=== PATIENT | female | born 1955 | race African-American/Black ===

== ENCOUNTER 2016-12-28 02:42 | Inpatient (IN) | payer OTHER ==
[2016-12-28] MEDS ORDERED: Fentanyl 20 MCG/ML 250 ML ONE (03:33)
[2016-12-28] MEDS ORDERED: Propofol 1,000 MG/100 ML VIAL IV ONE (03:44)
[2016-12-28 04:37] LABS: Oxyhemoglobin 93.9 % (94.0-97.0); Sodium 149 mmol/L (135-148)
[2016-12-28 04:39] LABS: Modified Allen's Test POSITIVE; Vent YES
[2016-12-28 04:41] LABS: Mechanical Tidal Volume 500 ml; Mode SIMV; Pressure Support 10 cmH2O
[2016-12-28 05:04] LABS: Bilirubin Negative (Negative); Blood, Urine Moderate (Negative); Glucose, Urine (Dipstick) Negative (Negative); Ketone, Urine Negative (Negative); Nitrite Negative (Negative); Protein, Urine (Dipstick) 100 mg/dL (Neg-Trace); Urobilinogen 0.2 mg/dL (0.2-1.0)
[2016-12-28 05:10] LABS: Bacteria/HPF 1+ HPF (None Seen); Hyaline Casts/LPF 4-6 HYALINE CAST LPF (0-3 Hyaline); RBC/HPF 0-3 HPF (0-3); Squamous Epithelial None Seen HPF (0-3); WBC/HPF 21-50 HPF (0-3)
[2016-12-28] MEDS ORDERED: Sodium Bicarb 50 MEQ/50 ML Abboject 8.4% SYRINGE ONE ×3 (05:13→08:45)
--- NOTE | 2016-12-28 05:17 | ER ---
DATE OF SERVICE: 12/28/2016 Please refer to the patient's electronic medical record for further details of her visit. In summary, the patient presents in transfer from an outlying facility with reported urosepsis. She was diagnosed with urinary tract infection approximately 3 days ago and started on oral antibiotics . By report, her family brought her to the emergency room tonight with altered mentation and some c ombativeness. She was agitated at the outlying facility and received Ativan, which reportedly calme d her significantly. She had a normal brain CT without acute findings, and a chest x-ray which show ed no acute abnormalities. On arrival, the patient was obtunded, but could answer occasional questi ons. I was concerned for airway protection given her sonorous respirations and difficulty staying a wake. However, given her comorbid conditions of morbid obesity and previous tracheostomy, I consult ed with Anesthesia as well as an ENT and Trauma Surgery for possible tracheostomy placement. Ultima tely, the patient was intubated in the emergency department by Anesthesia without complication or hy poxia. The patient's initially borderline blood pressure improved with IV fluids, and she is actual ly hypertensive at this point. She was hydrated with further IV fluids and covered with antibiotics . Her source is likely urinary, given the findings on urinalysis. She was also noted to have acute renal insufficiency along with metabolic acidosis. Her potassium does not require intervention at this point. She was sedated following intubation, and remained stable during the remainder of her E R course to this point. I discussed her case with Dr. Velazquez and Dr. La, who were agreeable to ICU admission. The patient's family was not present during her ER course this morning, and I was un able to communicate findings or plan with them. She is in guarded condition at the time of admissio n.
--- NOTE | 2016-12-28 06:30 | PDOC.EVN ---
Event Note - Event Note Event Note: H&P Dictated [id number] 1. Sepsis 2. Metabolic acidosis 3. Acute respiratory failure 4. UTI 5, CKD Stage 4 plan: see orders
[2016-12-28] MEDS ORDERED: DISCONTINUE PREVIOUS NARCOTIC PAIN MEDICATIONS AND BENZODIAZEPINES FS SCH (07:19)
[2016-12-28] MEDS ORDERED: Lorazepam 2 MG/ML VIAL SLOW IVP PRN (07:19)
[2016-12-28] MEDS ORDERED: Morphine 4 MG/ML Carpuject SLOW IVP PRN (07:19)
[2016-12-28] MEDS: FOSPHENYTOIN SODIUM IVPB SCH ×3 (07:25→21:44)
[2016-12-28] MEDS: ADMIXTURE FEE IVPB SCH ×3 (07:25→21:44)
[2016-12-28] MEDS: Levothyroxine 100 MCG SDV IVP SCH (07:25)
[2016-12-28] MEDS: Sodium Bicarbonate 150 MEQ in Dextrose 5% in Water 1,000 ML IV SCH ×4 (07:25→20:12)
[2016-12-28] MEDS: SODIUM CHLORIDE IVPB SCH ×3 (07:25→21:44)
--- NOTE | 2016-12-28 07:37 | HP ---
DATE OF ADMISSION: 12/28/2016 CHIEF COMPLAINT: Altered mental status. HISTORY OF PRESENT ILLNESS: Patient is 61 years old female with past medical history of hypertensio n; CKD, stage 4; anemia; seizure disorder; diabetes; cervical cancer; status post diversional colost tracy; morbid obesity; now came to the ER, because of altered mental status. The patient was diagnose d as having UTI and was getting antibiotic as an outpatient. The patient was confused for the last couple of days, so patient was taken to outside ER. In the outside ER, patient was suspected of hav ing a sepsis, so patient was transferred here. Upon ER arrival, the patient was severely acidotic a nd patient was lethargic and not able to protect airway, so the patient was intubated by the Anesthe servando in the ER. By the time I saw the patient, the patient was intubated, so I am not able to get an y history from the patient. PAST MEDICAL HISTORY: As per HPI. PAST SURGICAL HISTORY: Per chart, positive for colostomy, history of ileal conduit placement, nephr ostomy tube placement, and bilateral tubal ligation. SOCIAL HISTORY: No smoking, no alcohol, no drugs. FAMILY HISTORY: Positive for diabetes. MEDICATIONS: Reviewed. ALLERGIES: Reviewed. REVIEW OF SYSTEMS: None available from the patient, as the patient is currently intubated. PHYSICAL EXAMINATION: CONSTITUTIONAL/VITAL SIGNS: At the time of H and P performed, blood pressure is 130/70, heart rate 88, pulse ox 100% on ventilator. GENERAL: The patient is lethargic. HEENT: Anterior nares patent. Oral cavity, positive for ET tube. NECK: Supple. No JVD. CARDIOVASCULAR SYSTEM: S1 and S2 present. Regular rate and rhythm, no murmurs, no rubs, no gallops . RESPIRATORY SYSTEM: Positive for rhonchi, diminished breath sounds, no wheezing, on ventilator supp ort. GASTROINTESTINAL: Abdomen positive for colostomy bag, positive for ileostomy. MUSCULOSKELETAL: No edema. CRANIAL NERVE SYSTEM: Sedated and intubated, not following any commands. PSYCHIATRIC: Not able to assess at this time. INTEGUMENTARY: Dry skin. LABORATORY DATA: At the time of H and P performed, pH 7.10, pCO2 of 36, pO2 of 86, bicarbonate is 2 11. Troponin 0.030. UA: Moderate blood, moderate leukocyte esterase, 21-50 WBCs, 1+ bacteria in u rine. White count, in the outside hospital, 11.9, hemoglobin 11.1, platelets count is 259, bands 13 %. ASSESSMENT AND PLAN: The patient is 61 years old female. 1. Acute respiratory failure, probably secondary to severe metabolic acidosis. Plan to monitor pat ient closely. Continue BiPAP. Plan to consult Pulmonary to evaluate the patient. 2. Severe metabolic acidosis. We will go ahead and give 1 ampule of bicarbonate push now. We will go ahead and start patient on bicarbonate drip and we will consult Nephrology to evaluate the patie nt also. Does not need dialysis at this time. We will monitor serial lactate levels. 3. Sepsis secondary to urinary tract infection. Plan to start patient on broad-spectrum antibiotic s. Plan to monitor the patient closely. Plan to do blood cultures also. 4. Urinary tract infection. Continue IV antibiotics. 5. History of seizures. Plan is to start the patient on IV Dilaudid 10 mg q.8 hours. 6. History of hypothyroidism. Continue Synthroid 50 mcg IV daily. The case was discussed in detail with the patient and ED physician and ED nurse also.
[2016-12-28 07:48] LABS: Oxyhemoglobin 97.4 % (94.0-97.0); Sodium 150 mmol/L (135-148)
[2016-12-28 07:53] LABS: Mechanical Tidal Volume 500 ml; Mode SIMV; Pressure Support 10 cmH2O; Vent YES
[2016-12-28] MEDS: Propofol 1,000 MG/100 ML VIAL IV PRN ×3 (07:56→20:12)
[2016-12-28] MEDS ORDERED: Cefepime 1 GM, Admixture Fee 1 EACH in Sodium Chloride 0.9% 100 ML IVPB SCH (08:00)
[2016-12-28] MEDS ORDERED: Sodium Bicarb 50 MEQ/50 ML Abboject 8.4% SYRINGE IVP SCH ×2 (08:15→09:45)
[2016-12-28 08:20] LABS: Troponin I 0.033 ng/mL (< 0.028)
--- NOTE | 2016-12-28 09:16 | RAD ---
PORTABLE AP CHEST XRAY: DATE: 12/28/16. HISTORY: Altered mental status. COMPARISON: 12/28/16 at 0102 hours. FINDINGS: There has been interval placement of an endotracheal tube with the tip overlying the T3 vertebral edie dy above the level of the kellie. Nasogastric tube has also been placed in the interim which course s into the left upper quadrant, but the tip is not visualized. Again noted is enlargement of the ca rdiac silhouette with a suggestion of tiny bilateral pleural effusions. Pulmonary vasculature is wi thin normal limits. No other interval change. IMPRESSION: 1. Interval placement of an endotracheal tube and nasogastric tube. 2. Tiny bilateral pleural effusions. 3. Cardiomegaly. POS: MED
--- NOTE | 2016-12-28 09:20 | CT ---
PRELIMINARY REPORT/[facility]/EMERGENCY AFTER HOURS PROCEDURE: EXAM: CT Abdomen and Pelvis Without Intravenous Contrast CLINICAL HISTORY: 61 years old, female; Pain; Abdominal pain; Generalized; Patient HX: Pain, evaluate TECHNIQUE: Axial computed tomography images of the abdomen and pelvis without intravenous contrast. Coronal reformatted images were created and reviewed. COMPARISON: No relevant prior studies available. FINDINGS: Lower thorax: Cardiomegaly with a small moderate pericardial effusion There is minimal bibasilar ate lectasis. ABDOMEN: Liver: Unremarkable. No ductal dilation. Pancreas: Unremarkable. No ductal dilation. Spleen: Unremarkable. No splenomegaly. Adrenals: Unremarkable. No mass. Kidneys and ureters and bladder: Patient status post cystectomy with urinary diversion. Mild bilater al hydroureteronephrosis. Stomach and bowel: Colectomy changes. Bilateral lower abdominal ostomies. Small parastomal hernia is seen bilaterally containing small bowel. No evidence of inflammatory changes. No obstruction. Appendix: See above. PELVIS: Reproductive: Hysterectomy. Pelvic postsurgical changes. ABDOMEN and PELVIS: Intraperitoneal space: No free air. No significant fluid collection. Bones/joints: Soft tissue irregularity/laceration overlying the inferior sacrum/coccyx. Osteomyeliti s not excluded. Metallic fragment seen adjacent to the left posterior aspect of the sacrum. Marked degenerative changes of the pubic symphysis. No acute fracture. No dislocation. Vasculature: Unremarkable. No abdominal aortic aneurysm. Lymph nodes: Unremarkable. No enlarged lymph nodes. Tubes, lines and devices: Enteric tube noted with tip terminating within the stomach. IMPRESSION: 1. Patient status post cystectomy with urinary diversion. Mild bilateral hydroureteronephrosis. Add itional postsurgical changes as described. 2. Soft tissue irregularity/laceration overlying the inferior sacrum/coccyx. Osteomyelitis not exclu ded. 3. Bilateral lower abdominal ostomies. Small parastomal hernias seen bilaterally containing small edie wel. No evidence of inflammatory changes. No obstruction. 4 . Cardiomegaly with a small moderate pericardial effusion Thank you for allowing us to participate in the care of your patient. Dictated and Authenticated by: Daniel Sutton MD 12/28/2016 6:46 AM Central Time ([place] \T\ [place]) FINAL REPORT ABDOMEN AND PELVIC CT NONCONTRAST: COMPARISON: 08/23/16. FINDINGS/IMPRESSION: I agree with the above-provided preliminary interpretation. Marked soft tissue abnormality with air and fluid density overlying the cortically disrupted sacrum and coccyx compatible with large decubitus ulceration and underlying bone destruction. Correlate cl inically to exclude evidence of active osteomyelitis. Limited evaluation without IV or enteric contrast with additional details described above. POS: REGINE
[2016-12-28] MEDS: Famotidine/PF 20 mg/2ml Vial SLOW IVP SCH (09:38)
[2016-12-28] MEDS: Heparin 5,000 UNITS/ML VIAL SC SCH ×3 (09:38→20:12)
--- NOTE | 2016-12-28 10:36 | PRG ---
DATE OF SERVICE: 12/28/2016 SERVICE: Renal Medicine. SUBJECTIVE: Ms. Lorenzana is a 61-year-old old black female with known multiple medical problems includi ng her chronic kidney problem and admitted for mental status change. She was also noted to be sever georgiana acidotic. We are now being consulted for her acute kidney injury on top of her chronic renal fa ilure. Please note that the patient, a few days ago, fell down. She was seen at the ER and was giv en some muscle relaxant. Since that time, she became more confused. At the ER, was noted to have s everely confused. We are now being consulted for her worsening renal function. REVIEW OF SYSTEMS: Not obtainable since the patient is intubated and on ventilator support. MEDICATIONS: Currently on cefepime 1.5 grams daily, Pepcid 20 mg IV daily, fosphenytoin 100 mg IV e very 8 hours, heparin 5000 units subcutaneous t.i.d., Synthroid 100 mcg IV, Ativan 2 mg IV p.r.n., Z ofran 4 mg IV q.6 hours, sodium bicarbonate drip, vancomycin 1.5 grams q.4-8 hours. PAST MEDICAL HISTORY: 1. Chronic renal failure -- my last creatinine with her was about 3.75. 2. Seizure disorder. 3. Cervical carcinoma, in remission. 4. Depression. 5. Status post right hydronephrosis. 6. Chronic low back pain. 7. Uterine cancer, status post radiation. 8. History of bilateral hydronephrosis. 9. Chronic interstitial nephritis. 10. Hyperlipidemia. PAST SURGICAL HISTORY: 1. Status post nephrostomy tube placement. 2. Status post colostomy. 3. Status post bilateral tubal ligation. 4. Status post ureterostomy with ileostomy placement/ileal conduit. 5. Status post upper and lower GI endoscopy. 6. Recently status post intubation. 7. Status post ablation therapy of vaginal dysplasia. 8. Status post ureteral stent placement. 9. Status post hysterectomy. 10. Status post cholecystectomy. SOCIAL HISTORY: The patient lives in [place] with her sister. She has 3 children. Sedentary life style. No drug abuse. Status post blood transfusion. Medically disabled. No history of smoking. No IV drug abuse. FAMILY HISTORY: Positive family history of ESRD. ALLERGIES: IODINE, DIPHENHYDRAMINE, TOLTERODINE. IMMUNIZATIONS: Up-to-date. HOSPITALIZATIONS: Please see past medical history. PHYSICAL EXAMINATION: VITAL SIGNS: Blood pressure is noted at 117/79, heart rate 49, respiratory rate 17, pulse ox 100%. GENERAL: The patient is sedated and intubated on ventilator support. SKIN: Adequate turgor. HEENT: She has pinkish conjunctivae and anicteric sclerae. NECK: No neck mass, no carotid bruits, no JVD. CHEST: No deformities. LUNGS: Decreased breath sounds. HEART: Bradycardic. No murmur, no gallops, and no rubs. ABDOMEN: Globular, soft. Positive for ileostomy. EXTREMITIES: No edema. NEUROLOGICAL EXAM: Sedated. LABORATORY DATA: Laboratories of 12/27/2016: Sodium 143, potassium 4.5, chloride 124, carbon dioxi de is 9, BUN 60, creatinine 5.79, glucose 105, AST 20, ALT 18, albumin 3.8, troponin I 0.033. White count 11.9, hemoglobin 11.1, hematocrit 38.5. ASSESSMENT AND PLAN: 1. Acute kidney injury on top of her chronic renal failure. Consider superimposed prerenal azotemi a with most recent evidence of decreased p.o. intake and mental status change. Currently on isotoni c bicarbonate. At the present time, we will hold off any dialytic intervention. Please note, her p otassium is 4.5. She is currently on isotonic bicarbonate. If no significant improvement, we may n eed to consider dialytic intervention. I did discuss this at length with the patient's sister. 2. Metabolic acidosis. Continue isotonic bicarbonate. If no improvement, consider dialytic interv ention. 3. Mental status change, having this could be secondary to a drug ingesting. However, the patient is being empirically treated with IV antibiotics for possible sepsis. Overall, prognosis remains guarded.
--- NOTE | 2016-12-28 10:47 | CON ---
DATE OF SERVICE: 12/28/2016 SERVICE: Pulmonary Medicine. REASON FOR CONSULTATION: Respiratory failure. HISTORY OF PRESENT ILLNESS: The patient is a 61-year-old -[place] female with past medical history significant for chronic kidney disease. She also had multiple procedures. One of which is an ileal conduit. She had increasing altered mentation and was brought to the emergency department. Broad spectrum antibiotics were initiated. She had horrendous acidosis which was primarily non-gap with a negative lactate. She ended up getting a little bit of bicarbonate. She is currently on bicarbonate drip. Otherwise, there has been no interval change to her condition. PAST MEDICAL HISTORY: 1. Type 2 diabetes mellitus. 2. Hypertension. 3. Dyslipidemia. 4. Chronic kidney disease, stage 4. 5. Anemia of chronic kidney disease. 6. Seizure disorder. 7. History of cervical cancer, status post diversion colostomy. 8. Morbid obesity. PAST SURGICAL HISTORY: 1. Nephrostomy tube placement. 2. Colostomy placement. 3. Bilateral tubal ligation. 4. Cholecystectomy. 5. Hysterectomy. 6. Ileal conduit procedure. ALLERGIES: IV DYE, BETADINE, and DETROL. MEDICATIONS: List of inpatient medications was reviewed. Multiple updates were made at this time. FAMILY HISTORY: Noncontributory. SOCIAL HISTORY: Negative for alcohol, tobacco or illicit drug use. REVIEW OF SYSTEMS: This could not be obtained as the patient is currently intubated and sedated. PHYSICAL EXAMINATION: VITAL SIGNS: Afebrile. Pulse 49, blood pressure 117/79, respirations 17, saturation 100% on 28% FiO2. HEENT: Normocephalic, atraumatic. Sclerae are white, conjunctivae pink. Oral and nasal mucosa is moist without lesions. LUNGS: Excellent air entry. Some rhonchi are present. There is no prolonged expiratory phase, wheezing, rhonchi or crackles. HEART: Bradycardic. Regular. ABDOMEN: Soft, nontender, nondistended, bowel sounds positive. She has a colostomy and ileostomy with cloudy fluid coming out of it. She is also dripping apparent urine from possible previous suprapubic catheter. MUSCULOSKELETAL: No cyanosis or clubbing. No pitting in the bilateral lower extremities. NEUROLOGIC: Grossly nonfocal. LABORATORY DATA: A pH 7.19, pCO2 31, pO2 204 on 40% FiO2. Troponin 0.03 and gently up trending, lactate is unremarkable. Urinalysis is positive for 21-50 white blood cells. Bicarbonate 9 and creatinine 5.79. Basic metabolic profile and liver function studies are otherwise unremarkable. Urine drug screen is unremarkable. CBC is also essentially unremarkable with a normal differential, though there are 13% bands. IMAGIN. CT of the abdomen and pelvis demonstrates status post colostomy with urinary diversion. Mild bilateral hydronephrosis. Post-surgical changes are otherwise identified. Soft tissue irregularity/laceration over the inferior sacrum/coccyx. Osteomyelitis is not excluded. Bilateral lower abdominal ostomies are present. Cardiomegaly with a small pericardial effusion is present. 2. Chest x-ray demonstrates cephalization of the bilateral lung franco with increased interstitial markings, bilateral pleural effusions, enlarged cardiac silhouette, all consistent with volume overload. 3. CT of the brain demonstrates no acute intracranial abnormality. ASSESSMENT: 1. Metabolic encephalopathy. 2. Non-anion gap metabolic acidosis secondary to ileal conduit. 3. Chronic kidney disease, stage 4. 4. Severe sepsis secondary to possible genitourinary infection versus sacral wound infection. 5. Decubitus ulcer of the sacrum, present on admission. PLAN: The patient has been started on bicarbonate drip. We will give her 3 additional amps of bicarbonate. After these are in, we will back off of the respiratory rate and see if we can come off of the propofol. If she wakes up smoothly, spontaneous breathing trial will be considered prior to possible extubation at some point today. My suspicion is that the patient ended up getting significantly acidotic creating altered mentation. I am not absolutely convinced that we are dealing with an infectious process, so I think it is prudent to continue these empiric antibiotics at this time. Dr. Gallegos and Dr. Mitchell will both be consulted. Pulmonary or Critical Care will continue to follow while she remains in the ICU. CRITICAL CARE TIME: 45 minutes. IVONE
--- NOTE | 2016-12-28 12:32 | PDOC.PN ---
- Subjective Encounter Start Date: 12/28/16 Encounter Start Time: 12:32 pt intubated no f/c - Objective MAR Reviewed: Yes Vital Signs & Weight: Vital Signs (12 hours) Temp Pulse Resp BP Pulse Ox 12/28/16 12:00 98.7 F 12/28/16 10:20 58 L 144/71 H 12/28/16 10:00 16 12/28/16 08:00 97.9 F 65 13 100 12/28/16 07:34 97.9 F 12/28/16 06:35 85 Weight Weight 227 lb 1.218 oz Most Recent Monitor Data Heart Rate from ECG 69 NIBP 128/62 NIBP BP-Mean 111 Respiration from ECG 13 SpO2 100 I&O: 12/27/16 12/28/16 12/29/16 06:59 06:59 06:59 Intake Total 200 Balance 200 Phys Exam - Physical Examination intubated HEENT: PERRLA Neck: no JVD Respiratory: no wheezing some rhonchi Cardiovascular: no significant murmur ileostomy and colostomy in place Musculoskeletal: pulses present intubated, sedated Dx/Plan (1) Altered mental state Code(s): R41.82 - ALTERED MENTAL STATUS, UNSPECIFIED Status: Acute (2) Acute respiratory failure Code(s): J96.00 - ACUTE RESPIRATORY FAILURE, UNSP W HYPOXIA OR HYPERCAPNIA Status: Acute (3) Metabolic acidosis Code(s): E87.2 - ACIDOSIS Status: Acute Comment: (4) Sepsis Code(s): A41.9 - SEPSIS, UNSPECIFIED ORGANISM Status: Acute (5) UTI (urinary tract infection) Status: Acute (6) Bilateral hydronephrosis Code(s): N13.30 - UNSPECIFIED HYDRONEPHROSIS Status: Chronic (7) HTN (hypertension) Code(s): I10 - ESSENTIAL (PRIMARY) HYPERTENSION Status: Chronic Qualifiers: (8) Sacral decubitus ulcer, stage IV Code(s): L89.154 - PRESSURE ULCER OF SACRAL REGION, STAGE 4 Status: Chronic Comment: POA (9) Seizure disorder Code(s): G40.909 - EPILEPSY, UNSP, NOT INTRACTABLE, WITHOUT STATUS EPILEPTICUS Status: Chronic - Plan * cont abx * sepsis due to uti * pulm and renal input appreciated * cont bicarb drip
[2016-12-28] MEDS ORDERED: Meropenem 500 MG in Sodium Chloride 0.9% 100 ML IVPB SCH (14:00)
[2016-12-28] MEDS ORDERED: Heparin 5,000 UNITS/ML VIAL ONE (15:24)
[2016-12-28] MEDS ORDERED: FLU VACC QS2017-18 36 mo. & older 0.5 ML SYRINGE IM ONE (21:00)
[2016-12-29] MEDS: Propofol 1,000 MG/100 ML VIAL IV PRN ×5 (01:40→22:16)
[2016-12-29 04:30] LABS: #Eosinphils 0.2 thou/uL (0.0-0.7); #Lymphocytes 1.4 thou/uL (1.20-3.40); #Monocytes 0.7 thou/uL (0.11-0.59); #Neutrophils 8.4 thou/uL (1.40-6.50); %Basophils 0.3 % (0.0-1.0); %Eosinophils 1.7 % (0.0-10.0); %Monocytes 6.1 % (0.0-10.0); Hematocrit 29.3 % (36.0-47.0); Mean Platelet Volume 8.8 fL (7.4-10.4); Red Blood Cell (RBC) Count 3.26 mill/uL (4.20-5.40); White Blood Cell (WBC) Count 10.7 thou/uL (4.8-10.8)
[2016-12-29 04:35] LABS: Anion Gap 19 mmol/L (10-20); BUN (Urea Nitrogen) 56 mg/dL (9.8-20.1); Calc. Creatinine Clearance 20 mL/min (70-130); Calcium 8.3 mg/dL (7.8-10.44); Carbon Dioxide 14 mmol/L (23-31); Chloride 122 mmol/L (98-107); Estimated GFR-MDRD 11
[2016-12-29] MEDS: SODIUM CHLORIDE IVPB SCH ×3 (05:45→21:14)
[2016-12-29] MEDS: ADMIXTURE FEE IVPB SCH ×3 (05:45→21:14)
[2016-12-29] MEDS: FOSPHENYTOIN SODIUM IVPB SCH ×3 (05:45→21:14)
[2016-12-29] MEDS: Levothyroxine 100 MCG SDV IVP SCH (05:48)
--- NOTE | 2016-12-29 06:06 | CON ---
DATE OF CONSULTATION: 12/28/2016 HISTORY OF PRESENT ILLNESS: This is a 61-year-old female I have seen for a number of years. She initially had what was probably cervical cancer that was treated with radiation and s he had an awful result from that in terms of a bladder injury from the radiation, although it appear s that it did cure her cancer. 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 It was after this, which was about 8 years ago that she underwent a urinary and colon diversion. Dr. Gonzales did a right-sided c olostomy and I did not an ileal conduit, but a colonic conduit to her left lower quadrant. She has maintained bilateral hydro since the days of her neurogenic bladder, but this is not worse and she h as also had renal insufficiency that has been fairly severe and she sees Dr. Mitchell for that, but she i s not on dialysis. She was in couple of months ago and had prerenal azotemia that responded to flui ds. It was thought that perhaps her conduit was stenotic and a catheter had been placed through it although and this was removed. She continued to have improvement in her renal function. She has be en making urine. Her appliance was not attached well and she was leaking urine all over the bed tod ay according to the nurse, but they have had an ostomy nurse see her and she has got a nice applianc e on it now that is not leaking and she is making urine through that. I am not able to access any l ab records on her apart from her blood gases, but I was told by Dr. Richard that her creatinine was a lready improving on hydration. She came in with altered mental status and it is possibly related to her azotemia and acidemia. In any event, she has been extubated and she is on bicarbonate drip and thoughts are to hopefully extubate her in the next day or so. According to Dr. Mitchell, we talked with her family. She had fallen recently and was in the ER and given muscle relaxants and her mentation has not been right since either the fall or perhaps related to some sedation effects from the muscle relaxants. She is intubated now and sedated. Her CAT scan, I have reviewed, she has still some mi [id number] hydro bilaterally, this is unchanged. It does not appear that her colon conduit is d istended. PHYSICAL EXAMINATION: She has a site in her suprapubic region that is an old fistula site that she has had ever since at least 8 or 9 years and this drains cloudy sometimes yellow, sometimes slightly bloody fluid, which is not urine as her urinary tract has been diverted. Her colon stoma appears p ink and healthy and it easily accepts my index finger, so she does not have a stenotic conduit. At this point in time, I do not know if she has sepsis or not. It is possible that her mental status c hanges are more related to her acid base status than to a septic process, but she does have jose alfredoan ding problems with sacral decubiti and she is somebody that could have a urologic source for sepsis, although it is going to be difficult to document that as her urinalysis is going to be abnormal and very well may grow something based solely on colonization. Blood cultures were done and grew out a n organism and I would feel more confident in thinking that she was actually septic, but in any even t at this point in time, she has been covered with broad-spectrum antibiotics. So, there is nothing that needs to be done in terms of any drainage to her urinary tract system. Her acid-base status i s being corrected both through ventilation as well as through bicarbonate. The thoughts are she anderson l be extubated in the next day or so. She has got cultures at least of the urine that are growing a gain these may not be valuable unless they are negative in terms of the urinary tract source. I anderson moraes swing by and check on her tomorrow. I did talk with Dr. Richard about her.
[2016-12-29] MEDS: Sodium Bicarbonate 150 MEQ in Dextrose 5% in Water 1,000 ML IV SCH ×4 (06:26→17:55)
[2016-12-29] MEDS ORDERED: Sodium Bicarbonate 75 MEQ in Dextrose 5% in Water 1,000 ML IV SCH ×2 (08:24)
[2016-12-29 08:42] LABS: Sodium 142 mmol/L (135-148)
[2016-12-29 08:43] LABS: Mechanical Tidal Volume 430 ml; Mode SIMV/PSV; Modified Allen's Test NOT DONE; Pressure Support 10 cmH2O; Vent YES
[2016-12-29] MEDS: Famotidine/PF 20 mg/2ml Vial SLOW IVP SCH (09:13)
[2016-12-29] MEDS: Cefepime 0.5 GM, Admixture Fee 1 EACH in Sodium Chloride 0.9% 100 ML IVPB SCH (09:13)
[2016-12-29] MEDS: Heparin 5,000 UNITS/ML VIAL SC SCH ×3 (09:14→21:13)
[2016-12-29] MEDS: Vancomycin HCl 1.5 GM in Sodium Chloride 0.9% 250 ML 300 ML IVPB SCH (10:30)
[2016-12-29] MEDS: hydrALAZINE 20 MG/ML VIAL SLOW IVP PRN (10:54)
--- NOTE | 2016-12-29 11:09 | PRG ---
DATE OF SERVICE: 12/29/2016 SUBJECTIVE: Ms. Lorenzana is a 61-year-old black female who was seen for an acute kidney injury on top o f her chronic renal failure. She has also been seen by Urology due to this mild to moderate hydrone phrosis which is relatively chronic and unchanged in nature. This morning she had a mild hyperkalem ia. She was given Kayexalate. However, this patient has a colostomy and ileostomy. The Kayexalate may not be very effective. Since the potassium is borderline I would simply to observe this. I wi ll adjust some bicarbonate drip with this patient. I do not think there is any indication for dialy tic intervention since the patient's renal function has been improving. Please note the patient is still unresponsive to verbal stimuli. PHYSICAL EXAMINATION: VITAL SIGNS: Blood pressure 181/96, heart rate 92, respiratory rate 17, pulse ox 94%. GENERAL: Patient is unresponsive, intubated on ventilator support. SKIN: Adequate turgor. HEENT: Slightly pale conjunctivae, anicteric sclerae. NECK: No neck mass, no carotid bruits, no JVD. CHEST: No deformities. LUNGS: Decreased breath sounds. No wheezing, no crackles. HEART: Normal sinus rhythm. No murmur, no gallops, no rubs. ABDOMEN: Globular, soft, nontender, no masses. EXTREMITIES: No edema. Please note she has colostomy and ileostomy. MEDICATIONS: 12/29/2016 - Reviewed. LABORATORY DATA: 12/29/2016 - Sodium 140, potassium 6.0, chloride 122, carbon dioxide 14, BUN 56, c reatinine 5.0, calcium 8.3. ASSESSMENT AND PLAN: 1. Acute kidney injury on top of her chronic renal failure - slightly improved creatinine from 5.7 to a most recent value of 5.0. Continue IV hydration. Due to the persistent metabolic acidosis I h ave converted to isotonic bicarbonate. 2. Metabolic acidosis, slowly improving. Continue isotonic bicarbonate at 125 mL per hour. 3. Mild hyperkalemia. IV fluid changed to full isotonic bicarbonate. Hopefully, this will help wi th the hyperkalemia. Please note that I did review the patient's medications today. She is not on any nephrotoxic drugs. Again, no indication for any emergent dialytic intervention. Continue suppo rtive care. 4. Sepsis. Continue IV antibiotics.
--- NOTE | 2016-12-29 12:52 | PDOC.PN ---
- Subjective Encounter Start Date: 12/29/16 Encounter Start Time: 12:50 intubated minimal et tube secretions no f/c - Objective Vital Signs & Weight: Vital Signs (12 hours) Temp Pulse Resp BP Pulse Ox 12/29/16 12:00 99.1 F 19 94 L 12/29/16 10:54 51 L 12/29/16 10:00 17 12/29/16 08:00 99.2 F 19 12/29/16 07:30 99.2 F 51 L 13 98 12/29/16 06:17 74 136/59 L 12/29/16 05:52 0 L 12/29/16 04:00 99.5 F 12/29/16 03:55 0 L 12/29/16 02:00 0 L Weight Admit Weight 227 lb Weight 232 lb 5.875 oz Most Recent Monitor Data Heart Rate from ECG 119 NIBP 170/97 NIBP BP-Mean 111 Respiration from ECG 22 SpO2 92 I&O: 12/28/16 12/29/16 12/30/16 06:59 06:59 06:59 Intake Total 2904.1 724.2 Output Total 367 315 Balance 2537.1 409.2 Result Diagrams: 12/29/16 03:38 12/29/16 03:38 Phys Exam - Physical Examination intubated and sedated HEENT: moist MMs Neck: no JVD coarse bs Cardiovascular: RRR Gastrointestinal: non-tender colostomy present Musculoskeletal: pulses present Neurological: moves all 4 limbs Deviation from normal: decubitus ulcer Dx/Plan (1) Altered mental state Code(s): R41.82 - ALTERED MENTAL STATUS, UNSPECIFIED Status: Acute (2) Acute respiratory failure Code(s): J96.00 - ACUTE RESPIRATORY FAILURE, UNSP W HYPOXIA OR HYPERCAPNIA Status: Acute (3) Metabolic acidosis Code(s): E87.2 - ACIDOSIS Status: Acute Comment: (4) Sepsis Code(s): A41.9 - SEPSIS, UNSPECIFIED ORGANISM Status: Acute (5) UTI (urinary tract infection) Status: Acute (6) Bilateral hydronephrosis Code(s): N13.30 - UNSPECIFIED HYDRONEPHROSIS Status: Chronic (7) HTN (hypertension) Code(s): I10 - ESSENTIAL (PRIMARY) HYPERTENSION Status: Chronic Qualifiers: (8) Sacral decubitus ulcer, stage IV Code(s): L89.154 - PRESSURE ULCER OF SACRAL REGION, STAGE 4 Status: Chronic Comment: POA (9) Seizure disorder Code(s): G40.909 - EPILEPSY, UNSP, NOT INTRACTABLE, WITHOUT STATUS EPILEPTICUS Status: Chronic - Plan * cont vent support * cont abx * f/u shirt trimmer and renal plan * f/u labs * culture neg so far
--- NOTE | 2016-12-29 13:32 | PRG ---
DATE OF SERVICE: 12/29/2016 SERVICE: Pulmonary Medicine. INTERVAL HISTORY: The patient is doing poorly today. Her mentation has not improved very much. Yoselin bocanegra continues to have persistent encephalopathy. She also has severe metabolic derangements. She can not provide me additional elements of the history. Otherwise, there were no overnight events. PHYSICAL EXAMINATION: VITAL SIGNS: Afebrile with a T-max of 99.5, pulse 95, blood pressure 158/73, respirations 22, satur ation 92% on 21% FiO2 and a PEEP of 5. GENERAL: The patient is intubated and under the influence of some sedation. She also has a global encephalopathy present. LUNGS: Decent air entry with no prolonged expiratory phase, wheezing, rhonchi, or crackles. HEART: Normal rate, regular. ABDOMEN: Soft, nontender, nondistended. Bowel sounds positive. MUSCULOSKELETAL: No cyanosis or clubbing. No pitting in the bilateral lower extremities. NEUROLOGIC: Grossly nonfocal. LABORATORY DATA: WBC 10.7, hemoglobin 9.2, platelets 204,000. PH 7.40, pCO2 84, pO2 45. Creatinin e 5.0 and downtrending. BUN 56. Potassium 6.0 with an up-trending sodium of 149 as well as a chlor brianna of 122. Lactate remains unremarkable. TSH is normal at 0.6. Blood cultures x2 and urine cultu re negative to date. ASSESSMENT: 1. Metabolic encephalopathy. 2. Non-anion gap metabolic acidosis secondary to ileal conduit. 3. Chronic kidney disease, stage 4. 4. Severe sepsis, possible. 5. Decubitus ulcer of the sacrum, longstanding and present on admission. PLAN: We will continue on bicarbonate drip, but we need to add a little bit of free water. I will provide her with a dose of Kayexalate. Tomorrow morning, we will repeat an ABG. Pulmonary Critical Care will continue to follow while the patient remains in-house. Critical care time: 30 minutes.
[2016-12-30] MEDS: Fentanyl 20 MCG/ML 250 ML IVPB SCH (00:07)
[2016-12-30] MEDS: Sodium Bicarbonate 150 MEQ in Dextrose 5% in Water 1,000 ML IV SCH ×2 (02:21)
[2016-12-30] MEDS: Propofol 1,000 MG/100 ML VIAL IV PRN ×6 (02:21→23:55)
[2016-12-30] MEDS: ADMIXTURE FEE IVPB SCH ×3 (05:09→22:16)
[2016-12-30] MEDS: Levothyroxine 100 MCG SDV IVP SCH (05:09)
[2016-12-30] MEDS: FOSPHENYTOIN SODIUM IVPB SCH ×3 (05:09→22:16)
[2016-12-30] MEDS: SODIUM CHLORIDE IVPB SCH ×3 (05:09→22:16)
[2016-12-30 06:20] LABS: #Eosinphils 0.3 thou/uL (0.0-0.7); #Lymphocytes 2.2 thou/uL (1.20-3.40); #Monocytes 0.9 thou/uL (0.11-0.59); #Neutrophils 7.4 thou/uL (1.40-6.50); %Basophils 0.1 % (0.0-1.0); %Eosinophils 2.9 % (0.0-10.0); %Lymphocytes 20.2 % (21.0-51.0); Hematocrit 35.7 % (36.0-47.0); Mean Platelet Volume 7.9 fL (7.4-10.4); Red Blood Cell (RBC) Count 3.88 mill/uL (4.20-5.40); White Blood Cell (WBC) Count 10.8 thou/uL (4.8-10.8)
[2016-12-30 06:43] LABS: Anion Gap 14 mmol/L (10-20); BUN (Urea Nitrogen) 45 mg/dL (9.8-20.1); Calc. Creatinine Clearance 0 mL/min (70-130); Calcium 7.8 mg/dL (7.8-10.44); Carbon Dioxide 25 mmol/L (23-31); Chloride 111 mmol/L (98-107); Estimated GFR-MDRD 13; Magnesium 1.4 mg/dL (1.6-2.6); Phosphorus 3.5 mg/dL (2.3-4.7)
[2016-12-30 08:14] LABS: Modified Allen's Test NOT DONE; Sodium 150 mmol/L (135-148); Vent YES
[2016-12-30 08:15] LABS: Mechanical Tidal Volume 430 ml; Mode SIMV/PSV; Pressure Support 10 cmH2O
[2016-12-30] MEDS: Cefepime 0.5 GM, Admixture Fee 1 EACH in Sodium Chloride 0.9% 100 ML IVPB SCH (08:57)
[2016-12-30] MEDS: Heparin 5,000 UNITS/ML VIAL SC SCH ×3 (09:00→20:19)
[2016-12-30] MEDS: Famotidine/PF 20 mg/2ml Vial SLOW IVP SCH (09:00)
--- NOTE | 2016-12-30 09:20 | PDOC.PN ---
- Subjective Encounter Start Date: 12/30/16 Encounter Start Time: 08:30 -: non-verbal Subjective: INTUBATED - Objective MAR Reviewed: Yes Vital Signs & Weight: Vital Signs (12 hours) Temp Pulse Resp BP 12/30/16 06:35 64 156/77 H 12/30/16 06:00 13 12/30/16 04:00 99.7 F H 11 L 12/30/16 02:00 21 H 12/30/16 00:00 98.4 F 10 L 12/29/16 22:00 11 L Weight Admit Weight 227 lb Weight 3.697 oz Most Recent Monitor Data Heart Rate from ECG 63 NIBP 156/77 NIBP BP-Mean 111 Respiration from ECG 12 SpO2 93 I&O: 12/29/16 12/30/16 12/31/16 06:59 06:59 06:59 Intake Total 2904.1 5485.6 Output Total 367 1480 Balance 2537.1 4005.6 Result Diagrams: 12/30/16 06:12 12/30/16 06:12 Phys Exam - Physical Examination INTUBATED AND AGITATED ETT IN PLACE Neck: supple COARSE Cardiovascular: RRR COLOSTOMY Musculoskeletal: edema present Deviation from normal: SEDATED Dx/Plan (1) Acute respiratory failure Code(s): J96.00 - ACUTE RESPIRATORY FAILURE, UNSP W HYPOXIA OR HYPERCAPNIA Status: Acute (2) Altered mental state Code(s): R41.82 - ALTERED MENTAL STATUS, UNSPECIFIED Status: Acute (3) Acute hypernatremia Code(s): E87.0 - HYPEROSMOLALITY AND HYPERNATREMIA Status: Acute (4) Acute worsening of stage 4 chronic kidney disease Code(s): N28.9 - DISORDER OF KIDNEY AND URETER, UNSPECIFIED; N18.4 - CHRONIC KIDNEY DISEASE, STAGE 4 (SEVERE) Status: Acute (5) Metabolic acidosis Code(s): E87.2 - ACIDOSIS Status: Acute Comment: (6) SBO (small bowel obstruction) Code(s): K56.69 - OTHER INTESTINAL OBSTRUCTION * DO NOT USE * Status: Acute Comment: (7) Sepsis Code(s): A41.9 - SEPSIS, UNSPECIFIED ORGANISM Status: Acute (8) UTI (urinary tract infection) Status: Acute - Plan cont current plan of care, blank catheter, continue antibiotics, respiratory therapy CONDITION GUARDED, APPRECIATE RECCS PER PULMONARY AND RENAL. -: CRITICAL CARE TIME SPENT 36MINS * . - Discharge Day Encounter end time: 09:10
[2016-12-30] MEDS: NS 0.9% w/ 20 MEQ KCL 1,000 ML IV SCH ×2 (10:00→17:09)
--- NOTE | 2016-12-30 10:43 | PRG ---
DATE OF SERVICE: 12/30/2016 SUBJECTIVE: Ms. Lorenzana is a 61-year-old white female who was initially admitted for presumed sepsis, mental status change and we were consulted for her acute kidney injury. At that time, we empiricall y volume repleted her. She was severely at that time and she was given isotonic bicarbonate. She was also mildly hyperkalemic. Her bicarbonate is much improved as well as the renal function w ith gentle volume hydration. The plan is to change her IV fluid from isotonic bicarbonate to normal saline at 125 mL per hour. OBJECTIVE: VITAL SIGNS: Blood pressure is 156/77, heart rate 63, respiratory rate 12, pulse ox 93%. HEENT: The patient still has decreased mentation and intubated on ventilator support. SKIN: Adequate turgor. HEENT: She has pinkish conjunctivae, anicteric sclerae. NECK: No neck mass, no carotid bruits, no JVD. CHEST: No deformities. LUNGS: Decreased breath sounds. HEART: Normal sinus rhythm. No murmur, no gallops or rubs. ABDOMEN: Globular, soft, nontender, no masses. Positive for ileostomy, positive for colostomy. MEDICATIONS: Medications of 12/30/2016 was reviewed. LABORATORY DATA: Laboratories of 12/30/2016; white count 10.8, hemoglobin 11, sodium 147, potassium 3.1, chloride 111, carbon dioxide 25, BUN 45, creatinine 4.34, glucose 95, calcium is 7.8, and phos phorus 3.5. ASSESSMENT AND PLAN: 1. Acute kidney injury superimposed, hemodynamically mediated renal dysfunction, improving renal fu nction with IV hydration. No indication for any dialytic intervention. 2. Metabolic acidosis, much improved. My plan is to change her from isotonic bicarbonate to normal saline with 20 mEq of potassium. 3. Hypokalemia, supportive, p.r.n. replacement. 4. Sepsis - on empiric IV antibiotics. There is no indication for any dialytic intervention.
--- NOTE | 2016-12-30 16:35 | PRG ---
DATE OF SERVICE: 12/30/2016 SUBJECTIVE: This morning, she is intubated on the vent on fentanyl and Diprivan. Apparently, she i s biting the tube. OBJECTIVE: VITAL SIGNS: Blood pressure 156/77, pulse is 83, respirations 18. I's and O's are 5485 in and 1480 out. CHEST: Reveals decreased breath sounds, no wheezing. CARDIAC: Normal S1, S2. No gallops. ABDOMEN: Soft, no masses. NEUROLOGIC: Neurologically . LABORATORY DATA: White count 10,000, hemoglobin and hematocrit 11 and 35, platelet count 240, pO2 i s 56, pCO2 49, pH 7.38, on 21% FiO2, rate of 9, 430 tidal volume, PEEP of 5. BUN and creatinine are 45 and 4.3. Urine is growing Morganella, which is resistant to the present antibiotic coverage. IMPRESSION: 1. Resistant urinary tract infection. 2. Respiratory failure. 3. Morbid obesity. 4. Metabolic acidosis, resolved. 5. Renal failure. 6. Sepsis syndrome. PLAN: She is clearly not weanable at this stage. We will try and decrease sedation. Continue nutr gemma, PT. Consult Infectious Disease to see if we can give her an antibiotic that is sensitive to Morganella. One-half hour of critical care time.
--- NOTE | 2016-12-30 19:33 | CON ---
DATE OF CONSULTATION: 12/30/2016 REASON FOR CONSULTATION: Change in mental status, possible sepsis. HISTORY OF PRESENT ILLNESS: A 61-year-old known to us from previous visits, who has complications following treatment for cervical cancer, which ended up requiring ileostomy and ileal conduit placement. She also had a chronic osteomyelitis of the sacral area, chronic open wound in the presacral region and has been managed with protracted antimicrobial therapy with improvement in clinical symptoms, now she presents with altered mental status and tachypnea and was felt to have urinary infection and was given oral antimicrobials and then eventually was admitted because of concern of sepsis syndrome, particularly in view of the marked acidosis and tachypnea. The acidosis is mostly hyperchloremic non-anion gap, most likely secondary to the superimposition of her chronic renal insufficiency plus the ileal conduit. 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 FAMILY HISTORY: Lung cancer, diabetes mellitus and hypertension. SOCIAL HISTORY: Never a smoker. Lives in [place] with family. ALLERGIES: DIPHENHYDRAMINE and IODINE. MEDICATIONS: Currently, she is receiving cefepime, fentanyl, fosphenytoin, levothyroxine, ondansetron, IV fluids, sodium bicarbonate, and vancomycin. PHYSICAL EXAMINATION: VITAL SIGNS: T-max 99.7, currently 98.9; blood pressure 150/74; pulse 61; respirations anywhere from 9 to 21; O2 sat 99%. SKIN: Shows the area of decubitus ulceration in the presacral region measuring about 3 x 2.5 cm. The wound was packed when I first saw it. I have not been able to evaluate the base of the wound and I am waiting for the natural resource technician to contact me to discuss the findings: She has a peripheral IV access, no central line, and the ileal conduit. She is sedated at this time and was very agitated earlier. HEENT: Pupils are 1 mm and reactive, symmetric. Ocular movements appear to be intact, but she does not follow commands. Orotracheal intubation. LUNGS: With symmetric air entry. HEART: S1, S2, regular rate. No S3 or S4. ABDOMEN: Flat, soft, not distended. Still the anterior area of serous drainage at the site of the possible fistula with a pubic area. LABORATORY DATA: White cell count 10.8, hemoglobin 9.2, MCV 89, platelets 204, ABG: pH 7.1 on arrival, pCO2 of 36, pO2 of 86 and the initial CO2 was 9 with normal anion gap. Potassium 6, sodium 149, creatinine 5. Urinalysis with 21 to 50 wbc's. Urine culture with Morganella morganii, which is resistant to all antimicrobials tested. Two sets of blood cultures, no growth at 48 hours. The patient had a CT of the abdomen and pelvis showed liver, spleen, pancreas not remarkable. There was mild bilateral hydroureteronephrosis, no stones noted, some areas of irregularity in the inferior sacrum and coccyx. ASSESSMENT: 1. Chronic ulcer sacral area following treatment of osteomyelitis at the pubic area as well with possible persistent fistulous tract. 2. Ileal conduit with chronic non-anion gap metabolic acidosis, probably secondary to the ileal conduit plus superimposed renal insufficiency. 3. Worsening of metabolic acidosis associated with the above. 4. Change in mental status. 5. Highly resistant pathogen in the ileal conduit. DISCUSSION: It is likely that the worsening metabolic acidosis is due to the ileal conduit and hemodynamic changes associated with volume depletion, worsening renal insufficiency. The patient has had correction of the acidosis by IV bicarbonate, but she is likely to have recrudescence with metabolic acidosis and probably in the future will need chronic replacement with oral bicarbonate. I am not sure if she has sepsis syndrome at this point. She did not have much of a leukocytosis on arrival. Blood cultures are still negative. She is on broad spectrum coverage, but once the blood cultures returned negative, I would probably discontinue antimicrobial coverage and manage metabolic abnormalities. Regarding the status of the pelvic area, it is looks like the pubic area osteomyelitis under control. The state of the sacral wounds still needs to be revised, but she has a lot of fibrosis in the area, which makes it hard for healing and coverage of the deep tissues to recur. IVONE
[2016-12-31] MEDS: NS 0.9% w/ 20 MEQ KCL 1,000 ML IV SCH ×2 (01:41→09:07)
[2016-12-31 03:38] LABS: #Eosinphils 0.4 thou/uL (0.0-0.7); #Lymphocytes 1.7 thou/uL (1.20-3.40); #Neutrophils 7.3 thou/uL (1.40-6.50); %Basophils 0.4 % (0.0-1.0); %Eosinophils 3.7 % (0.0-10.0); %Monocytes 9.2 % (0.0-10.0); Hematocrit 28.1 % (36.0-47.0); Mean Platelet Volume 7.4 fL (7.4-10.4); Red Blood Cell (RBC) Count 3.05 mill/uL (4.20-5.40); White Blood Cell (WBC) Count 10.3 thou/uL (4.8-10.8)
[2016-12-31 03:57] LABS: Anion Gap 13 mmol/L (10-20); BUN (Urea Nitrogen) 43 mg/dL (9.8-20.1); Calc. Creatinine Clearance 0 mL/min (70-130); Calcium 7.5 mg/dL (7.8-10.44); Carbon Dioxide 27 mmol/L (23-31); Chloride 113 mmol/L (98-107); Estimated GFR-MDRD 14; Magnesium 1.2 mg/dL (1.6-2.6); Phosphorus 3.7 mg/dL (2.3-4.7)
[2016-12-31] MEDS: FOSPHENYTOIN SODIUM IVPB SCH ×3 (05:20→23:27)
[2016-12-31] MEDS: SODIUM CHLORIDE IVPB SCH ×3 (05:20→23:27)
[2016-12-31] MEDS: Levothyroxine 100 MCG SDV IVP SCH (05:20)
[2016-12-31] MEDS: ADMIXTURE FEE IVPB SCH ×3 (05:20→23:27)
[2016-12-31] MEDS: Propofol 1,000 MG/100 ML VIAL IV PRN ×5 (05:28→23:27)
[2016-12-31] MEDS: Heparin 5,000 UNITS/ML VIAL SC SCH ×3 (08:20→20:49)
[2016-12-31] MEDS: Cefepime 0.5 GM, Admixture Fee 1 EACH in Sodium Chloride 0.9% 100 ML IVPB SCH (08:20)
[2016-12-31] MEDS: Famotidine/PF 20 mg/2ml Vial SLOW IVP SCH (08:20)
[2016-12-31] MEDS: Vancomycin HCl 1.5 GM in Sodium Chloride 0.9% 250 ML 300 ML IVPB SCH (08:21)
[2016-12-31] MEDS: 1/2 NS w/KCL 20 mEq 1,000 ML IV SCH ×3 (10:01→23:41)
--- NOTE | 2016-12-31 11:44 | PRG ---
DATE OF SERVICE: 12/31/2016 SUBJECTIVE: This morning, she is intubated on the vent, sedated. PHYSICAL EXAMINATION: VITAL SIGNS: Blood pressure is 189/96, sats are 97%, temperature 100, I's and O's 4845 in and 232 o ut. NEUROLOGICAL: She is sedated. CHEST: Decreased breath sounds, anterior rhonchi. CARDIAC: Sinus tachycardia. ABDOMEN: Massive. EXTREMITIES: Trace edema. LABORATORY DATA: Her white count is 10,000, H\T\H 9 and 28, platelet count 213. Blood gas was obta ined and BUN and creatinine are 43 and 3.8, bicarbonate is 27. IMPRESSION: 1. Metabolic acidosis, resolved. 2. Renal failure. 3. Resistant urinary tract infection. 4. Seizure disorder. 5. Renal failure. PLAN: Infectious Disease was consulted. She is on Maxipime and vancomycin. Presume osteomyelitis sacrum. She is clearly not weanable at this stage. Continue nutrition and supportive care. Bicarb lynn has been discontinued. One-half hour critical care time.
--- NOTE | 2016-12-31 14:22 | PDOC.PN ---
- Subjective Encounter Start Date: 12/31/16 Encounter Start Time: 14:21 Subjective: nonverbal -: restless despite sedation - Objective Vital Signs & Weight: Vital Signs (12 hours) Temp Pulse Resp BP Pulse Ox 12/31/16 12:00 99.6 F 9 L 12/31/16 11:15 87 177/70 H 12/31/16 10:00 15 12/31/16 08:00 17 12/31/16 07:47 97 189/83 H 12/31/16 07:39 100.5 F H 71 24 H 98 12/31/16 07:00 100.5 F H 12/31/16 06:00 13 12/31/16 04:00 98.9 F 12 Weight Admit Weight 227 lb Weight 222 lb 3.615 oz Most Recent Monitor Data Heart Rate from ECG 78 NIBP 195/96 NIBP BP-Mean 118 Respiration from ECG 17 SpO2 98 I&O: 12/30/16 12/31/16 01/01/17 06:59 06:59 06:59 Intake Total 5485.6 4845.6 825 Output Total 1480 2320 1480 Balance 4005.6 2525.6 -655 Result Diagrams: 12/31/16 03:30 12/31/16 03:30 Phys Exam - Physical Examination HEENT: sclera anicteric Neck: no JVD decrease breath sound, intubated, on fentanyl and propofol Cardiovascular: RRR Gastrointestinal: soft colostomy Musculoskeletal: edema present sedated Dx/Plan (1) Anemia Code(s): D64.9 - ANEMIA, UNSPECIFIED Status: Acute (2) Acute on chronic kidney failure Code(s): N17.9 - ACUTE KIDNEY FAILURE, UNSPECIFIED; N18.9 - CHRONIC KIDNEY DISEASE, UNSPECIFIED Status: Acute (3) Hypomagnesemia Code(s): E83.42 - HYPOMAGNESEMIA Status: Acute (4) Acute respiratory failure Code(s): J96.00 - ACUTE RESPIRATORY FAILURE, UNSP W HYPOXIA OR HYPERCAPNIA Status: Acute (5) Acute hypernatremia Code(s): E87.0 - HYPEROSMOLALITY AND HYPERNATREMIA Status: Acute (6) Metabolic acidosis Code(s): E87.2 - ACIDOSIS Status: Acute Comment: (7) Sepsis Code(s): A41.9 - SEPSIS, UNSPECIFIED ORGANISM Status: Acute (8) UTI (urinary tract infection) Status: Acute (9) Bilateral hydronephrosis Code(s): N13.30 - UNSPECIFIED HYDRONEPHROSIS Status: Chronic (10) DM type 2 (diabetes mellitus, type 2) Status: Chronic Qualifiers: (11) HTN (hypertension) Code(s): I10 - ESSENTIAL (PRIMARY) HYPERTENSION Status: Chronic Qualifiers: (12) Seizure disorder Code(s): G40.909 - EPILEPSY, UNSP, NOT INTRACTABLE, WITHOUT STATUS EPILEPTICUS Status: Chronic - Plan cont current plan of care electolytes repleted -: start [facility], -: discussed with RN * .
--- NOTE | 2016-12-31 17:56 | PRG ---
DATE OF SERVICE: 12/31/2016 SUBJECTIVE: Ms. Lorenzana is a 61-year-old black female who is being followed up for her acute kidney in [facility] on top of her chronic renal failure. Her renal function over time has been improving with cons ervative management of volume repletion. I feel that there is no indication for any dialytic interv ention with this patient. She was initially admitted for mental status change with unclear etiology . This could be drug induced. The possibility of sepsis is also being entertained with this patien t. She is more arousable to date. PHYSICAL EXAMINATION: VITAL SIGNS: Blood pressure is ranging from 182/75 to as high as 206/92, heart rate is 99, respirat ory rate 21, pulse ox 98%. GENERAL: The patient is arousable, intubated on ventilator support. SKIN: Adequate turgor. HEENT: She has slightly pale conjunctivae, anicteric sclerae. NECK: No neck mass, no carotid bruits, no JVD. CHEST: No deformities. LUNGS: Decreased breath sounds. HEART: Normal sinus rhythm. No murmur, no gallops, no rubs. ABDOMEN: Globular, soft, nontender, no masses. Positive for bowel sounds. Positive for an ileal c onduit. Positive for colostomy. EXTREMITIES: Trace edema. MEDICATIONS: 12/31/2016 was reviewed. LABORATORY DATA: On 12/31/2016, white count 10.3, hemoglobin 9, sodium 149, potassium 3.5, chloride 113, carbon dioxide 27, BUN 43, creatinine 3.87, calcium 7.5, phosphorus 3.7, magnesium is 1.2. Wh ite count is 10.3, hemoglobin 9. Blood C\T\S 12/28/2016, no growth to date. ASSESSMENT AND PLAN: 1. Urinary tract infection on IV cefepime. ID has been consulted. 2. Sepsis syndrome -- urosepsis? urology has been consulted. Currently being evaluated by nawaf ROPER on intravenous cefepime. 3. Acute kidney injury on top of her chronic renal failure, slowly improving creatinine. Most rece nt creatinine is now noted at 3.87 and please note that creatinine peaked at the value of more than 5 mg percent. She is receiving current IV hydration. 4. Hyperkalemia, resolved. 5. Hypernatremia -- change IV fluid to half normal saline with 20 mEq of KCl at 125 mL per hour. P mer note her potassium is much improved. She has been running on the low side with regards to pot assium. 6. Metabolic acidosis, resolved. 7. Hypomagnesemia. Magnesium sulfate 2 grams to run over 2 hours was given. No indication for any dialytic intervention.
[2017-01-01] MEDS: Propofol 1,000 MG/100 ML VIAL IV PRN ×2 (04:28→09:04)
[2017-01-01] MEDS: FOSPHENYTOIN SODIUM IVPB SCH ×3 (05:25→21:35)
[2017-01-01] MEDS: SODIUM CHLORIDE IVPB SCH ×3 (05:25→21:35)
[2017-01-01] MEDS: ADMIXTURE FEE IVPB SCH ×3 (05:25→21:35)
[2017-01-01] MEDS: Levothyroxine 100 MCG SDV IVP SCH (05:25)
[2017-01-01 05:28] LABS: #Eosinphils 0.2 thou/uL (0.0-0.7); #Lymphocytes 1.5 thou/uL (1.20-3.40); #Monocytes 0.9 thou/uL (0.11-0.59); #Neutrophils 8.8 thou/uL (1.40-6.50); %Basophils 0.3 % (0.0-1.0); %Eosinophils 2.1 % (0.0-10.0); %Lymphocytes 12.8 % (21.0-51.0); %Monocytes 7.6 % (0.0-10.0); Hematocrit 33.6 % (36.0-47.0); Mean Platelet Volume 8.3 fL (7.4-10.4); Red Blood Cell (RBC) Count 3.59 mill/uL (4.20-5.40); White Blood Cell (WBC) Count 11.3 thou/uL (4.8-10.8)
[2017-01-01 05:32] LABS: Anion Gap 12 mmol/L (10-20); BUN (Urea Nitrogen) 42 mg/dL (9.8-20.1); Calc. Creatinine Clearance 27 mL/min (70-130); Calcium 8.1 mg/dL (7.8-10.44); Carbon Dioxide 24 mmol/L (23-31); Chloride 114 mmol/L (98-107); Estimated GFR-MDRD 16; Magnesium 1.6 mg/dL (1.6-2.6); Phosphorus 4.1 mg/dL (2.3-4.7)
[2017-01-01] MEDS: Cefepime 0.5 GM, Admixture Fee 1 EACH in Sodium Chloride 0.9% 100 ML IVPB SCH (08:08)
[2017-01-01] MEDS: Amlodipine 5 MG TAB PER TUBE SCH (08:09)
[2017-01-01] MEDS: Famotidine/PF 20 mg/2ml Vial SLOW IVP SCH (08:09)
[2017-01-01] MEDS: Heparin 5,000 UNITS/ML VIAL SC SCH ×3 (08:09→21:34)
[2017-01-01] MEDS: 1/2 NS w/KCL 20 mEq 1,000 ML IV SCH (08:10)
[2017-01-01] MEDS: Fentanyl 20 MCG/ML 250 ML IVPB SCH (09:04)
--- NOTE | 2017-01-01 09:21 | PRG ---
DATE OF SERVICE: 01/01/2017 RENAL MEDICINE SUBJECTIVE: The patient has no new complaints. She is still intubated. She is arousable. She has been seen by the Renal Service for acute kidney injury on top of her chronic renal failure. Please note renal function has been improving over the last several days with conservative management. Yoselin bocanegra is on IV hydration. In addition, metabolic acidosis is also dramatically improved. She is being followed up by several doctors. There is a question that she may be septic. PHYSICAL EXAMINATION: VITAL SIGNS: Blood pressure 169/79, heart rate 87, respiratory rate 18, pulse ox 99%. GENERAL: The patient is arousable, intubated, on ventilator support. SKIN: Adequate turgor. HEENT: Pinkish conjunctivae. Anicteric sclerae. NECK: No neck mass, no carotid bruits, no JVD. CHEST: No deformities. LUNGS: Decreased breath sounds. HEART: Normal sinus rhythm. No murmur, no gallops, no rubs. ABDOMEN: Globular, soft, nontender. Positive for ileostomy and colostomy. EXTREMITIES: Trace edema. MEDICATIONS: Medications of 01/01/2017 was reviewed. LABORATORY DATA: Laboratories of 01/01/2017; white count 11.3, hemoglobin 10. Sodium 146, potassiu m 3.9, chloride 114, carbon dioxide 24, BUN 42, creatinine 3.44, magnesium is noted at 1.6. ASSESSMENT AND PLAN: 1. Acute kidney injury on top of her chronic renal failure, slowly improving renal function with IV hydration. Continue supportive care. No indication for any dialytic intervention. 2. Borderline hypomagnesemia. Serum magnesium yesterday was 1.2. My plan is to give her one more dose of magnesium sulfate 2 grams. 3. Hypernatremia, slowly improving. Continue hypotonic IV fluid. Please note there is no indicati on for any dialytic intervention with this patient. 4. Sepsis syndrome - on IV antibiotics. Infectious Disease following.
[2017-01-01] MEDS ORDERED: Sodium Bicarbonate 75 MEQ in Dextrose 5% in Water 1,000 ML IV SCH ×2 (09:47)
--- NOTE | 2017-01-01 12:40 | PRG ---
DATE OF SERVICE: 01/01/2017 SERVICE: Pulmonary Medicine. INTERVAL HISTORY: The patient is doing really well from a respiratory standpoint. She is breathing comfortably on a spontaneous breathing trial. She is just getting a sedation holiday at this time. We will see whether or not she wakes up appropriately. Her electrolyte derangements have improved over the weekend. She cannot provide any additional elements of the history, but there were no ove rnight events. PHYSICAL EXAMINATION: VITAL SIGNS: T-max 100.5, pulse 54, blood pressure 176/76, respirations 21, saturation 92% on 27% F iO2 and PEEP of 5. GENERAL: The patient is under the influence of sedation. She is intubated. HEENT: Normocephalic, atraumatic. Sclerae are white, conjunctivae pink. Oral and nasal mucosa is moist without lesions. LUNGS: Decent air entry. There are some dependent crackles, which are minimal. Rhonchi are presen t. HEART: Normal rate, regular. ABDOMEN: Soft, nontender, and nondistended. Bowel sounds positive. MUSCULOSKELETAL: No cyanosis or clubbing. There is no pitting in the bilateral lower extremities. NEUROLOGIC: Grossly nonfocal. LABORATORY DATA: WBC 11.3, hemoglobin 10.0, and platelet 216,000. Neutrophil count has increased t o 77.2. Creatinine 3.44, which continues to improve. Sodium 146. Chloride 114. Basic metabolic p rofile, magnesium and phosphorus are otherwise unremarkable. Urine culture is growing Morganella, w hich is polanco resistant except to meropenem and cefepime. Blood cultures x2 are unremarkable. ASSESSMENT: 1. Metabolic encephalopathy, improving. 2. Non-anion gap metabolic acidosis secondary to ileal conduit, resolved. 3. Acute kidney injury on chronic kidney disease, stage 4. 4. Severe sepsis. 5. Decubitus ulcer of the sacrum, longstanding. 6. Urinary tract infection. PLAN: We will continue to follow the patient. IV fluids will be discontinued altogether and we anderson l continue giving her free water through her tube feeds. A long sedation holiday will be done and i f she meets criteria, extubation will be considered. Pulmonary or Critical Care will continue to fo llow while the patient remains inhouse. CRITICAL CARE TIME: 30 minutes.
--- NOTE | 2017-01-01 13:49 | PDOC.PN ---
- Subjective Encounter Start Date: 01/01/17 Encounter Start Time: 11:15 -: non-verbal Pt seen and examined earlier on rounds, chart reviewed in its entirety. This is my first visit with this patient. PT is orally intubated and awake on the ventilator, unable to give a ROS Appreciate Renal and pulmonary assistance. Their notes have been reviewed. On sedation holiday in hopes of extubating this patient today. No F/C, no N/V/D /C, no CP. Coughing on Vent - Objective Resuscitation Status: Full MAR Reviewed: Yes Vital Signs & Weight: Vital Signs (12 hours) Temp Pulse Resp BP Pulse Ox 01/01/17 12:00 100.0 F H 22 H 01/01/17 11:37 19 91 L 01/01/17 10:00 14 01/01/17 08:09 54 L 173/82 H 01/01/17 08:00 14 01/01/17 07:10 98.6 F 54 L 15 99 01/01/17 07:00 98.6 F 01/01/17 06:16 63 145/68 H 01/01/17 05:57 12 01/01/17 04:00 98.6 F 12 01/01/17 02:00 11 L Weight Admit Weight 227 lb Weight 222 lb 14.197 oz Most Recent Monitor Data Heart Rate from ECG 105 NIBP 176/76 NIBP BP-Mean 108 Respiration from ECG 21 SpO2 92 I&O: 12/31/16 01/01/17 01/02/17 06:59 06:59 06:59 Intake Total 4845.6 3178 270 Output Total 2320 8595 950 Balance 6905.6 -298 -032 Result Diagrams: 01/01/17 03:59 01/01/17 03:59 Radiology Reviewed by me: Yes EKG Reviewed by me: Yes Phys Exam - Physical Examination Constitutional: NAD HEENT: PERRLA, moist MMs, sclera anicteric, oral pharynx no lesions conjunctival edema present Neck: no nodes, no JVD, supple, full ROM Respiratory: no wheezing, no rales, no rhonchi, clear to auscultation bilateral Cardiovascular: RRR, no significant murmur, no rub tachy while coughing, then returned to normal Gastrointestinal: soft, non-tender, no distention, positive bowel sounds Musculoskeletal: pulses present, edema present Neurological: non-focal, normal sensation, moves all 4 limbs Lymphatic: no nodes Skin: no rash, normal turgor, cap refill <2 seconds Dx/Plan (1) Acute respiratory failure Code(s): J96.00 - ACUTE RESPIRATORY FAILURE, UNSP W HYPOXIA OR HYPERCAPNIA Status: Acute Qualifiers: Respiratory failure complication: hypoxia Qualified Code(s): J96.01 - Acute respiratory failure with hypoxia Comment: weaning off of vent per pulm, hope to extubate later today (2) Altered mental state Code(s): R41.82 - ALTERED MENTAL STATUS, UNSPECIFIED Status: Acute Comment: metabolic encephalopathy due to severe sepsis (3) Anemia Code(s): D64.9 - ANEMIA, UNSPECIFIED Status: Acute Qualifiers: Anemia type: due to chronic kidney disease Chronic kidney disease stage: stage 4 (severe) Qualified Code(s): N18.4 - Chronic kidney disease, stage 4 ( severe); D63.1 - Anemia in chronic kidney disease; D63.1 - Anemia in chronic kidney disease (4) Hypomagnesemia Code(s): E83.42 - HYPOMAGNESEMIA Status: Resolved (5) Acute hypernatremia Code(s): E87.0 - HYPEROSMOLALITY AND HYPERNATREMIA Status: Acute (6) Sepsis Code(s): A41.9 - SEPSIS, UNSPECIFIED ORGANISM Status: Acute Qualifiers: Sepsis type: sepsis due to unspecified organism Qualified Code(s): A41.9 - Sepsis, unspecified organism (7) UTI (urinary tract infection) Status: Acute Qualifiers: Urinary tract infection type: acute cystitis Hematuria presence: with hematuria Qualified Code(s): N30.01 - Acute cystitis with hematuria (8) Bilateral hydronephrosis Code(s): N13.30 - UNSPECIFIED HYDRONEPHROSIS Status: Chronic (9) DM type 2 (diabetes mellitus, type 2) Status: Chronic Qualifiers: Diabetes mellitus complication status: with kidney complications Diabetes mellitus complication detail: with chronic kidney disease Diabetes mellitus petroleum terminal plant operator insulin use: with petroleum terminal plant operator use Chronic kidney disease stage: stage 5, not on chronic dialysis Qualified Code(s): E11.22 - Type 2 diabetes mellitus with diabetic chronic kidney disease; N18.5 - Chronic kidney disease, stage 5; N18.5 - Chronic kidney disease, stage 5; N18.5 - Chronic kidney disease , stage 5; N18.5 - Chronic kidney disease, stage 5; Z79.4 - MCC (current) use of insulin; Z79.4 - exterminator helper (current) use of insulin; Z79.4 - exterminator helper ( current) use of insulin; Z79.4 - MCC (current) use of insulin Comment: improving Cr now, (10) HTN (hypertension) Code(s): I10 - ESSENTIAL (PRIMARY) HYPERTENSION Status: Chronic Qualifiers: (11) Sacral decubitus ulcer, stage IV Code(s): L89.154 - PRESSURE ULCER OF SACRAL REGION, STAGE 4 Status: Chronic Comment: POA, doesnt look infected, fibrotic (12) Seizure disorder Code(s): G40.909 - EPILEPSY, UNSP, NOT INTRACTABLE, WITHOUT STATUS EPILEPTICUS Status: Chronic Comment: no eviddence of active seizure activity (13) Acute on chronic kidney failure Code(s): N17.9 - ACUTE KIDNEY FAILURE, UNSPECIFIED; N18.9 - CHRONIC KIDNEY DISEASE, UNSPECIFIED Status: Acute Qualifiers: Acute renal failure type: with acute tubular necrosis Chronic kidney disease stage: stage 5, not on chronic dialysis Qualified Code(s): N17.0 - Acute kidney failure with tubular necrosis; N18.5 - Chronic kidney disease, stage 5; N18.5 - Chronic kidney disease, stage 5; N18.5 - Chronic kidney disease , stage 5; N18.5 - Chronic kidney disease, stage 5 Comment: per Dr Mitchell. Improving Cr daily - Plan * .
[2017-01-01] MEDS ORDERED: Magnesium Sulfate 2 GM in Sodium Chloride 0.9% 250 ML 250 ML IVPB SCH (14:30)
[2017-01-02] MEDS: hydrALAZINE 20 MG/ML VIAL SLOW IVP PRN (03:19)
[2017-01-02 04:12] LABS: #Eosinphils 0.1 thou/uL (0.0-0.7); #Lymphocytes 1.3 thou/uL (1.20-3.40); #Monocytes 0.6 thou/uL (0.11-0.59); #Neutrophils 9.3 thou/uL (1.40-6.50); %Basophils 0.2 % (0.0-1.0); %Eosinophils 1.2 % (0.0-10.0); %Lymphocytes 11.1 % (21.0-51.0); %Monocytes 5.1 % (0.0-10.0); Mean Platelet Volume 7.9 fL (7.4-10.4); Red Blood Cell (RBC) Count 3.06 mill/uL (4.20-5.40); White Blood Cell (WBC) Count 11.3 thou/uL (4.8-10.8)
[2017-01-02 04:27] LABS: Anion Gap 16 mmol/L (10-20); BUN (Urea Nitrogen) 40 mg/dL (9.8-20.1); Calc. Creatinine Clearance 30 mL/min (70-130); Calcium 8.8 mg/dL (7.8-10.44); Carbon Dioxide 20 mmol/L (23-31); Chloride 116 mmol/L (98-107); Estimated GFR-MDRD 18
[2017-01-02] MEDS: ADMIXTURE FEE IVPB SCH (06:38)
[2017-01-02] MEDS: FOSPHENYTOIN SODIUM IVPB SCH (06:38)
[2017-01-02] MEDS: SODIUM CHLORIDE IVPB SCH (06:38)
[2017-01-02] MEDS: Levothyroxine Sodium 100 MCG TAB PER TUBE SCH (06:39)
--- NOTE | 2017-01-02 08:23 | PRG ---
DATE OF SERVICE: 01/02/2017 RENAL MEDICINE SUBJECTIVE: Ms. Lorenzana is a 61-year-old black female, seen by the Renal Medicine for acute kidney inj ury on top of her chronic renal failure. We felt that she had a simple hemodynamically mediated conor al dysfunction on top of her chronic renal failure. Empiric IV hydration was given. This improved her renal function over time. She is nearing baseline GFR. In addition, patient was also noted to be septic and went into acute respiratory failure. She is now extubated. She has been seen by the Infectious Disease physician practice consultant. This morning, feeling better. No new complaints. PHYSICAL EXAMINATION: VITAL SIGNS: Blood pressure 130/50, heart rate 64, respiratory rate 16, pulse ox 100%. HEENT: Noted to be awake, supine, obese, not in distress. SKIN: Adequate turgor. HEENT: Slightly pale conjunctivae, anicteric sclerae. NECK: No neck mass, no carotid bruits, no JVD. CHEST: No deformities. LUNGS: Decreased breath sounds. HEART: Normal sinus rhythm. No murmurs, no gallops, no rubs. ABDOMEN: Globular, soft, nontender. Positive for ileostomy and colostomy. EXTREMITIES: No edema, no deformities. MEDICATIONS: Medications of 01/02/2017 was reviewed. LABORATORY DATA: Laboratories of 01/02/2017; white count 11.2, hemoglobin 8.8, sodium 148, potassiu m 3.9, chloride 116, carbon dioxide 20, BUN 40, creatinine 3.15, glucose 73, and calcium 8.8. ASSESSMENT AND PLAN: 1. Mild hypernatremia - if the serum sodium further worsens, this patient may need some hypotonic I V fluid. Currently, IV fluids on hold. Awaiting speech therapy to evaluate if she can start taking p.o. If she can take p.o., I would suggest increased free water intake. 2. Acute kidney injury - hemodynamically mediated renal dysfunction on top of her chronic renal tony lure. Much improved her IV hydration. Creatinine is now noted at 3.15. Please note that creatinin e peaked at 5.0. There is no indication for any dialytic intervention. Overall, agree with current management.
[2017-01-02] MEDS: Heparin 5,000 UNITS/ML VIAL SC SCH ×3 (08:35→20:49)
[2017-01-02] MEDS: Cefepime 0.5 GM, Admixture Fee 1 EACH in Sodium Chloride 0.9% 100 ML IVPB SCH (08:35)
--- NOTE | 2017-01-02 09:31 | PRG ---
DATE OF SERVICE: 01/02/2017 SERVICE: Pulmonary Medicine. INTERVAL HISTORY: The patient is doing great from a respiratory standpoint. Her mentation is much improved. She is moving all 4 extremities, though she remains extraordinarily weak. She denies any current fevers, chills. Her cough is quite weak. Speech is going to evaluate her swallow and if s he can swallow, we will switch over many things to p.o. If not, a small bore feeding catheter will be placed though we can administer her medications. PHYSICAL EXAMINATION: VITAL SIGNS: Afebrile, pulse 65, blood pressure 120/62, respirations 18, saturation 99% on room air . GENERAL: The patient is awake, alert, in no apparent distress. LUNGS: Decent air entry. There is no prolonged expiratory phase, wheezing, rhonchi or crackles. HEART: Normal rate, regular. ABDOMEN: Soft, nontender, and nondistended. Bowel sounds positive. MUSCULOSKELETAL: No cyanosis or clubbing. There is no pitting in the bilateral lower extremities. NEUROLOGIC: Grossly nonfocal. LABORATORY DATA: WBC 11.3, hemoglobin 8.8, platelets 216,000. Bicarbonate is dropping back down to 20. Her sodium is up trending to 148. Basic metabolic profile is otherwise unremarkable with a do wnward trending creatinine of 3.15. ASSESSMENT: 1. Metabolic encephalopathy, improving. 2. Non-anion gap metabolic acidosis secondary to ileal conduit, returning. 3. Chronic kidney disease, stage 4 with resolution of the acute component. 4. Severe sepsis. 5. Decubitus ulcer of the sacrum, longstanding. 6. Urinary tract infection. PLAN: I will restart her bicarbonate drip. The patient will be evaluated by Speech Pathology. She if she can swallow, nutrition, and p.o. pills will be initiated. If not, small bore feeding tube w ill be placed. She is stable for transition out of the ICU to the IMCU. She remains extraordinaril y weak and has high nursing requirements. As such, I would like for her to remain in the IMCU for t he time being.
[2017-01-02] MEDS: Sodium Bicarbonate Tab 325 MG TAB PO SCH (10:22)
[2017-01-02] MEDS: Amlodipine 5 MG TAB PER TUBE SCH (10:22)
[2017-01-02] MEDS: Sodium Bicarbonate 75 MEQ in Dextrose 5% in Water 1,000 ML IV SCH ×2 (10:47)
--- NOTE | 2017-01-02 15:14 | PDOC.PN ---
- Subjective Encounter Start Date: 01/02/17 Encounter Start Time: 15:05 Subjective: f/u for sepsis, encephalopathy and UTI with Morganella spp. Receiving -: Cefepime. Local wound care to colostomy sites and decubitus. -: Transferred to [facility] after extubation. - Objective MAR Reviewed: Yes Vital Signs & Weight: Vital Signs (12 hours) Temp Pulse Resp BP Pulse Ox 01/02/17 10:22 65 159/72 H 01/02/17 08:00 97.7 F 65 17 100 01/02/17 07:00 97.7 F 01/02/17 04:00 98.2 F 01/02/17 03:19 78 202/80 H Weight Admit Weight 227 lb Weight 222 lb 3.615 oz Most Recent Monitor Data Heart Rate from ECG 63 NIBP 159/72 NIBP BP-Mean 84 Respiration from ECG 20 SpO2 96 I&O: 01/01/17 01/02/17 01/03/17 06:59 06:59 06:59 Intake Total 3178 620 300 Output Total 0383 2510 420 Balance -387 -3010 -120 Result Diagrams: 01/02/17 03:45 01/02/17 03:45 Additional Labs: Microbiology 12/28/16 05:39 Venous blood - Right Arm Blood Culture - Final NO GROWTH IN 5 DAYS 12/28/16 04:49 Urine Straight Catheter Urine Culture - Final Morganella morganii ssp siboni 12/28/16 04:37 Venous blood - Right Arm Blood Culture - Final NO GROWTH IN 5 DAYS Laboratory Tests 12/29/16 12/30/16 12/30/16 03:38 06:12 06:12 WBC 10.8 Hgb 11.0 L Sodium 149 H 147 H Potassium 6.0 H 3.1 L Creatinine 5.00 H 4.34 H 12/31/16 12/31/16 01/01/17 03:30 03:30 03:59 WBC 10.3 Hgb 9.0 L Sodium 149 H 146 H Potassium 3.5 3.9 Creatinine 3.87 H 3.44 H 01/01/17 03:59 WBC 11.3 H Hgb 10.0 L Sodium Potassium Creatinine EKG Reviewed by me: Yes (Tele - SR in 80's) Phys Exam - Physical Examination alert, nods head to questions, mild distress HEENT: PERRLA, oral pharynx no lesions Neck: no JVD, supple diminished in bases Respiratory: no wheezing Cardiovascular: RRR obese, two colostomy sites on bilateral lower abd, skin macerated around RLQ site Gastrointestinal: soft, no distention, positive bowel sounds Musculoskeletal: no edema, pulses present Neurological: moves all 4 limbs Skin: normal turgor, cap refill <2 seconds Dx/Plan (1) Acute metabolic encephalopathy Code(s): G93.41 - METABOLIC ENCEPHALOPATHY Status: Acute Comment: Resolved as metabolic derangement improving, supportive care (2) Acute on chronic kidney failure Code(s): N17.9 - ACUTE KIDNEY FAILURE, UNSPECIFIED; N18.9 - CHRONIC KIDNEY DISEASE, UNSPECIFIED Status: Acute Qualifiers: Acute renal failure type: with acute tubular necrosis Chronic kidney disease stage: stage 5, not on chronic dialysis Qualified Code(s): N17.0 - Acute kidney failure with tubular necrosis; N18.5 - Chronic kidney disease, stage 5; N18.5 - Chronic kidney disease, stage 5; N18.5 - Chronic kidney disease , stage 5; N18.5 - Chronic kidney disease, stage 5 Comment: per Dr Mitchell. Improving Cr daily, acute component resolving (3) Acute respiratory failure Code(s): J96.00 - ACUTE RESPIRATORY FAILURE, UNSP W HYPOXIA OR HYPERCAPNIA Status: Acute Qualifiers: Respiratory failure complication: hypoxia Qualified Code(s): J96.01 - Acute respiratory failure with hypoxia Comment: s/p extubation without complication, O2 prn (4) Sepsis Code(s): A41.9 - SEPSIS, UNSPECIFIED ORGANISM Status: Acute Qualifiers: Sepsis type: sepsis due to unspecified organism Qualified Code(s): A41.9 - Sepsis, unspecified organism Comment: Suspected due to Morganella spp, switch to Meropenem due to resistance with Cefepime (5) UTI (urinary tract infection) Status: Acute Qualifiers: Urinary tract infection type: acute cystitis Hematuria presence: with hematuria Qualified Code(s): N30.01 - Acute cystitis with hematuria Comment: See above (6) Acute hypernatremia Code(s): E87.0 - HYPEROSMOLALITY AND HYPERNATREMIA Status: Acute Comment: Persistent, continue D5W at 100ml/h, encourage free H2O intake, serial Na+ (7) Metabolic acidosis Code(s): E87.2 - ACIDOSIS Status: Chronic Comment: Acute and chronic due to CKD, Bicarbonate replacement (8) Sacral decubitus ulcer, stage IV Code(s): L89.154 - PRESSURE ULCER OF SACRAL REGION, STAGE 4 Status: Chronic Comment: POA, doesnt look infected, fibrotic, chronic and noted prior to admit (9) Seizure disorder Code(s): G40.909 - EPILEPSY, UNSP, NOT INTRACTABLE, WITHOUT STATUS EPILEPTICUS Status: Chronic Comment: no eviddence of active seizure activity, continue Phenytoin 100mg TID - Plan continue antibiotics, PT/OT, social services specialist, respiratory therapy, DVT proph w/ SCDs Stable currently -: Continue IV D5W at 100ml/h -: Bicarbonate replacement due to metabolic acidosis -: Change to Meropenem due to resistance of Morganella sp to Cefepime -: WCT for local decubitus care * PT for mobilization * AM lab: BMP, CBC
--- NOTE | 2017-01-02 18:02 | PRG ---
DATE OF SERVICE: 01/02/2017 SUBJECTIVE: Ms. Lorenzana is awake, but a little bit drowsy. She recognized me and follows commands wit h quite a bit of difficulty. No chest pain, no abdominal pain. She has weakness in upper and lower extremities. OBJECTIVE: VITAL SIGNS: T-max 100 yesterday at 12:00 noon and she has been afebrile since. GENERAL: Awake, alert and oriented. HEENT: Ocular movements are conjugate. LUNGS: With symmetric clear breath sounds. CARDIOVASCULAR: S1 and S2, regular rate. ABDOMEN: With ileostomy and ileal conduit and the sacral ulceration noted on admission, peripheral IV access. LABORATORY AND IMAGING DATA: White cell count was 10.3; it is up to 11.3, hemoglobin 8.8, platelets 216 with 82% neutrophils. Creatinine is down to 3.15 with a GFR of 18. Microbiology with Morganjocelyn uribe morganii in urine sample from 12/28, both from the ileal conduit as well as the Gilbert catheter. Urinalysis with 21-50 wbc's from 12/28. She also had the abdomen and pelvis CT with the chronic tye nges in the pelvic bones and decubitus ulcer. 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 Now, patient admitted with hyperventilation and severe metabol ic acidosis with hyperchloremic features and normal anion gap, suggestive of abnormalities associate d with ileal conduit rather than sepsis. She has been started on meropenem and cefepime for the fin dings in the urinary tract and we will discontinue the cefepime. Continue meropenem alone for the r emainder days prior to transfer back home. She will need to be on supplemental bicarbonate to preve nt recurrence of the metabolic acidosis and evidently she will continue to present with complication s related to the above chronic findings.
[2017-01-02] MEDS: Meropenem 1 GM, Admixture Fee 1 EACH in Sodium Chloride 0.9% 100 ML IVPB SCH (22:15)
[2017-01-03] MEDS: Sodium Bicarbonate 75 MEQ in Dextrose 5% in Water 1,000 ML IV SCH ×4 (01:05→07:00)
[2017-01-03 05:14] LABS: #Eosinphils 0.2 thou/uL (0.0-0.7); #Lymphocytes 1.9 thou/uL (1.20-3.40); #Monocytes 0.6 thou/uL (0.11-0.59); #Neutrophils 6.4 thou/uL (1.40-6.50); %Basophils 0.1 % (0.0-1.0); %Eosinophils 2.3 % (0.0-10.0); %Lymphocytes 20.4 % (21.0-51.0); %Monocytes 6.6 % (0.0-10.0); Hematocrit 31.4 % (36.0-47.0); Mean Platelet Volume 8.7 fL (7.4-10.4); Red Blood Cell (RBC) Count 3.37 mill/uL (4.20-5.40); White Blood Cell (WBC) Count 9.1 thou/uL (4.8-10.8)
[2017-01-03 05:25] LABS: Anion Gap 14 mmol/L (10-20); BUN (Urea Nitrogen) 39 mg/dL (9.8-20.1); Calc. Creatinine Clearance 30 mL/min (70-130); Calcium 9.1 mg/dL (7.8-10.44); Carbon Dioxide 23 mmol/L (23-31); Chloride 115 mmol/L (98-107); Estimated GFR-MDRD 18
[2017-01-03] MEDS: Levothyroxine Sodium 100 MCG TAB PER TUBE SCH (06:06)
[2017-01-03] MEDS: Meropenem 1 GM, Admixture Fee 1 EACH in Sodium Chloride 0.9% 100 ML IVPB SCH ×3 (06:06→21:55)
[2017-01-03] MEDS: Sodium Bicarbonate Tab 325 MG TAB PO SCH ×2 (08:16→21:54)
[2017-01-03] MEDS: Amlodipine 5 MG TAB PER TUBE SCH (08:16)
[2017-01-03] MEDS: Heparin 5,000 UNITS/ML VIAL SC SCH ×3 (08:17→21:54)
[2017-01-03] MEDS: Sodium Bicarbonate 50 MEQ, Admixture Fee 1 EACH in Dextrose 5% in Water 1,000 ML IV SCH ×6 (10:10→21:55)
--- NOTE | 2017-01-03 10:15 | PRG ---
DATE OF SERVICE: 01/03/2017 SUBJECTIVE: Ms. Lorenzana is a 61-year-old black female who was seen for acute kidney injury on top of c hronic renal failure. Renal function has been stabilizing. Her creatinine is now much improved and a value of 3.12 is near baseline. This is after volume repletion. Her metabolic acidosis has also improved with bicarbonate infusion. Her acute respiratory failure is also resolving, she is now ex tubated. The patient denies any chest pain, shortness of breath, nausea, vomiting. PHYSICAL EXAMINATION: VITAL SIGNS: Blood pressure is 175/81, heart rate 53, respiratory rate 20, temperature 98.4, pulse ox 98%. GENERAL: Awake, alert, comfortable, not in distress. SKIN: Adequate turgor. HEENT: Pinkish conjunctivae, anicteric sclerae. NECK: No neck mass, no carotid bruits, no JVD. CHEST: No deformities. LUNGS: Clear breath sounds. HEART: Normal sinus rhythm. No murmur, no gallops, no rubs. ABDOMEN: Globular, soft, nontender. Positive for colostomy, positive for ileostomy. EXTREMITIES: No edema. MEDICATIONS: 01/03/2017 - Reviewed. LABORATORY: 01/03/2017 - White count 9.1, hemoglobin 9.2, sodium 147, potassium 4.5, chloride 105, carbon dioxide 23, BUN 39, creatinine 3.12, GFR 18 mL per minute. Calcium 9.1. ASSESSMENT AND PLAN: 1. Acute kidney injury/chronic renal failure - superimposed prerenal azotemia, improving renal func tion. Continue supportive care. No indication for any dialysis intervention. 2. Metabolic acidosis, resolved. 3. Acute respiratory failure, resolved, off the ventilator. 4. Mild hypernatremia, encourage free water intake. I agree with current management.
--- NOTE | 2017-01-03 10:47 | PDOC.PN ---
- Subjective Encounter Start Date: 01/03/17 Encounter Start Time: 10:15 Subjective: awake, no sob -: is deconditioned with barely to move extremities -: has cleared speech eval - Objective Vital Signs & Weight: Vital Signs (12 hours) Temp Pulse Resp BP BP Pulse Ox 01/03/17 08:16 72 175/81 H 01/03/17 08:00 98.4 F 53 L 20 98 01/03/17 07:07 98.4 F 53 L 20 167/74 H 98 01/03/17 04:27 98.2 F 47 L 15 156/72 H 99 01/03/17 00:08 98.1 F 54 L 16 132/67 99 Weight Admit Weight 227 lb Weight 220 lb 1.6 oz Most Recent Monitor Data Heart Rate from ECG 63 NIBP 159/72 NIBP BP-Mean 84 Respiration from ECG 20 SpO2 96 I&O: 01/02/17 01/03/17 01/04/17 06:59 06:59 06:59 Intake Total 620 3400 Output Total 3630 1550 Balance -3010 1850 Result Diagrams: 01/03/17 04:25 01/03/17 04:25 Phys Exam - Physical Examination HEENT: PERRLA, sclera anicteric Neck: no JVD, supple Respiratory: no wheezing, no rales Cardiovascular: RRR, no significant murmur Gastrointestinal: soft, no distention, positive bowel sounds colostomy+, ileal conduit in LLQ+ Musculoskeletal: pulses present, edema present Neurological: non-focal, moves all 4 limbs Psychiatric: A&O x 3 Dx/Plan (1) Acute metabolic encephalopathy Code(s): G93.41 - METABOLIC ENCEPHALOPATHY Status: Resolved Comment: Resolved as metabolic derangement improving, supportive care (2) Acute on chronic kidney failure Code(s): N17.9 - ACUTE KIDNEY FAILURE, UNSPECIFIED; N18.9 - CHRONIC KIDNEY DISEASE, UNSPECIFIED Status: Acute Qualifiers: Acute renal failure type: with acute tubular necrosis Chronic kidney disease stage: stage 5, not on chronic dialysis Qualified Code(s): N17.0 - Acute kidney failure with tubular necrosis; N18.5 - Chronic kidney disease, stage 5; N18.5 - Chronic kidney disease, stage 5; N18.5 - Chronic kidney disease , stage 5; N18.5 - Chronic kidney disease, stage 5 Comment: per Dr Mitchell. Improving Cr daily, acute component resolving (3) Acute respiratory failure Code(s): J96.00 - ACUTE RESPIRATORY FAILURE, UNSP W HYPOXIA OR HYPERCAPNIA Status: Resolved Qualifiers: Respiratory failure complication: hypoxia Qualified Code(s): J96.01 - Acute respiratory failure with hypoxia Comment: s/p extubation without complication, O2 prn (4) Acute hypernatremia Code(s): E87.0 - HYPEROSMOLALITY AND HYPERNATREMIA Status: Acute Comment: Persistent, continue D5W at 100ml/h, encourage free H2O intake, serial Na+ (5) Sepsis Code(s): A41.9 - SEPSIS, UNSPECIFIED ORGANISM Status: Acute Qualifiers: Sepsis type: sepsis due to unspecified organism Qualified Code(s): A41.9 - Sepsis, unspecified organism Comment: Suspected due to Morganella spp, on Meropenem (6) UTI (urinary tract infection) Status: Acute Qualifiers: Urinary tract infection type: acute cystitis Comment: See above (7) DM type 2 (diabetes mellitus, type 2) Status: Chronic Qualifiers: Diabetes mellitus complication status: with kidney complications Diabetes mellitus complication detail: with chronic kidney disease Diabetes mellitus [facility] insulin use: with long term care pharmacist use Chronic kidney disease stage: stage 5, not on chronic dialysis Qualified Code(s): E11.22 - Type 2 diabetes mellitus with diabetic chronic kidney disease; N18.5 - Chronic kidney disease, stage 5; N18.5 - Chronic kidney disease, stage 5; N18.5 - Chronic kidney disease , stage 5; N18.5 - Chronic kidney disease, stage 5; Z79.4 - superintendent container terminal (current) use of insulin; Z79.4 - superintendent container terminal (current) use of insulin; Z79.4 - superintendent container terminal ( current) use of insulin; Z79.4 - correction (current) use of insulin Comment: improving Cr now, (8) HTN (hypertension) Code(s): I10 - ESSENTIAL (PRIMARY) HYPERTENSION Status: Chronic Qualifiers: Hypertension type: essential hypertension (9) Metabolic acidosis Code(s): E87.2 - ACIDOSIS Status: Chronic (10) Sacral decubitus ulcer, stage IV Code(s): L89.154 - PRESSURE ULCER OF SACRAL REGION, STAGE 4 Status: Chronic Comment: POA, doesnt look infected, fibrotic, chronic and noted prior to admit (11) Seizure disorder Code(s): G40.909 - EPILEPSY, UNSP, NOT INTRACTABLE, WITHOUT STATUS EPILEPTICUS Status: Chronic Comment: on Phenytoin (12) Obesity (BMI 30-39.9) Code(s): E66.9 - OBESITY, UNSPECIFIED Status: Chronic - Plan on meropenem for uti, sepsis -: on D5w with bicarb -: encourage po intake, glucerna 1 can tid -: PT to amb as tolerated, was amb prior to hosp per patient -: watch for electrolytes and renal function * . Review of Systems - Medications/Allergies Allergies/Adverse Reactions: Allergies Allergy/AdvReac Type Severity Reaction Status Date / Time banana Allergy Verified 05/10/16 08:43 chocolate flavor Allergy Verified 05/10/16 08:43 egg Allergy Verified 05/10/16 08:43 Iodinated Contrast- Oral and Allergy Verified 05/10/16 08:44 IV Dye [Iodinated Contrast Media - Oral and] iodine Allergy Verified 05/10/16 08:43 latex Allergy Verified 05/10/16 08:43 orange juice Allergy Verified 05/10/16 08:43 tolterodine tartrate Allergy Verified 05/10/16 08:43 [From [facility]r] tomato Allergy Verified 05/10/16 08:43 Medications: Current Medications Amlodipine Besylate (Norvasc) 5 mg PER TUBE DAILY [facility] Last Admin: 01/03/17 08:16 Dose: 5 mg Aspirin (Aspirin Chewable) 81 mg PO DAILY [facility] Last Admin: 01/03/17 08:16 Dose: 81 mg Heparin Sodium (Porcine) (Heparin) 5,000 units SC TID [facility] Last Admin: 01/03/17 08:17 Dose: 5,000 units Hydralazine HCl (Apresoline) 20 mg SLOW IVP Q15MIN PRN PRN Reason: SBP Greater Than 180 Last Admin: 01/02/17 03:19 Dose: 20 mg Meropenem 1 gm/ Miscellaneous Medication 1 each/ Sodium Chloride 100 mls @ 200 mls/hr IVPB Q8HR [facility] Last Admin: 01/03/17 06:06 Dose: 100 mls Sodium Bicarbonate 50 meq/Miscellaneous Medication 1 each/ Dextrose/Water 1, 050 mls @ 100 mls/hr IV .[id number] [facility] Levothyroxine Sodium (Synthroid) 200 mcg PER TUBE 0600 [facility] Last Admin: 01/03/17 06:06 Dose: 200 mcg Ondansetron HCl (Zofran) 4 mg IVP Q6H PRN PRN Reason: Nausea/Vomiting Phenytoin Sodium (Dilantin Er) 100 mg PO TID [facility] Last Admin: 01/03/17 08:16 Dose: 100 mg Sertraline HCl (Zoloft) 50 mg PO DAILY [facility] Last Admin: 01/03/17 08:17 Dose: 50 mg Sodium Bicarbonate (Bicarbonate, Sodium) 325 mg PO BID [facility] Last Admin: 01/03/17 08:16 Dose: 325 mg Sodium Chloride (Flush - Normal Saline) 10 ml IVF Q12HR [facility] Last Admin: 01/03/17 08:18 Dose: 10 ml Sodium Chloride (Flush - Normal Saline) 10 ml IVF PRN PRN PRN Reason: Saline Flush
[2017-01-03] MEDS ORDERED: Sodium Hypochlorite 0.25% Solution 480 ML BOT TOP PRN (11:12)
--- NOTE | 2017-01-03 11:48 | PRG ---
DATE OF SERVICE: 01/03/2017 SERVICE: Pulmonary Medicine. INTERVAL HISTORY: The patient is doing outstanding from a respiratory standpoint. She currently de nies any shortness of breath or chest discomfort. She is otherwise returning to her usual state of health and has no specific complaints otherwise. She remains extraordinarily weak, but is working w [facility] physical therapy in order to regain some strength. PHYSICAL EXAMINATION: VITAL SIGNS: Afebrile, pulse 53, blood pressure 167/74, respirations 20, saturation 98% on 2 liters nasal cannula. GENERAL: The patient is awake, alert, in no apparent distress. LUNGS: Decent air entry with no prolonged expiratory phase, wheezing, rhonchi or crackles. HEART: Normal rate and regular. ABDOMEN: Soft, nontender, nondistended, bowel sounds positive. MUSCULOSKELETAL: No cyanosis or clubbing. No pitting in the bilateral lower extremities. NEUROLOGIC: Grossly nonfocal. LABORATORY DATA: WBC 9.1, hemoglobin 9.2, platelets 207,000 down trending. Creatinine 3.12 and ret urning to baseline. Sodium 147, chloride 115, both of which are trending back into the normal range . Bicarbonate has improved to 23. ASSESSMENT: 1. Metabolic encephalopathy, improving. 2. Non-anion gap metabolic acidosis secondary to ileal conduit. 3. Chronic kidney disease, stage 4. 4. Severe sepsis. 5. Urinary tract infection. 6. Chronic decubitus ulcer of the sacrum, present on admission. PLAN: We will continue the bicarbonate drip, but dropped the concentration of it slightly. This wi ll be continued for the next 24 hours as she remains hypernatremic and she does require ongoing admi nistration of free water. She will continue working with physical therapy to regain her lost streng th. We will work on getting her into a chair a couple times on a daily basis. Pulmonary or Critica l Care will continue to follow while she remains in the [facility], but truth be told, she is stable for t ransition out of the hospital to a rehabilitation center if possible.
[2017-01-03] MEDS ORDERED: Heparin 1,000 UNITS/ML VIAL ONE (15:49)
--- NOTE | 2017-01-03 17:33 | SPC ---
LEFT UPPER EXTREMITY PICC LINE WITH ULTRASOUND GUIDANCE 01/03/17 HISTORY: Decubitus ulcer. Infection. IV access required. COMPARISON: 10/14/14. FINDINGS: Technically successful left upper extremity PICC line placement. Distal tip is in the right atrium. 52 cm single lumen catheter does flush and aspirate without difficulty. TECHNIQUE: Consent obtained for a left upper extremity PICC line placement with ultrasound guidance. Left arm w as prepped and draped in the sterile fashion. 1% lidocaine, buffered with sodium bicarbonate used fo r local anesthesia. Under ultrasound guidance, a micropuncture needle used to cannulate the basilic vein. A 0.018 guide wire was advanced through the needle to the level of the superior vena cava. Und er fluoroscopy, wire was advanced into the inferior vena cava/hepatic vein to document venous access . Wire was subsequently pulled back to the right atrium. Trace was dilated. A single lumen 5 [place] catheter was advanced over the wire. The wire was removed. A single lumen catheter does flush and as pirate without difficulty. IMPRESSION: Technically successful left upper extremity PICC line placement with ultrasound guidance. Trim lengt h is 52 cm. POS: [facility]
[2017-01-04] MEDS: Sodium Bicarbonate 50 MEQ, Admixture Fee 1 EACH in Dextrose 5% in Water 1,000 ML IV SCH ×3 (01:51)
[2017-01-04] MEDS: Meropenem 1 GM, Admixture Fee 1 EACH in Sodium Chloride 0.9% 100 ML IVPB SCH ×3 (06:29→21:32)
[2017-01-04] MEDS: Levothyroxine Sodium 100 MCG TAB PER TUBE SCH (06:29)
[2017-01-04 08:26] LABS: Anion Gap 14 mmol/L (10-20); BUN (Urea Nitrogen) 30 mg/dL (9.8-20.1); Calc. Creatinine Clearance 35 mL/min (70-130); Calcium 8.7 mg/dL (7.8-10.44); Carbon Dioxide 25 mmol/L (23-31); Chloride 110 mmol/L (98-107); Estimated GFR-MDRD 22
[2017-01-04] MEDS: Amlodipine 10 MG TAB PO SCH (08:44)
[2017-01-04] MEDS: Sodium Bicarbonate Tab 325 MG TAB PO SCH ×2 (08:46→21:32)
[2017-01-04] MEDS: Heparin 5,000 UNITS/ML VIAL SC SCH ×3 (08:47→21:34)
--- NOTE | 2017-01-04 09:39 | PRG ---
DATE OF SERVICE: 01/04/2017 SERVICE: Renal Medicine. SUBJECTIVE: Ms. Lorenzana is a 61-year-old black female with worsening for an acute kidney injury that w as hemodynamically mediated renal dysfunction on top of her chronic renal failure. This morning, vahe bocanegra voices no new complaints. She denies any chest pain or shortness of breath. Her acute renal fail ure from the prerenal azotemia is much improved and is now nearing almost baseline GFR. The patient has been encouraged to increase her free water intake. She voices no new complaints. She denies a ny chest pain or shortness of breath. PHYSICAL EXAMINATION: VITAL SIGNS: Blood pressure is 170/64, heart rate 50, respiratory rate 18, temperature 98.4, pulse ox 100%. GENERAL: Noted to be awake, alert, supine, comfortable. SKIN: Adequate turgor. HEENT: Slightly pale conjunctivae, anicteric sclerae. NECK: No neck mass, no carotid bruits, no JVD. CHEST: No deformities. LUNGS: Clear breath sounds. No wheezing, no crackles. HEART: Normal sinus rhythm. No murmur, no gallops or rubs. ABDOMEN: Globular, soft, nontender, no masses. Positive for colostomy. Positive for ileostomy. EXTREMITIES: Trace edema. MEDICATIONS: Of 01/04/2017 reviewed. LABORATORY DATA: Of 01/04/2017, sodium 144, potassium 4.6, chloride 110, carbon dioxide 25, BUN 30, creatinine 2.69, GFR 22 mL per minute, glucose 91, calcium 8.7. ASSESSMENT AND PLAN; 1. Acute kidney injury on top of her chronic renal failure, superimposed prerenal azotemia. Much i mproved. Renal function is now near baseline. Creatinine is noted at 2.69 with a GFR of 22 mL per minute. Continue current management. Hold off any diuretics for the moment. 2. Metabolic acidosis, resolved. 3. Hypernatremia, resolved. 4. Acute respiratory failure. Patient has been weaned off the ventilator. Pulmonary following. Due to the much improved renal function, we will be signing off.
--- NOTE | 2017-01-04 10:24 | PDOC.PN ---
- Subjective Encounter Start Date: 01/04/17 Encounter Start Time: 09:40 Subjective: awake, not in distress, no sob - Objective MAR Reviewed: Yes Vital Signs & Weight: Vital Signs (12 hours) Temp Pulse Resp BP BP Pulse Ox 01/04/17 08:44 50 L 170/64 H 01/04/17 07:11 98.4 F 50 L 18 170/64 H 100 01/04/17 04:33 97.8 F 56 L 18 159/74 H 99 01/04/17 00:00 97.8 F 56 L 18 179/76 H 100 Weight Admit Weight 232 lb 5.875 oz Weight 224 lb 3.362 oz Most Recent Monitor Data Heart Rate from ECG 63 NIBP 159/72 NIBP BP-Mean 84 Respiration from ECG 20 SpO2 96 I&O: 01/03/17 01/04/17 01/05/17 06:59 06:59 06:59 Intake Total 3400 2400 Output Total 1550 1525 Balance 1850 875 Result Diagrams: 01/03/17 04:25 01/04/17 07:47 Phys Exam - Physical Examination HEENT: PERRLA, moist MMs Neck: no JVD, supple Respiratory: no wheezing, no rales Cardiovascular: RRR, no significant murmur Gastrointestinal: soft, non-tender, positive bowel sounds colostomy+, ileal conduit+ Musculoskeletal: pulses present, edema present Neurological: non-focal is severely deconditioned Psychiatric: A&O x 3 Dx/Plan (1) Acute metabolic encephalopathy Code(s): G93.41 - METABOLIC ENCEPHALOPATHY Status: Resolved Comment: Resolved as metabolic derangement improving, supportive care (2) Acute on chronic kidney failure Code(s): N17.9 - ACUTE KIDNEY FAILURE, UNSPECIFIED; N18.9 - CHRONIC KIDNEY DISEASE, UNSPECIFIED Status: Acute Qualifiers: Acute renal failure type: with acute tubular necrosis Chronic kidney disease stage: stage 5, not on chronic dialysis Qualified Code(s): N17.0 - Acute kidney failure with tubular necrosis; N18.5 - Chronic kidney disease, stage 5; N18.5 - Chronic kidney disease, stage 5; N18.5 - Chronic kidney disease , stage 5; N18.5 - Chronic kidney disease, stage 5 Comment: per Dr Mitchell. Improving Cr daily, acute component resolving (3) Acute respiratory failure Code(s): J96.00 - ACUTE RESPIRATORY FAILURE, UNSP W HYPOXIA OR HYPERCAPNIA Status: Resolved Qualifiers: Respiratory failure complication: hypoxia Qualified Code(s): J96.01 - Acute respiratory failure with hypoxia Comment: s/p extubation without complication, O2 prn (4) Acute hypernatremia Code(s): E87.0 - HYPEROSMOLALITY AND HYPERNATREMIA Status: Resolved (5) Sepsis Code(s): A41.9 - SEPSIS, UNSPECIFIED ORGANISM Status: Acute Qualifiers: Sepsis type: sepsis due to unspecified organism Qualified Code(s): A41.9 - Sepsis, unspecified organism Comment: due to Morganella spp, on Meropenem (6) UTI (urinary tract infection) Status: Acute Qualifiers: Urinary tract infection type: acute cystitis (7) DM type 2 (diabetes mellitus, type 2) Status: Chronic Qualifiers: Diabetes mellitus complication status: with kidney complications Diabetes mellitus complication detail: with chronic kidney disease Diabetes mellitus rn long term care insulin use: with alf use Chronic kidney disease stage: stage 5, not on chronic dialysis Qualified Code(s): E11.22 - Type 2 diabetes mellitus with diabetic chronic kidney disease; N18.5 - Chronic kidney disease, stage 5; N18.5 - Chronic kidney disease, stage 5; N18.5 - Chronic kidney disease , stage 5; N18.5 - Chronic kidney disease, stage 5; Z79.4 - skilled nursing (current) use of insulin; Z79.4 - continuous churn buttermaker (current) use of insulin; Z79.4 - continuous churn buttermaker ( current) use of insulin; Z79.4 - continuous churn buttermaker (current) use of insulin Comment: improving Cr now, (8) HTN (hypertension) Code(s): I10 - ESSENTIAL (PRIMARY) HYPERTENSION Status: Chronic Qualifiers: Hypertension type: essential hypertension (9) Metabolic acidosis Code(s): E87.2 - ACIDOSIS Status: Chronic (10) Sacral decubitus ulcer, stage IV Code(s): L89.154 - PRESSURE ULCER OF SACRAL REGION, STAGE 4 Status: Chronic Comment: POA, doesnt look infected, fibrotic, chronic and noted prior to admit (11) Seizure disorder Code(s): G40.909 - EPILEPSY, UNSP, NOT INTRACTABLE, WITHOUT STATUS EPILEPTICUS Status: Chronic Comment: on Phenytoin (12) Obesity (BMI 30-39.9) Code(s): E66.9 - OBESITY, UNSPECIFIED Status: Chronic - Plan aggressive PT as tolerated, has severe deconditioning -: continue meropenem, D5W and oral dilantin tid -: may tx to medical floor -: will need ltac or snf for dc plan -: has picc line, d/w , will need close monitoring of electrolytes * . Review of Systems - Medications/Allergies Allergies/Adverse Reactions: Allergies Allergy/AdvReac Type Severity Reaction Status Date / Time banana Allergy Verified 05/10/16 08:43 chocolate flavor Allergy Verified 05/10/16 08:43 egg Allergy Verified 05/10/16 08:43 Iodinated Contrast- Oral and Allergy Verified 05/10/16 08:44 IV Dye [Iodinated Contrast Media - Oral and] iodine Allergy Verified 05/10/16 08:43 latex Allergy Verified 05/10/16 08:43 orange juice Allergy Verified 05/10/16 08:43 tolterodine tartrate Allergy Verified 05/10/16 08:43 [From [facility]] tomato Allergy Verified 05/10/16 08:43 Medications: Current Medications Amlodipine Besylate (Norvasc) 10 mg PO DAILY [facility] [place] Last Admin: 01/04/17 08:44 Dose: 10 mg Aspirin (Aspirin Chewable) 81 mg PO DAILY [facility] Last Admin: 01/04/17 08:46 Dose: 81 mg Heparin Sodium (Porcine) (Heparin) 5,000 units SC TID [facility] Last Admin: 01/04/17 08:47 Dose: 5,000 units Hydralazine HCl (Apresoline) 20 mg SLOW IVP Q15MIN PRN PRN Reason: SBP Greater Than 180 Last Admin: 01/02/17 03:19 Dose: 20 mg Meropenem 1 gm/ Miscellaneous Medication 1 each/ Sodium Chloride 100 mls @ 200 mls/hr IVPB Q8HR [facility] [place] Last Admin: 01/04/17 06:29 Dose: 100 mls Sodium Bicarbonate 50 meq/Miscellaneous Medication 1 each/ Dextrose/Water 1, 050 mls @ 100 mls/hr IV .[id number] [facility] Last Admin: 01/04/17 01:51 Dose: 1,050 mls Levothyroxine Sodium (Synthroid) 200 mcg PER TUBE 0600 [facility] Last Admin: 01/04/17 06:29 Dose: 200 mcg Ondansetron HCl (Zofran) 4 mg IVP Q6H PRN PRN Reason: Nausea/Vomiting Phenytoin Sodium (Dilantin Er) 100 mg PO TID [facility] [place] Last Admin: 01/04/17 08:46 Dose: 100 mg Sertraline HCl (Zoloft) 50 mg PO DAILY [facility] Last Admin: 01/04/17 08:46 Dose: 50 mg Sodium Bicarbonate (Bicarbonate, Sodium) 325 mg PO BID [facility] Last Admin: 01/04/17 08:46 Dose: 325 mg Sodium Chloride (Flush - Normal Saline) 10 ml IVF Q12HR [facility] Last Admin: 01/04/17 08:48 Dose: 10 ml Sodium Chloride (Flush - Normal Saline) 10 ml IVF PRN PRN PRN Reason: Saline Flush Sodium Hypochlorite (Dakin's Half Strength 0.25% Solution) 0 ml TOP PRN PRN PRN Reason: Wound Care
[2017-01-04] MEDS ORDERED: Sodium Bicarbonate 50 MEQ, Admixture Fee 1 EACH in Dextrose 5% in Water 1,000 ML IV SCH ×3 (12:17)
--- NOTE | 2017-01-04 12:34 | PRG ---
DATE OF SERVICE: 01/04/2017 SERVICE: Pulmonary Medicine. INTERVAL HISTORY: The patient is breathing just fine. She denies any current fevers, chills, nausea, vomiting, or chest discomfort. She is a little tearful this morning. She has been reminiscing about her sister, who was killed in July. Otherwise, there has been no interval change to her condition. PHYSICAL EXAMINATION: VITAL SIGNS: Afebrile, pulse 56, blood pressure 151/75, respirations 20, saturation 100% on 2 liters nasal cannula. GENERAL: Patient is awake, alert, in no apparent distress. LUNGS: Excellent air entry with no prolonged expiratory phase, wheezing, rhonchi, or crackles. HEART: Normal rate, regular. ABDOMEN: Soft, nontender, nondistended. Bowel sounds positive. MUSCULOSKELETAL: No cyanosis or clubbing. No pitting in the bilateral lower extremities. NEUROLOGIC: Grossly nonfocal. LABORATORY DATA: Sodium 144, chloride 110. Creatinine 2.69 and downtrending, BUN 30. Basic metabolic profile is, otherwise, unremarkable. ASSESSMENT: 1. Metabolic encephalopathy, improving. 2. Non-anion gap metabolic acidosis secondary to ileal conduit. 3. Chronic kidney disease, stage 4. 4. Severe sepsis. 5. Urinary tract infection. 6. Chronic decubitus ulcer of the sacrum, present on admission. PLAN: I will drop the rate of the bicarbonate drip to 50 mL an hour and continue it for the next 24 hours. Basic metabolic profile once again will be repeated in the morning to make certain her bicarbonate does not fall off again. I think her extracellular fluid is now euvolemic. I do want to continue some free water for a brief period of time to see about plumping up her intercellular space. From my perspective, she is stable for transition out of the hospital provided that we frequently watch her volume status, and her bicarbonate to see if we need to adjust bicarbonate supplementation. IVONE
[2017-01-04] MEDS: hydrALAZINE 25 MG TAB PO SCH ×2 (14:37→21:33)
[2017-01-05 04:29] LABS: Anion Gap 14 mmol/L (10-20); BUN (Urea Nitrogen) 33 mg/dL (9.8-20.1); Calc. Creatinine Clearance 36 mL/min (70-130); Calcium 8.8 mg/dL (7.8-10.44); Carbon Dioxide 24 mmol/L (23-31); Chloride 110 mmol/L (98-107); Estimated GFR-MDRD 23
[2017-01-05] MEDS: Meropenem 1 GM, Admixture Fee 1 EACH in Sodium Chloride 0.9% 100 ML IVPB SCH ×3 (05:36→21:08)
[2017-01-05] MEDS: Levothyroxine Sodium 100 MCG TAB PER TUBE SCH (05:37)
[2017-01-05] MEDS: Amlodipine 10 MG TAB PO SCH (08:32)
[2017-01-05] MEDS: hydrALAZINE 25 MG TAB PO SCH ×3 (08:32→21:07)
[2017-01-05] MEDS: Sodium Bicarbonate Tab 325 MG TAB PO SCH ×2 (08:34→21:07)
[2017-01-05] MEDS: Heparin 5,000 UNITS/ML VIAL SC SCH ×3 (08:35→21:07)
[2017-01-05] MEDS ORDERED: Dextrose 5% in Water 1,000 ML IV SCH (08:45)
[2017-01-05] MEDS ORDERED: Lidocaine 2% w/Epinephrine 1:200K 20 ML VIAL ONE (13:48)
[2017-01-05] MEDS ORDERED: Bupivacaine 0.25% HCL 30 ML VIAL ONE (13:48)
--- NOTE | 2017-01-05 14:35 | PDOC.PN ---
- Subjective Encounter Start Date: 01/05/17 Encounter Start Time: 09:00 Pt seen for followup re: acute on chronic renal failure. Says she feels better. Denies nausea, vomiting or diarrhea. - Objective MAR Reviewed: Yes Vital Signs & Weight: Vital Signs (12 hours) Temp Pulse Resp BP BP Pulse Ox 01/05/17 12:00 98.1 F 64 18 168/70 H 95 01/05/17 08:32 67 147/58 H 01/05/17 08:00 98.5 F 64 22 H 98 01/05/17 07:00 98.5 F 64 22 H 147/52 H 98 01/05/17 04:00 98.6 F 52 L 18 147/58 H 98 Weight Admit Weight 232 lb 5.875 oz Weight 225 lb 1.471 oz Most Recent Monitor Data Heart Rate from ECG 63 NIBP 159/72 NIBP BP-Mean 84 Respiration from ECG 20 SpO2 96 I&O: 01/04/17 01/05/17 01/06/17 06:59 06:59 06:59 Intake Total 2400 3495 120 Output Total 1525 2400 Balance 875 1095 120 Result Diagrams: 01/03/17 04:25 01/05/17 04:04 EKG Reviewed by me: Yes (Tele: juan miguel willingham) Phys Exam - Physical Examination Obesity HEENT: moist MMs Neck: supple Respiratory: clear to auscultation bilateral Cardiovascular: RRR Gastrointestinal: soft, positive bowel sounds colostomy, ileal conduit+ Musculoskeletal: pulses present Neurological: moves all 4 limbs Psychiatric: normal affect Deviation from normal: sacral wound Dx/Plan (1) Acute on chronic kidney failure Code(s): N17.9 - ACUTE KIDNEY FAILURE, UNSPECIFIED; N18.9 - CHRONIC KIDNEY DISEASE, UNSPECIFIED Status: Acute Qualifiers: Acute renal failure type: with acute tubular necrosis Chronic kidney disease stage: stage 5, not on chronic dialysis Qualified Code(s): N17.0 - Acute kidney failure with tubular necrosis; N18.5 - Chronic kidney disease, stage 5; N18.5 - Chronic kidney disease, stage 5; N18.5 - Chronic kidney disease , stage 5; N18.5 - Chronic kidney disease, stage 5 (2) UTI (urinary tract infection) Status: Acute Qualifiers: Urinary tract infection type: acute cystitis (3) Anemia Code(s): D64.9 - ANEMIA, UNSPECIFIED Status: Chronic Qualifiers: Anemia type: due to chronic kidney disease Chronic kidney disease stage: stage 4 (severe) Qualified Code(s): N18.4 - Chronic kidney disease, stage 4 ( severe); D63.1 - Anemia in chronic kidney disease; D63.1 - Anemia in chronic kidney disease (4) Obesity (BMI 30-39.9) Code(s): E66.9 - OBESITY, UNSPECIFIED Status: Chronic (5) DM type 2 (diabetes mellitus, type 2) Status: Chronic Qualifiers: Diabetes mellitus complication status: with kidney complications Diabetes mellitus complication detail: with chronic kidney disease Diabetes mellitus bed bug exterminator insulin use: with longterm use Chronic kidney disease stage: stage 5, not on chronic dialysis Qualified Code(s): E11.22 - Type 2 diabetes mellitus with diabetic chronic kidney disease; N18.5 - Chronic kidney disease, stage 5; N18.5 - Chronic kidney disease, stage 5; N18.5 - Chronic kidney disease , stage 5; N18.5 - Chronic kidney disease, stage 5; Z79.4 - extermination inspector (current) use of insulin; Z79.4 - halfway (current) use of insulin; Z79.4 - extermination inspector ( current) use of insulin; Z79.4 - halfway (current) use of insulin Comment: improving Cr now, (6) HTN (hypertension) Code(s): I10 - ESSENTIAL (PRIMARY) HYPERTENSION Status: Chronic Qualifiers: Hypertension type: essential hypertension (7) Sacral decubitus ulcer, stage IV Code(s): L89.154 - PRESSURE ULCER OF SACRAL REGION, STAGE 4 Status: Chronic Comment: POA, doesnt look infected, fibrotic, chronic and noted prior to admit - Plan continue antibiotics, PT/OT, out of bed/ambulate * .Creatinine improving. Morganella morganii UTI, continue IV antibiotics. Ambulatre pt. Review of Systems - Review of Systems Constitutional: Weakness. negative: Fever, Chills, Sweats, Malaise Respiratory: negative: Cough, Dry, Shortness of Breath, Hemoptysis, SOB with Excertion, Pleuritic Pain, Sputum, Wheezing Cardiovascular: negative: Chest Pain, Palpitations, Orthopnea, Paroxysmal Noc. Dyspnea, Edema, Light Headedness - Medications/Allergies Allergies/Adverse Reactions: Allergies Allergy/AdvReac Type Severity Reaction Status Date / Time banana Allergy Verified 05/10/16 08:43 chocolate flavor Allergy Verified 05/10/16 08:43 egg Allergy Verified 05/10/16 08:43 Iodinated Contrast- Oral and Allergy Verified 05/10/16 08:44 IV Dye [Iodinated Contrast Media - Oral and] iodine Allergy Verified 05/10/16 08:43 latex Allergy Verified 05/10/16 08:43 orange juice Allergy Verified 05/10/16 08:43 tolterodine tartrate Allergy Verified 05/10/16 08:43 [From [facility]] tomato Allergy Verified 05/10/16 08:43 Medications: Current Medications Amlodipine Besylate (Norvasc) 10 mg PO DAILY [facility] Last Admin: 01/05/17 08:32 Dose: 10 mg Aspirin (Aspirin Chewable) 81 mg PO DAILY [facility] Last Admin: 01/05/17 08:32 Dose: 81 mg Heparin Sodium (Porcine) (Heparin) 5,000 units SC TID [facility] Last Admin: 01/05/17 08:35 Dose: 5,000 units Hydralazine HCl (Apresoline) 20 mg SLOW IVP Q15MIN PRN PRN Reason: SBP Greater Than 180 Last Admin: 01/02/17 03:19 Dose: 20 mg Hydralazine HCl (Apresoline) 25 mg PO TID [facility] Last Admin: 01/05/17 08:32 Dose: 25 mg Meropenem 1 gm/ Miscellaneous Medication 1 each/ Sodium Chloride 100 mls @ 200 mls/hr IVPB Q8HR [facility] Last Admin: 01/05/17 05:36 Dose: 100 mls Dextrose/Water (D5w) 1,000 mls @ 75 mls/hr IV .[id number] [facility] Last Admin: 01/05/17 12:10 Dose: 1,000 mls Levothyroxine Sodium (Synthroid) 200 mcg PER TUBE 0600 [facility] Last Admin: 01/05/17 05:37 Dose: 200 mcg Ondansetron HCl (Zofran) 4 mg IVP Q6H PRN PRN Reason: Nausea/Vomiting Phenytoin Sodium (Dilantin Er) 100 mg PO TID [facility] Last Admin: 01/05/17 08:33 Dose: 100 mg Sertraline HCl (Zoloft) 50 mg PO DAILY [facility] Last Admin: 01/05/17 08:34 Dose: 50 mg Sodium Bicarbonate (Bicarbonate, Sodium) 325 mg PO BID [facility] Last Admin: 01/05/17 08:34 Dose: 325 mg Sodium Chloride (Flush - Normal Saline) 10 ml IVF Q12HR [facility] Last Admin: 01/05/17 10:09 Dose: Not Given Sodium Chloride (Flush - Normal Saline) 10 ml IVF PRN PRN PRN Reason: Saline Flush Sodium Hypochlorite (Dakin's Half Strength 0.25% Solution) 0 ml TOP PRN PRN PRN Reason: Wound Care
--- NOTE | 2017-01-05 16:29 | PRG ---
DATE OF SERVICE: 01/05/2017 SERVICE: Pulmonary Medicine. INTERVAL HISTORY: The patient is doing really well from a respiratory standpoint. She remains on r oom air. She has absolutely no complaints other than some soreness in her abdomen. That being said , she is tolerating p.o. She is also having normal output from both her ileostomy and her colostomy bag. Otherwise, there has been no interval change to her condition. She has had some emotional la bility over the past 2 days with episodes of crying and outbursts of laughing which are seemingly in appropriate. PHYSICAL EXAMINATION: VITAL SIGNS: Afebrile, pulse 64, blood pressure 168/70, respirations 18, saturation 95% on room air . GENERAL: Patient is awake, alert, in no apparent distress. LUNGS: Excellent air entry with no prolonged expiratory phase, wheezing, rhonchi or crackles. HEART: Normal rate, regular. ABDOMEN: Soft, nontender, and nondistended. Bowel sounds positive. MUSCULOSKELETAL: No cyanosis or clubbing. No pitting in the bilateral lower extremities. NEUROLOGIC: Grossly nonfocal. LABORATORY DATA: Potassium 5.3. Basic metabolic profile is otherwise unremarkable. Creatinine 2.6 1 and gently down trending. Sodium is stable at 143. ASSESSMENT: 1. Metabolic encephalopathy, resolving. 2. Nonanion gap metabolic acidosis secondary to ileal conduit, stable. 3. Chronic kidney disease, stage 4. 4. Severe sepsis. 5. Urinary tract infection. 6. Chronic decubitus ulcers of the sacrum, present on admission. PLAN: At this point, she does not have any focal neurologic deficits. The emotional lability could be a reflection of perhaps a frontal lesion. By each day, she continues to make improvements in st rength and mentation as well as her level of sleepiness. As such, we will give her more time for th e time being. If she continues to have these episodes, imaging of the brain can be considered. I w ill discontinue the bicarbonate drip. We will continue a little bit of free water moving forward, b ut once her p.o. improves dramatically, this can be interrupted. From a purely respiratory perspect landon, she is stable for transition out of the hospital, but will likely require placement in a skille d nursing facility or LTAC facility to pursue aggressive mobilization efforts.
[2017-01-05] MEDS: Dextrose 5% in Water 1,000 ML IV SCH (17:58)
[2017-01-06] MEDS: Meropenem 1 GM, Admixture Fee 1 EACH in Sodium Chloride 0.9% 100 ML IVPB SCH ×3 (05:47→21:18)
[2017-01-06] MEDS: Levothyroxine Sodium 100 MCG TAB PER TUBE SCH (05:47)
[2017-01-06 06:25] LABS: #Basophils 0.1 thou/uL (0.0-0.2); #Eosinphils 0.3 thou/uL (0.0-0.7); #Lymphocytes 1.3 thou/uL (1.20-3.40); #Monocytes 0.6 thou/uL (0.11-0.59); #Neutrophils 4.9 thou/uL (1.40-6.50); %Basophils 0.7 % (0.0-1.0); %Eosinophils 4.6 % (0.0-10.0); %Monocytes 8.5 % (0.0-10.0); Hematocrit 28.7 % (36.0-47.0); Mean Platelet Volume 7.5 fL (7.4-10.4); Red Blood Cell (RBC) Count 3.12 mill/uL (4.20-5.40); White Blood Cell (WBC) Count 7.1 thou/uL (4.8-10.8)
[2017-01-06 06:42] LABS: Anion Gap 10 mmol/L (10-20); BUN (Urea Nitrogen) 27 mg/dL (9.8-20.1); Calc. Creatinine Clearance 39 mL/min (70-130); Calcium 9.2 mg/dL (7.8-10.44); Carbon Dioxide 30 mmol/L (23-31); Chloride 106 mmol/L (98-107); Estimated GFR-MDRD 24
[2017-01-06] MEDS: hydrALAZINE 25 MG TAB PO SCH ×3 (08:34→21:18)
[2017-01-06] MEDS: Amlodipine 10 MG TAB PO SCH (08:35)
[2017-01-06] MEDS: Heparin 5,000 UNITS/ML VIAL SC SCH ×3 (08:35→21:18)
[2017-01-06] MEDS: Sodium Bicarbonate Tab 325 MG TAB PO SCH ×2 (08:35→21:18)
[2017-01-06] MEDS: Dextrose 5% in Water 1,000 ML IV SCH (08:38)
--- NOTE | 2017-01-06 11:15 | PDOC.PN ---
- Subjective Encounter Start Date: 01/06/17 Encounter Start Time: 09:40 Pt seen for followup re: acute on chronic renal failure. Says she slept well, feels better. No chest pain or shortness of breath. Had abdo pain earlier. - Objective Vital Signs & Weight: Vital Signs (12 hours) Temp Pulse Resp BP BP Pulse Ox 01/06/17 08:35 61 156/66 H 01/06/17 08:34 61 156/66 H 01/06/17 08:00 98.5 F 61 20 99 01/06/17 07:22 98.5 F 61 20 156/66 H 99 01/06/17 03:25 98.4 F 65 18 153/71 H 96 01/06/17 03:00 96 Weight Admit Weight 232 lb 5.875 oz Weight 224 lb 12.8 oz Most Recent Monitor Data Heart Rate from ECG 63 NIBP 159/72 NIBP BP-Mean 84 Respiration from ECG 20 SpO2 96 I&O: 01/05/17 01/06/17 01/07/17 06:59 06:59 06:59 Intake Total 3495 2653 120 Output Total 2400 3350 Balance 1095 -697 120 Result Diagrams: 01/06/17 06:05 01/06/17 06:05 Phys Exam - Physical Examination Obesity HEENT: moist MMs Neck: supple Respiratory: clear to auscultation bilateral Cardiovascular: RRR Gastrointestinal: soft ostomy+, ileal conduit+ Musculoskeletal: pulses present Neurological: moves all 4 limbs Psychiatric: normal affect Skin: no rash Dx/Plan (1) Acute on chronic kidney failure Code(s): N17.9 - ACUTE KIDNEY FAILURE, UNSPECIFIED; N18.9 - CHRONIC KIDNEY DISEASE, UNSPECIFIED Status: Acute Qualifiers: Acute renal failure type: with acute tubular necrosis Chronic kidney disease stage: stage 5, not on chronic dialysis Qualified Code(s): N17.0 - Acute kidney failure with tubular necrosis; N18.5 - Chronic kidney disease, stage 5; N18.5 - Chronic kidney disease, stage 5; N18.5 - Chronic kidney disease , stage 5; N18.5 - Chronic kidney disease, stage 5 (2) UTI (urinary tract infection) Status: Acute Qualifiers: Urinary tract infection type: acute cystitis (3) Anemia Code(s): D64.9 - ANEMIA, UNSPECIFIED Status: Chronic Qualifiers: Anemia type: due to chronic kidney disease Chronic kidney disease stage: stage 4 (severe) Qualified Code(s): N18.4 - Chronic kidney disease, stage 4 ( severe); D63.1 - Anemia in chronic kidney disease; D63.1 - Anemia in chronic kidney disease (4) Obesity (BMI 30-39.9) Code(s): E66.9 - OBESITY, UNSPECIFIED Status: Chronic (5) DM type 2 (diabetes mellitus, type 2) Status: Chronic Qualifiers: Diabetes mellitus complication status: with kidney complications Diabetes mellitus complication detail: with chronic kidney disease Diabetes mellitus shelter insulin use: with residential framing carpenter use Chronic kidney disease stage: stage 5, not on chronic dialysis Qualified Code(s): E11.22 - Type 2 diabetes mellitus with diabetic chronic kidney disease; N18.5 - Chronic kidney disease, stage 5; N18.5 - Chronic kidney disease, stage 5; N18.5 - Chronic kidney disease , stage 5; N18.5 - Chronic kidney disease, stage 5; Z79.4 - USP (current) use of insulin; Z79.4 - entry level web developer (current) use of insulin; Z79.4 - entry level web developer ( current) use of insulin; Z79.4 - USP (current) use of insulin (6) HTN (hypertension) Code(s): I10 - ESSENTIAL (PRIMARY) HYPERTENSION Status: Chronic Qualifiers: Hypertension type: essential hypertension (7) Sacral decubitus ulcer, stage IV Code(s): L89.154 - PRESSURE ULCER OF SACRAL REGION, STAGE 4 Status: Chronic - Plan continue antibiotics, PT/OT, out of bed/ambulate * . * .Creatinine improving. Continue antibiotics. Ambulate pt. Review of Systems - Review of Systems Constitutional: negative: Fever, Chills, Sweats, Weakness, Malaise Respiratory: negative: Cough, Dry, Shortness of Breath, Hemoptysis, SOB with Excertion, Pleuritic Pain, Sputum, Wheezing Cardiovascular: negative: Chest Pain, Palpitations, Orthopnea, Paroxysmal Noc. Dyspnea, Edema, Light Headedness - Medications/Allergies Allergies/Adverse Reactions: Allergies Allergy/AdvReac Type Severity Reaction Status Date / Time banana Allergy Verified 05/10/16 08:43 chocolate flavor Allergy Verified 05/10/16 08:43 egg Allergy Verified 05/10/16 08:43 Iodinated Contrast- Oral and Allergy Verified 05/10/16 08:44 IV Dye [Iodinated Contrast Media - Oral and] iodine Allergy Verified 05/10/16 08:43 latex Allergy Verified 05/10/16 08:43 orange juice Allergy Verified 05/10/16 08:43 tolterodine tartrate Allergy Verified 05/10/16 08:43 [From [facility]] tomato Allergy Verified 05/10/16 08:43 Medications: Current Medications Amlodipine Besylate (Norvasc) 10 mg PO DAILY [facility] Last Admin: 01/06/17 08:35 Dose: 10 mg Aspirin (Aspirin Chewable) 81 mg PO DAILY [facility] Last Admin: 01/06/17 08:34 Dose: 81 mg Heparin Sodium (Porcine) (Heparin) 5,000 units SC TID [facility] Last Admin: 01/06/17 08:35 Dose: 5,000 units Hydralazine HCl (Apresoline) 20 mg SLOW IVP Q15MIN PRN PRN Reason: SBP Greater Than 180 Last Admin: 01/02/17 03:19 Dose: 20 mg Hydralazine HCl (Apresoline) 25 mg PO TID [facility] Last Admin: 01/06/17 08:34 Dose: 25 mg Meropenem 1 gm/ Miscellaneous Medication 1 each/ Sodium Chloride 100 mls @ 200 mls/hr IVPB Q8HR [facility] Last Admin: 01/06/17 05:47 Dose: 100 mls Dextrose/Water (D5w) 1,000 mls @ 50 mls/hr IV .Q20H [facility] Last Admin: 01/06/17 08:38 Dose: 1,000 mls Levothyroxine Sodium (Synthroid) 200 mcg PER TUBE 0600 [facility] Last Admin: 01/06/17 05:47 Dose: 200 mcg Ondansetron HCl (Zofran) 4 mg IVP Q6H PRN PRN Reason: Nausea/Vomiting Phenytoin Sodium (Dilantin Er) 100 mg PO TID [facility] Last Admin: 01/06/17 08:34 Dose: 100 mg Sertraline HCl (Zoloft) 50 mg PO DAILY [facility] Last Admin: 01/06/17 08:34 Dose: 50 mg Sodium Bicarbonate (Bicarbonate, Sodium) 325 mg PO BID [facility] Last Admin: 01/06/17 08:35 Dose: 325 mg Sodium Chloride (Flush - Normal Saline) 10 ml IVF Q12HR [facility] Last Admin: 01/06/17 08:36 Dose: 10 ml Sodium Chloride (Flush - Normal Saline) 10 ml IVF PRN PRN PRN Reason: Saline Flush Sodium Hypochlorite (Dakin's Half Strength 0.25% Solution) 0 ml TOP PRN PRN PRN Reason: Wound Care
--- NOTE | 2017-01-06 15:16 | PRG ---
DATE OF SERVICE: 01/06/2017 SUBJECTIVE: Ms. Lorenzana is a 61-year-old female who has been encephalopathic for a few days, but has d ramatically improved. She quickly answered where was. She admits that she does not really remember everything for the last few days. PHYSICAL EXAMINATION: VITAL SIGNS: She is afebrile, heart rate 59, blood pressure 156/66, respiratory rate 19, and oximet ry is 98%. LUNGS: Clear. HEART: Regular rhythm. ABDOMEN: Soft. IMPRESSION: 1. Metabolic encephalopathy, improving. 2. Metabolic acidosis, presumably secondary to her ileal conduit. 3. Chronic kidney disease. 4. Urinary tract infection with positive urine culture with negative blood cultures. PLAN: Continue current supportive care measures.
[2017-01-07] MEDS: Levothyroxine Sodium 100 MCG TAB PER TUBE SCH (05:50)
[2017-01-07] MEDS: Meropenem 1 GM, Admixture Fee 1 EACH in Sodium Chloride 0.9% 100 ML IVPB SCH ×3 (05:51→21:11)
[2017-01-07 06:07] LABS: #Basophils 0.1 thou/uL (0.0-0.2); #Eosinphils 0.3 thou/uL (0.0-0.7); #Lymphocytes 1.6 thou/uL (1.20-3.40); #Monocytes 0.7 thou/uL (0.11-0.59); %Basophils 0.7 % (0.0-1.0); %Eosinophils 3.8 % (0.0-10.0); %Lymphocytes 20.6 % (21.0-51.0); %Monocytes 9.2 % (0.0-10.0); Hematocrit 28.2 % (36.0-47.0); Red Blood Cell (RBC) Count 3.07 mill/uL (4.20-5.40); White Blood Cell (WBC) Count 7.6 thou/uL (4.8-10.8)
[2017-01-07 06:14] LABS: Anion Gap 11 mmol/L (10-20); BUN (Urea Nitrogen) 26 mg/dL (9.8-20.1); Calc. Creatinine Clearance 34 mL/min (70-130); Carbon Dioxide 29 mmol/L (23-31); Chloride 106 mmol/L (98-107); Estimated GFR-MDRD 21
[2017-01-07] MEDS: Heparin 5,000 UNITS/ML VIAL SC SCH ×3 (08:22→20:30)
[2017-01-07] MEDS: Sodium Bicarbonate Tab 325 MG TAB PO SCH ×2 (08:23→20:30)
--- NOTE | 2017-01-07 08:23 | PDOC.PN ---
- Subjective Encounter Start Date: 01/07/17 Encounter Start Time: 08:00 Subjective: no new complaints - Objective MAR Reviewed: Yes Vital Signs & Weight: Vital Signs (12 hours) Temp Pulse Resp BP BP Pulse Ox 01/07/17 07:00 98.4 F 65 16 148/69 H 94 L 01/07/17 03:30 97.8 F 82 18 118/52 L 100 01/07/17 02:56 96 01/07/17 00:35 98.2 F 79 16 150/67 H 96 01/06/17 21:18 66 148/64 H Weight Admit Weight 232 lb 5.875 oz Weight 225 lb 1.6 oz Most Recent Monitor Data Heart Rate from ECG 63 NIBP 159/72 NIBP BP-Mean 84 Respiration from ECG 20 SpO2 96 I&O: 01/06/17 01/07/17 01/08/17 06:59 06:59 06:59 Intake Total 2653 2635 Output Total 3350 3750 Balance -824 -3159 Result Diagrams: 01/07/17 05:55 01/07/17 05:55 Phys Exam - Physical Examination Constitutional: NAD HEENT: PERRLA, moist MMs Neck: supple, full ROM Respiratory: clear to auscultation bilateral Cardiovascular: RRR Gastrointestinal: soft, positive bowel sounds ileostomy Musculoskeletal: no edema Neurological: non-focal, moves all 4 limbs Psychiatric: normal affect, A&O x 3 Skin: no rash Dx/Plan (1) Acute respiratory failure Code(s): J96.00 - ACUTE RESPIRATORY FAILURE, UNSP W HYPOXIA OR HYPERCAPNIA Status: Resolved Qualifiers: Respiratory failure complication: hypoxia Qualified Code(s): J96.01 - Acute respiratory failure with hypoxia Comment: s/p extubation without complication, O2 prn (2) Acute worsening of stage 4 chronic kidney disease Code(s): N28.9 - DISORDER OF KIDNEY AND URETER, UNSPECIFIED; N18.4 - CHRONIC KIDNEY DISEASE, STAGE 4 (SEVERE) Status: Acute (3) Metabolic acidosis Code(s): E87.2 - ACIDOSIS Status: Chronic (4) SBO (small bowel obstruction) Code(s): K56.69 - OTHER INTESTINAL OBSTRUCTION * DO NOT USE * Status: Acute Comment: (5) Sepsis Code(s): A41.9 - SEPSIS, UNSPECIFIED ORGANISM Status: Acute Qualifiers: Sepsis type: sepsis due to unspecified organism Qualified Code(s): A41.9 - Sepsis, unspecified organism Comment: due to Morganella spp, on Meropenem (6) UTI (urinary tract infection) Status: Acute Qualifiers: Urinary tract infection type: acute cystitis - Plan cont current plan of care, continue antibiotics, PT/OT, DVT proph w/SCDs condition improved d/c to floor once cleared by ccm * .
[2017-01-07] MEDS: hydrALAZINE 25 MG TAB PO SCH ×3 (08:24→20:30)
[2017-01-07] MEDS: Amlodipine 10 MG TAB PO SCH (08:25)
[2017-01-07] MEDS: Dextrose 5% in Water 1,000 ML IV SCH (08:26)
--- NOTE | 2017-01-07 16:36 | PRG ---
DATE OF SERVICE: 01/07/2017 SUBJECTIVE: Sakina Lorenzana has no complaints. OBJECTIVE: GENERAL: She is oriented x3. She is in no distress. VITAL SIGNS: Temperature max 100.3, heart rate 64, respiratory rate is 18, and blood pressure 148/6 9. LUNGS: Clear. HEART: Regular rhythm. ABDOMEN: Soft. She grew Morganella out of her urine sensitive to meropenem and cefepime. IMPRESSION: 1. Encephalopathy, improved. 2. History of an ileal conduit. 3. Chronic kidney disease. PLAN: Continue physical therapy, she takes 3 nurses to move her about in the bed. She is quite wea k and I think she will be able to go home until she is stronger, so consideration for skilled nursin g evaluation should began.
[2017-01-08] MEDS: Dextrose 5% in Water 1,000 ML IV SCH (04:12)
[2017-01-08 04:50] LABS: #Eosinphils 0.3 thou/uL (0.0-0.7); #Lymphocytes 1.9 thou/uL (1.20-3.40); #Monocytes 0.6 thou/uL (0.11-0.59); #Neutrophils 3.9 thou/uL (1.40-6.50); %Basophils 0.1 % (0.0-1.0); %Eosinophils 4.1 % (0.0-10.0); %Lymphocytes 28.6 % (21.0-51.0); %Monocytes 8.3 % (0.0-10.0); Hematocrit 28.1 % (36.0-47.0); Mean Platelet Volume 7.6 fL (7.4-10.4); Red Blood Cell (RBC) Count 3.05 mill/uL (4.20-5.40); White Blood Cell (WBC) Count 6.5 thou/uL (4.8-10.8)
[2017-01-08 05:07] LABS: Anion Gap 13 mmol/L (10-20); BUN (Urea Nitrogen) 26 mg/dL (9.8-20.1); Calc. Creatinine Clearance 32 mL/min (70-130); Carbon Dioxide 25 mmol/L (23-31); Chloride 106 mmol/L (98-107); Estimated GFR-MDRD 19
[2017-01-08] MEDS: Meropenem 1 GM, Admixture Fee 1 EACH in Sodium Chloride 0.9% 100 ML IVPB SCH (05:46)
[2017-01-08] MEDS: Levothyroxine Sodium 100 MCG TAB PER TUBE SCH (05:47)
[2017-01-08] MEDS: Ondansetron HCl/PF 4 MG/2 ML Vial IVP PRN (05:50)
[2017-01-08] MEDS: hydrALAZINE 25 MG TAB PO SCH ×3 (08:06→20:53)
[2017-01-08] MEDS: Amlodipine 10 MG TAB PO SCH (08:06)
[2017-01-08] MEDS: Sodium Bicarbonate Tab 325 MG TAB PO SCH ×2 (08:07→20:53)
[2017-01-08] MEDS: Heparin 5,000 UNITS/ML VIAL SC SCH ×3 (08:07→20:53)
[2017-01-08] MEDS: Ascorbic Acid 500 mg Chewable Tablet PO SCH ×2 (09:17→20:53)
[2017-01-08] MEDS: Dextrose 5 % And 0.9 % NaCl 1,000 ML IV SCH ×2 (09:47→16:10)
[2017-01-08] MEDS: Calcium Acetate 667 MG CAP PO SCH ×2 (12:23→16:10)
[2017-01-08 13:25] VITALS: BMI 39.9
[2017-01-08] MEDS: Meropenem 1 GM, Admixture Fee 1 EACH in Sterile Water 20 ML SLOW IVP SCH ×2 (14:31→22:23)
--- NOTE | 2017-01-08 14:33 | PDOC.PN ---
- Subjective Encounter Start Date: 01/08/17 Encounter Start Time: 08:45 -: old records requested/rev Patient seen and examined. No new complaints. No overnight events - Objective MAR Reviewed: Yes Vital Signs & Weight: Vital Signs (12 hours) Temp Pulse Resp BP Pulse Ox 01/08/17 11:57 98.9 F 59 L 18 138/72 95 01/08/17 08:31 97.7 F 59 L 16 134/68 96 01/08/17 08:06 66 01/08/17 08:00 97.7 F 59 L 16 01/08/17 03:09 95 Weight Admit Weight 232 lb 5.875 oz Weight 225 lb 5.845 oz Most Recent Monitor Data Heart Rate from ECG 63 NIBP 159/72 NIBP BP-Mean 84 Respiration from ECG 20 SpO2 96 I&O: 01/07/17 01/08/17 01/09/17 06:59 06:59 06:59 Intake Total 2635 900 Output Total 3750 1300 Balance -1115 -400 Result Diagrams: 01/08/17 04:01 01/08/17 04:01 Phys Exam - Physical Examination Constitutional: NAD HEENT: PERRLA, moist MMs, sclera anicteric Neck: no JVD, supple Respiratory: no wheezing, no rales, no rhonchi Cardiovascular: RRR, no significant murmur, no rub Gastrointestinal: soft, no distention, positive bowel sounds colostomy, ilieul conduit Musculoskeletal: no edema, pulses present Neurological: non-focal, normal sensation Lymphatic: no nodes Psychiatric: normal affect Skin: no rash, normal turgor Dx/Plan (1) Acute worsening of stage 4 chronic kidney disease Code(s): N28.9 - DISORDER OF KIDNEY AND URETER, UNSPECIFIED; N18.4 - CHRONIC KIDNEY DISEASE, STAGE 4 (SEVERE) Status: Acute (2) Physical deconditioning Code(s): R53.81 - OTHER MALAISE Status: Acute (3) UTI (urinary tract infection) Status: Acute Qualifiers: Urinary tract infection type: acute cystitis (4) Anemia of renal disease Code(s): D63.1 - ANEMIA IN CHRONIC KIDNEY DISEASE Status: Chronic (5) Anxiety and depression Code(s): F41.8 - OTHER SPECIFIED ANXIETY DISORDERS Status: Chronic (6) DM type 2 (diabetes mellitus, type 2) Status: Chronic Qualifiers: Diabetes mellitus complication status: with kidney complications Diabetes mellitus complication detail: with chronic kidney disease Diabetes mellitus terminal superintendent insulin use: with halfway use Chronic kidney disease stage: stage 5, not on chronic dialysis Qualified Code(s): E11.22 - Type 2 diabetes mellitus with diabetic chronic kidney disease; N18.5 - Chronic kidney disease, stage 5; N18.5 - Chronic kidney disease, stage 5; N18.5 - Chronic kidney disease , stage 5; N18.5 - Chronic kidney disease, stage 5; Z79.4 - [facility] (current) use of insulin; Z79.4 - [facility] (current) use of insulin; Z79.4 - terminal operations supervisor ( current) use of insulin; Z79.4 - [facility] (current) use of insulin (7) HTN (hypertension) Code(s): I10 - ESSENTIAL (PRIMARY) HYPERTENSION Status: Chronic Qualifiers: Hypertension type: essential hypertension (8) Hypothyroidism Code(s): E03.9 - HYPOTHYROIDISM, UNSPECIFIED Status: Chronic (9) Metabolic acidosis Code(s): E87.2 - ACIDOSIS Status: Chronic (10) Obesity (BMI 30-39.9) Code(s): E66.9 - OBESITY, UNSPECIFIED Status: Chronic (11) Seizure disorder Code(s): G40.909 - EPILEPSY, UNSP, NOT INTRACTABLE, WITHOUT STATUS EPILEPTICUS Status: Chronic Comment: on Phenytoin (12) Acute metabolic encephalopathy Code(s): G93.41 - METABOLIC ENCEPHALOPATHY Status: Resolved Comment: Resolved as metabolic derangement improving, supportive care (13) Acute respiratory failure Code(s): J96.00 - ACUTE RESPIRATORY FAILURE, UNSP W HYPOXIA OR HYPERCAPNIA Status: Resolved Qualifiers: Respiratory failure complication: hypoxia Qualified Code(s): J96.01 - Acute respiratory failure with hypoxia Comment: s/p extubation without complication, O2 prn (14) Bilateral hydronephrosis Code(s): N13.30 - UNSPECIFIED HYDRONEPHROSIS Status: Chronic (15) Sacral decubitus ulcer, stage IV Code(s): L89.154 - PRESSURE ULCER OF SACRAL REGION, STAGE 4 Status: Chronic - Plan cont current plan of care, continue antibiotics, PT/OT, social work associate, respiratory therapy * pt will need SNU placement, pt require lot of help for her care, not possible at home * medication reviewed as below * symptomatic treatment * continue meropenam while in hospital * she will not need Iv antibiotics on discharge. Review of Systems - Review of Systems Constitutional: Weakness, Malaise. negative: Fever, Chills, Sweats, Other ENT: negative: Ear Pain, Ear Discharge, Nose Pain, Nose Discharge, Nose Congestion, Mouth Pain, Mouth Swelling, Throat Pain, Throat Swelling, Other Respiratory: negative: Cough, Dry, Shortness of Breath, Hemoptysis, SOB with Excertion, Pleuritic Pain, Sputum, Wheezing Cardiovascular: negative: Chest Pain, Palpitations, Orthopnea, Paroxysmal Noc. Dyspnea, Edema, Light Headedness, Other Gastrointestinal: negative: Nausea, Vomiting, Abdominal Pain, Diarrhea, Constipation, Melena, Hematochezia, Other Genitourinary: negative: Dysuria, Frequency, Incontinence, Hematuria, Retention , Other Musculoskeletal: negative: Neck Pain, Shoulder Pain, Arm Pain, Back Pain, Hand Pain, Leg Pain, Foot Pain, Other Skin: negative: Rash, Lesions, Víctor, Bruising, Other - Medications/Allergies Allergies/Adverse Reactions: Allergies Allergy/AdvReac Type Severity Reaction Status Date / Time banana Allergy Verified 05/10/16 08:43 chocolate flavor Allergy Verified 05/10/16 08:43 egg Allergy Verified 05/10/16 08:43 Iodinated Contrast- Oral and Allergy Verified 05/10/16 08:44 IV Dye [Iodinated Contrast Media - Oral and] iodine Allergy Verified 05/10/16 08:43 latex Allergy Verified 05/10/16 08:43 orange juice Allergy Verified 05/10/16 08:43 tolterodine tartrate Allergy Verified 05/10/16 08:43 [From [facility]] tomato Allergy Verified 05/10/16 08:43 Medications: Current Medications Amlodipine Besylate (Norvasc) 10 mg PO DAILY [facility] Last Admin: 01/08/17 08:06 Dose: Not Given Ascorbic Acid (Vitamin C) 500 mg PO BID [facility] Last Admin: 01/08/17 09:17 Dose: Not Given Aspirin (Aspirin Chewable) 81 mg PO DAILY [facility] Last Admin: 01/08/17 08:06 Dose: 81 mg Calcium Acetate (Phoslo) 667 mg PO TID-WM [facility] Last Admin: 01/08/17 12:23 Dose: 667 mg Heparin Sodium (Porcine) (Heparin) 5,000 units SC TID [facility] Last Admin: 01/08/17 08:07 Dose: 5,000 units Hydralazine HCl (Apresoline) 20 mg SLOW IVP Q15MIN PRN PRN Reason: SBP Greater Than 180 Last Admin: 01/02/17 03:19 Dose: 20 mg Hydralazine HCl (Apresoline) 25 mg PO TID [facility] Last Admin: 01/08/17 08:06 Dose: Not Given Meropenem 1 gm/ Miscellaneous Medication 1 each/ Sterile Water 20 mls @ 240 mls /hr SLOW IVP 0600,1400,2200 [facility] Dextrose/Sodium Chloride (D5 0.9% Ns) 1,000 mls @ 125 mls/hr IV .Q8H [facility] Last Admin: 01/08/17 09:47 Dose: 1,000 mls Levothyroxine Sodium (Synthroid) 100 mcg PO 0600 [facility] Ondansetron HCl (Zofran) 4 mg IVP Q6H PRN PRN Reason: Nausea/Vomiting Last Admin: 01/08/17 05:50 Dose: 4 mg Phenytoin Sodium (Dilantin Er) 100 mg PO TID [facility] Last Admin: 01/08/17 08:06 Dose: 100 mg Polyethylene Glycol (Miralax) 17 gm PO DAILY-AC PRN PRN Reason: CONSTIPATION Sertraline HCl (Zoloft) 50 mg PO DAILY [facility] Last Admin: 01/08/17 08:06 Dose: 50 mg Sodium Bicarbonate (Bicarbonate, Sodium) 325 mg PO BID [facility] Last Admin: 01/08/17 08:07 Dose: 325 mg Sodium Chloride (Flush - Normal Saline) 10 ml IVF Q12HR [facility] Last Admin: 01/08/17 08:14 Dose: Not Given Sodium Chloride (Flush - Normal Saline) 10 ml IVF PRN PRN PRN Reason: Saline Flush Sodium Hypochlorite (Dakin's Half Strength 0.25% Solution) 0 ml TOP PRN PRN PRN Reason: Wound Care
[2017-01-09] MEDS: Ondansetron HCl/PF 4 MG/2 ML Vial IVP PRN (03:19)
[2017-01-09] MEDS: Dextrose 5 % And 0.9 % NaCl 1,000 ML IV SCH ×3 (03:19→17:38)
[2017-01-09 05:56] LABS: Anion Gap 14 mmol/L (10-20); BUN (Urea Nitrogen) 23 mg/dL (9.8-20.1); Calc. Creatinine Clearance 33 mL/min (70-130); Calcium 8.9 mg/dL (7.8-10.44); Carbon Dioxide 21 mmol/L (23-31); Chloride 109 mmol/L (98-107); Estimated GFR-MDRD 20
[2017-01-09] MEDS: Meropenem 1 GM, Admixture Fee 1 EACH in Sterile Water 20 ML SLOW IVP SCH ×3 (06:28→22:20)
[2017-01-09] MEDS: Levothyroxine Sodium 100 MCG TAB PO SCH (06:28)
[2017-01-09 06:31] LABS: #Eosinphils 0.3 thou/uL (0.0-0.7); #Monocytes 0.5 thou/uL (0.11-0.59); #Neutrophils 4.4 thou/uL (1.40-6.50); %Basophils 0.4 % (0.0-1.0); %Eosinophils 4.7 % (0.0-10.0); %Lymphocytes 27.8 % (21.0-51.0); %Monocytes 6.8 % (0.0-10.0); Hematocrit 29.8 % (36.0-47.0); Mean Platelet Volume 8.3 fL (7.4-10.4); Red Blood Cell (RBC) Count 3.18 mill/uL (4.20-5.40); White Blood Cell (WBC) Count 7.2 thou/uL (4.8-10.8)
[2017-01-09] MEDS ORDERED: Polyethylene Glycol 3350 17 GM Packet PO PRN (07:30)
[2017-01-09] MEDS: Calcium Acetate 667 MG CAP PO SCH ×3 (08:35→17:37)
[2017-01-09] MEDS: Amlodipine 10 MG TAB PO SCH (08:35)
[2017-01-09] MEDS: Sodium Bicarbonate Tab 325 MG TAB PO SCH ×2 (08:35→21:34)
[2017-01-09] MEDS: hydrALAZINE 25 MG TAB PO SCH ×3 (08:35→21:34)
[2017-01-09] MEDS: Ascorbic Acid 500 mg Chewable Tablet PO SCH ×2 (08:35→21:35)
[2017-01-09] MEDS: Heparin 5,000 UNITS/ML VIAL SC SCH ×3 (08:36→21:35)
[2017-01-09] MEDS ORDERED: Epoetin (ESRD) 20,000 UNITS/ML SC SCH (08:45)
--- NOTE | 2017-01-09 09:22 | PRG ---
DATE OF SERVICE: 01/09/2017 SUBJECTIVE: Ms. Lorenzana is a 61-year-old black female with known history of chronic renal failure. I did note that in the last few days her renal function has been worsening again. Her creatinine yes terday was noted at 8.0. I decided to resume back the IV fluids with this patient since her creatin ine back on 12/29/2016 was noted at its best value 2.45. I suspect that there was a prerenal compon ent. She does lose a significant amount of fluid from her colostomy and from her colostomy site as well from her ileal conduit site. No new complaints today. She denies any chest pain or shortness of breath. PHYSICAL EXAMINATION: VITAL SIGNS: Blood pressure is 124/81, heart rate 71, respiratory rate 20, temperature 98.3, pulse ox 96%. GENERAL: Noted to be awake, alert, supine, comfortable, not in distress. SKIN: Adequate turgor. HEENT: She has pinkish conjunctivae, anicteric sclerae. NECK: No neck mass, no carotid bruits, no JVD. CHEST: No deformities. LUNGS: Clear breath sounds. No wheezing, no crackles. HEART: Normal sinus rhythm. No murmur, no gallops, no rubs. ABDOMEN: Globular, soft, no masses. Positive for bowel sounds. Positive for colostomy and ileal c onduit site. EXTREMITIES: No edema, no deformities. MEDICATIONS: 01/09/2017 - Reviewed. LABORATORY: 01/09/2017 - White count 7.2, hemoglobin 8.8, sodium 139, potassium 4.5, chloride 109, carbon dioxide 21, BUN 23, creatinine 2.93, glucose is 78, calcium 8.9. PTH is 105.8. ASSESSMENT AND PLAN: 1. Chronic renal failure, fluctuating creatinine. I suspect there was a component of prerenal azot emia in the last few days. She currently has been resumed back on IV fluid - D5 normal saline at 12 5 mL per hour. I did encourage the patient to increase her p.o. intake. She will try to comply wit h this. There is no indication for any dialytic intervention. I will be rechecking another base me t and CBC in a.m. 2. Anemia. I would suggest we continue the weekly Epogen with this patient. 3. Metabolic acidosis. Continue sodium bicarbonate 325 mg b.i.d. If needed, we can increase this dosing.
--- NOTE | 2017-01-09 13:24 | PDOC.PN ---
- Subjective Encounter Start Date: 01/09/17 Encounter Start Time: 09:00 Patient seen and examined. No new complaints. No overnight events - Objective MAR Reviewed: Yes Vital Signs & Weight: Vital Signs (12 hours) Temp Pulse Resp BP Pulse Ox 01/09/17 11:47 98.5 F 55 L 22 H 158/75 H 98 01/09/17 08:00 98.3 F 71 20 124/81 96 Weight Admit Weight 232 lb 5.875 oz Weight 239 lb 14.4 oz Most Recent Monitor Data Heart Rate from ECG 63 NIBP 159/72 NIBP BP-Mean 84 Respiration from ECG 20 SpO2 96 I&O: 01/08/17 01/09/17 01/10/17 06:59 06:59 06:59 Intake Total 900 1375 Output Total 1300 1150 1325 Balance -400 -1150 50 Result Diagrams: 01/09/17 04:06 01/09/17 04:06 Phys Exam - Physical Examination Constitutional: NAD HEENT: moist MMs, sclera anicteric Neck: no JVD, supple Respiratory: no wheezing, no rales, no rhonchi Cardiovascular: RRR, no significant murmur, no rub Gastrointestinal: soft, non-tender, no distention, positive bowel sounds ilieostomy Musculoskeletal: no edema, pulses present Neurological: non-focal, normal sensation Lymphatic: no nodes Psychiatric: normal affect Skin: no rash, normal turgor Dx/Plan (1) Acute worsening of stage 4 chronic kidney disease Code(s): N28.9 - DISORDER OF KIDNEY AND URETER, UNSPECIFIED; N18.4 - CHRONIC KIDNEY DISEASE, STAGE 4 (SEVERE) Status: Acute (2) Physical deconditioning Code(s): R53.81 - OTHER MALAISE Status: Acute (3) UTI (urinary tract infection) Status: Acute Qualifiers: Urinary tract infection type: acute cystitis (4) Anemia of renal disease Code(s): D63.1 - ANEMIA IN CHRONIC KIDNEY DISEASE Status: Chronic (5) Anxiety and depression Code(s): F41.8 - OTHER SPECIFIED ANXIETY DISORDERS Status: Chronic (6) DM type 2 (diabetes mellitus, type 2) Status: Chronic Qualifiers: Diabetes mellitus complication status: with kidney complications Diabetes mellitus complication detail: with chronic kidney disease Diabetes mellitus group home insulin use: with group home use Chronic kidney disease stage: stage 5, not on chronic dialysis Qualified Code(s): E11.22 - Type 2 diabetes mellitus with diabetic chronic kidney disease; N18.5 - Chronic kidney disease, stage 5; N18.5 - Chronic kidney disease, stage 5; N18.5 - Chronic kidney disease , stage 5; N18.5 - Chronic kidney disease, stage 5; Z79.4 - terminal worker (current) use of insulin; Z79.4 - terminal worker (current) use of insulin; Z79.4 - alf ( current) use of insulin; Z79.4 - terminal worker (current) use of insulin (7) HTN (hypertension) Code(s): I10 - ESSENTIAL (PRIMARY) HYPERTENSION Status: Chronic Qualifiers: Hypertension type: essential hypertension (8) Hypothyroidism Code(s): E03.9 - HYPOTHYROIDISM, UNSPECIFIED Status: Chronic (9) Metabolic acidosis Code(s): E87.2 - ACIDOSIS Status: Chronic (10) Obesity (BMI 30-39.9) Code(s): E66.9 - OBESITY, UNSPECIFIED Status: Chronic (11) Seizure disorder Code(s): G40.909 - EPILEPSY, UNSP, NOT INTRACTABLE, WITHOUT STATUS EPILEPTICUS Status: Chronic Comment: on Phenytoin (12) Acute metabolic encephalopathy Code(s): G93.41 - METABOLIC ENCEPHALOPATHY Status: Resolved Comment: Resolved as metabolic derangement improving, supportive care (13) Acute respiratory failure Code(s): J96.00 - ACUTE RESPIRATORY FAILURE, UNSP W HYPOXIA OR HYPERCAPNIA Status: Resolved Qualifiers: Respiratory failure complication: hypoxia Qualified Code(s): J96.01 - Acute respiratory failure with hypoxia Comment: s/p extubation without complication, O2 prn (14) Bilateral hydronephrosis Code(s): N13.30 - UNSPECIFIED HYDRONEPHROSIS Status: Chronic (15) Sacral decubitus ulcer, stage IV Code(s): L89.154 - PRESSURE ULCER OF SACRAL REGION, STAGE 4 Status: Chronic - Plan cont current plan of care, PT/OT, manager social responsibility * renal function still not stable yet, * Dr Mitchell wants to continue IVF * will monitor labs again tomorrow * pt needs to go to SNU but she is refusing * medication reviewed as below * symptomatic treatment. Review of Systems - Review of Systems Constitutional: Weakness. negative: Fever, Chills, Sweats, Malaise, Other ENT: negative: Ear Pain, Ear Discharge, Nose Pain, Nose Discharge, Nose Congestion, Mouth Pain, Mouth Swelling, Throat Pain, Throat Swelling, Other Respiratory: negative: Cough, Dry, Shortness of Breath, Hemoptysis, SOB with Excertion, Pleuritic Pain, Sputum, Wheezing Cardiovascular: negative: Chest Pain, Palpitations, Orthopnea, Paroxysmal Noc. Dyspnea, Edema, Light Headedness, Other Gastrointestinal: negative: Nausea, Vomiting, Abdominal Pain, Diarrhea, Constipation, Melena, Hematochezia, Other Genitourinary: negative: Dysuria, Frequency, Incontinence, Hematuria, Retention , Other Musculoskeletal: negative: Neck Pain, Shoulder Pain, Arm Pain, Back Pain, Hand Pain, Leg Pain, Foot Pain, Other - Medications/Allergies Allergies/Adverse Reactions: Allergies Allergy/AdvReac Type Severity Reaction Status Date / Time banana Allergy Verified 05/10/16 08:43 chocolate flavor Allergy Verified 05/10/16 08:43 egg Allergy Verified 05/10/16 08:43 Iodinated Contrast- Oral and Allergy Verified 05/10/16 08:44 IV Dye [Iodinated Contrast Media - Oral and] iodine Allergy Verified 05/10/16 08:43 latex Allergy Verified 05/10/16 08:43 orange juice Allergy Verified 05/10/16 08:43 tolterodine tartrate Allergy Verified 05/10/16 08:43 [From [facility]] tomato Allergy Verified 05/10/16 08:43 Medications: Current Medications Amlodipine Besylate (Norvasc) 10 mg PO DAILY [facility] Last Admin: 01/09/17 08:35 Dose: 10 mg Ascorbic Acid (Vitamin C) 500 mg PO BID [facility] Last Admin: 01/09/17 08:35 Dose: 500 mg Aspirin (Aspirin Chewable) 81 mg PO DAILY [facility] Last Admin: 01/09/17 08:35 Dose: 81 mg Calcium Acetate (Phoslo) 667 mg PO TID-[facility] Last Admin: 01/09/17 12:04 Dose: 667 mg Epoetin Javier (Procrit) 7,500 units SC Q7D [facility] Last Admin: 01/09/17 11:45 Dose: 7,500 units Heparin Sodium (Porcine) (Heparin) 5,000 units SC TID [facility] Last Admin: 01/09/17 08:36 Dose: 5,000 units Hydralazine HCl (Apresoline) 20 mg SLOW IVP Q15MIN PRN PRN Reason: SBP Greater Than 180 Last Admin: 01/02/17 03:19 Dose: 20 mg Hydralazine HCl (Apresoline) 25 mg PO TID [facility] Last Admin: 01/09/17 08:35 Dose: 25 mg Meropenem 1 gm/ Miscellaneous Medication 1 each/ Sterile Water 20 mls @ 240 mls /hr SLOW IVP 0600,1400,2200 [facility] Last Admin: 01/09/17 06:28 Dose: 20 mls Dextrose/Sodium Chloride (D5 0.9% Ns) 1,000 mls @ 125 mls/hr IV .Q8H [facility] Last Admin: 01/09/17 09:38 Dose: 1,000 mls Levothyroxine Sodium (Synthroid) 100 mcg PO 0600 [facility] Last Admin: 01/09/17 06:28 Dose: 100 mcg Ondansetron HCl (Zofran) 4 mg IVP Q6H PRN PRN Reason: Nausea/Vomiting Last Admin: 01/09/17 03:19 Dose: 4 mg Phenytoin Sodium (Dilantin Er) 100 mg PO TID [facility] Last Admin: 01/09/17 08:35 Dose: 100 mg Polyethylene Glycol (Miralax) 17 gm PO DAILY-AC PRN PRN Reason: CONSTIPATION Sertraline HCl (Zoloft) 50 mg PO DAILY [facility] Last Admin: 01/09/17 08:35 Dose: 50 mg Sodium Bicarbonate (Bicarbonate, Sodium) 325 mg PO BID [facility] Last Admin: 01/09/17 08:35 Dose: 325 mg Sodium Chloride (Flush - Normal Saline) 10 ml IVF Q12HR [facility] Last Admin: 01/09/17 08:36 Dose: Not Given Sodium Chloride (Flush - Normal Saline) 10 ml IVF PRN PRN PRN Reason: Saline Flush Sodium Hypochlorite (Dakin's Half Strength 0.25% Solution) 0 ml TOP PRN PRN PRN Reason: Wound Care
[2017-01-10] MEDS: Dextrose 5 % And 0.9 % NaCl 1,000 ML IV SCH ×2 (04:10→11:09)
[2017-01-10] MEDS: Levothyroxine Sodium 100 MCG TAB PO SCH (06:14)
[2017-01-10] MEDS: Meropenem 1 GM, Admixture Fee 1 EACH in Sterile Water 20 ML SLOW IVP SCH (06:18)
[2017-01-10 06:34] LABS: #Eosinphils 0.4 thou/uL (0.0-0.7); #Lymphocytes 1.9 thou/uL (1.20-3.40); #Monocytes 0.6 thou/uL (0.11-0.59); #Neutrophils 3.7 thou/uL (1.40-6.50); %Basophils 0.7 % (0.0-1.0); %Eosinophils 5.6 % (0.0-10.0); %Lymphocytes 28.4 % (21.0-51.0); %Monocytes 8.8 % (0.0-10.0); Hematocrit 27.9 % (36.0-47.0); Red Blood Cell (RBC) Count 2.99 mill/uL (4.20-5.40); White Blood Cell (WBC) Count 6.5 thou/uL (4.8-10.8)
[2017-01-10 06:55] LABS: Anion Gap 11 mmol/L (10-20); BUN (Urea Nitrogen) 19 mg/dL (9.8-20.1); Calc. Creatinine Clearance 34 mL/min (70-130); Calcium 9.3 mg/dL (7.8-10.44); Carbon Dioxide 25 mmol/L (23-31); Chloride 112 mmol/L (98-107); Estimated GFR-MDRD 20
[2017-01-10] MEDS: hydrALAZINE 25 MG TAB PO SCH (09:27)
[2017-01-10] MEDS: Calcium Acetate 667 MG CAP PO SCH (09:27)
[2017-01-10] MEDS: Sodium Bicarbonate Tab 325 MG TAB PO SCH (09:27)
[2017-01-10] MEDS: Amlodipine 10 MG TAB PO SCH (09:28)
[2017-01-10] MEDS: Ascorbic Acid 500 mg Chewable Tablet PO SCH (09:29)
[2017-01-10] MEDS: Heparin 5,000 UNITS/ML VIAL SC SCH (09:29)
--- NOTE | 2017-01-10 09:30 | PRG ---
DATE OF SERVICE: 01/10/2017 RENAL MEDICINE SUBJECTIVE: Ms. Lorenzana is a 61-year-old black female being followed up for chronic renal failure/acut e kidney injury. Renal function has been stopped lysing. She was recently restarted back on IV flu id. Creatinine has stabilized to a value of 2.9 mg percent. Please note this was at 3.0 two days a go. The plan is to continue 1 more day of IV hydration with this patient. She tells me she is plan clary to go home. She denies any new complaints. No chest pain or shortness of breath. Appetite an d energy level is much improved. PHYSICAL EXAMINATION: VITAL SIGNS: Blood pressure 123/69, heart rate 61, respiratory rate 20, temperature 98.5, pulse ox 96%. GENERAL: Awake, alert, comfortable, not in distress, obese. SKIN: Adequate turgor. HEENT: Patient has slightly pale conjunctivae, anicteric sclerae. NECK: No neck mass, no carotid bruits, no JVD. CHEST: No deformities. LUNGS: Clear breath sounds. No wheezing, no crackles. HEART: Normal sinus rhythm. No murmur, no gallops or rubs. ABDOMEN: Globular, soft, nontender. No masses. Positive for ostomy and ileal conduit. EXTREMITIES: Trace edema. MEDICATIONS: Medications of 01/10/2017 was reviewed. LABORATORY DATA: Laboratories of 01/10/2017; white count 6.5, hemoglobin 8.4, sodium 143, potassium 4.5, chloride 112, carbon dioxide 25, BUN 19, creatinine 2.91, GFR 20 mL per minute, glucose 86, an d calcium 9.3. ASSESSMENT AND PLAN: 1. Acute kidney injury/chronic renal failure, stabilizing renal function. Creatinine is noted at 2 .9. I will continue 1 more day of IV hydration with this patient. She seems to be tolerating this. In addition, p.o. intake has picked up. 2. Anemia, stable. Continue weekly Epogen with this patient. P.r.n. blood transfusion if hemoglob in is less than 7. Overall, agree with current management. Recheck basic metabolic panel and CBC a gain in a.m.
[2017-01-10 09:34] VITALS: BP 148/77
[2017-01-10 09:36] VITALS: TEMP 98.6
--- NOTE | 2017-01-10 12:02 | DIS ---
DATE OF ADMISSION: 12/28/2016 DATE OF DISCHARGE: 01/10/2017 DISCHARGE DISPOSITION: Home. PRIMARY DISCHARGE DIAGNOSES: 1. Acute respiratory failure. 2. Metabolic acidosis. 3. Sepsis due to urinary tract infection. 4. Acute on chronic kidney failure, baseline chronic kidney disease stage 4. 5. Physical deconditioning. 6. Acute metabolic encephalopathy. SECONDARY DISCHARGE DIAGNOSES: 1. Chronic kidney disease stage 4. 2. Chronic physical deconditioning. 3. Anemia of renal disease. 4. Anxiety and depression. 5. Diabetes type 2. 6. Hypertension. 7. Hypothyroidism. 8. Obesity with BMI of 41. 9. Stage IV decubitus ulcer. 10. Bilateral hydronephrosis. PRIMARY PROCEDURE/OPERATION: PICC line was placed on 01/03/2017. RADIOLOGICAL INVESTIGATION: Abdomen and pelvis CT scan, chest x-ray. SIGNIFICANT LABORATORY DATA: Hemoglobin 8.4, creatinine 2.91. Urine culture grew Morganella nate ii. Blood culture negative. DISCHARGE MEDICATIONS: Amlodipine 10 mg p.o. daily, vitamin C 500 mg p.o. b.i.d., aspirin 81 mg p.o . daily, PhosLo 667 mg t.i.d., vitamin D2 400 units p.o. daily, iron 65 mg b.i.d., multivitamin 1 ta blet daily, Synthroid 100 mcg daily, Zofran 4 mg q.6 hours p.r.n., Dilantin 100 mg t.i.d., MiraLax 1 7 grams p.o. daily, Zoloft 100 mg daily, sodium bicarbonate 325 mg p.o. b.i.d., zinc 50 mg p.o. baljit y. CONTRAINDICATIONS: None. CODE STATUS: FULL CODE. INPATIENT CONSULTANTS: Patient was in ICU and that is why pulmonary group was following while in [facility]. Dr. Mitchell was consulted while in hospital for renal failure. Dr. Melvin Gallegos was consulte d for hydronephrosis. Dr. Abebe was consulted for UTI. TEST RESULTS PENDING ON DISCHARGE: None. ALLERGIES: No known drug allergy. DISCHARGE PLAN: Post hospital, the patient will follow up with Dr. Isabella Draper in 1 week [facility] Mitchell as instructed. HOSPITAL COURSE: The patient is a 61-year-old -[place]izen [place] female who has ileostomy as well as urostomy. She was admitted by Dr. Velazquez. On admission, she had acute respiratory failure, requi red BiPAP and that is why she was admitted to [facility] and pulmonary group was following while in hospit al. This patient also had acute on chronic kidney failure with severe metabolic acidosis. The patient's severe metabolic acidosis was treated with bicarbonate drip. Patient also had acute on chronic kid nathan failure that was slowly improving with hydration. Patient had sepsis, which was related with UTI. This patient has urostomy tube. Dr. Abebe was thin mami that this is not real organism, but we continued meropenem based on culture and sensitivity res ult while in hospital. At this point, the patient's renal function is up to her baseline. Her hydronephrosis which is refractory technician henna and Dr. Gallegos evaluated this patient and he does not have any new recommendation. He required intubation and subsequently patient was extubated as well. This patient's renal function is now sta bilized. Dr. Mitchell is okay with discharging her home. This patient has significant physical deconditioning and we tried to send her to a intermediate h ome, but the patient refused to go to intermediate home and she wanted to go home today. Patient's long-term prognosis is poor, high risk for readmission. PHYSICAL EXAMINAITON: The patient is seen and examined at bedside today. VITAL SIGNS: Currently temperature 98.6, pulse 75, respiratory rate 18, blood pressure 148/77, weig ht 234 pounds. GENERAL: The patient is alert, awake, no acute distress. HEAD: Normocephalic, atraumatic. LUNGS: Clear. CARDIAC: S1, S2 regular. ABDOMEN: Ileal conduit in place and ostomy in place. NEUROLOGIC: Nonfocal examination. The patient is medically stable for discharge today.
--- NOTE | 2017-01-12 17:14 | PQF ---
LIZZETH DIAZ Salim Noorjibhai MD [id number] CLINICAL DOCUMENTATION CLARIFICATION FORM: POST DISCHARGE Please clarify if documented "UTI" can be further specified. UROL CONSLT;..."about 8 years ago she underwent a Urinary and colon diversion "..."a colonic conduit to her left lower quadrant." DC SUMMARY; ....."Pt had sepsis, which was related with UTI. This patient has urostomy tube. Dr. Abebe was thinking that this is not a real organism, but we continued meropenem based on culture and sensitivity result while in hospital". Please exercise your independent, professional judgment in responding to the clarification form. Clinical indicators are provided on the bottom of this form for your review. Thank you. Please check appropriate box(s): [ ] UTI please specify if due to or related to (as applicable): [ ] Indwelling catheter [ ] Urinary diversion conduit [ ] Suprapubic catheter [ ] Other Urostomy catheter [ ] Neurogenic bladder [ ] Does not apply to this patient [x ] Unable to determine [ ] Other diagnosis: [ ] Unable to determine etiology UTI Site: [ ] Kidney [ ] Ureter [ ] Bladder [ ] Urethra [ x ] Unable to determine Specify Organism (if known): [ ] Unknown organism [ ] Contaminated urine specimen without UTI [ ] Other diagnosis [x ] Unable to determine In addition, please specify: Present on Admission (POA): [ ] Yes [ ] No [ x ] Unable to determine CLINICAL INDICATORS - SIGNS / SYMPTOMS / LABS Positive urinalysis Hematuria Fever Documentation: UTI RISK FACTORS History of neurogenic bladder History self-cath/indwelling catheter Immunocompromised Debility / [facility] resident TREATMENT: Antibiotics IVF Gilbret cath removed / changed Ostomy care (This form is maintained as a part of the permanent medical record) 2014 [employer]. All Rights Reserved [email or web address] [phone] IVONE
--- NOTE | 2017-01-20 15:52 | EKG ---
Test Reason : SEPSIS Blood Pressure : / mmHG Vent. Rate : 101 BPM Atrial Rate : 101 BPM P-R Int : 142 ms QRS Dur : 096 ms QT Int : 382 ms P-R-T Axes : 068 075 031 degrees QTc Int : 495 ms Sinus tachycardia with Incomplete right bundle branch block Rightward axis Abnormal ECG Confirmed by AMARI WANG DO ([id number]), brands editor ANIBAL MOULTON ([id number]) on 01/20/2017 3:52:24 PM Referred By: Confirmed By:AMARI WANG DO
== END 2017-01-10 12:20 | disposition home health service (06) | DRG 871 ==
LOC: ERS 02:42 → CCU 04:18 → IMCU/EMU 01-02 12:21 → T4-A 01-07 13:03
PROVIDERS: ADMIT Internal Medicine; ATTEND Internal Medicine
PROC: 5A1945Z Respiratory Ventilation, 24-96 Consecutive Hours (ICD-10-PCS; principal; 2016-12-28)
PROC: 0BH17EZ Insertion of Endotracheal Airway into Trachea, Via Natural or Artificial Opening (ICD-10-PCS; 2016-12-28)
PROC: 02HV33Z Insertion of Infusion Device into Superior Vena Cava, Percutaneous Approach (ICD-10-PCS; 2017-01-03)
PROC: B548ZZA Ultrasonography of Superior Vena Cava, Guidance (ICD-10-PCS; 2017-01-03)
DX: A41.59 Other Gram-negative sepsis (principal); G93.41 Metabolic encephalopathy; J96.01 Acute respiratory failure with hypoxia; N17.0 Acute kidney failure with tubular necrosis; L89.154 Pressure ulcer of sacral region, stage 4; E87.2 Acidosis; E87.0 Hyperosmolality and hypernatremia; N39.0 Urinary tract infection, site not specified; N18.4 Chronic kidney disease, stage 4 (severe); T83.89XA Other specified complication of genitourinary prosthetic devices, implants and grafts, initial encounter; N13.30 Unspecified hydronephrosis; Z68.41 Body mass index [BMI] 40.0-44.9, adult; N11.9 Chronic tubulo-interstitial nephritis, unspecified; M46.28 Osteomyelitis of vertebra, sacral and sacrococcygeal region; E11.22 Type 2 diabetes mellitus with diabetic chronic kidney disease; Y84.2 Radiological procedure and radiotherapy as the cause of abnormal reaction of the patient, or of later complication, without mention of misadventure at the time of the procedure; D63.1 Anemia in chronic kidney disease; I12.9 Hypertensive chronic kidney disease with stage 1 through stage 4 chronic kidney disease, or unspecified chronic kidney disease; R65.20 Severe sepsis without septic shock; F41.9 Anxiety disorder, unspecified; F32.9 Major depressive disorder, single episode, unspecified; E03.9 Hypothyroidism, unspecified; E66.01 Morbid (severe) obesity due to excess calories; Z43.6 Encounter for attention to other artificial openings of urinary tract; Z91.81 History of falling; G40.909 Epilepsy, unspecified, not intractable, without status epilepticus; Z85.41 Personal history of malignant neoplasm of cervix uteri; Z85.42 Personal history of malignant neoplasm of other parts of uterus; Z92.3 Personal history of irradiation; E78.5 Hyperlipidemia, unspecified; Z93.3 Colostomy status; E87.5 Hyperkalemia; E83.42 Hypomagnesemia; E87.8 Other disorders of electrolyte and fluid balance, not elsewhere classified; E86.9 Volume depletion, unspecified; N31.9 Neuromuscular dysfunction of bladder, unspecified
CPT/HCPCS: 31500; 36415; 36416; 36569; 51701; 71010; 74176; 80048; 80202; 82805; 83605; 83735; 83970; 84100; 84443; 84484; 85025; 87040; 87077; 87086; 87186; 90471; 90682; 90732; 93005; 94002; 94003; 96365; 96366; 96368; 96375; 99292; A4216; A4353; C1751; G0008; G0009; G8978-GP-CM; G8979-GP-CK; G8996-GN-CJ; G8996-GN-CK; G8997-GN-CI; J0360; J0692; J1642; J1644; J1956; J2185; J2405; J2704; J3010; J3370; J3475; J7050; J7070; Q2009; Q2036; Q4081; S0020; S0028

== ENCOUNTER 2017-03-19 09:41 | Outpatient (CLI) | payer OTHER ==
[2017-03-19] MEDS ORDERED: Lidocaine 2% Jelly 5 ML TUBE ONE (10:00)
[2017-03-19] MEDS ORDERED: Sodium Chloride 0.9% 15 ML NEB ONE (10:00)
--- NOTE | 2017-03-19 10:51 | PRG ---
DATE OF SERVICE: 03/19/2017 HISTORY: Ms. Sakina Lorenzana is a very pleasant 61-year-old accompanied by her sister who presents to the [facility] for evaluation of 2 small suprapubic wounds in addition to a sacral wound. Since the patient's last visit to the Wound Center, Ms. Lorenzana was admitted to [facility] for acute respiratory failure. The patient has been receiving dressing changes of Aquacel AG for her sacral wound on a daily basis after cleansing and irrigation with the assistance of her sister. Ms. Lorenzana has no complaints today. She denies any fever or chills. PHYSICAL EXAMINATION: VITAL SIGNS: Temperature 97.5, pulse 108, respirations 18, and blood pressure 187/87. ABDOMEN: Two small suprapubic wounds are still present. BACK: The sacral wound measures approximately 3.5 x 3.0 cm. The dimensions of the wound at the time of the patient's last visit were approximately 4.0 x 2.5 cm. Granulation tissue is present within the wound margins. Nonviable tissue present within the wound margins was debrided with an excisional full-thickness debridement. No purulent drainage is associated with the wound. No erythema of the skin surrounding the wound is present. No maceration of the skin of the periwound is noted. No bone is palpable within the margins of the wound on exam today. ASSESSMENT AND PLAN: 1. Suprapubic and sacral wounds as described above. For the sacral wound, dressing changes of Xeroform gauze followed by 4 x 4s and an ABD secured with tape will be performed on a daily basis after cleansing and irrigation with the assistance of the patient's sister. Arrangements will be made for the home delivery of dressing supplies. For the suprapubic wounds, the patient is to continue to receive daily dressing changes of an ABD secured with tape. I will see Ms. Lorenzana again in 4 weeks. 2. Hypertension. 3. Renal insufficiency. 4. Anemia. 5. Degenerative joint disease. 6. History of seizure disorder. 7. Neurogenic bladder. 8. Hypothyroidism. MTDD
== END 2017-03-19 09:42 | disposition home or self-care (01) ==
LOC: WCC 09:41
PROVIDERS: ATTEND Family Medicine
DX: L89.159 Pressure ulcer of sacral region, unspecified stage (principal); I10 Essential (primary) hypertension; D64.9 Anemia, unspecified; N17.9 Acute kidney failure, unspecified; M19.90 Unspecified osteoarthritis, unspecified site; N31.9 Neuromuscular dysfunction of bladder, unspecified; E03.9 Hypothyroidism, unspecified; Z86.69 Personal history of other diseases of the nervous system and sense organs
CPT/HCPCS: 11042; A4218

== ENCOUNTER 2017-04-08 18:46 | Inpatient (IN) | payer OTHER ==
[2017-04-08 20:19] LABS: Hemoglobin 8.3 g/dL (12.0-16.0); Mean Corpuscular HGB CONC 32.5 g/dL (32.0-36.0); Mean Corpuscular Hemoglobin 29.9 pg (27.0-31.0); Mean Corpuscular Volume 91.9 fl (81.0-99.0); Platelet Count 254 thou/uL (130-400); RBC Distribution Width 17.3 % (11.5-14.5); Red Blood Cell (RBC) Count 2.77 mill/uL (4.20-5.40); White Blood Cell (WBC) Count 8.7 thou/uL (4.8-10.8)
[2017-04-08 20:34] LABS: Anisocytosis SLIGHT = 6-15 cells (100X) (0-5/hpf); Band 4 % (5-11); Lymphocytes 5 % (21-51); MDiff Complete? YES; Neutrophil 90 % (42-75); Nucleated RBC 2 % (0); Ovalocytes SLIGHT = 2-5 cells (100X) (0-1/hpf); PLT Morphology Comment Appears Adequate; Polychromasia SLIGHT = 2-3 cells (100X) (0-2/hpf); Schistocytes SLIGHT = 2-5 cells (100X) (0-1/hpf); Target Cells SLIGHT = 2-5 cells (100X) (0-1/hpf); Tear Drops SLIGHT = 2-5 cells (100X) (0-1/hpf)
[2017-04-08 20:39] LABS: BUN (Urea Nitrogen) 103 mg/dL (9.8-20.1); Calc. Creatinine Clearance 0 mL/min (70-130); Calcium 8.8 mg/dL (7.8-10.44); Chloride 122 mmol/L (98-107); Estimated GFR-MDRD 5; Glucose 109 mg/dL (80-115); Potassium 4.9 mmol/L (3.5-5.1); Sodium 143 mmol/L (136-145)
[2017-04-08 20:42] LABS: Carbon Dioxide Less than 8 mmol/L (23-31)
[2017-04-08] MEDS ORDERED: HYDROcodone/Acetaminophen 5/325 mg Tablet PO PRN (21:12)
[2017-04-08] MEDS ORDERED: Milk Of Magnesia 30 ML UDCUP PO PRN (21:12)
[2017-04-08] MEDS ORDERED: Mag-Al 1200 mg/1200 mg/30 ML UDCUP PO PRN (21:12)
[2017-04-08] MEDS ORDERED: Loratadine 10 MG TAB PO PRN (21:12)
[2017-04-08] MEDS ORDERED: Zolpidem Tartrate 5 MG TAB PO PRN (21:12)
[2017-04-08] MEDS ORDERED: Artificial Tears 18 DROP/0.9 ML EA EYE PRN (21:12)
[2017-04-08] MEDS ORDERED: Sodium Chloride 0.65% Nasal 44 ML BOT EA NARE PRN (21:12)
[2017-04-08] MEDS ORDERED: Ondansetron ODT 4 MG TAB PO PRN (21:12)
[2017-04-08] MEDS ORDERED: Eucerin (Mineral Oil/Petrolatum,White) 30 gm Jar TOP PRN (21:12)
[2017-04-08] MEDS ORDERED: Chloraseptic Spray 180 ml Bottle PO PRN (21:12)
[2017-04-08] MEDS ORDERED: Senokot 8.6 MG TAB PO PRN (21:12)
[2017-04-08] MEDS ORDERED: Loperamide HCl 2 MG CAP PO PRN (21:12)
[2017-04-08] MEDS ORDERED: Diabetic Tussin 200 MG/10 ML UDCUP PO PRN (21:12)
[2017-04-08] MEDS ORDERED: cefTRIAXone\\ROCEPHIN 1 GM in Sodium Chloride 0.9% 100 ML IVPB SCH (21:30)
[2017-04-08 21:54] LABS: Magnesium 1.7 mg/dL (1.6-2.6); Uric Acid 7.7 mg/dL (2.6-6.0)
[2017-04-08] MEDS ORDERED: cefTRIAXone\\ROCEPHIN 1 GM, Syringe 0.4 ML in Sterile Water 9.6 ML SLOW IVP SCH (22:00)
[2017-04-08] MEDS ORDERED: ALPRAZolam 0.25 MG TAB PO PRN (23:56)
[2017-04-08] MEDS ORDERED: Dextrose 5% in Water 1,000 ML IV PRN (23:56)
[2017-04-08] MEDS ORDERED: HumaLOG 300 UNITS/3 ML VIAL SC PRN ×2 (23:56)
[2017-04-08] MEDS ORDERED: Dextrose 50% Abboject 50 ML SYRINGE SLOW IVP PRN (23:56)
--- NOTE | 2017-04-09 00:28 | HP ---
PRIMARY CARE PHYSICIAN: Isabella Draper M.D. DATE OF SERVICE: 04/08/2017 REASON FOR ADMISSION: Acute on chronic kidney failure, severe metabolic acidosis and bandemia. HISTORY OF PRESENT ILLNESS: A 61-year-old -Malag[place] female who has underlying history of morbid obesity. She was admitted in our hospital during 12/2016. At that time, patient had acute kidney failure. Her creatinine reduced on discharge to 3.75 on 01/24/2017, and she came back to our hospital with acute kidney failure and her creatinine is 9.80. She has severe metabolic acidosis. This patient is a very poor historian. She has significant physical deconditioning and mostly bed bound status. This patient was initially evaluated at [facility] because she was not feeling good and subsequently she was transferred to our hospital for higher level of care. The family reported that she was having more shakes. She was not acting normal. She was not thinking properly and she was not coherent. At [facility], the patient was hemodynamically stable. She was given Rocephin 1 gram, DuoNeb therapy x2, IV fluid, and Solu-Medrol 60 mg; subsequently, this patient was transferred to our emergency room. REVIEW OF SYSTEMS: The following complete review of systems was negative, unless otherwise mentioned in the HPI or below: Constitutional: Weight loss or gain, ability to conduct usual activities. Skin: Rash, itching. Eyes: Double vision, pain. ENT/Mouth: Nose bleeding, neck stiffness, pain, tenderness. Cardiovascular: Palpitations, dyspnea on exertion, orthopnea. Respiratory: Shortness of breath, wheezing, cough, hemoptysis, fever or night sweats. Gastrointestinal: Poor appetite, abdominal pain, heartburn, nausea, vomiting, constipation, or diarrhea. Genitourinary: Urgency, frequency, dysuria, nocturia. Musculoskeletal: Pain, swelling. Neurologic/Psychiatric: Anxiety, depression. Allergy/Immunologic: Skin rash, bleeding tendency. Please see my HPI for pertinent positives and negatives. All other review of systems reviewed and negative except as mentioned in the HPI, review of systems is slightly limited because of her cognitive status. PAST MEDICAL HISTORY: Hypertension, diabetes type 2, hypothyroidism, significant physical deconditioning, anemia of renal disease, morbid obesity, seizure disorder, history of neurogenic bladder and bilateral hydronephrosis required urostomy, recurrent urinary tract infection, chronic low back pain, CKD stage 4, dyslipidemia, history of colon cancer required urostomy. PAST SURGICAL HISTORY: Hysterectomy, ileostomy colostomy, urostomy, cholecystectomy, goiter white removal, history of tracheostomy. PAST PSYCHIATRIC HISTORY: Anxiety and depression. SOCIAL HISTORY: The patient lives with her sister. She does not have any tobacco, alcohol or illicit drug abuse. FAMILY HISTORY: No strong family history of premature coronary artery disease, stroke or cancer. No family history of ESRD. ALLERGIES: BANANA, CHOCOLATE FLAVOR, EGG, IODINE, ORANGE JUICE, TOMATO, but no obvious medication allergy. CURRENT HOME MEDICATIONS: Cipro 250 mg twice daily, sodium bicarbonate 650 mg 3 times daily, Augmentin one tablet twice daily, amlodipine 10 mg p.o. daily, PhosLo 667 mg 3 times daily, Zoloft 100 mg 1.5 tablet daily, levothyroxine 100 mcg p.o. daily, aspirin 81 mg p.o. daily, Keppra 500 mg twice daily, Nephro- Supriya 1 tablet p.o. daily, Xanax 0.25 mg p.o. as needed. EMERGENCY ROOM COURSE: Patient has received Rocephin 1 gram, DuoNeb therapy x2 , Solu-Medrol 60 mg, IV fluid 1 liter in the emergency room at [facility] and here in our hospital, she received sodium bicarbonate, vancomycin and IV fluid. PHYSICAL EXAMINATION: VITAL SIGNS: Currently, blood pressure 135/90, pulse 103, respiratory rate 20, temperature 99.0, saturation 100% on room air, weight 108.8 kilograms. GENERAL: Patient is currently chronically ill, no obvious acute distress. HEENT: Normocephalic, atraumatic. Eyes: Pupils round, reactive to light. Extraocular muscles are intact. ENT: Oropharynx within normal limits. Dry mucous membranes, no oral lesions, no pharyngeal erythema, no exudate. NECK: Supple, no JVD, no thyromegaly, no carotid bruit, no jugular venous distention. LUNGS: Clear to auscultation without any rhonchi or rales. CARDIAC: S1, S2 appears regular without any significant murmur. ABDOMEN: The patient does have obesity, patient does have vague abdominal discomfort. Patient does have a urostomy and colostomy. No peritoneal sign. No organomegaly. BACK: Unremarkable, no CVA tenderness. EXTREMITIES: Upper extremity, passive movements of all joints are normal. Lower extremity, passive movements of all joints are normal. NEUROLOGIC: Patient does not participate with detailed neurological examination because of her overall weakness, but no focal neurological deficit. SKIN: No skin rash. HEMATOLOGIC: No lymphadenopathy. PSYCHIATRIC: Normal affect. SIGNIFICANT LABS: EKG showing sinus rhythm. telemetry monitor showing sinus rhythm. Chest x-ray showing pulmonary vascular congestion and small effusion. CBC: WBC 9.6, hemoglobin 8.4, platelet 218 with bandemia. BMP: Sodium 144, potassium 5.2, chloride 124, carbon dioxide less than 8, BUN 100, creatinine 9.80, calcium 8.9, uric acid 7.7. LFT: AST 22, ALT 19, alkaline phosphatase 128, albumin 3.2, lipase 61, magnesium 1.7. Urinalysis suggestive of urinary tract infection. Influenza A and B negative. ASSESSMENT AND PLAN: 1. Acute metabolic encephalopathy likely due to underlying uremia and may be related with underlying infection, no focal deficit noted. 2. Acute on chronic kidney failure. Baseline chronic kidney disease stage 4 associated with pureed uremia as well as severe metabolic acidosis. will consult nephrology, will do renal ultrasound, will check urine for sodium, protein and creatinine. will monitor renal function and continue with bicarbonate drip. 3. Bandemia, likely related with suspected urinary tract infection, rule out sepsis. continue empiric rocephin for now. 4. Anemia due to renal disease. Patient will need iron supplement as well as Procrit. also continue nephrovite 5. Hypertension. Currently, the patient's blood pressure is under control. We will resume her home medication. continue amlodipine 10 mg po daily 6. Hypothyroidism. We will continue Synthroid 100 mcg p.o. daily. 7. Diabetes. We will continue insulin as per sliding scale per protocol. Diabetic diet will be given. 8. Anxiety and depression. We will continue Xanax on p.r.n. basis and Zoloft 150 mg p.o. daily. 9. Seizure disorder. We will continue Keppra 500 mg twice daily. 10. Secondary hyperparathyroidism of renal origin. We will continue calcium acetate 667 mg three times daily. 11. Severe metabolic acidosis. We will start bicarbonate drip and we will monitor renal function. We will also consult Nephrology. If renal function does not improve and then if this patient may need dialysis, we will also continue oral sodium bicarbonate as well. 12. Severe physical deconditioning. Patient will need PT, OT while in hospital ; last time, this patient refused to go to residential home. We will consider case management consultation. 13. Morbid obesity. Dietary education given. 14. Deep venous thrombosis prophylaxis, heparin 5000 units subcu twice daily. 15. Gastrointestinal prophylaxis, Protonix 40 mg p.o. daily. CODE STATUS: The patient is FULL CODE. Patient's sister is surrogate decision maker. Disposition plan based on clinical course. We are expecting patient's stay in hospital more than 2 midnights. Plan of care discussed with the patient in detail. IVONE
[2017-04-09 03:14] LABS: Bilirubin Negative (Negative); Blood, Urine Small (Negative); Clarity CLOUDY (Clear); Glucose, Urine (Dipstick) Negative (Negative); Leukocyte Large (Negative); Nitrite Negative (Negative); Protein, Urine (Dipstick) 100 mg/dL (Neg-Trace); Specific Gravity, Urine 1.013 (1.002-1.036); Urobilinogen 0.2 mg/dL (0.2-1.0)
[2017-04-09 03:17] LABS: Bacteria/HPF 1+ HPF (None Seen); Pathc Cast-AUWi Flag 0.94 (0-2.49); Squamous Epithelial 0-3 HPF (0-3); WBC/HPF 21-50 HPF (0-3)
[2017-04-09 03:28] LABS: Hyaline Casts/LPF 0-3 HYALINE CAST LPF (0-3 Hyaline)
[2017-04-09 03:29] LABS: Creatinine, Urine 66.14 mg/dL (47-110)
[2017-04-09 05:20] LABS: #Lymphocytes 1.3 thou/uL (1.20-3.40); #Monocytes 0.5 thou/uL (0.11-0.59); #Neutrophils 8.3 thou/uL (1.40-6.50); %Basophils 0.3 % (0.0-1.0); %Eosinophils 0.1 % (0.0-10.0); %Lymphocytes 12.5 % (21.0-51.0); %Monocytes 5.1 % (0.0-10.0); Hemoglobin 7.3 g/dL (12.0-16.0); Mean Corpuscular Hemoglobin 29.6 pg (27.0-31.0); Mean Corpuscular Volume 92.5 fl (81.0-99.0); Mean Platelet Volume 7.8 fL (7.4-10.4); Platelet Count 240 thou/uL (130-400); RBC Distribution Width 17.2 % (11.5-14.5); Red Blood Cell (RBC) Count 2.46 mill/uL (4.20-5.40); White Blood Cell (WBC) Count 10.1 thou/uL (4.8-10.8)
[2017-04-09 05:34] LABS: ALT (SGPT) 18 U/L (8-55); AST (SGOT) 22 U/L (5-34); Albumin 2.9 g/dL (3.4-4.8); Alkaline Phosphatase 108 U/L (40-150); Anion Gap 16 mmol/L (10-20); BUN (Urea Nitrogen) 101 mg/dL (9.8-20.1); Bilirubin, Total 0.2 mg/dL (0.2-1.2); Calc. Creatinine Clearance 11 mL/min (70-130); Calcium 8.2 mg/dL (7.8-10.44); Chloride 123 mmol/L (98-107); Estimated GFR-MDRD 6; Glucose 109 mg/dL (80-115); Potassium 4.4 mmol/L (3.5-5.1); Protein, Total 6.9 g/dL (6.0-8.3); Sodium 143 mmol/L (136-145)
[2017-04-09 05:40] LABS: Carbon Dioxide 8 mmol/L (23-31)
[2017-04-09] MEDS: Folic Acid/Vit B Comp W-C PO SCH (09:36)
[2017-04-09] MEDS: Calcium Acetate 667 MG CAP PO SCH ×3 (09:37→16:27)
[2017-04-09] MEDS: levETIRAcetam 500 MG TAB PO SCH ×2 (09:37→22:30)
[2017-04-09] MEDS: Ferrous Sulfate 325 MG TAB PO SCH (09:37)
[2017-04-09] MEDS: Sodium Bicarbonate 150 MEQ in Dextrose 5% in Water 1,000 ML IV SCH ×6 (09:38→16:29)
[2017-04-09] MEDS: Heparin 5,000 UNITS/ML VIAL SC SCH ×2 (09:39→22:29)
[2017-04-09] MEDS: Sodium Bicarbonate Tab 325 MG TAB PO SCH ×2 (09:39→22:29)
[2017-04-09] MEDS: Amlodipine 10 MG TAB PO SCH (09:40)
[2017-04-09] MEDS: Levothyroxine Sodium 100 MCG TAB PO SCH (09:45)
--- NOTE | 2017-04-09 09:48 | PDOC.PN ---
- Subjective Encounter Start Date: 04/09/17 Encounter Start Time: 09:47 Subjective: oriented x 3, feels "ok" - Objective Resuscitation Status: Resuscitation Status FULL:Full Resuscitation MAR Reviewed: Yes Vital Signs & Weight: Vital Signs (12 hours) Temp Pulse Resp BP Pulse Ox 04/09/17 04:00 97.8 F 85 18 132/63 97 04/09/17 03:26 98 04/09/17 02:40 97.8 F 88 18 98 04/09/17 02:05 98.2 F 96 22 H 137/64 100 Weight Weight 222 lb 8 oz I&O: 04/08/17 04/09/17 04/10/17 06:59 06:59 06:59 Intake Total 745 Output Total 2150 Balance -1405 Result Diagrams: 04/09/17 04:51 04/09/17 04:51 Additional Labs: Accuchecks 04/09/17 06:37 POC Glucose 108 Phys Exam - Physical Examination Constitutional: NAD Neck: no JVD good BS with scattered rhonchi Cardiovascular: RRR, no significant murmur Gastrointestinal: soft, positive bowel sounds Musculoskeletal: edema present Dx/Plan (1) Acute on chronic renal failure Code(s): N17.9 - ACUTE KIDNEY FAILURE, UNSPECIFIED; N18.9 - CHRONIC KIDNEY DISEASE, UNSPECIFIED Status: Acute Qualifiers: Acute renal failure type: unspecified Chronic kidney disease stage: stage 4 (severe) Qualified Code(s): N17.9 - Acute kidney failure, unspecified; N18.4 - Chronic kidney disease, stage 4 (severe); N18.4 - Chronic kidney disease , stage 4 (severe); N18.4 - Chronic kidney disease, stage 4 (severe); N18.4 - Chronic kidney disease, stage 4 (severe) (2) Anemia of renal disease Code(s): D63.1 - ANEMIA IN CHRONIC KIDNEY DISEASE Status: Chronic (3) Anxiety and depression Code(s): F41.8 - OTHER SPECIFIED ANXIETY DISORDERS Status: Chronic (4) HTN (hypertension) Code(s): I10 - ESSENTIAL (PRIMARY) HYPERTENSION Status: Acute Qualifiers: Hypertension type: essential hypertension Qualified Code(s): I10 - Essential (primary) hypertension (5) Metabolic acidosis Code(s): E87.2 - ACIDOSIS Status: Acute (6) Obesity (BMI 30-39.9) Code(s): E66.9 - OBESITY, UNSPECIFIED Status: Chronic (7) Seizure disorder Code(s): G40.909 - EPILEPSY, UNSP, NOT INTRACTABLE, WITHOUT STATUS EPILEPTICUS Status: Chronic Comment: on Phenytoin - Plan cont iv fluids, bicarb -: selected home meds -: accu/ss -: have discussed with Dr Mitchell * .
--- NOTE | 2017-04-09 10:42 | CON ---
DATE OF CONSULTATION: 04/09/2017 HISTORY: Ms. Lorenzana is a 61-year-old black female with known history of chronic renal failure and admi tted for an acute kidney injury with associated severe metabolic acidosis. At the same time she also had mental status change as reported by history. CBC showed significant bandemia. She is being emp irically treated for possible infection. We are now being consulted for the acute kidney injury with severe metabolic acidosis. The patient is currently undergoing aggressive volume repletion with iso tonic bicarbonate. REVIEW OF SYSTEMS: Positive for confusion. Currently no chest pain, no shortness of breath. Appeti te is fair. No nausea, no vomiting, no diarrhea, no constipation, no gross hematuria. Questionable dysuria, no urinary frequency. No abdominal pain, denies any fever or chills, no diplopia, occasiona l joint pains. Appetite and energy level is fair. No headache. No decreased hearing, no new skin r zuly. MEDICATIONS: Currently the patient is on isotonic bicarbonate drip at 125 mL per hour, [place] 5/325 q .4h. p.r.n., Norvasc 10 mg daily, aspirin 81 mg daily, PhosLo 667 mg 2 tabs t.i.d. with meals, ceftri axone 1 gram IV q.24h., ferrous sulfate 325 mg once a day, heparin 5000 units subcu b.i.d., Humalog s liding scale, levetiracetam 500 mg p.o. b.i.d., Synthroid 100 mcg every day, Zofran p.r.n., Protonix 40 mg daily, Zoloft 150 mg daily. Nephro-Supriya 1 tab every day. PAST MEDICAL HISTORY: 1. Hypothyroidism. 2. Chronic renal failure secondary to chronic interstitial nephritis. 3. Type 2 diabetes mellitus. 4. Depression. 5. Seizure disorder. 6. Cervical carcinoma - in remission. 7. Status post right hydronephrosis. 8. Chronic low back pain. 9. Tendinitis. 10. Uterine cancer -- in remission, status post radiation. 11. Chronic interstitial nephritis. 12. Hyperlipidemia. PAST SURGICAL HISTORY: 1. Status post colostomy placement. 2. Status post ileal conduit placement with urostomy. 3. Status post upper and lower GI endoscopy. 4. Status post nephrostomy tube placement. 5. Status post ablation therapy of her cervical cancer. 6. Status post stent placement. 7. Status post cholecystectomy. 8. Status post hysterectomy. SOCIAL HISTORY: The patient currently lives with her sister, lives in [place]. Three children. Si ngle, sedentary lifestyle. Currently no history of smoking, no alcohol intake. Status post multiple blood transfusions. Currently, medically disabled. FAMILY HISTORY: Positive family history of ESRD. ALLERGIES: IODINE, DIPHENHYDRAMINE, TOLTERODINE. IMMUNIZATIONS: Up to date. HOSPITALIZATIONS: Please see past medical history. PHYSICAL EXAMINATION: VITAL SIGNS: Blood pressure 132/63, heart rate 85, respiratory rate 18, temperature 97.8, pulse ox 9 7%. GENERAL: Awake, supine, comfortable, not in overt distress. SKIN: Decreased turgor. HEENT: She has slightly pale conjunctivae, anicteric sclerae. NECK: No neck mass, no carotid bruits, no JVD. CHEST: No deformities. LUNGS: Decreased breath sounds. No wheezing, no crackles. HEART: Normal sinus rhythm. No murmur, no gallops or rubs. ABDOMEN: Globular, soft, nontender. Positive for ileostomy site. Positive for bowel sounds. EXTREMITIES: No edema. No deformities. NEUROLOGIC: Awake, oriented to 3 spheres. Moving all extremities. No tremors, no asterixis. LABORATORY: 04/09/2017 - White count 10.1, hemoglobin 7.3. Urinalysis shows a WBC of greater than 50, specific gravity 1.020. No pigmented granular casts noted . Sodium 143, potassium 4.4, chloride 123, carbon dioxide 8, BUN is 101, creatinine 8.82. Further revi ew of her serum creatinine back in 01/24/2017 creatinine was noted at 3.75. AST is 22, ALT 18, albumin 2.9. ASSESSMENT AND PLAN: 1. Acute kidney injury - most likely hemodynamically mediated renal dysfunction. Please note that t he patient's urinalysis was quite concentrated initially. She is being replenished with isotonic bic arbonate due to the concomitant metabolic acidosis. No indication for any dialytic intervention. Co ntinue current IV hydration. Please note she is making some significant urine output. 2. Metabolic acidosis, currently on isotonic bicarbonate. No indication for dialysis. 3. Urinary tract infection/sepsis syndrome - patient has been started on IV antibiotics. 4. Anemia. Start Epogen 10,000 units subcu q. week. I agree with current management.
--- NOTE | 2017-04-09 12:48 | ULT ---
RENAL ULTRASOUND: HISTORY: Renal failure. TECHNIQUE: Multiplanar, parkinson scale, and color Doppler images were obtained in a renal ultrasound. FINDINGS: The kidneys demonstrate normal cortical echogenicity. There is moderate hydronephrosis on the left a nd mild hydronephrosis on the right. No shadowing calculi are seen in either kidney. The kidneys me asuring 8.8 and 9.5 cm in length on the right and left, respectively. The urinary bladder is decompr essed with a Gilbert catheter. IMPRESSION: Bilateral hydronephrosis. POS: REGINE
[2017-04-09] MEDS: cefTRIAXone\\ROCEPHIN 1 GM, Syringe 0.4 ML in Sterile Water 9.6 ML SLOW IVP SCH (23:38)
[2017-04-10] MEDS: Sodium Bicarbonate 150 MEQ in Dextrose 5% in Water 1,000 ML IV SCH ×6 (00:50→19:01)
[2017-04-10] MEDS: Levothyroxine Sodium 100 MCG TAB PO SCH (07:29)
[2017-04-10 08:19] LABS: #Eosinphils 0.2 thou/uL (0.0-0.7); #Lymphocytes 1.3 thou/uL (1.20-3.40); #Monocytes 0.5 thou/uL (0.11-0.59); #Neutrophils 5.1 thou/uL (1.40-6.50); %Basophils 0.5 % (0.0-1.0); %Eosinophils 2.9 % (0.0-10.0); %Lymphocytes 18.6 % (21.0-51.0); %Monocytes 6.7 % (0.0-10.0); %Neutrophils 71.3 % (42.0-75.0); Hemoglobin 7.9 g/dL (12.0-16.0); Mean Corpuscular HGB CONC 31.9 g/dL (32.0-36.0); Mean Corpuscular Hemoglobin 28.9 pg (27.0-31.0); Mean Corpuscular Volume 90.5 fl (81.0-99.0); Platelet Count 257 thou/uL (130-400); RBC Distribution Width 17.3 % (11.5-14.5); Red Blood Cell (RBC) Count 2.73 mill/uL (4.20-5.40); White Blood Cell (WBC) Count 7.2 thou/uL (4.8-10.8)
[2017-04-10 08:34] LABS: Anion Gap 15 mmol/L (10-20); BUN (Urea Nitrogen) 89 mg/dL (9.8-20.1); Calc. Creatinine Clearance 12 mL/min (70-130); Carbon Dioxide 16 mmol/L (23-31); Chloride 113 mmol/L (98-107); Estimated GFR-MDRD 6; Glucose 97 mg/dL (80-115); Potassium 3.3 mmol/L (3.5-5.1); Sodium 141 mmol/L (136-145)
[2017-04-10 08:43] LABS: Bite Cells SLIGHT = 2-5 cells (100X) (0-1/hpf); Hypochromia SLIGHT = 6-15 cells (100X) (0-5/hpf); MDiff Complete? YES; PLT Morphology Comment Appears Adequate; Polychromasia SLIGHT = 2-3 cells (100X) (0-2/hpf); Target Cells SLIGHT = 2-5 cells (100X) (0-1/hpf)
--- NOTE | 2017-04-10 08:45 | PRG ---
DATE OF SERVICE: 04/10/2017 SUBJECTIVE: Ms. Lorenzana is a 61-year-old black female with known history of chronic renal failure who w as admitted for acute kidney injury secondary to possible volume depletion. She has been started on empiric volume repletion. She has been started on isotonic bicarbonate due to concomitant metabolic acidosis. She is tolerating current IV fluid. This morning she is feeling better. We are still dara iting for her lab work. She is tolerating p.o. and appetite has improved. PHYSICAL EXAMINATION: VITAL SIGNS: Blood pressure 161/82, heart rate 74, respiratory rate 22, temperature 98.5, pulse ox 9 3%. GENERAL: Awake, alert, comfortable, supine, not in distress. SKIN: Adequate turgor. HEENT: She has slightly pale conjunctivae, anicteric sclerae. NECK: No neck mass, no carotid bruits, no JVD. CHEST: No deformities. LUNGS: Decreased breath sounds. HEART: Normal sinus rhythm. No murmur, no gallops, no rubs. ABDOMEN: Globular, soft, nontender, no masses. Positive for urostomy. EXTREMITIES: No edema, no deformities. MEDICATIONS: 04/10/2017 - Reviewed. LABORATORY: 04/10/2017 - White count 7.2, hemoglobin 7.9, hematocrit 24.8, base met currently pendin g. 04/09/2017 - BUN was 11, creatinine 8.82. ASSESSMENT AND PLAN: 1. Acute kidney injury on top of her chronic renal failure. Continue current IV volume repletion. She is not clinically uremic. She may simply have volume depletion. Tolerating current IV fluid. 2. Metabolic acidosis, currently on isotonic bicarbonate. Again, no indication for dialytic interve ntion. 3. Anemia, stabilizing. Start Epogen at 10,000 units subcutaneously every week. 4. ? Sepsis - empiric IV antibiotics. We will recheck basic met and CBC in a.m.
[2017-04-10] MEDS: Ondansetron HCl/PF 4 MG/2 ML Vial IVP PRN (08:58)
[2017-04-10] MEDS: Amlodipine 10 MG TAB PO SCH (09:00)
[2017-04-10] MEDS: Sodium Bicarbonate Tab 325 MG TAB PO SCH ×2 (09:00→20:53)
[2017-04-10] MEDS: levETIRAcetam 500 MG TAB PO SCH ×2 (09:01→20:53)
[2017-04-10] MEDS: Calcium Acetate 667 MG CAP PO SCH ×3 (09:01→17:44)
[2017-04-10] MEDS: Heparin 5,000 UNITS/ML VIAL SC SCH ×2 (09:02→20:52)
[2017-04-10] MEDS: Ferrous Sulfate 325 MG TAB PO SCH (09:02)
[2017-04-10] MEDS: Folic Acid/Vit B Comp W-C PO SCH (09:02)
[2017-04-10] MEDS ORDERED: Epoetin (ESRD) 20,000 UNITS/ML SC SCH (10:00)
--- NOTE | 2017-04-10 11:13 | PDOC.PN ---
- Subjective Encounter Start Date: 04/10/17 Encounter Start Time: 11:12 Subjective: states she is fine - Objective Resuscitation Status: Resuscitation Status FULL:Full Resuscitation MAR Reviewed: Yes Vital Signs & Weight: Vital Signs (12 hours) Temp Pulse Resp BP BP Pulse Ox 04/10/17 09:00 74 161/82 H 04/10/17 07:51 98.5 F 74 22 H 161/82 H 93 L 04/10/17 04:00 98.1 F 83 20 133/74 98 Weight Weight 222 lb 8 oz I&O: 04/09/17 04/10/17 04/11/17 06:59 06:59 06:59 Intake Total 2945 Output Total 2950 Balance -5 Result Diagrams: 04/10/17 07:55 04/10/17 07:55 Additional Labs: Accuchecks 04/10/17 04/09/17 04/09/17 04:42 16:51 11:31 POC Glucose 99 112 H 114 H Phys Exam - Physical Examination Neck: no JVD Respiratory: clear to auscultation bilateral Cardiovascular: no significant murmur Gastrointestinal: soft, non-tender, positive bowel sounds ostomy Musculoskeletal: edema present Dx/Plan (1) Acute on chronic renal failure Code(s): N17.9 - ACUTE KIDNEY FAILURE, UNSPECIFIED; N18.9 - CHRONIC KIDNEY DISEASE, UNSPECIFIED Status: Acute Qualifiers: Acute renal failure type: unspecified Chronic kidney disease stage: stage 4 (severe) Qualified Code(s): N17.9 - Acute kidney failure, unspecified; N18.4 - Chronic kidney disease, stage 4 (severe); N18.4 - Chronic kidney disease , stage 4 (severe); N18.4 - Chronic kidney disease, stage 4 (severe); N18.4 - Chronic kidney disease, stage 4 (severe) (2) Anemia of renal disease Code(s): D63.1 - ANEMIA IN CHRONIC KIDNEY DISEASE Status: Chronic (3) Anxiety and depression Code(s): F41.8 - OTHER SPECIFIED ANXIETY DISORDERS Status: Chronic (4) HTN (hypertension) Code(s): I10 - ESSENTIAL (PRIMARY) HYPERTENSION Status: Acute Qualifiers: Hypertension type: essential hypertension Qualified Code(s): I10 - Essential (primary) hypertension (5) Metabolic acidosis Code(s): E87.2 - ACIDOSIS Status: Acute (6) Obesity (BMI 30-39.9) Code(s): E66.9 - OBESITY, UNSPECIFIED Status: Chronic (7) Seizure disorder Code(s): G40.909 - EPILEPSY, UNSP, NOT INTRACTABLE, WITHOUT STATUS EPILEPTICUS Status: Chronic Comment: on Phenytoin - Plan acidosis improved, creat 8 -: cont iv , bicarb -: cont accu/ss -: selected home meds * .
[2017-04-10] MEDS: cefTRIAXone\\ROCEPHIN 1 GM, Syringe 0.4 ML in Sterile Water 9.6 ML SLOW IVP SCH (22:45)
[2017-04-11] MEDS: Sodium Bicarbonate 150 MEQ in Dextrose 5% in Water 1,000 ML IV SCH ×2 (04:30)
[2017-04-11] MEDS: Levothyroxine Sodium 100 MCG TAB PO SCH (05:50)
[2017-04-11 05:53] LABS: #Eosinphils 0.3 thou/uL (0.0-0.7); #Lymphocytes 1.6 thou/uL (1.20-3.40); #Monocytes 0.6 thou/uL (0.11-0.59); #Neutrophils 5.2 thou/uL (1.40-6.50); %Basophils 0.3 % (0.0-1.0); %Eosinophils 3.3 % (0.0-10.0); %Lymphocytes 20.7 % (21.0-51.0); %Monocytes 8.1 % (0.0-10.0); %Neutrophils 67.6 % (42.0-75.0); Hemoglobin 7.7 g/dL (12.0-16.0); Mean Corpuscular HGB CONC 32.5 g/dL (32.0-36.0); Mean Corpuscular Hemoglobin 29.4 pg (27.0-31.0); Mean Corpuscular Volume 90.3 fl (81.0-99.0); Platelet Count 247 thou/uL (130-400); RBC Distribution Width 17.5 % (11.5-14.5); Red Blood Cell (RBC) Count 2.61 mill/uL (4.20-5.40); White Blood Cell (WBC) Count 7.7 thou/uL (4.8-10.8)
[2017-04-11 06:07] LABS: Anion Gap 14 mmol/L (10-20); BUN (Urea Nitrogen) 80 mg/dL (9.8-20.1); Calc. Creatinine Clearance 13 mL/min (70-130); Calcium 7.7 mg/dL (7.8-10.44); Carbon Dioxide 24 mmol/L (23-31); Chloride 110 mmol/L (98-107); Estimated GFR-MDRD 7; Glucose 93 mg/dL (80-115); Potassium 3.2 mmol/L (3.5-5.1); Sodium 145 mmol/L (136-145)
[2017-04-11] MEDS: Ondansetron HCl/PF 4 MG/2 ML Vial IVP PRN ×2 (07:50→18:45)
[2017-04-11] MEDS: Calcium Acetate 667 MG CAP PO SCH ×3 (08:48→17:51)
[2017-04-11] MEDS: Ferrous Sulfate 325 MG TAB PO SCH (08:48)
[2017-04-11] MEDS: Amlodipine 10 MG TAB PO SCH (08:48)
[2017-04-11] MEDS: levETIRAcetam 500 MG TAB PO SCH ×2 (08:48→19:59)
[2017-04-11] MEDS: Sodium Bicarbonate Tab 325 MG TAB PO SCH ×2 (08:48→19:58)
[2017-04-11] MEDS: Heparin 5,000 UNITS/ML VIAL SC SCH ×2 (08:49→19:59)
[2017-04-11] MEDS: Folic Acid/Vit B Comp W-C PO SCH (08:49)
[2017-04-11] MEDS ORDERED: Sodium Chloride 0.9% 1,000 ML IV SCH (09:15)
[2017-04-11] MEDS: NS 0.9% w/ 20 MEQ KCL 1,000 ML IV SCH ×3 (10:10→23:19)
--- NOTE | 2017-04-11 10:56 | PRG ---
DATE OF SERVICE: 04/11/2017 RENAL MEDICINE SUBJECTIVE: Ms. Lorenzana is a 61-year-old black female who was admitted for an acute kidney injury. She was also noted to be severely azotemic. She was started on aggressive IV hydration with isotonic bi carbonate. Over the last few days, she has been improving with her renal function. She is not clini siria uremic on exam today. The patient denies any chest pain, shortness of breath. She does compla in of occasional nausea. She is receiving Zofran p.r.n. 4 days. PHYSICAL EXAMINATION: VITAL SIGNS: Blood pressure is 167/77, heart rate 81, respiratory rate 22, temperature 98.1, pulse o x 94%. GENERAL: Awake, alert, supine, comfortable. SKIN: Adequate turgor. HEENT: She has slightly pale conjunctivae, anicteric sclerae. NECK: No neck mass, no carotid bruits, no JVD. CHEST: No deformities. LUNGS: Decreased breath sounds. HEART: Normal sinus rhythm. No murmur, no gallops, no rubs. ABDOMEN: Globular, soft, nontender. Positive for bowel sounds. Positive for ostomy. EXTREMITIES: No edema, no deformities. MEDICATIONS: Medications of 04/11/2017 was reviewed. LABORATORY DATA: Laboratories of 04/11/2017; white count 7.7, hemoglobin 7.7. Sodium 145, potassium 3.2, chloride 110, carbon dioxide 24, BUN 18, creatinine 7.02, GFR is 7 mL per minute, glucose 93, a nd calcium 7.7. ASSESSMENT AND PLAN: 1. Anemia - continue weekly Epogen with this patient. P.r.n. blood transfusion for hemoglobin less than 7. 2. Acute kidney injury on top of her chronic renal failure, slowly improving creatinine. Please not e today's creatinine is 7.02 and her creatinine was said to have peaked at the value of 8.82. There is no indication for any dialytic intervention with this patient. 3. Metabolic acidosis. Patient is much improved with bicarbonate. My plan is to change IV fluid to normal saline plus 20 mEq of KCl and ranitidine 125 mL per hour. 4. Mild hypocalcemia - we will continue to observe. Please note IV fluid will be changed to normal saline with 20 mEq. The bicarbonate will be removed. 5. Recheck PTH and phosphorus in a.m. Overall, agree with current management.
--- NOTE | 2017-04-11 11:21 | PQF ---
CLINICAL DOCUMENTATION IMPROVEMENT CLARIFICATION FORM: ICD-10 Updated PLEASE DO AN ADDENDUM TO THE PROGRESS NOTE WITH ANY DOCUMENTATION UPDATES OR ADDITIONS AND CARRY THROUGH TO DC SUMMARY. THANK YOU. DATE: 01/09/18 ATTN : DR. OCAMPO Please exercise your independent, professional judgment in responding to the clarification form. Clinical indicators are provided on the bottom of this form for your review Please check appropriate box(s): [ ] Sepsis due to: (Pna, UTI, gangrenous gall bladder, etc.) Due to: [ ] Device (please specify) [ ] Implant [ ] Graft [ ] Infusion [ x ] SIRS due to non-infectious process (please specify etiology) [ ] with organ dysfunction [ ] without organ dysfunction [ ] Severe sepsis with acute organ dysfunction of: (Examples: respiratory failure, encephalopathy, acute kidney failure, other) [ ] Localized infection without sepsis [ ] Other diagnosis [ ] Unable to determine In addition, please specify: Present on Admission (POA): [ x ] Yes [ ] No [ ] Unable to determine For continuity of documentation, please document condition throughout progress notes and discharge summary. Thank You. CLINICAL INDICATORS - SIGNS / SYMPTOMS / LABS H&P 04/08: "RULE OUT SEPSIS" NEPHROLOGY NOTE 04/09: ""SEPSIS SYNDROME" NEPHROLOGY NOTE 04/10: "? SEPSIS-EMPIRIC IV ANTIBIOTICS ALTERED MENTAL STATUS (PER ER NOTE) TEMP 96.9 RR 22 RISKS: UTI TREATMENT: IV VANCOMYCIN (ER) IV FLUIDS (ER-PRESENT) URINE CULTURES SERIAL LABS IV ROCEPHIN (04/09-PRESENT) (This form is maintained as a part of the permanent medical record) 2014 [employer], [employer]. All Rights Reserved [email or web address] Office: [phone] [facility] SHORE[facility]
--- NOTE | 2017-04-11 12:28 | PDOC.PN ---
- Subjective Encounter Start Date: 04/11/17 Encounter Start Time: 12:26 Subjective: no complaints at all - Objective Resuscitation Status: Resuscitation Status FULL:Full Resuscitation MAR Reviewed: Yes Vital Signs & Weight: Vital Signs (12 hours) Temp Pulse Resp BP BP Pulse Ox 04/11/17 08:48 81 167/77 H 04/11/17 08:00 98.1 F 81 22 H 04/11/17 07:46 98.1 F 81 22 H 167/77 H 94 L 04/11/17 04:00 99.0 F 79 20 151/75 H 96 Weight Admit Weight 222 lb 8 oz Weight 222 lb 8 oz I&O: 04/10/17 04/11/17 04/12/17 06:59 06:59 06:59 Intake Total 4195 1000 Output Total 3775 1350 450 Balance 420 -350 -450 Result Diagrams: 04/11/17 05:20 04/11/17 05:20 Additional Labs: Accuchecks 04/11/17 04/11/17 04/11/17 11:11 05:09 04:47 POC Glucose 107 119 H 105 04/10/17 04/10/17 04/10/17 19:58 16:53 11:54 POC Glucose 118 H 190 H 91 Phys Exam - Physical Examination Neck: no JVD Respiratory: clear to auscultation bilateral Cardiovascular: RRR, no significant murmur Gastrointestinal: soft, positive bowel sounds Musculoskeletal: edema present Dx/Plan (1) Acute on chronic renal failure Code(s): N17.9 - ACUTE KIDNEY FAILURE, UNSPECIFIED; N18.9 - CHRONIC KIDNEY DISEASE, UNSPECIFIED Status: Acute Qualifiers: Acute renal failure type: unspecified Chronic kidney disease stage: stage 4 (severe) Qualified Code(s): N17.9 - Acute kidney failure, unspecified; N18.4 - Chronic kidney disease, stage 4 (severe); N18.4 - Chronic kidney disease , stage 4 (severe); N18.4 - Chronic kidney disease, stage 4 (severe); N18.4 - Chronic kidney disease, stage 4 (severe) (2) Anemia of renal disease Code(s): D63.1 - ANEMIA IN CHRONIC KIDNEY DISEASE Status: Chronic (3) Anxiety and depression Code(s): F41.8 - OTHER SPECIFIED ANXIETY DISORDERS Status: Chronic (4) HTN (hypertension) Code(s): I10 - ESSENTIAL (PRIMARY) HYPERTENSION Status: Acute Qualifiers: Hypertension type: essential hypertension Qualified Code(s): I10 - Essential (primary) hypertension (5) Metabolic acidosis Code(s): E87.2 - ACIDOSIS Status: Acute (6) Obesity (BMI 30-39.9) Code(s): E66.9 - OBESITY, UNSPECIFIED Status: Chronic (7) Seizure disorder Code(s): G40.909 - EPILEPSY, UNSP, NOT INTRACTABLE, WITHOUT STATUS EPILEPTICUS Status: Chronic Comment: on Phenytoin - Plan slow improvement in renal fcn- cont iv fluids, bicarb -: selected home meds * .
[2017-04-11] MEDS: cefTRIAXone\\ROCEPHIN 1 GM, Syringe 0.4 ML in Sterile Water 9.6 ML SLOW IVP SCH (19:59)
[2017-04-12] MEDS: Acetaminophen 325 MG TAB PO PRN (01:32)
[2017-04-12 05:10] LABS: #Basophils 0.1 thou/uL (0.0-0.2); #Eosinphils 0.2 thou/uL (0.0-0.7); #Lymphocytes 1.9 thou/uL (1.20-3.40); #Monocytes 0.7 thou/uL (0.11-0.59); #Neutrophils 5.3 thou/uL (1.40-6.50); %Basophils 0.7 % (0.0-1.0); %Eosinophils 2.2 % (0.0-10.0); %Lymphocytes 23.3 % (21.0-51.0); %Monocytes 8.6 % (0.0-10.0); %Neutrophils 65.2 % (42.0-75.0); Hemoglobin 7.4 g/dL (12.0-16.0); Mean Platelet Volume 8.1 fL (7.4-10.4); Platelet Count 225 thou/uL (130-400); RBC Distribution Width 17.5 % (11.5-14.5); Red Blood Cell (RBC) Count 2.45 mill/uL (4.20-5.40); White Blood Cell (WBC) Count 8.1 thou/uL (4.8-10.8)
[2017-04-12 05:35] LABS: Anion Gap 12 mmol/L (10-20); BUN (Urea Nitrogen) 69 mg/dL (9.8-20.1); Calc. Creatinine Clearance 15 mL/min (70-130); Calcium 7.9 mg/dL (7.8-10.44); Carbon Dioxide 23 mmol/L (23-31); Chloride 111 mmol/L (98-107); Estimated GFR-MDRD 8; Glucose 77 mg/dL (80-115); Phosphorus 3.8 mg/dL (2.3-4.7); Potassium 3.4 mmol/L (3.5-5.1); Sodium 143 mmol/L (136-145)
[2017-04-12] MEDS: Levothyroxine Sodium 100 MCG TAB PO SCH (05:59)
[2017-04-12] MEDS: Ferrous Sulfate 325 MG TAB PO SCH (08:16)
[2017-04-12] MEDS: Sodium Bicarbonate Tab 325 MG TAB PO SCH ×2 (08:16→21:07)
[2017-04-12] MEDS: Folic Acid/Vit B Comp W-C PO SCH (08:16)
[2017-04-12] MEDS: levETIRAcetam 500 MG TAB PO SCH ×2 (08:18→21:07)
[2017-04-12] MEDS: Amlodipine 10 MG TAB PO SCH (08:18)
[2017-04-12] MEDS: Calcium Acetate 667 MG CAP PO SCH ×3 (08:18→17:14)
[2017-04-12] MEDS: Potassium Chloride 20 MEQ TAB PO SCH (08:19)
[2017-04-12] MEDS: NS 0.9% w/ 20 MEQ KCL 1,000 ML IV SCH ×2 (08:20→17:14)
[2017-04-12] MEDS: Heparin 5,000 UNITS/ML VIAL SC SCH ×2 (08:20→21:07)
--- NOTE | 2017-04-12 09:59 | PRG ---
DATE OF SERVICE: 04/12/2017 SUBJECTIVE: Ms. Lorenzana is a 61-year-old black female who was initially admitted for questionable sepsi s. She is on empiric antibiotics. At that time, she was also noted to be in acute kidney injury on top of her chronic renal failure. The Renal Service felt at that time that this was all hemodynamica lly mediated renal dysfunction on top of her chronic renal failure. IV hydration has been done. She was also severely acidemic at that time. For that reason, received isotonic bicarbonate. Her metab olic acidosis is improving currently. She is now on normal saline without any bicarbonate. No new c omplaints today except for the persistent nausea and vomiting. Denies any chest pain or shortness of breath. The patient is also noted to be diuresing. PHYSICAL EXAMINATION: VITAL SIGNS: Blood pressure is 167/77, heart rate 67, respiratory rate 20, temperature 97.9, pulse o x 94%. GENERAL: The patient is noted to be awake, supine, comfortable, not in distress. SKIN: Adequate turgor. HEENT: She has slightly pale conjunctivae, anicteric sclerae. NECK: No neck mass, no carotid bruits, no JVD. CHEST: No deformities. LUNGS: Clear breath sounds. No wheezing, no crackles. HEART: Normal sinus rhythm. No murmur, no gallops or rubs. ABDOMEN: Globular, soft, nontender, no masses. Positive for bowel sounds. Positive for urostomy. EXTREMITIES: No edema, no deformities. MEDICATIONS: 04/12/2017 - Reviewed. LABORATORY: 04/12/2007 - White count 7.1, hemoglobin 7.4, sodium 143, potassium 3.4, chloride 111, c arbon dioxide 23, BUN 69, creatinine 6.36, calcium 7.9, phosphorus 3.8. PTH is 284. ASSESSMENT AND PLAN: 1. Nausea and vomiting - continue supportive care, if persistent, consider a GI consult. 2. Acute kidney injury/chronic renal failure - superimposed prerenal azotemia. Slow improvement of the renal function. Most recent creatinine now is noted at 6.36. Please note that the creatinine pe aked at a value of 9.45. Continue IV hydration. No indication for any dialytic intervention. I do anticipate some more improvement with the patient's renal function with IV hydration. 3. Anemia. The patient currently on weekly Epogen. Blood transfusion if hemoglobin is less than 7. Overall, I agree with current management. We will be rechecking another basic met in a.m.
[2017-04-12] MEDS: Calcitriol 0.25 MCG CAP PO SCH (10:03)
--- NOTE | 2017-04-12 11:35 | PDOC.PN ---
- Subjective Encounter Start Date: 04/12/17 Encounter Start Time: 11:30 Subjective: f/u for ROMÁN on CKD IV with slow improvement of renal function. -: States feeling ok overall. Nsg reports asymptomatic bradycardia -: this am. - Objective Resuscitation Status: Resuscitation Status FULL:Full Resuscitation MAR Reviewed: Yes Vital Signs & Weight: Vital Signs (12 hours) Temp Pulse Resp BP BP Pulse Ox 04/12/17 10:09 98.5 F 64 18 157/66 H 95 04/12/17 09:40 98.9 F 54 L 14 171/88 H 94 L 04/12/17 08:18 64 167/77 H 04/12/17 08:00 98.5 F 64 18 95 Weight Admit Weight 222 lb 8 oz Weight 222 lb 8 oz I&O: 04/11/17 04/12/17 04/13/17 06:59 06:59 06:59 Intake Total 1000 1850 Output Total 1350 2100 Balance -350 -250 Result Diagrams: 04/12/17 04:26 04/12/17 04:26 Additional Labs: Accuchecks 04/11/17 04/11/17 04/11/17 20:18 19:10 16:18 POC Glucose 111 H 127 H 99 04/11/17 11:11 POC Glucose 107 Microbiology 04/09/17 02:40 Urine blank catheter Urine Culture - Final 04/08/17 16:40 Nasal swab Influenza Types A,B Direct EIA - Final 04/08/17 17:52 Urine Nephrostomy tube Urine Culture - Preliminary Escherichia coli Morganella morganii ssp siboni Gram Negative Alex#2 04/08/17 17:48 Venous blood - Left Arm Blood Culture - Preliminary NO GROWTH AT 48 HOURS Laboratory Tests 04/09/17 04/09/17 04/10/17 04:51 04:51 07:55 Hgb 7.3 L Potassium 3.3 L Creatinine 8.82 H 8.07 H PTH Intact 04/10/17 04/11/17 04/11/17 07:55 05:20 05:20 Hgb 7.9 L 7.7 L Potassium 3.2 L Creatinine 7.02 H PTH Intact 04/12/17 04:26 Hgb Potassium Creatinine PTH Intact 284.7 H Phys Exam - Physical Examination alert, tearful HEENT: PERRLA, oral pharynx no lesions Neck: no JVD, supple Respiratory: no wheezing, clear to auscultation bilateral Cardiovascular: RRR Urostomy site intact, pink base, draining clear urine Gastrointestinal: soft, non-tender, no distention, positive bowel sounds Musculoskeletal: pulses present, edema present Neurological: moves all 4 limbs Psychiatric: A&O x 3 Skin: normal turgor, cap refill <2 seconds Dx/Plan (1) Acute worsening of stage 4 chronic kidney disease Code(s): N28.9 - DISORDER OF KIDNEY AND URETER, UNSPECIFIED; N18.4 - CHRONIC KIDNEY DISEASE, STAGE 4 (SEVERE) Status: Acute Comment: Slow improvement in renal function, continue IVF NS at 125ml/h, avoid nephrotoxic meds and contrast media (2) HTN (hypertension) Code(s): I10 - ESSENTIAL (PRIMARY) HYPERTENSION Status: Chronic Qualifiers: Hypertension type: essential hypertension Qualified Code(s): I10 - Essential (primary) hypertension Comment: labile, likely due to increased IVF's (3) Metabolic acidosis Code(s): E87.2 - ACIDOSIS Status: Acute Comment: Resolved, continue bicarbonate 325mg BID (4) Physical deconditioning Code(s): R53.81 - OTHER MALAISE Status: Chronic (5) Anemia of renal disease Code(s): D63.1 - ANEMIA IN CHRONIC KIDNEY DISEASE Status: Chronic Comment: Hgb in 7 range and stable, serial monitoring, Epo (6) Anxiety and depression Code(s): F41.8 - OTHER SPECIFIED ANXIETY DISORDERS Status: Chronic (7) DM type 2 (diabetes mellitus, type 2) Status: Chronic Qualifiers: Diabetes mellitus complication status: with kidney complications Diabetes mellitus complication detail: with chronic kidney disease Diabetes mellitus fdc insulin use: with pharmacometrician use Chronic kidney disease stage: stage 5, not on chronic dialysis Qualified Code(s): E11.22 - Type 2 diabetes mellitus with diabetic chronic kidney disease; N18.5 - Chronic kidney disease, stage 5; N18.5 - Chronic kidney disease, stage 5; N18.5 - Chronic kidney disease , stage 5; N18.5 - Chronic kidney disease, stage 5; Z79.4 - residential (current) use of insulin; Z79.4 - residential (current) use of insulin; Z79.4 - residential ( current) use of insulin; Z79.4 - skiing teacher (current) use of insulin (8) Seizure disorder Code(s): G40.909 - EPILEPSY, UNSP, NOT INTRACTABLE, WITHOUT STATUS EPILEPTICUS Status: Chronic Comment: Continue Keppra 500mg BID (9) Acute metabolic encephalopathy Code(s): G93.41 - METABOLIC ENCEPHALOPATHY Status: Resolved Comment: Resolved as metabolic derangement improving, supportive care - Plan continue antibiotics, PT/OT, social worker clinical, DVT proph w/SCDs Stable overall -: Continue IVF's -: WCT for ostomy care -: Continue Rocephin 1gm IV daily -: AM lab: BMP, CBC * .
[2017-04-12] MEDS: Ondansetron HCl/PF 4 MG/2 ML Vial IVP PRN (13:07)
[2017-04-12] MEDS: cefTRIAXone\\ROCEPHIN 1 GM, Syringe 0.4 ML in Sterile Water 9.6 ML SLOW IVP SCH (21:08)
[2017-04-13] MEDS: NS 0.9% w/ 20 MEQ KCL 1,000 ML IV SCH ×4 (02:00→21:43)
[2017-04-13] MEDS: Levothyroxine Sodium 100 MCG TAB PO SCH (05:06)
[2017-04-13 05:17] LABS: #Eosinphils 0.3 thou/uL (0.0-0.7); #Lymphocytes 1.9 thou/uL (1.20-3.40); #Monocytes 0.7 thou/uL (0.11-0.59); #Neutrophils 5.7 thou/uL (1.40-6.50); %Basophils 0.3 % (0.0-1.0); %Eosinophils 3.1 % (0.0-10.0); %Lymphocytes 22.4 % (21.0-51.0); %Monocytes 7.9 % (0.0-10.0); %Neutrophils 66.4 % (42.0-75.0); Hemoglobin 7.6 g/dL (12.0-16.0); Mean Corpuscular HGB CONC 31.5 g/dL (32.0-36.0); Mean Corpuscular Hemoglobin 29.1 pg (27.0-31.0); Mean Corpuscular Volume 92.3 fl (81.0-99.0); Mean Platelet Volume 8.3 fL (7.4-10.4); Platelet Count 233 thou/uL (130-400); RBC Distribution Width 17.4 % (11.5-14.5); Red Blood Cell (RBC) Count 2.61 mill/uL (4.20-5.40); White Blood Cell (WBC) Count 8.6 thou/uL (4.8-10.8)
[2017-04-13 05:41] LABS: Anion Gap 12 mmol/L (10-20); BUN (Urea Nitrogen) 61 mg/dL (9.8-20.1); Calc. Creatinine Clearance 16 mL/min (70-130); Calcium 8.2 mg/dL (7.8-10.44); Carbon Dioxide 20 mmol/L (23-31); Chloride 114 mmol/L (98-107); Estimated GFR-MDRD 9; Glucose 76 mg/dL (80-115); Potassium 4.2 mmol/L (3.5-5.1); Sodium 142 mmol/L (136-145)
[2017-04-13] MEDS: Sodium Bicarbonate Tab 325 MG TAB PO SCH ×2 (08:57→19:56)
[2017-04-13] MEDS: Potassium Chloride 20 MEQ TAB PO SCH ×2 (08:59→10:45)
[2017-04-13] MEDS: Calcium Acetate 667 MG CAP PO SCH ×3 (08:59→17:27)
[2017-04-13] MEDS: Calcitriol 0.25 MCG CAP PO SCH (08:59)
[2017-04-13] MEDS: Ferrous Sulfate 325 MG TAB PO SCH (08:59)
[2017-04-13] MEDS: Heparin 5,000 UNITS/ML VIAL SC SCH ×2 (09:00→19:56)
[2017-04-13] MEDS: Folic Acid/Vit B Comp W-C PO SCH (09:00)
[2017-04-13] MEDS: levETIRAcetam 500 MG TAB PO SCH ×2 (09:00→19:56)
[2017-04-13] MEDS: Amlodipine 10 MG TAB PO SCH (09:00)
--- NOTE | 2017-04-13 11:12 | PRG ---
DATE OF SERVICE: 04/13/2017 RENAL MEDICINE SUBJECTIVE: Ms. Lorenzana is a 61-year-old black female who was seen by Renal Service for her acute kidne y injury on top of her chronic renal failure. Renal function has slowly been improving with empiric volume repletion. No new complaints today. Her appetite has improved. She is denying any nausea or vomiting this morning. No chest pain or shortness of breath. PHYSICAL EXAMINATION: VITAL SIGNS: Blood pressure is 156/83, heart rate 72, respiratory rate 18, temperature 98.2, pulse o x 95%. GENERAL: Awake, alert, comfortable, not in distress. SKIN: Adequate turgor. HEENT: Slightly pale conjunctivae, anicteric sclerae. NECK: No neck mass, no carotid bruits, no JVD. CHEST: No deformities. LUNGS: Clear breath sounds. No wheezing, no crackles. HEART: Normal sinus rhythm. No murmur, no gallops, no rubs. ABDOMEN: Globular, soft, nontender. Positive for bowel sounds. Positive for colostomy and urostomy . EXTREMITIES: No edema, no deformities. MEDICATIONS: Medications of 04/13/2017 was reviewed. LABORATORY DATA: Laboratories of 04/13/2017; white count 8.6, hemoglobin 7.6. Sodium 142, potassium 4.2, chloride 114, carbon dioxide 20, BUN 61, creatinine 5.88, GFR is 9 mL per minute, calcium is 8. 2. ASSESSMENT AND PLAN: 1. Anemia - on weekly Epogen, currently on 7500 units subcu daily. 2. Secondary hyperparathyroidism. Calcitriol has been started. 3. Acute kidney injury on top of her chronic renal failure. 4. Superimposed prerenal azotemia with improvement of renal function with IV hydration. Please note creatinine is now at 5.88 and this was said to have peaked at value of 9.45. We will continue current IV hydration. No indication for any dialytic intervention. We will be rech ecking a basic met and CBC in a.m.
--- NOTE | 2017-04-13 14:44 | PDOC.PN ---
- Subjective Encounter Start Date: 04/13/17 Encounter Start Time: 14:40 Subjective: f/u for multiple metabolic derangements due to ROMÁN/CKD. Slow clinical -: improvement but renal function improved. No new complaints. - Objective Resuscitation Status: Resuscitation Status FULL:Full Resuscitation MAR Reviewed: Yes Vital Signs & Weight: Vital Signs (12 hours) Temp Pulse Resp BP BP Pulse Ox 04/13/17 11:00 98.7 F 54 L 14 138/77 97 04/13/17 09:00 72 04/13/17 08:00 98.3 F 72 14 97 04/13/17 07:02 98.3 F 72 18 156/83 H 95 04/13/17 04:26 98.3 F 59 L 16 152/81 H 96 Weight Admit Weight 222 lb 8 oz Weight 222 lb 8 oz I&O: 04/12/17 04/13/17 04/14/17 06:59 06:59 06:59 Intake Total 1850 3835 Output Total 2100 1325 Balance -250 2510 Result Diagrams: 04/13/17 04:42 04/13/17 04:42 Additional Labs: Accuchecks 04/13/17 04/13/17 04/12/17 11:44 05:07 21:07 POC Glucose 137 H 79 116 H 04/12/17 04/12/17 16:20 14:28 POC Glucose 113 H 108 Phys Exam - Physical Examination Constitutional: NAD HEENT: PERRLA, oral pharynx no lesions Neck: no JVD, supple Respiratory: no wheezing II-III/ BRENNA in LUSB Cardiovascular: RRR + urostomy and ileostomy Gastrointestinal: soft, non-tender, no distention, positive bowel sounds Musculoskeletal: pulses present, edema present Psychiatric: A&O x 3 Skin: normal turgor, cap refill <2 seconds Dx/Plan (1) Acute worsening of stage 4 chronic kidney disease Code(s): N28.9 - DISORDER OF KIDNEY AND URETER, UNSPECIFIED; N18.4 - CHRONIC KIDNEY DISEASE, STAGE 4 (SEVERE) Status: Acute Comment: Slow improvement in renal function, continue IVF NS at 125ml/h, avoid nephrotoxic meds and contrast media (2) HTN (hypertension) Code(s): I10 - ESSENTIAL (PRIMARY) HYPERTENSION Status: Chronic Qualifiers: Hypertension type: essential hypertension Qualified Code(s): I10 - Essential (primary) hypertension Comment: labile, likely due to increased IVF's (3) Metabolic acidosis Code(s): E87.2 - ACIDOSIS Status: Acute Comment: Resolved, continue bicarbonate 325mg BID (4) Physical deconditioning Code(s): R53.81 - OTHER MALAISE Status: Chronic (5) Anemia of renal disease Code(s): D63.1 - ANEMIA IN CHRONIC KIDNEY DISEASE Status: Chronic Comment: Hgb in 7 range and stable, serial monitoring, Epo (6) Anxiety and depression Code(s): F41.8 - OTHER SPECIFIED ANXIETY DISORDERS Status: Chronic (7) DM type 2 (diabetes mellitus, type 2) Status: Chronic Qualifiers: Diabetes mellitus complication status: with kidney complications Diabetes mellitus complication detail: with chronic kidney disease Diabetes mellitus predatory animal exterminator insulin use: with predatory animal exterminator use Chronic kidney disease stage: stage 5, not on chronic dialysis Qualified Code(s): E11.22 - Type 2 diabetes mellitus with diabetic chronic kidney disease; N18.5 - Chronic kidney disease, stage 5; N18.5 - Chronic kidney disease, stage 5; N18.5 - Chronic kidney disease , stage 5; N18.5 - Chronic kidney disease, stage 5; Z79.4 - halfway (current) use of insulin; Z79.4 - halfway (current) use of insulin; Z79.4 - truck terminal manager ( current) use of insulin; Z79.4 - truck terminal manager (current) use of insulin (8) Seizure disorder Code(s): G40.909 - EPILEPSY, UNSP, NOT INTRACTABLE, WITHOUT STATUS EPILEPTICUS Status: Chronic Comment: Continue Keppra 500mg BID - Plan continue antibiotics, PT/OT, social service worker, out of bed/ambulate stable overall -: PT for mobilization and ambulation -: Continue Rocephin another 24h then d/c -: Local WCT for ostomy sites -: AM Lab: BMP * .
[2017-04-13] MEDS: cefTRIAXone\\ROCEPHIN 1 GM, Syringe 0.4 ML in Sterile Water 9.6 ML SLOW IVP SCH (21:43)
[2017-04-14] MEDS: NS 0.9% w/ 20 MEQ KCL 1,000 ML IV SCH ×3 (01:20→16:50)
[2017-04-14] MEDS: Levothyroxine Sodium 100 MCG TAB PO SCH (05:43)
[2017-04-14 06:01] LABS: Anion Gap 15 mmol/L (10-20); BUN (Urea Nitrogen) 54 mg/dL (9.8-20.1); Calc. Creatinine Clearance 18 mL/min (70-130); Calcium 8.6 mg/dL (7.8-10.44); Carbon Dioxide 17 mmol/L (23-31); Chloride 116 mmol/L (98-107); Estimated GFR-MDRD 10; Glucose 75 mg/dL (80-115); Potassium 4.8 mmol/L (3.5-5.1); Sodium 143 mmol/L (136-145)
[2017-04-14] MEDS: Ferrous Sulfate 325 MG TAB PO SCH (08:33)
[2017-04-14] MEDS: Sodium Bicarbonate Tab 325 MG TAB PO SCH ×2 (08:34→19:30)
[2017-04-14] MEDS: Amlodipine 10 MG TAB PO SCH (08:34)
[2017-04-14] MEDS: Calcium Acetate 667 MG CAP PO SCH ×3 (08:34→16:50)
[2017-04-14] MEDS: Folic Acid/Vit B Comp W-C PO SCH (08:34)
[2017-04-14] MEDS: Calcitriol 0.25 MCG CAP PO SCH (08:34)
[2017-04-14] MEDS: Heparin 5,000 UNITS/ML VIAL SC SCH (08:35)
[2017-04-14] MEDS: levETIRAcetam 500 MG TAB PO SCH ×2 (08:35→19:30)
--- NOTE | 2017-04-14 12:08 | PRG ---
DATE OF SERVICE: 04/14/2017 RENAL MEDICINE SUBJECTIVE: Ms. Lorenzana is a 61-year-old black female admitted for acute kidney injury secondary to vol ume depletion. She is currently receiving IV volume repletion with slow improvement of the renal fun ction. She voices no new complaints today. She denies any chest pain or shortness of breath. OBJECTIVE: VITAL SIGNS: Blood pressure is 146/67, heart rate 51, respiratory rate 18, temperature 98.8, pulse o x 96%. GENERAL: Awake, alert, comfortable, not in distress. SKIN: Adequate turgor. HEENT: Slightly pale conjunctivae, anicteric sclerae. NECK: No neck mass, no carotid bruits, no JVD. CHEST: No deformities. LUNGS: Clear breath sounds. No wheezing, no crackles. HEART: Normal sinus rhythm. No murmur, no gallops or rubs. ABDOMEN: Globular, soft, nontender. No masses. Positive for colostomy, positive for urostomy. EXTREMITIES: No edema. MEDICATIONS: Of 04/14/2017 reviewed. LABORATORY DATA: Of 04/13/2017, hemoglobin 7.6, sodium 143, potassium 4.8, chloride 116, carbon diox brianna 17, BUN 54, creatinine 5.3, glucose 75, calcium 8.6. ASSESSMENT AND PLAN: 1. Acute kidney injury - hemodynamically mediated renal dysfunction on top of her chronic renal fail ure, continued improvement of renal function with volume repletion. Continue current management. 2. Anemia. Continuing weekly Epogen. P.r.n. blood transfusion for hemoglobin less than 7. There i s no indication for any dialytic intervention with this patient. 3. Mild metabolic acidosis. Continue sodium bicarbonate tablets.
--- NOTE | 2017-04-14 16:00 | PDOC.PN ---
- Subjective Encounter Start Date: 04/14/17 Encounter Start Time: 16:03 cc; ckd sUB: PT IS HAVING INTERMITTENT JERKY MOVEMENT. PT USED TO BE ON DILANTIN AND CURRENTLY NOT TAKING PER RN - Objective Resuscitation Status: Resuscitation Status FULL:Full Resuscitation Vital Signs & Weight: Vital Signs (12 hours) Temp Pulse Resp BP BP Pulse Ox 04/14/17 11:56 98.9 F 58 L 16 146/83 H 97 04/14/17 08:34 51 L 146/67 H 04/14/17 08:00 98.8 F 51 L 18 04/14/17 07:13 98.8 F 51 L 16 146/67 H 96 04/14/17 04:00 98.7 F 70 20 139/82 96 Weight Admit Weight 222 lb 8 oz Weight 222 lb 8 oz I&O: 04/13/17 04/14/17 04/15/17 06:59 06:59 06:59 Intake Total 3835 4011 Output Total 1325 3275 Balance 2510 736 Result Diagrams: 04/13/17 04:42 04/14/17 04:14 Additional Labs: Accuchecks 04/14/17 04/14/17 04/13/17 11:53 05:50 20:46 POC Glucose 90 82 111 H 04/13/17 16:46 POC Glucose 110 Phys Exam - Physical Examination Constitutional: NAD HEENT: moist MMs Neck: no JVD Respiratory: no wheezing, no rales, no rhonchi Cardiovascular: RRR, no significant murmur, no rub Gastrointestinal: soft, non-tender DISTENDED Musculoskeletal: no edema Neurological: non-focal positive tremors, rt upper extremity Psychiatric: normal affect Skin: no rash Dx/Plan - Plan * . (1) Acute worsening of stage 4 chronic kidney disease Code(s): N28.9 - DISORDER OF KIDNEY AND URETER, UNSPECIFIED; N18.4 - CHRONIC KIDNEY DISEASE, STAGE 4 (SEVERE) Status: Acute Comment: Screatinine improving slowly, nephrology on board, continue IVF NS at 125ml/h, avoid nephrotoxic meds and contrast media (2) HTN (hypertension) Code(s): I10 - ESSENTIAL (PRIMARY) HYPERTENSION Status: Chronic Qualifiers: Hypertension type: essential hypertension Qualified Code(s): I10 - Essential (primary) hypertension Comment: labile, likely due to increased IVF's (3) Metabolic acidosis Code(s): E87.2 - ACIDOSIS Status: Acute Comment: Resolved, continue bicarbonate 325mg BID (4) Physical deconditioning Code(s): R53.81 - OTHER MALAISE Status: Chronic (5) Anemia of renal disease Code(s): D63.1 - ANEMIA IN CHRONIC KIDNEY DISEASE Status: Chronic Comment: Hgb in 7 range and stable, serial monitoring, Epo (6) Anxiety and depression Code(s): F41.8 - OTHER SPECIFIED ANXIETY DISORDERS Status: Chronic (7) DM type 2 (diabetes mellitus, type 2) Status: Chronic Qualifiers: Diabetes mellitus complication status: with kidney complications Diabetes mellitus complication detail: with chronic kidney disease Diabetes mellitus shelter insulin use: with superintendent terminal use Chronic kidney disease stage: stage 5, not on chronic dialysis Qualified Code(s): E11.22 - Type 2 diabetes mellitus with diabetic chronic kidney disease; N18.5 - Chronic kidney disease, stage 5; N18.5 - Chronic kidney disease, stage 5; N18.5 - Chronic kidney disease , stage 5; N18.5 - Chronic kidney disease, stage 5; Z79.4 - [facility] (current) use of insulin; Z79.4 - superintendent terminal (current) use of insulin; Z79.4 - superintendent terminal ( current) use of insulin; Z79.4 - superintendent terminal (current) use of insulin (8) Seizure disorder Code(s): G40.909 - EPILEPSY, UNSP, NOT INTRACTABLE, WITHOUT STATUS EPILEPTICUS Status: Chronic Comment: Continue Keppra 500mg BID 9. Stage 3-4 sacral decubitus ulcer - Plan continue antibiotics, PT/OT, social services designee still having constant possible focal seizure. continue keppra, will give dilantin 1gm iv x1 plan to consult surgery to evaluate decubitus ulcer -: PT for mobilization and ambulation -: cultures no growth. will dc rocephin -: Local WCT for ostomy sites case d/w pt & RN * .
[2017-04-14] MEDS ORDERED: Valproate Sodium 1,000 MG in Sodium Chloride 0.9% 100 ML IVPB SCH (17:45)
[2017-04-14] MEDS: Divalproex Sodium DR 500 MG TAB PO SCH (19:30)
--- NOTE | 2017-04-14 20:00 | CON ---
DATE OF CONSULTATION: 04/14/2017 REQUESTING PHYSICIAN: Dr. Velazquez. CONSULTING PHYSICIAN: Dr. Newton Pastor. CHIEF COMPLAINT: Evaluation of sacral decubitus ulcer. HISTORY OF PRESENT ILLNESS: The patient is a 61-year-old -Israeli female with a significant past medical history including type 2 diabetes, anemia of chronic disease, acute on chronic kidney fa ilure, morbid obesity, seizure disorder, colon cancer, cervical and ovarian cancer, hypertension, and physical deconditioning, most recently admitted for severe metabolic acidosis with acute on chronic kidney failure. She has a chronic sacral decubitus ulcer for which she sees outpatient wound care. She reports that a few days prior to admission, her wound VAC was discontinued and she has since been on wet to dry wound care. She denies any pain. PHYSICAL EXAMINATION: VITAL SIGNS: Blood pressure 146/83, pulse 58, temperature 98.9, respirations 16 and O2 sat 97% on ro om air. GENERAL: Morbidly obese -Israeli adult female who appears her stated age, resting comfortabl y in bed, in no acute distress. She does have a moderate tremor in her right upper extremity, but ap pears grossly alert and oriented. SKIN: She has an intact and dry dressing in place over the sacrum. The dressing was removed reveali ng a 4 x 5 cm full thickness stage 4 ulcer approximately 2 cm deep that is malodorous and moderately productive of serosanguineous fluid. The wound bed does appear to be mostly comprised of granulation tissue. Some muscle is visible and there is a small amount of purulent fluid. LABORATORY FINDINGS: Hematology: White blood cells 8.6, hemoglobin 7.6, hematocrit 24.1 and platele ts 233. Chemistry: Sodium 143, potassium 4.8, chloride 116, bicarbonate 17, BUN 54, creatinine 5.3 and glucose 75. ASSESSMENT: Stage 4 sacral decubitus ulcer. PLAN: The patient expressed some uncertainty about going forward with a surgical debridement of her ulcer. She had her sister speak with me on the phone. Her sister relayed that she was not happy wit h us managing her wound care as it has been managed she said by an outside provider. Nevertheless, as a surgical debridement is probably the most appropriate option, it would be worthwhile to have ano ther conversation in the morning with both the patient and her sister present. As for now, the patie nt will be n.p.o. after midnight in anticipation of surgery in the morning. We will hold her heparin . Dr. Pastor will also see the patient to make final determination about the surgery in the morning. This patient was discussed with Dr. Pastor, who agrees with this assessment and plan.
--- NOTE | 2017-04-15 00:41 | CON ---
DATE OF CONSULTATION: 04/14/2017 REFERRING PROVIDER: Dr. Corey Velazquez. REASON FOR CONSULTATION: Right upper extremity tremor. HISTORY OF PRESENT ILLNESS: Ms. Lorenzana is a pleasant 61-year-old - [place] female, who has been consulted for evaluation of right hand tremors. The patient is somewhat of a poor historian. She is being admitted to the hospital for acute worsening of stage 4 chronic kidney disease. She reports that she has history of seizures for more than 10 years. She currently sees Dr. Draper who has been prescribing her seizure medications. She is currently on Keppra 500 mg twice daily for her seizures. She reports that every now and then she has episodes where her right arm becomes stiff and draws up on her and start shaking. This happened on intermittently; however, she is not able to tell me how frequently they are occurring. She notes that this morning, she woke up and started noticing her right hand was going up and twitching. She denies any pain associated with that. She states that she is not able to control the twitching. She states that she has not passed out or had any whole body convulsions. She does report that in the past she has had few episodes of loss of consciousness with generalized convulsions. PAST MEDICAL HISTORY: Significant for hypertension; diabetes; hypothyroidism; anemia of chronic disease; morbid obesity; seizure disorder; neurogenic bladder ; recurrent UTIs; chronic low back pain; chronic kidney disease, stage 4; dyslipidemia; history of colon cancer. PAST SURGICAL HISTORY: Significant for hysterectomy, ileostomy, colostomy, urostomy, cholecystectomy, goiter removal, and history of tracheostomy. PAST PSYCHIATRIC HISTORY: Anxiety and depression. SOCIAL HISTORY: She lives with her sister. She denies smoking cigarettes, drinking alcohol or use illicit drugs. FAMILY HISTORY: Noncontributory. CURRENT MEDICATIONS: Please review MAR. ALLERGIES: Include a BANANA, CHOCOLATE FLAVOR, EGG, IODINE CONTRAST, LATEX and ORANGE JUICE. REVIEW OF SYSTEMS: As mentioned above in the HPI, otherwise negative. PHYSICAL EXAMINATION: VITAL SIGNS: Blood pressure of 146/83, pulse of 58, temperature of 98.9, respirations of 16, O2 sats of 97% on room air. GENERAL: Morbidly obese -[place] female, in no apparent distress. RESPIRATORY: Clear to auscultation bilaterally. CARDIOVASCULAR: Regular rate and rhythm. NEUROLOGIC: Mental status: The patient is awake, alert, oriented x3. Speech and language: Fluent speech. Cranial nerves: Pupils are 3 mm and reactive. Visual franco are intact. External muscle movements are intact. No nystagmus is noted. Face is symmetric. Tongue and uvula are midline. Motor exam showed increased tone of both upper and lower extremities, more so on the right than the left. She has continuous focal motor jerking of the right hand with hand flexion contracture noted. Deep tendon reflexes: Very brisk 3+ reflexes noted in both upper and lower extremities. Babinski planter extensors bilaterally. LABORATORY DATA: Reviewed, which included CBC, BNP, which is significant for hemoglobin 7.6, hematocrit of 24.1, BUN of 54, creatinine of 5.3, otherwise unremarkable. IMAGING STUDIES: None. IMPRESSION: Right upper extremity focal motor seizures, simple partial is continuing. ASSESSMENT AND PLAN: Ms. Lorenzana is a pleasant 61-year-old -[place] female with history of seizure disorder, is noted to have right upper extremity focal motor seizures. She is in simple partialis continuia. Given her history of chronic kidney disease, I would avoid antiepileptics which are renally excreted. At this time, I would recommend continuing her on Keppra 500 mg b.i.d. I will add Depakote 500 mg b.i.d. I will load her with Depacon IV 1 gram now dose. I will obtain MRI brain without contrast and EEG on Sunday. I will continue to monitor her progress. MTDD
--- NOTE | 2017-04-15 00:42 | PRG ---
DATE OF SERVICE: 04/14/2017 SUBJECTIVE: Sakina Lorenzana is 61-year-old female who has a surgical consult for sacral decubitus ulcer. Patient has discussed plan of care with sister and does desire operative intervention. Plans for OR tomorrow with Dr. Pastor. Upon my evaluation, she vocalized no complaints. OBJECTIVE: VITAL SIGNS: Reviewed and stable. Patient is resting in bed. No acute distress. Breathing is nonl abored. ASSESSMENT AND PLAN: As documented in consultation note earlier today. To OR with Dr. Pastor tomorro w. Patient should be n.p.o. after midnight.
[2017-04-15] MEDS: Levothyroxine Sodium 100 MCG TAB PO SCH (05:39)
[2017-04-15 06:00] LABS: #Basophils 0.1 thou/uL (0.0-0.2); #Eosinphils 0.3 thou/uL (0.0-0.7); #Lymphocytes 2.3 thou/uL (1.20-3.40); #Monocytes 0.5 thou/uL (0.11-0.59); #Neutrophils 5.1 thou/uL (1.40-6.50); %Basophils 1.3 % (0.0-1.0); %Eosinophils 3.9 % (0.0-10.0); %Lymphocytes 27.4 % (21.0-51.0); %Monocytes 6.4 % (0.0-10.0); %Neutrophils 60.9 % (42.0-75.0); Hemoglobin 7.4 g/dL (12.0-16.0); Mean Corpuscular HGB CONC 32.1 g/dL (32.0-36.0); Mean Corpuscular Hemoglobin 29.9 pg (27.0-31.0); Mean Platelet Volume 8.1 fL (7.4-10.4); Platelet Count 223 thou/uL (130-400); RBC Distribution Width 17.5 % (11.5-14.5); Red Blood Cell (RBC) Count 2.46 mill/uL (4.20-5.40); White Blood Cell (WBC) Count 8.4 thou/uL (4.8-10.8)
[2017-04-15 06:19] LABS: Anion Gap 11 mmol/L (10-20); BUN (Urea Nitrogen) 48 mg/dL (9.8-20.1); Calc. Creatinine Clearance 20 mL/min (70-130); Calcium 8.7 mg/dL (7.8-10.44); Carbon Dioxide 19 mmol/L (23-31); Chloride 116 mmol/L (98-107); Estimated GFR-MDRD 11; Glucose 71 mg/dL (80-115); Potassium 5.6 mmol/L (3.5-5.1); Sodium 140 mmol/L (136-145)
[2017-04-15] MEDS: Calcium Acetate 667 MG CAP PO SCH ×3 (09:18→16:44)
[2017-04-15] MEDS: Amlodipine 10 MG TAB PO SCH (09:19)
[2017-04-15] MEDS: Ferrous Sulfate 325 MG TAB PO SCH (09:19)
[2017-04-15] MEDS: levETIRAcetam 500 MG TAB PO SCH ×2 (09:20→20:38)
[2017-04-15] MEDS: Calcitriol 0.25 MCG CAP PO SCH (09:20)
[2017-04-15] MEDS: Folic Acid/Vit B Comp W-C PO SCH (09:20)
[2017-04-15] MEDS: Divalproex Sodium DR 500 MG TAB PO SCH ×2 (09:20→20:38)
[2017-04-15] MEDS: Sodium Bicarbonate Tab 325 MG TAB PO SCH ×2 (09:20→20:38)
[2017-04-15] MEDS: NS 0.9% w/ 20 MEQ KCL 1,000 ML IV SCH (09:21)
[2017-04-15] MEDS ORDERED: Fentanyl 100 MCG/2 ML VIAL ONE (09:49)
[2017-04-15] MEDS ORDERED: Piperacillin/Tazobactam 4.5 GM in Sodium Chloride 0.9% 100 ML IVPB SCH (10:15)
--- NOTE | 2017-04-15 10:39 | PDOC.PN ---
- Subjective Encounter Start Date: 04/15/17 Encounter Start Time: 15:50 - Objective Resuscitation Status: Resuscitation Status FULL:Full Resuscitation Vital Signs & Weight: Vital Signs (12 hours) Temp Pulse Resp BP Pulse Ox 04/15/17 09:19 57 L 04/15/17 07:26 99.1 F 57 L 16 04/15/17 07:23 99.1 F 57 L 16 138/62 97 04/15/17 04:00 98.5 F 59 L 18 130/69 98 04/15/17 00:38 98.9 F 59 L 20 130/74 98 Weight Admit Weight 222 lb 8 oz Weight 222 lb 8 oz I&O: 04/14/17 04/15/17 04/16/17 06:59 06:59 06:59 Intake Total 4011 1660 Output Total 3275 2300 Balance 736 -640 Result Diagrams: 04/15/17 05:07 04/15/17 11:39 Additional Labs: Accuchecks 04/15/17 04/15/17 04/14/17 09:28 04:45 20:52 POC Glucose 78 89 121 H 04/14/17 04/14/17 16:56 11:53 POC Glucose 94 90 Dx/Plan - Plan -Physical Examination Constitutional: NAD, lyin on bed HEENT: moist MMs Neck: no JVD Respiratory: no wheezing, no rales, no rhonchi, normal effort Cardiovascular: RRR, no significant murmur, no rub Gastrointestinal: soft, non-tender, no guarding Musculoskeletal: no edema Neurological: non-focal positive tremor rt upper extremity but improving Psychiatric: normal affect Skin: no rash Dx/Plan - Plan (1) Acute worsening of stage 4 chronic kidney disease Code(s): N28.9 - DISORDER OF KIDNEY AND URETER, UNSPECIFIED; N18.4 - CHRONIC KIDNEY DISEASE, STAGE 4 (SEVERE) Status: Acute Comment: Screatinine improving slowly, nephrology on board, continue IVF NS at 125ml/h, avoid nephrotoxic meds and contrast media (2) HTN (hypertension) Code(s): I10 - ESSENTIAL (PRIMARY) HYPERTENSION Status: Chronic Qualifiers: Hypertension type: essential hypertension Qualified Code(s): I10 - Essential (primary) hypertension Comment: labile, likely due to increased IVF's (3) Metabolic acidosis Code(s): E87.2 - ACIDOSIS Status: Acute Comment: Resolved, continue bicarbonate 325mg BID (4) Physical deconditioning Code(s): R53.81 - OTHER MALAISE Status: Chronic (5) Anemia of renal disease Code(s): D63.1 - ANEMIA IN CHRONIC KIDNEY DISEASE Status: Chronic Comment: Hgb in 7 range and stable, serial monitoring, Epo (6) Anxiety and depression Code(s): F41.8 - OTHER SPECIFIED ANXIETY DISORDERS Status: Chronic (7) DM type 2 (diabetes mellitus, type 2) Status: Chronic Qualifiers: Diabetes mellitus complication status: with kidney complications Diabetes mellitus complication detail: with chronic kidney disease Diabetes mellitus halfway insulin use: with moth exterminator use Chronic kidney disease stage: stage 5, not on chronic dialysis Qualified Code(s): E11.22 - Type 2 diabetes mellitus with diabetic chronic kidney disease; N18.5 - Chronic kidney disease, stage 5; N18.5 - Chronic kidney disease, stage 5; N18.5 - Chronic kidney disease , stage 5; N18.5 - Chronic kidney disease, stage 5; Z79.4 - moth exterminator (current) use of insulin; Z79.4 - moth exterminator (current) use of insulin; Z79.4 - USP ( current) use of insulin; Z79.4 - moth exterminator (current) use of insulin (8) Seizure disorder Code(s): G40.909 - EPILEPSY, UNSP, NOT INTRACTABLE, WITHOUT STATUS EPILEPTICUS Status: Chronic Comment: Continue Keppra 500mg BID, started depaktoe per neurology. Appreciate their input. MRI brain pending 9. Stage 3-4 sacral decubitus ulcer: Continue wound care, appreciate surgery input Possible OR today if ok with family 10. Hyperkalemia: Treat medically Nephro on board. Management per them. Will give kayexalate 15gms po x1 dc miv fluids with KRoma naik d/w pt & RN
[2017-04-15 12:34] LABS: Anion Gap 14 mmol/L (10-20); BUN (Urea Nitrogen) 47 mg/dL (9.8-20.1); Calc. Creatinine Clearance 20 mL/min (70-130); Calcium 9.2 mg/dL (7.8-10.44); Carbon Dioxide 17 mmol/L (23-31); Chloride 116 mmol/L (98-107); Estimated GFR-MDRD 11; Glucose 69 mg/dL (80-115); Potassium 5.8 mmol/L (3.5-5.1); Sodium 141 mmol/L (136-145)
--- NOTE | 2017-04-15 12:43 | PRG ---
DATE OF SERVICE: 04/15/2017 RENAL MEDICINE SUBJECTIVE: Ms. Lorenzana is a 61-year-old black female who was seen by the Renal Service for her acute k idney injury on top of her chronic renal failure. She was given IV hydration with slow and gradual i mprovement of renal function. A most recent creatinine now is noted at 4.73 with a GFR of 11 mL per minute. Please note the patient peaked with a creatinine value of 9.45. In the interim, she has und ergone surgical debridement of her decubitus ulcer with Dr. Pastor. She is doing well this morning. No other complaints. No chest pain or shortness of breath. OBJECTIVE: VITAL SIGNS: Blood pressure is 138/62, heart rate 57, respiratory rate 16, temperature 99.1, pulse o x 97%. GENERAL: Awake, alert, supine, obese, not in distress. SKIN: Adequate turgor. HEENT: Slightly pale conjunctivae, anicteric sclerae. NECK: No neck mass, no carotid bruits, no JVD. CHEST: No deformities. LUNGS: Clear breath sounds. HEART: Normal sinus rhythm. No murmur, no gallops or rubs. ABDOMEN: Globular, soft, nontender, no masses. EXTREMITIES: No edema or deformities. Please note she has ureterostomy and colostomy. MEDICATIONS: Of 04/15/2017 reviewed. LABORATORY DATA: Of 04/15/2007, white count 8.4, hemoglobin 7.4. On 04/15/2017, white count 8.4, hemoglobin 7.4, sodium 140, potassium 5.6, chloride 116, carbon dioxi de 19, BUN 40, creatinine 4.73, GFR 11 mL per minute. Calcium 8.7. ASSESSMENT AND PLAN: 1. Acute kidney injury on top of her chronic renal failure - superimposed hemodynamically mediated r enal dysfunction. Continued improvement of the creatinine/renal function. No indication for any ramsey lytic intervention. I will continue with the current IV volume repletion with this patient. 2. Sacral decubitus, status post surgical debridement by Dr. Pastor. 3. Right hand tremor - Neurology is following. Adjustment with anti-seizure medications has been ma de. 4. Anemia. Continue weekly Epogen. 5. Mild hyperkalemia - IV fluid was changed to normal saline without any potassium. Continue curren t IV hydration. Recheck basic metabolic panel and CBC in a.m.
[2017-04-15] MEDS ORDERED: Epoetin (ESRD) 20,000 UNITS/ML SC SCH (13:00)
[2017-04-15] MEDS: Sodium Chloride 0.9% 1,000 ML IV SCH ×2 (14:33→20:51)
[2017-04-15] MEDS ORDERED: Propofol 200 MG/20 ML VIAL ONE (14:40)
[2017-04-15] MEDS ORDERED: Lidocaine 1% PF 5 ML VIAL ONE (14:40)
[2017-04-15] MEDS: Epoetin (ESRD) 10,000 UNITS/ML VIAL SC SCH (15:20)
--- NOTE | 2017-04-15 18:45 | PRG ---
DATE OF SERVICE: 04/15/2017 SUBJECTIVE: Ms. Lorenzana continues to have a focal motor twitching of the right upper extremity. She notes that there has been some improvement and this has been verified by the nurse as well, but not a significant improvement, but completely resolved. She denies any noticeable side effects from after starting Depakote. PHYSICAL EXAMINATION: VITAL SIGNS: Blood pressure of 138/62, pulse of 57, temperature of 99.1, respirations of 16, O2 sats of 97% on room air. GENERAL: Morbidly obese -[place] female, in no apparent distress. RESPIRATORY: Clear to auscultation bilaterally. CARDIOVASCULAR: Regular rate and rhythm. NEUROLOGICAL: Essentially unchanged. There is still persistence of focal motor jerking of upper and right lower extremity. IMPRESSION: Simple Partialis Continua. Ms. Lorenzana is a pleasant 61-year-old -[place] female who has been noted to have focal motor jerking of right upper extremity. At this time, I will increase the dose of Depakote to 1000 mg b.i.d. I will check a Depakote level in the morning. I will also obtain MRI brain without contrast and EEG in the morning. I will continue to monitor her progress. [facility]
--- NOTE | 2017-04-15 23:15 | OP ---
DATE OF PROCEDURE: 04/15/2017 PREOPERATIVE DIAGNOSIS: A 4 x 5 cm stage IV sacral decubitus ulcer. POSTOPERATIVE DIAGNOSIS: A 4 x 5 cm stage IV sacral decubitus ulcer. PROCEDURES PERFORMED: 1. Examination of sacral decubitus ulcer under anesthesia. 2. Dressing changes. No surgical intervention provided. INDICATIONS FOR PROCEDURE: A 61-year-old -[place] woman with past medical history of type 2 diabetes mellitus, chronic anemia and chronic kidney failure. The patient is morbidly obese. She vizcarra s stage IV sacral decubitus ulcer which has been managed nonoperatively with local wound care. The p atient was brought to the operating room for further examination of the wound in anticipation of exci sional debridement. FINDINGS: Consistent with a 4 x 5 cm stage IV decubitus ulcer with good granulation tissue. No necr otic tissues were encountered. The wound was irrigated with saline and dressing was reapplied after the patient was sedated to comfo rt, been placed in a lateral recumbent position. No excisional debridement was accomplished at this time. The patient tolerated this procedure withou t any apparent complications and was returned to recovery room in satisfactory condition.
[2017-04-16] MEDS: Sodium Chloride 0.9% 1,000 ML IV SCH ×3 (01:20→21:01)
[2017-04-16 05:10] LABS: #Basophils 0.1 thou/uL (0.0-0.2); #Eosinphils 0.3 thou/uL (0.0-0.7); #Lymphocytes 1.8 thou/uL (1.20-3.40); #Monocytes 0.6 thou/uL (0.11-0.59); #Neutrophils 5.8 thou/uL (1.40-6.50); %Basophils 0.7 % (0.0-1.0); %Eosinophils 3.4 % (0.0-10.0); %Lymphocytes 21.2 % (21.0-51.0); %Monocytes 6.5 % (0.0-10.0); %Neutrophils 68.2 % (42.0-75.0); Hemoglobin 7.8 g/dL (12.0-16.0); Mean Corpuscular HGB CONC 31.7 g/dL (32.0-36.0); Mean Corpuscular Hemoglobin 29.5 pg (27.0-31.0); Mean Corpuscular Volume 93.2 fl (81.0-99.0); Mean Platelet Volume 8.3 fL (7.4-10.4); Platelet Count 224 thou/uL (130-400); RBC Distribution Width 17.7 % (11.5-14.5); Red Blood Cell (RBC) Count 2.62 mill/uL (4.20-5.40); White Blood Cell (WBC) Count 8.4 thou/uL (4.8-10.8)
[2017-04-16 05:28] LABS: Anion Gap 13 mmol/L (10-20); BUN (Urea Nitrogen) 43 mg/dL (9.8-20.1); Calc. Creatinine Clearance 20 mL/min (70-130); Calcium 8.8 mg/dL (7.8-10.44); Carbon Dioxide 17 mmol/L (23-31); Chloride 116 mmol/L (98-107); Estimated GFR-MDRD 12; Glucose 68 mg/dL (80-115); Potassium 5.2 mmol/L (3.5-5.1); Sodium 141 mmol/L (136-145)
[2017-04-16] MEDS: Levothyroxine Sodium 100 MCG TAB PO SCH (05:38)
[2017-04-16] MEDS: Heparin 5,000 UNITS/ML VIAL SC SCH ×2 (09:10→21:01)
[2017-04-16] MEDS: Folic Acid/Vit B Comp W-C PO SCH (09:16)
[2017-04-16] MEDS: Ferrous Sulfate 325 MG TAB PO SCH (09:16)
[2017-04-16] MEDS: Sodium Bicarbonate Tab 325 MG TAB PO SCH ×2 (09:16→20:58)
[2017-04-16] MEDS: Calcitriol 0.25 MCG CAP PO SCH (09:16)
[2017-04-16] MEDS: Amlodipine 10 MG TAB PO SCH (09:17)
[2017-04-16] MEDS: levETIRAcetam 500 MG TAB PO SCH ×3 (09:18→21:02)
[2017-04-16] MEDS: Divalproex Sodium DR 500 MG TAB PO SCH ×3 (09:18→20:59)
[2017-04-16] MEDS: Calcium Acetate 667 MG CAP PO SCH ×3 (09:21→18:12)
--- NOTE | 2017-04-16 09:51 | PRG ---
DATE OF SERVICE: 04/16/2017 SERVICE: Renal Medicine. SUBJECTIVE: Ms. Lorenzana is a 61-year-old black female who was admitted for an acute kidney injury on to p of her chronic renal failure. She was deemed to be volume depleted. Empiric volume repletion has been done. Her p.o. intake is somewhat improving. Her nausea and vomiting is also noted to be impro ving. She denies any chest pain, no shortness of breath. PHYSICAL EXAMINATION: VITAL SIGNS: Blood pressure 173/69, heart rate 64, respiratory rate 18, temperature 98.3, pulse ox 9 6%. GENERAL: Noted to be awake, alert, comfortable, not in distress. SKIN: Adequate turgor. HEENT: Slightly pale conjunctivae, anicteric sclerae. NECK: No neck mass, no carotid bruits, no JVD. CHEST: No deformities. LUNGS: Clear breath sounds. No wheezing, no crackles. HEART: Normal sinus rhythm. No murmur, no gallops or rubs. ABDOMEN: Globular, soft, nontender, no masses. Positive for ostomy and urostomy. EXTREMITIES: No edema. MEDICATIONS: Of 04/16/2017 was reviewed. LABORATORY DATA: Of 04/16/2017, white count 8.4, hemoglobin 7.8, platelet count 224,000. Sodium 141 , potassium 5.2, chloride 106, carbon dioxide 17, BUN 43, creatinine 4.66, glucose 68, calcium 8.8. ASSESSMENT AND PLAN: 1. Acute kidney injury on top of her chronic renal failure, improved creatinine. Creatinine is now plateauing at 4.66. This might be her new baseline value. No indication for any dialytic interventi on, continuing IV hydration. 2. Mild hyperkalemia, improving. IV fluid was changed without any incorporation of potassium. 3. Anemia, on weekly Epogen. P.r.n. blood transfusion. Overall, prognosis remains guarded.
--- NOTE | 2017-04-16 15:02 | PDOC.PN ---
- Subjective Encounter Start Date: 04/16/17 Encounter Start Time: 15:10 Subjective: No acute events overnight. -: Has no complaints today. Reports feeling well. - Objective Resuscitation Status: Resuscitation Status FULL:Full Resuscitation Vital Signs & Weight: Vital Signs (12 hours) Temp Pulse Resp BP BP Pulse Ox 04/16/17 11:00 98.4 F 46 L 20 162/70 H 97 04/16/17 09:17 64 173/69 H 04/16/17 07:31 98.3 F 64 18 173/69 H 96 04/16/17 04:00 98.3 F 53 L 20 161/76 H 95 Weight Admit Weight 222 lb 8 oz Weight 222 lb 8 oz I&O: 04/15/17 04/16/17 04/17/17 06:59 06:59 06:59 Intake Total 1660 1900 180 Output Total 2300 2750 Balance -640 -850 180 Result Diagrams: 04/16/17 04:26 04/16/17 04:26 Additional Labs: Accuchecks 04/16/17 04/16/17 04/15/17 11:03 05:02 20:03 POC Glucose 74 86 99 04/15/17 16:54 POC Glucose 90 Phys Exam - Physical Examination Constitutional: NAD HEENT: PERRLA, moist MMs, sclera anicteric Neck: supple, full ROM Respiratory: no wheezing, no rales, no rhonchi, clear to auscultation bilateral Cardiovascular: RRR, no significant murmur, no rub Gastrointestinal: soft, non-tender, no distention, positive bowel sounds Musculoskeletal: no edema, pulses present Neurological: moves all 4 limbs mild tremors RUE Psychiatric: normal affect, A&O x 3 Skin: no rash, normal turgor Dx/Plan (1) Acute on chronic renal failure Code(s): N17.9 - ACUTE KIDNEY FAILURE, UNSPECIFIED; N18.9 - CHRONIC KIDNEY DISEASE, UNSPECIFIED Status: Acute Qualifiers: Acute renal failure type: unspecified Chronic kidney disease stage: stage 4 (severe) Qualified Code(s): N17.9 - Acute kidney failure, unspecified; N18.4 - Chronic kidney disease, stage 4 (severe); N18.4 - Chronic kidney disease , stage 4 (severe); N18.4 - Chronic kidney disease, stage 4 (severe); N18.4 - Chronic kidney disease, stage 4 (severe) Plan: Continue current management w hydration. Comment: Continues to improve but seems will soon plateau. No indication for HD per nephrology. (2) HTN (hypertension) Code(s): I10 - ESSENTIAL (PRIMARY) HYPERTENSION Status: Chronic Qualifiers: Hypertension type: essential hypertension Qualified Code(s): I10 - Essential (primary) hypertension Comment: labile, likely due to increased IVF's. Will monitor. (3) Anxiety and depression Code(s): F41.8 - OTHER SPECIFIED ANXIETY DISORDERS Status: Chronic Plan: Continue current management Comment: Denies SI, HI or depressed mood (4) Hypothyroidism Code(s): E03.9 - HYPOTHYROIDISM, UNSPECIFIED Status: Chronic Qualifiers: Hypothyroidism type: unspecified Qualified Code(s): E03.9 - Hypothyroidism , unspecified Plan: Continue Levothyroxine. (5) Physical deconditioning Code(s): R53.81 - OTHER MALAISE Status: Chronic Plan: CM consult for discharge planning Comment: PT/OT on board. (6) Seizure disorder Code(s): G40.909 - EPILEPSY, UNSP, NOT INTRACTABLE, WITHOUT STATUS EPILEPTICUS Status: Chronic Comment: Has simple partialis continua. Depakoke has been increased by neurology. f/u MRI brain and EEG (7) DM type 2 (diabetes mellitus, type 2) Status: Chronic Qualifiers: Diabetes mellitus complication status: with kidney complications Diabetes mellitus complication detail: with chronic kidney disease Diabetes mellitus senior living insulin use: with senior living use Chronic kidney disease stage: stage 5, not on chronic dialysis Qualified Code(s): E11.22 - Type 2 diabetes mellitus with diabetic chronic kidney disease; N18.5 - Chronic kidney disease, stage 5; N18.5 - Chronic kidney disease, stage 5; N18.5 - Chronic kidney disease , stage 5; N18.5 - Chronic kidney disease, stage 5; Z79.4 - intermodal truck driver (current) use of insulin; Z79.4 - intermediate (current) use of insulin; Z79.4 - intermodal truck driver ( current) use of insulin; Z79.4 - intermediate (current) use of insulin Plan: Continue current management Comment: At goal. (8) Sacral decubitus ulcer, stage IV Code(s): L89.154 - PRESSURE ULCER OF SACRAL REGION, STAGE 4 Status: Chronic (9) Anemia of renal disease Code(s): D63.1 - ANEMIA IN CHRONIC KIDNEY DISEASE Status: Chronic Comment: Hgb in 7 range and stable, serial monitoring, Epo - Plan cont current plan of care, PT/OT, social director, DVT proph w/heparin COnsult CM for discharge planning. -: f/u EEG and MRI brain * .
[2017-04-17] MEDS: Sodium Chloride 0.9% 1,000 ML IV SCH ×3 (05:11→21:29)
[2017-04-17] MEDS: Levothyroxine Sodium 100 MCG TAB PO SCH (05:11)
[2017-04-17 05:15] LABS: #Basophils 0.1 thou/uL (0.0-0.2); #Eosinphils 0.4 thou/uL (0.0-0.7); #Lymphocytes 1.7 thou/uL (1.20-3.40); #Monocytes 0.5 thou/uL (0.11-0.59); #Neutrophils 4.7 thou/uL (1.40-6.50); %Basophils 0.9 % (0.0-1.0); %Eosinophils 4.8 % (0.0-10.0); %Lymphocytes 22.9 % (21.0-51.0); %Monocytes 7.1 % (0.0-10.0); %Neutrophils 64.3 % (42.0-75.0); Hemoglobin 7.8 g/dL (12.0-16.0); Mean Corpuscular HGB CONC 31.7 g/dL (32.0-36.0); Mean Corpuscular Hemoglobin 29.6 pg (27.0-31.0); Mean Corpuscular Volume 93.3 fl (81.0-99.0); Mean Platelet Volume 8.3 fL (7.4-10.4); Platelet Count 222 thou/uL (130-400); RBC Distribution Width 17.4 % (11.5-14.5); Red Blood Cell (RBC) Count 2.62 mill/uL (4.20-5.40); White Blood Cell (WBC) Count 7.3 thou/uL (4.8-10.8)
[2017-04-17] MEDS: Acetaminophen 325 MG TAB PO PRN (05:17)
[2017-04-17 05:38] LABS: Anion Gap 12 mmol/L (10-20); BUN (Urea Nitrogen) 39 mg/dL (9.8-20.1); Calc. Creatinine Clearance 22 mL/min (70-130); Calcium 8.8 mg/dL (7.8-10.44); Carbon Dioxide 20 mmol/L (23-31); Chloride 114 mmol/L (98-107); Estimated GFR-MDRD 13; Glucose 68 mg/dL (80-115); Sodium 141 mmol/L (136-145)
[2017-04-17] MEDS: Calcium Acetate 667 MG CAP PO SCH ×3 (09:13→18:01)
[2017-04-17] MEDS: Ferrous Sulfate 325 MG TAB PO SCH (09:14)
[2017-04-17] MEDS: Calcitriol 0.25 MCG CAP PO SCH (09:15)
[2017-04-17] MEDS: Amlodipine 10 MG TAB PO SCH (09:15)
[2017-04-17] MEDS: Divalproex Sodium DR 500 MG TAB PO SCH ×2 (09:16→21:30)
[2017-04-17] MEDS: Heparin 5,000 UNITS/ML VIAL SC SCH ×2 (09:18→21:31)
[2017-04-17] MEDS: Folic Acid/Vit B Comp W-C PO SCH (09:18)
[2017-04-17] MEDS: levETIRAcetam 500 MG TAB PO SCH ×2 (09:19→21:29)
[2017-04-17] MEDS: Sodium Bicarbonate Tab 325 MG TAB PO SCH ×2 (09:21→21:29)
--- NOTE | 2017-04-17 10:47 | PRG ---
DATE OF SERVICE: 04/17/2017 RENAL MEDICINE SUBJECTIVE: Ms. Lorenzana is a 61-year-old black female who was admitted for acute kidney injury on top o f her chronic renal failure secondary to volume depletion. Aggressive volume repletion has been done for the last several days. She has had improving renal function. Most recent creatinine is now not ed at 4.2. Please note that the patient also had severe metabolic acidosis. Onetime, she was given IV bicarbonate with improvement. In addition, she was also noted to be anemic and she has also been started on her Epogen regimen. Furthermore, she has had secondary hyperparathyroidism and currently on calcitriol. No other complaints today. Denies any chest pain, no shortness of breath. PHYSICAL EXAMINATION: VITAL SIGNS: Blood pressure is 150/78, heart rate 59, respiratory rate 12, temperature 98.7, pulse o x 96%. GENERAL: Awake, alert, comfortable, not in overt distress. SKIN: Adequate turgor. HEENT: She has slightly pale conjunctivae, anicteric sclerae. NECK: No neck mass, no carotid bruits, no JVD. CHEST: No deformities. LUNGS: Clear breath sounds. No wheezing, no crackles. HEART: Normal sinus rhythm. No murmurs, gallops or rubs. ABDOMEN: Globular, soft, nontender, no masses. Positive for urostomy and colostomy. EXTREMITIES: No edema, no deformities. MEDICATIONS: Of 04/17/2017, reviewed. LABORATORY DATA: 04/17/2017, white count 7.3, hemoglobin is 7.8. Sodium 141, potassium 5, chloride 114, carbon dioxide 20, BUN 39, creatinine 4.2, GFR 13 mL minute. Calcium 8.8. ASSESSMENT AND PLAN: 1. Acute kidney injury on top of her chronic renal failure - a superimposed hemodynamically mediated renal dysfunction. Most recent creatinine is now 4.2 and this was noted to be much improved. Pleas e note patient peaked at a creatinine of 9.45. No indication for any dialytic intervention. Continu e IV hydration, p.o. intake is much improved with this patient. 2. Anemia, continuing weekly Epogen. Epogen has been increased to 10,000 units subcutaneously daily . 3. Secondary hyperparathyroidism, currently on calcitriol. Overall, I agree with current management . Continue supportive care. Once the renal function has plateaued, consider for possible discharge with this patient. 4. Hyperkalemia, resolved.
--- NOTE | 2017-04-17 13:23 | PDOC.PN ---
- Subjective Encounter Start Date: 04/17/17 Encounter Start Time: 13:29 Subjective: No acute events overnight. -: no complaints. - Objective Resuscitation Status: Resuscitation Status FULL:Full Resuscitation MAR Reviewed: Yes Vital Signs & Weight: Vital Signs (12 hours) Temp Pulse Resp BP Pulse Ox 04/17/17 11:00 98.8 F 57 L 12 166/81 H 97 04/17/17 09:15 59 L 04/17/17 08:00 98.7 F 59 L 12 150/78 H 96 04/17/17 04:00 98.2 F 56 L 18 138/72 97 Weight Admit Weight 222 lb 8 oz Weight 222 lb 8 oz I&O: 04/16/17 04/17/17 04/18/17 06:59 06:59 06:59 Intake Total 1900 1955 180 Output Total 2750 1700 350 Balance -850 255 -170 Result Diagrams: 04/17/17 04:32 04/17/17 04:32 Additional Labs: Accuchecks 04/17/17 04/17/17 04/16/17 10:34 05:14 20:33 POC Glucose 107 81 118 H 04/16/17 16:19 POC Glucose 87 Phys Exam - Physical Examination Constitutional: NAD HEENT: PERRLA, moist MMs, sclera anicteric Neck: supple, full ROM Respiratory: no wheezing, no rales, no rhonchi, clear to auscultation bilateral Cardiovascular: RRR, no significant murmur, no rub Gastrointestinal: soft, non-tender, no distention, positive bowel sounds Musculoskeletal: pulses present Neurological: non-focal, moves all 4 limbs Psychiatric: normal affect, A&O x 3 Skin: no rash, normal turgor, cap refill <2 seconds Dx/Plan (1) Acute on chronic renal failure Code(s): N17.9 - ACUTE KIDNEY FAILURE, UNSPECIFIED; N18.9 - CHRONIC KIDNEY DISEASE, UNSPECIFIED Status: Acute Qualifiers: Acute renal failure type: unspecified Chronic kidney disease stage: stage 4 (severe) Qualified Code(s): N17.9 - Acute kidney failure, unspecified; N18.4 - Chronic kidney disease, stage 4 (severe); N18.4 - Chronic kidney disease , stage 4 (severe); N18.4 - Chronic kidney disease, stage 4 (severe); N18.4 - Chronic kidney disease, stage 4 (severe) Plan: Monitor creatinine. Comment: Continues to improve. No indication for HD per nephrology. (2) HTN (hypertension) Code(s): I10 - ESSENTIAL (PRIMARY) HYPERTENSION Status: Chronic Qualifiers: Hypertension type: essential hypertension Qualified Code(s): I10 - Essential (primary) hypertension Plan: Cpontinue amlodipine. Monitor BP Comment: labile, likely due to increased IVF's. Will monitor. (3) Anxiety and depression Code(s): F41.8 - OTHER SPECIFIED ANXIETY DISORDERS Status: Chronic Comment: Denies SI, HI or depressed mood (4) Hypothyroidism Code(s): E03.9 - HYPOTHYROIDISM, UNSPECIFIED Status: Chronic Qualifiers: Hypothyroidism type: unspecified Qualified Code(s): E03.9 - Hypothyroidism , unspecified Comment: Continue Levothyroxine. (5) Physical deconditioning Code(s): R53.81 - OTHER MALAISE Status: Chronic Comment: PT/OT on board. Will likely need HEAVEN> (6) Seizure disorder Code(s): G40.909 - EPILEPSY, UNSP, NOT INTRACTABLE, WITHOUT STATUS EPILEPTICUS Status: Chronic Plan: Resolved. Comment: Has simple partialis continua. [place] has been increased by neurology. f/u MRI brain and EEG (7) DM type 2 (diabetes mellitus, type 2) Status: Resolved Qualifiers: Diabetes mellitus complication status: with kidney complications Diabetes mellitus complication detail: with chronic kidney disease Diabetes mellitus care home insulin use: with terminal gauger use Chronic kidney disease stage: stage 5, not on chronic dialysis Qualified Code(s): E11.22 - Type 2 diabetes mellitus with diabetic chronic kidney disease; N18.5 - Chronic kidney disease, stage 5; N18.5 - Chronic kidney disease, stage 5; N18.5 - Chronic kidney disease , stage 5; N18.5 - Chronic kidney disease, stage 5; Z79.4 - [facility] (current) use of insulin; Z79.4 - extermination inspector (current) use of insulin; Z79.4 - [facility] ( current) use of insulin; Z79.4 - [facility] (current) use of insulin Plan: Continue current management. Comment: At goal. (8) Sacral decubitus ulcer, stage IV Code(s): L89.154 - PRESSURE ULCER OF SACRAL REGION, STAGE 4 Status: Chronic Comment: Stable. Continue wound care. General Surgery assessed, no further intervention (9) Anemia of renal disease Code(s): D63.1 - ANEMIA IN CHRONIC KIDNEY DISEASE Status: Chronic Comment: Hgb in 7 range and stable, serial monitoring, Epo - Plan cont current plan of care, PT/OT, drug abuse social worker, DVT proph w/heparin * .
[2017-04-18] MEDS: Sodium Chloride 0.9% 1,000 ML IV SCH ×3 (02:39→19:44)
[2017-04-18 04:48] LABS: Anion Gap 11 mmol/L (10-20); BUN (Urea Nitrogen) 39 mg/dL (9.8-20.1); Calc. Creatinine Clearance 24 mL/min (70-130); Carbon Dioxide 22 mmol/L (23-31); Chloride 114 mmol/L (98-107); Estimated GFR-MDRD 14; Glucose 66 mg/dL (80-115); Potassium 4.7 mmol/L (3.5-5.1); Sodium 142 mmol/L (136-145)
[2017-04-18 04:51] LABS: #Basophils 0.1 thou/uL (0.0-0.2); #Eosinphils 0.3 thou/uL (0.0-0.7); #Lymphocytes 2.1 thou/uL (1.20-3.40); #Monocytes 0.6 thou/uL (0.11-0.59); #Neutrophils 4.2 thou/uL (1.40-6.50); %Basophils 1.1 % (0.0-1.0); %Eosinophils 3.7 % (0.0-10.0); %Lymphocytes 29.1 % (21.0-51.0); %Monocytes 7.8 % (0.0-10.0); %Neutrophils 58.4 % (42.0-75.0); Hemoglobin 8.1 g/dL (12.0-16.0); Mean Corpuscular HGB CONC 31.9 g/dL (32.0-36.0); Mean Corpuscular Hemoglobin 29.9 pg (27.0-31.0); Mean Corpuscular Volume 93.7 fl (81.0-99.0); Mean Platelet Volume 8.5 fL (7.4-10.4); Platelet Count 224 thou/uL (130-400); RBC Distribution Width 17.2 % (11.5-14.5); Red Blood Cell (RBC) Count 2.69 mill/uL (4.20-5.40); White Blood Cell (WBC) Count 7.2 thou/uL (4.8-10.8)
[2017-04-18] MEDS: Levothyroxine Sodium 100 MCG TAB PO SCH (06:11)
[2017-04-18] MEDS: Folic Acid/Vit B Comp W-C PO SCH (07:57)
[2017-04-18] MEDS: Calcium Acetate 667 MG CAP PO SCH ×3 (07:57→17:07)
[2017-04-18] MEDS: Divalproex Sodium DR 500 MG TAB PO SCH ×2 (07:57→20:46)
[2017-04-18] MEDS: Ferrous Sulfate 325 MG TAB PO SCH (07:58)
[2017-04-18] MEDS: Calcitriol 0.25 MCG CAP PO SCH (07:58)
[2017-04-18] MEDS: Amlodipine 10 MG TAB PO SCH (07:58)
[2017-04-18] MEDS: Heparin 5,000 UNITS/ML VIAL SC SCH ×2 (07:58→21:27)
[2017-04-18] MEDS: Sodium Bicarbonate Tab 325 MG TAB PO SCH ×2 (07:58→20:47)
[2017-04-18] MEDS: levETIRAcetam 500 MG TAB PO SCH ×2 (07:58→20:47)
--- NOTE | 2017-04-18 14:41 | PDOC.PN ---
- Subjective Encounter Start Date: 04/18/17 Encounter Start Time: 14:39 Subjective: No acute events overnight. -: No complaints today - Objective Resuscitation Status: Resuscitation Status FULL:Full Resuscitation MAR Reviewed: Yes Vital Signs & Weight: Vital Signs (12 hours) Temp Pulse Resp BP Pulse Ox 04/18/17 11:31 98.0 F 54 L 20 157/71 H 98 04/18/17 08:29 98.4 F 54 L 18 165/74 H 99 04/18/17 08:00 98.4 F 54 L 18 97 04/18/17 07:58 58 L Weight Admit Weight 222 lb 8 oz Weight 222 lb 8 oz I&O: 04/17/17 04/18/17 04/19/17 06:59 06:59 06:59 Intake Total 1955 1430 360 Output Total 1700 1975 Balance 255 -545 360 Result Diagrams: 04/18/17 03:24 04/18/17 03:24 Additional Labs: Accuchecks 04/18/17 04/18/17 04/17/17 11:20 04:35 20:02 POC Glucose 73 70 90 04/17/17 15:54 POC Glucose 89 Phys Exam - Physical Examination Constitutional: NAD HEENT: PERRLA, moist MMs, sclera anicteric Neck: supple, full ROM Respiratory: no wheezing, no rales, no rhonchi, clear to auscultation bilateral Cardiovascular: RRR, no significant murmur, no rub Gastrointestinal: soft, non-tender, no distention, positive bowel sounds Musculoskeletal: no edema, pulses present Neurological: non-focal, moves all 4 limbs Psychiatric: A&O x 3 Skin: no rash, normal turgor Dx/Plan (1) Acute on chronic renal failure Code(s): N17.9 - ACUTE KIDNEY FAILURE, UNSPECIFIED; N18.9 - CHRONIC KIDNEY DISEASE, UNSPECIFIED Status: Acute Qualifiers: Acute renal failure type: unspecified Chronic kidney disease stage: stage 4 (severe) Qualified Code(s): N17.9 - Acute kidney failure, unspecified; N18.4 - Chronic kidney disease, stage 4 (severe); N18.4 - Chronic kidney disease , stage 4 (severe); N18.4 - Chronic kidney disease, stage 4 (severe); N18.4 - Chronic kidney disease, stage 4 (severe) Plan: Monitor creatinine. Comment: Continues to improve. No indication for HD per nephrology. (2) HTN (hypertension) Code(s): I10 - ESSENTIAL (PRIMARY) HYPERTENSION Status: Chronic Qualifiers: Hypertension type: essential hypertension Qualified Code(s): I10 - Essential (primary) hypertension Plan: Monitor. Likely not at goal 2/2 IVF. Comment: labile, likely due to increased IVF's. Will monitor. (3) Hypothyroidism Code(s): E03.9 - HYPOTHYROIDISM, UNSPECIFIED Status: Chronic Qualifiers: Hypothyroidism type: unspecified Qualified Code(s): E03.9 - Hypothyroidism , unspecified Comment: Continue Levothyroxine. (4) Physical deconditioning Code(s): R53.81 - OTHER MALAISE Status: Chronic Comment: PT/OT on board. HEAVEN on discharge (5) Seizure disorder Code(s): G40.909 - EPILEPSY, UNSP, NOT INTRACTABLE, WITHOUT STATUS EPILEPTICUS Status: Acute Plan: Seizure free. Comment: Resolving. Has simple partialis continua. Dep[place] has been increased by neurology. f/u MRI brain and EEG (6) Sacral decubitus ulcer, stage IV Code(s): L89.154 - PRESSURE ULCER OF SACRAL REGION, STAGE 4 Status: Chronic Comment: Stable. Continue wound care. General Surgery assessed, no further intervention (7) Anemia of renal disease Code(s): D63.1 - ANEMIA IN CHRONIC KIDNEY DISEASE Status: Chronic Comment: Stable, serial monitoring, Epo w HD (8) Anxiety and depression Code(s): F41.8 - OTHER SPECIFIED ANXIETY DISORDERS Status: Chronic Comment: Denies SI, HI or depressed mood - Plan cont current plan of care, PT/OT, long term care social worker, DVT proph w/heparin * .
[2017-04-18] MEDS: Acetaminophen 325 MG TAB PO PRN (15:12)
[2017-04-18] MEDS ORDERED: Lorazepam 2 MG/ML VIAL ONE ×2 (18:51→19:17)
[2017-04-18] MEDS: Lorazepam 2 MG/ML VIAL SLOW IVP SCH ×2 (18:54→19:20)
[2017-04-18 19:38] LABS: ALT (SGPT) 16 U/L (8-55); AST (SGOT) 20 U/L (5-34); Albumin 3.5 g/dL (3.4-4.8); Alkaline Phosphatase 127 U/L (40-150); Anion Gap 18 mmol/L (10-20); BUN (Urea Nitrogen) 35 mg/dL (9.8-20.1); Bilirubin, Total 0.2 mg/dL (0.2-1.2); Calc. Creatinine Clearance 24 mL/min (70-130); Calcium 9.2 mg/dL (7.8-10.44); Carbon Dioxide 13 mmol/L (23-31); Chloride 112 mmol/L (98-107); Estimated GFR-MDRD 14; Globulin 4.5 g/dL (2.4-3.5); Glucose 134 mg/dL (80-115); Magnesium 1.3 mg/dL (1.6-2.6); Potassium 4.7 mmol/L (3.5-5.1); Sodium 138 mmol/L (136-145)
[2017-04-18] MEDS ORDERED: Fosphenytoin Sodium 1,250 MG in Sodium Chloride 0.9% 50 ML IVPB SCH (19:45)
[2017-04-18] MEDS ORDERED: Fosphenytoin Sodium 1,500 MG in Sodium Chloride 0.9% 50 ML IVPB SCH (19:45)
[2017-04-18] MEDS ORDERED: Lorazepam 2 MG/ML VIAL SLOW IVP SCH (19:45)
[2017-04-18 19:49] LABS: CKMB 1.9 ng/mL (0-6.6); Troponin I 0.022 ng/mL (< 0.028)
[2017-04-19] MEDS: hydrALAZINE 20 MG/ML VIAL SLOW IVP PRN (04:07)
[2017-04-19 04:08] LABS: #Basophils 0.1 thou/uL (0.0-0.2); #Lymphocytes 1.2 thou/uL (1.20-3.40); #Monocytes 0.4 thou/uL (0.11-0.59); #Neutrophils 6.8 thou/uL (1.40-6.50); %Basophils 0.8 % (0.0-1.0); %Eosinophils 0.4 % (0.0-10.0); %Lymphocytes 13.6 % (21.0-51.0); %Monocytes 4.6 % (0.0-10.0); %Neutrophils 80.6 % (42.0-75.0); Hemoglobin 10.6 g/dL (12.0-16.0); Mean Corpuscular HGB CONC 30.6 g/dL (32.0-36.0); Mean Corpuscular Hemoglobin 29.7 pg (27.0-31.0); Mean Corpuscular Volume 97.1 fl (81.0-99.0); Mean Platelet Volume 9.4 fL (7.4-10.4); Platelet Count 209 thou/uL (130-400); RBC Distribution Width 17.6 % (11.5-14.5); Red Blood Cell (RBC) Count 3.57 mill/uL (4.20-5.40); White Blood Cell (WBC) Count 8.5 thou/uL (4.8-10.8)
[2017-04-19] MEDS: Sodium Chloride 0.9% 1,000 ML IV SCH ×3 (04:08→21:46)
[2017-04-19 04:23] LABS: Anion Gap 18 mmol/L (10-20); BUN (Urea Nitrogen) 34 mg/dL (9.8-20.1); Calc. Creatinine Clearance 24 mL/min (70-130); Calcium 9.2 mg/dL (7.8-10.44); Carbon Dioxide 17 mmol/L (23-31); Chloride 112 mmol/L (98-107); Estimated GFR-MDRD 14; Glucose 103 mg/dL (80-115); Potassium 5.8 mmol/L (3.5-5.1); Sodium 141 mmol/L (136-145)
[2017-04-19] MEDS: Levothyroxine Sodium 100 MCG TAB PO SCH (06:25)
--- NOTE | 2017-04-19 07:36 | PDOC.EVN ---
Event Note - Event Note Event Note: Called to see patient yesterday around 6:45pm for altered mental status. Patient appeared to be having a seizure. She was given Ativan 2mg IV, however she continued to exhibit seizure activity. She was moved to the ICU. There was consideration for intubation, but after she was given another Ativan IV and was loaded with Phosphenytoin the seizure activity abated. She maintained oxygen saturation's in the 90's during this time.
[2017-04-19] MEDS: Divalproex Sodium DR 500 MG TAB PO SCH ×2 (07:54→21:51)
[2017-04-19] MEDS: Acetaminophen 325 MG TAB PO PRN ×2 (07:54→12:01)
[2017-04-19] MEDS: Amlodipine 10 MG TAB PO SCH (07:54)
[2017-04-19] MEDS: Sodium Bicarbonate Tab 325 MG TAB PO SCH ×2 (07:55→21:50)
[2017-04-19] MEDS: Ferrous Sulfate 325 MG TAB PO SCH (07:55)
[2017-04-19] MEDS: Calcium Acetate 667 MG CAP PO SCH ×3 (07:56→17:11)
[2017-04-19] MEDS: Calcitriol 0.25 MCG CAP PO SCH (07:56)
[2017-04-19] MEDS: Folic Acid/Vit B Comp W-C PO SCH (07:56)
[2017-04-19] MEDS: Heparin 5,000 UNITS/ML VIAL SC SCH ×2 (07:57→21:51)
--- NOTE | 2017-04-19 09:59 | PRG ---
DATE OF SERVICE: 04/19/2017. SUBJECTIVE: Ms. Lorenzana is a 61-year-old black female followed up by the Renal Service for chronic jean l failure. She was initially admitted for acute kidney injury on top of chronic renal failure. IV h ydration has improved her creatinine. However, in the last 24 hours she developed seizures. Due to the refractory seizures she was transferred to ICU. Eventually with IV Ativan seizures, improved. C urrently, she is still confused. She has some mild hyperkalemia - potassium 5.8 and that may be a re flection of the recent seizure activity. OBJECTIVE: VITAL SIGNS: Blood pressure 190/89, heart rate 80, respiratory rate 22, pulse ox 91%. GENERAL: The patient is awake, but confused, not in distress. SKIN: Adequate turgor. HEENT: She has pinkish conjunctivae, anicteric sclerae. NECK: No neck mass, no carotid bruits, no JVD. CHEST: No deformities. LUNGS: Clear breath sounds. No wheezing, no crackles. HEART: Normal sinus rhythm. No murmur, no gallops or rubs. ABDOMEN: Globular, soft, nontender, no masses. EXTREMITIES: No edema, no deformities. She has a positive for colostomy and ileostomy. MEDICATIONS: 04/19/2017 - Reviewed. LABORATORY: 04/19/2017 - White count 8.5, hemoglobin 10.6, sodium 141, potassium 5.8, chloride 112, carbon dioxide 17, BUN 34, creatinine 3.96, glucose 103, calcium 9.3. BNP 301. ASSESSMENT AND PLAN: 1. Seizure activity, continue current dose of levetiracetam. Neurology is following. 2. Acute kidney injury/chronic renal failure, stable renal function with a creatinine of 3.96. Ther e is no indication for any emergent dialytic intervention with this patient. 3. Anemia, most recent hemoglobin is 10.6 - please note the patient is currently on Epogen regimen. 4. Mild hyperkalemia. We will observe. The higher potassium may reflect the recent seizure activit y with concomitant mild rhabdomyolysis. For the moment I agree with current management.
--- NOTE | 2017-04-19 10:32 | RAD ---
PORTABLE CHEST: History: Fever. Comparison: 04-08-17 FINDINGS: Heart size is enlarged. There is some bibasilar parenchymal lung changes which could represent some b ibasilar atelectasis or a pulmonary edema pattern. Questionable small effusions are noted. IMPRESSION: Cardiomegaly with some bibasilar lung changes could represent early infiltrates. It could be a [place] station of some pulmonary edema. Clinical correlation is suggested. Follow up would be helpful. POS: [facility]
--- NOTE | 2017-04-19 10:38 | CON ---
DATE OF CONSULTATION: 04/19/2017 CONSULTING PHYSICIAN: Dr. Horta. REASON FOR CONSULTATION: Status epilepticus and possibly need for intubation. HISTORY OF PRESENT ILLNESS: This is a 61-year-old female who was brought to the CCU last night from the floor with a seizure. I was initially called to intubate the patient and then was called back st ating that they felt the need was more emergent and asked the ER doctor to come up and see the patien t. What I understand, he did not feel that the patient need to be intubated and she was watched and did relatively well last night. She is awake this morning. She is somewhat confused, very difficult to get history from, most of what I have obtained is from talking with the staff and from reviewing notes in the chart. PAST MEDICAL HISTORY: 1. Hypertension. 2. Diabetes mellitus type 2. 3. Hypothyroidism. 4. Decubitus ulcer. 5. Seizure disorder. 6. Neurogenic bladder. 7. Bilateral hydronephrosis requiring urostomy. 8. Multiple urinary tract infections. 9. Chronic low back pain. 10. Chronic kidney disease stage 4. 11. Hyperlipidemia. 12. Colon cancer requiring colectomy and colostomy. PAST SURGICAL HISTORY: 1. Hysterectomy. 2. Ileostomy. 3. Colostomy 4. Urostomy. 5. Cholecystectomy. 6. Tracheostomy placement with subsequent removal. 7. Goiter removal. PSYCHIATRIC HISTORY: Remarkable for anxiety and depression. SOCIAL HISTORY: Nonsmoker, does not consume alcohol, does not use illicit drugs. FAMILY MEDICAL HISTORY: Unremarkable. ALLERGIES: BANANA, CHOCOLATE, EGGS, IODINE, ORANGE JUICE, TOMATO. MEDICATIONS PRIOR TO ADMISSION: Cipro, sodium bicarbonate, Augmentin, amlodipine, PhosLo, Zoloft, le vothyroxine, aspirin, Keppra, Nephro-Supriya, Xanax. CURRENT INPATIENT MEDICATIONS: Xanax, Norvasc, aspirin, Rocaltrol, PhosLo, Depakote, Procrit, iron s ulfate, subcutaneous heparin, Apresoline, [place], Humalog, Lispro insulin, Synthroid, Imodium, Clariti n, Eucerin cream, Protonix, Zoloft, and Ambien. REVIEW OF SYSTEMS: Impossible to obtain due to the patient's confusion. PHYSICAL EXAMINATION: VITAL SIGNS: Temperature 99.1, pulse 79, blood pressure 87/102. GENERAL: She is awake. She is able to follow most commands. HEENT: She has disconjugate gaze with her left eye deviating inward. Pupils do react. Sclerae are anicteric. Oropharynx clear. NECK: No JVD. LUNGS: Clear to auscultation without wheezing or rhonchi. CARDIAC: S1, S2 regular, without murmur. ABDOMEN: She has an ileostomy and urostomy noted. EXTREMITIES: Trace edema. No cyanosis. NEUROLOGIC: Able to move all 4 extremities to command. Sensation intact. SKIN: No obvious lesions except for the decubitus ulcer. LABORATORY DATA: White blood cell count 8.5, hematocrit 24.6, platelet count 209. Sodium 141, potas sium 5.8, chloride 112, CO2 17, BUN 34, creatinine 3.9, glucose 103. ASSESSMENT: 1. Status post seizure with resolution. This does not require intubation. 2. Low-grade fever, which could be secondary to some degree of aspiration. 3. Hyperkalemia and renal insufficiency 4. History of seizure disorder. PLAN: 1. Check chest x-ray to make sure she does not have pneumonitis. 2. We would go ahead and culture the patient since she is at risk for hospital acquired infections. 3. If she does well, she may be able to transfer out to the floor later today. 4. I will inform Dr. Tejada the patient's admission as he has seen the patient before.
--- NOTE | 2017-04-19 12:53 | PDOC.PN ---
- Subjective Encounter Start Date: 04/19/17 Encounter Start Time: 13:21 Subjective: had seizure like activity yesterday requiring ICU transfer -: Resolved and did not require intubation -: Alert but confused today - Objective Resuscitation Status: Resuscitation Status FULL:Full Resuscitation MAR Reviewed: Yes Vital Signs & Weight: Vital Signs (12 hours) Temp Pulse Resp BP Pulse Ox 04/19/17 11:00 101.3 F H 04/19/17 08:00 101.1 F H 70 16 98 04/19/17 07:54 84 185/59 H 04/19/17 04:07 84 185/59 H 04/19/17 04:00 99.1 F Weight Admit Weight 222 lb 8 oz Weight 222 lb 8 oz Most Recent Monitor Data Heart Rate from ECG 84 NIBP 185/72 NIBP BP-Mean 88 Respiration from ECG 18 SpO2 95 I&O: 04/18/17 04/19/17 04/20/17 06:59 06:59 06:59 Intake Total 1430 1644 220 Output Total 7007 9706 733 [facility]545 -1386 -515 Result Diagrams: 04/19/17 03:58 04/19/17 03:58 Additional Labs: Accuchecks 04/19/17 04/19/17 04/18/17 12:00 06:15 19:39 POC Glucose 73 73 110 04/18/17 16:05 POC Glucose 82 Phys Exam - Physical Examination Constitutional: NAD HEENT: PERRLA, moist MMs, sclera anicteric Neck: supple, full ROM Respiratory: no wheezing, no rales, no rhonchi, clear to auscultation bilateral Cardiovascular: RRR, no significant murmur, no rub Gastrointestinal: soft, non-tender, no distention, positive bowel sounds Musculoskeletal: no edema, pulses present Unable to cooperate w exam Deviation from normal: Agitated, confused Dx/Plan (1) Pneumonia Code(s): J18.9 - PNEUMONIA, UNSPECIFIED ORGANISM Status: Acute Qualifiers: Pneumonia type: aspiration pneumonia Aspiration pneumonia type: due to gastric secretions Laterality: bilateral Lung location: lower lobe of lung Qualified Code(s): J69.0 - Pneumonitis due to inhalation of food and vomit Comment: Likely aspirated during seizure episode. CXR showing possible basilar infiltrates b/l and has had a fever. Also required venti mask yesterday. Cxs taken Started broad spectrum abx (2) Seizure disorder Code(s): G40.909 - EPILEPSY, UNSP, NOT INTRACTABLE, WITHOUT STATUS EPILEPTICUS Status: Acute Comment: Has simple partialis continua. Evaluated by neuro- Depakote dose increased. Had a repeat seizure episode 2--> ICU transfer (3) Acute on chronic renal failure Code(s): N17.9 - ACUTE KIDNEY FAILURE, UNSPECIFIED; N18.9 - CHRONIC KIDNEY DISEASE, UNSPECIFIED Status: Acute Qualifiers: Acute renal failure type: unspecified Chronic kidney disease stage: stage 4 (severe) Qualified Code(s): N17.9 - Acute kidney failure, unspecified; N18.4 - Chronic kidney disease, stage 4 (severe); N18.4 - Chronic kidney disease , stage 4 (severe); N18.4 - Chronic kidney disease, stage 4 (severe); N18.4 - Chronic kidney disease, stage 4 (severe) Comment: Continues seems to have plateaued. No indication for HD per nephrology. Continue IVF for today (4) HTN (hypertension) Code(s): I10 - ESSENTIAL (PRIMARY) HYPERTENSION Status: Chronic Qualifiers: Hypertension type: essential hypertension Qualified Code(s): I10 - Essential (primary) hypertension Comment: labile, likely due to increased IVF's. Will monitor. (5) Hypothyroidism Code(s): E03.9 - HYPOTHYROIDISM, UNSPECIFIED Status: Chronic Qualifiers: Hypothyroidism type: unspecified Qualified Code(s): E03.9 - Hypothyroidism , unspecified Comment: Continue Levothyroxine. (6) Physical deconditioning Code(s): R53.81 - OTHER MALAISE Status: Chronic Comment: PT/OT on board. HEAVEN on discharge (7) Sacral decubitus ulcer, stage IV Code(s): L89.154 - PRESSURE ULCER OF SACRAL REGION, STAGE 4 Status: Chronic Comment: Stable. Continue wound care. General Surgery assessed, no further intervention (8) Anemia of renal disease Code(s): D63.1 - ANEMIA IN CHRONIC KIDNEY DISEASE Status: Chronic Comment: Stable, serial monitoring, Continue Epo (9) Anxiety and depression Code(s): F41.8 - OTHER SPECIFIED ANXIETY DISORDERS Status: Chronic Plan: Continue current regimen/ Comment: - Plan cont current plan of care, continue antibiotics, protective services social worker * .
[2017-04-19] MEDS ORDERED: Vancomycin HCl 1 GM in Sodium Chloride 0.9% 250 ML 250 ML IVPB ONE (13:15)
[2017-04-19] MEDS: Piperacillin/Tazobactam 2.25 GM, Admixture Fee 1 EACH in Sodium Chloride 0.9% 100 ML IVPB SCH ×2 (14:15→21:50)
[2017-04-19] MEDS ORDERED: Vancomycin HCl 1 GM in Premix Bag 1 BAG IVPB SCH (15:00)
[2017-04-19] MEDS: Lorazepam 2 MG/ML VIAL SLOW IVP PRN (16:05)
[2017-04-20] MEDS ORDERED: Lorazepam 2 MG/ML VIAL SLOW IVP SCH (01:15)
[2017-04-20 01:24] LABS: CO2 Tension 27.2 mmHg (35.0-45.0); pH, Arterial 7.38 (7.35-7.45)
[2017-04-20 01:25] LABS: Actual Bicarbonate (HCO3a) 15.5 mEq/L (22-26); Base Excess (BEa) -8.6 mEq/L (0 (+/-) 2.5); Hematocrit-ABG 27.4 % (36.0-47.0); Hemoglobin (Hb) 8.6 g/dL (12.0-16.0); O2 Tension (PaO2) 129.7 mmHg (80.0-100.0)
[2017-04-20 01:26] LABS: Calcium, Ionized 1.3 mmol/L (1.12-1.30); Puncture Site LRA
[2017-04-20] MEDS: Divalproex Sodium DR 500 MG TAB PO SCH (01:29)
[2017-04-20] MEDS: Sodium Bicarbonate Tab 325 MG TAB PO SCH ×3 (01:29→21:03)
[2017-04-20] MEDS ORDERED: Sodium Bicarbonate 100 MEQ in Sodium Chloride 0.45% 1,000 ML IV SCH (01:30)
[2017-04-20 01:45] LABS: #Lymphocytes 1.2 thou/uL (1.20-3.40); #Monocytes 0.5 thou/uL (0.11-0.59); #Neutrophils 10.4 thou/uL (1.40-6.50); %Basophils 0.4 % (0.0-1.0); %Eosinophils 0.2 % (0.0-10.0); %Lymphocytes 9.9 % (21.0-51.0); %Neutrophils 85.5 % (42.0-75.0); Hemoglobin 9.3 g/dL (12.0-16.0); Mean Corpuscular Volume 93.8 fl (81.0-99.0); Mean Platelet Volume 8.2 fL (7.4-10.4); Platelet Count 241 thou/uL (130-400); RBC Distribution Width 17.3 % (11.5-14.5); Red Blood Cell (RBC) Count 3.08 mill/uL (4.20-5.40); White Blood Cell (WBC) Count 12.1 thou/uL (4.8-10.8)
[2017-04-20] MEDS ORDERED: Valproate Sodium 500 MG in Sodium Chloride 0.9% 100 ML IVPB SCH (01:45)
--- NOTE | 2017-04-20 01:50 | PDOC.EVN ---
Event Note - Event Note Event Note: RN called for genralized tonic clonic seizure mainly involving Rt UE - pt did not respond to 2 mg IV Ativan - became bradycardic briefly. Will check BMP, Valproic acid and Dilantin level. ABGs done. One dose of 300 mg Dilantin and 500 mg Valproic acid. Please consider changing AEDs to IV after d/w Neuro in AM.
[2017-04-20 01:52] LABS: Anion Gap 15 mmol/L (10-20); BUN (Urea Nitrogen) 28 mg/dL (9.8-20.1); Calc. Creatinine Clearance 24 mL/min (70-130); Calcium 9.3 mg/dL (7.8-10.44); Carbon Dioxide 17 mmol/L (23-31); Chloride 113 mmol/L (98-107); Estimated GFR-MDRD 14; Glucose 86 mg/dL (80-115); Potassium 5.1 mmol/L (3.5-5.1); Sodium 140 mmol/L (136-145)
[2017-04-20] MEDS: Midazolam HCl 2 mg/2 ml Vial ONE ×2 (02:15→02:16)
[2017-04-20] MEDS ORDERED: Propofol 1,000 MG/100 ML VIAL IV ONE (02:25)
[2017-04-20] MEDS ORDERED: Sedation Protocol FS ONE (03:24)
[2017-04-20] MEDS ORDERED: fentaNYL Citrate/PF 2,000 MCG in Sodium Chloride 0.9% 60 ML IV SCH (03:31)
[2017-04-20] MEDS ORDERED: DISCONTINUE PREVIOUS NARCOTIC PAIN MEDICATIONS AND BENZODIAZEPINES FS SCH (03:31)
[2017-04-20] MEDS ORDERED: Morphine 2 MG/ML SYRINGE SLOW IVP PRN (03:31)
[2017-04-20 03:32] LABS: Actual Bicarbonate (HCO3a) 16.7 mEq/L (22-26); Base Excess (BEa) -8.8 mEq/L (0 (+/-) 2.5); CO2 Tension 34.1 mmHg (35.0-45.0); Hematocrit-ABG 28.4 % (36.0-47.0); Hemoglobin (Hb) 8.8 g/dL (12.0-16.0); O2 Tension (PaO2) 68.3 mmHg (80.0-100.0); pH, Arterial 7.31 (7.35-7.45)
[2017-04-20 03:33] LABS: Calcium, Ionized 1.3 mmol/L (1.12-1.30); Puncture Site LBA
[2017-04-20 03:34] LABS: ALV-art Gradient 80.235 (0-20)
[2017-04-20] MEDS: Propofol 1,000 MG/100 ML VIAL IV PRN ×4 (05:48→21:08)
[2017-04-20] MEDS: Piperacillin/Tazobactam 2.25 GM, Admixture Fee 1 EACH in Sodium Chloride 0.9% 100 ML IVPB SCH ×3 (05:50→21:03)
[2017-04-20] MEDS: Levothyroxine Sodium 100 MCG TAB PO SCH (05:50)
[2017-04-20] MEDS: Ferrous Sulfate 325 MG TAB PO SCH (08:48)
[2017-04-20] MEDS: Heparin 5,000 UNITS/ML VIAL SC SCH ×2 (08:48→21:06)
[2017-04-20] MEDS: Calcium Acetate 667 MG CAP PO SCH ×3 (08:48→16:27)
[2017-04-20] MEDS: Amlodipine 10 MG TAB PO SCH (08:50)
[2017-04-20] MEDS: Calcitriol 0.25 MCG CAP PO SCH (08:51)
[2017-04-20] MEDS: Folic Acid/Vit B Comp W-C PO SCH (08:51)
[2017-04-20] MEDS ORDERED: Acetaminophen 1,000 MG in Premix Bag 1 BAG IVPB PRN (08:53)
[2017-04-20] MEDS ORDERED: Famotidine 40 MG/5 ML Oral Suspension PER TUBE SCH (09:00)
[2017-04-20] MEDS ORDERED: Pantoprazole 40 MG VIAL IVP SCH (09:00)
--- NOTE | 2017-04-20 09:06 | RAD ---
CHEST 1 VIEW: History Dyspnea. Followup. COMPARISON: 04/19/17. FINDINGS: Cardiac silhouette is magnified and enlarged. Pulmonary vasculature remains engorged. Mediastinum i s midline. The tip of an endotracheal catheter overlies the thoracic inlet. Nasogastric tube is coi led over the stomach. No lobar consolidation or pneumothorax are apparent. groundwater monitoring technician leads ov erlie the chest. IMPRESSION: 1. Endotracheal catheter and nasogastric tube are in good radiographic position. 2. Pulmonary vascular congestion and other findings are otherwise stable. POS: OFF
--- NOTE | 2017-04-20 09:15 | RAD ---
CHEST 1 VIEW: HISTORY: Dyspnea. Intubated. COMPARISON: Earlier exam on the same date. FINDINGS: Cardiac silhouette is magnified and enlarged. Pulmonary vasculature is engorged. Mediastinum is mid line. The tip of an endotracheal catheter overlies the thoracic inlet. Nasogastric tube descends to the abdomen. The tip of a left internal jugular central venous catheter overlies the superior vena cava. No evidence of pneumothorax. bus driver/monitor leads overlie the chest. IMPRESSION: 1. Lines and tubes as detailed above are in good radiographic position. 2. Pulmonary vascular congestion and other findings are otherwise stable. POS: OFF
--- NOTE | 2017-04-20 10:14 | PRG ---
DATE OF SERVICE: 04/20/2017 SUBJECTIVE: Ms. Lorenzana is a 61-year-old black female who was seen by the Renal Service for an acute ki dney injury on top of chronic renal failure. Empiric volume repletion was done. This stabilized her creatinine to a most recent value of 3.9. Please note, as previously mentioned, her creatinine peak ed at the value of 9.45. No indication for any dialytic intervention at the present time. Events of last 24 hours noted. The patient had another seizure episode and subsequently was intubated and lis jaden on ventilator support. PHYSICAL EXAMINATION: VITAL SIGNS: Blood pressure is 140/63, heart rate 81. GENERAL: Noted to be sedated, intubated on ventilator support. SKIN: Adequate turgor. HEENT: She has slightly pale conjunctivae, anicteric sclerae. NECK: No neck mass, no carotid bruits, no JVD. CHEST: No deformities. LUNGS: Clear breath sounds. No wheezing, no crackles. HEART: Normal sinus rhythm. No murmurs, no gallops or rubs. ABDOMEN: Globular, soft, nontender, no masses, positive for urostomy and colostomy. EXTREMITIES: No edema. MEDICATIONS: 04/20/2017 - Reviewed. LABORATORY: 04/20/2017 - White count 12.1, hemoglobin 9.3. 04/20/2017 - Sodium is 140, potassium 5.1, chloride 113, carbon dioxide 17, BUN 28, creatinine 3.99, glucose 86, calcium 9.3. ASSESSMENT AND PLAN: 1. Acute kidney injury/chronic renal failure, stabilizing renal function. Creatinine 3.99. It is r elatively unchanged from yesterday. No indication for any dialytic intervention. This patient will eventually need dialysis in the very near future. We discussed this issue with the patient's sister. 2. Seizure disorder. Currently on anti-seizure meds. Neurology is following. 3. Anemia - on maintenance Epogen, p.r.n. blood transfusion. Overall, prognosis remains guarded.
[2017-04-20] MEDS ORDERED: Valproate Sodium 1,000 MG in Sodium Chloride 0.9% 100 ML IVPB SCH ×2 (11:00→16:15)
[2017-04-20] MEDS ORDERED: levETIRAcetam In NaCl (Iso-Os) 1,000 MG in Premix Bag 1 BAG IVPB SCH ×4 (11:00→16:15)
[2017-04-20] MEDS ORDERED: levETIRAcetam 2,000 MG in Sodium Chloride 0.9% 100 ML IVPB SCH (11:15)
--- NOTE | 2017-04-20 11:31 | PRG ---
DATE OF SERVICE: 04/20/2017 SERVICE: Pulmonary Medicine. INTERVAL HISTORY: The patient did poorly overnight. At about midnight, she started start seizing. She was given several doses of Ativan to the point where she was fairly obtunded. She was not protecting her airway. She had to be bagged for a brief period of time. During this period of time, she continued to have seizures in the right upper extremity. Prior to that, she had generalized tonic clonic seizures by description of nursing staff. Either way, I came in, we intubated the patient. Because she had very poor IV access and was a possible dialysis candidate in future, a central line was placed. She is currently comfortable and cannot provide any additional elements of the history. There were no overnight events otherwise. PHYSICAL EXAMINATION: VITAL SIGNS: T-max 101.8, pulse 81, blood pressure 140/63, respirations 21, saturation 100% on 21% FIO2 and PEEP of 5. HEENT: Normocephalic, atraumatic. Sclerae are white, conjunctivae pink. Oral mucosa is moist without lesions. LUNGS: Decent air entry. There is no prolonged expiratory phase. HEART: Normal rate, regular. ABDOMEN: Soft, nontender, and nondistended. Bowel sounds are positive. MUSCULOSKELETAL: No cyanosis or clubbing. There is no pitting in the bilateral lower extremities. NEUROLOGIC: Grossly nonfocal. LABORATORY DATA: WBC 12.1, hemoglobin 9.3, platelets 241,000. A pH 7.31, pCO2 34, pO2 68. Creatinine 3.99, BUN 28 and down trending. Bicarbonate stable at 17, chloride 113, sodium 140, potassium is 5.1, BNP 301. Urinalysis is positive for white blood cells in 21-50 range. Leukocyte esterase is large. Urine culture is growing gram negative opal out of the ileal conduit. Blood cultures x2 are unremarkable. Gilbert culture is negative to date. IMAGING: Chest x-ray demonstrates no acute change. ASSESSMENT: 1. Acute hypoxic respiratory failure, resolved. 2. Status epilepticus. 3. Chronic kidney disease. 4. 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 5. Urinary tract infection, complicated. PLAN: We will continue supporting her on the ventilator. Multiple anti- epileptic drugs have been initiated. She is on sedation to also suppress seizure activities. EEG will be obtained first thing in the morning. Multiple ventilator adjustments have been made to improve patient comfort. CRITICAL CARE TIME: 140 minutes, unbundled from procedure. MTDD
[2017-04-20] MEDS: Sodium Bicarbonate 100 MEQ in Dextrose 5% in Water 1,000 ML IV SCH ×4 (11:37→23:21)
--- NOTE | 2017-04-20 13:16 | PDOC.PN ---
- Subjective Encounter Start Date: 04/20/17 Encounter Start Time: 13:31 Subjective: Eventful night- multiple tonic clonic seizures -: Multiple ativan doses given- eventually requires intubation - Objective Resuscitation Status: Resuscitation Status FULL:Full Resuscitation MAR Reviewed: Yes Vital Signs & Weight: Vital Signs (12 hours) Temp Pulse Resp BP Pulse Ox 04/20/17 12:17 65 195/79 H 04/20/17 12:00 99.4 F 18 04/20/17 09:56 15 04/20/17 09:37 81 140/63 04/20/17 08:50 77 182/80 H 04/20/17 08:00 101.8 F H 98 16 100 04/20/17 07:00 101.8 F H 04/20/17 06:32 68 188/80 H 04/20/17 06:00 15 04/20/17 04:00 100.5 F H 14 04/20/17 03:00 100 04/20/17 02:37 93 199/97 H Weight Admit Weight 222 lb 8 oz Weight 221 lb 5.506 oz Most Recent Monitor Data Heart Rate from ECG 60 NIBP 195/79 NIBP BP-Mean 134 Respiration from ECG 22 SpO2 100 I&O: 04/19/17 04/20/17 04/21/17 06:59 06:59 06:59 Intake Total 1644 3340 320 Output Total 3030 2835 440 Balance -1386 505 -120 Result Diagrams: 04/20/17 01:24 04/20/17 01:24 Additional Labs: Accuchecks 04/20/17 04/19/17 11:23 16:16 POC Glucose 70 90 Phys Exam - Physical Examination Constitutional: NAD HEENT: PERRLA, moist MMs, sclera anicteric Neck: supple Respiratory: no wheezing, no rales, no rhonchi, clear to auscultation bilateral Cardiovascular: RRR, no significant murmur, no rub Gastrointestinal: soft, non-tender, no distention, positive bowel sounds Musculoskeletal: no edema, pulses present Unable to cooperate- intubated and sedated Skin: no rash, normal turgor Dx/Plan (1) Seizure disorder Code(s): G40.909 - EPILEPSY, UNSP, NOT INTRACTABLE, WITHOUT STATUS EPILEPTICUS Status: Acute Plan: Neurology consult re seizure meds Pulmonary on board. Will wean off vent. Comment: Has simple partialis continua. Evaluated by neuro- Depakote dose increased. Had a repeat seizure episode 04/18--> ICU transfer, where she had further seizures eventually requiring intubation. Continue IV Keppra (2) Pneumonia Code(s): J18.9 - PNEUMONIA, UNSPECIFIED ORGANISM Status: Acute Qualifiers: Pneumonia type: aspiration pneumonia Aspiration pneumonia type: due to gastric secretions Laterality: bilateral Lung location: lower lobe of lung Qualified Code(s): J69.0 - Pneumonitis due to inhalation of food and vomit Comment: Likely aspirated during seizure episode. CXR showing possible basilar infiltrates b/l Cxs taken On broad spectrum abx (3) Acute on chronic renal failure Code(s): N17.9 - ACUTE KIDNEY FAILURE, UNSPECIFIED; N18.9 - CHRONIC KIDNEY DISEASE, UNSPECIFIED Status: Acute Qualifiers: Acute renal failure type: unspecified Chronic kidney disease stage: stage 4 (severe) Qualified Code(s): N17.9 - Acute kidney failure, unspecified; N18.4 - Chronic kidney disease, stage 4 (severe); N18.4 - Chronic kidney disease , stage 4 (severe); N18.4 - Chronic kidney disease, stage 4 (severe); N18.4 - Chronic kidney disease, stage 4 (severe) Comment: Cr plateaued. No indication for HD per nephrology. DC IVF (4) HTN (hypertension) Code(s): I10 - ESSENTIAL (PRIMARY) HYPERTENSION Status: Chronic Qualifiers: Hypertension type: essential hypertension Qualified Code(s): I10 - Essential (primary) hypertension Comment: labile, likely due to increased IVF's. Will monitor. Hydralazine PRN for SBP > 180 (5) Hypothyroidism Code(s): E03.9 - HYPOTHYROIDISM, UNSPECIFIED Status: Chronic Qualifiers: Hypothyroidism type: unspecified Qualified Code(s): E03.9 - Hypothyroidism , unspecified Comment: Continue Levothyroxine. (6) Physical deconditioning Code(s): R53.81 - OTHER MALAISE Status: Chronic Comment: PT/OT on board. HEAVEN on discharge (7) Sacral decubitus ulcer, stage IV Code(s): L89.154 - PRESSURE ULCER OF SACRAL REGION, STAGE 4 Status: Chronic Comment: Stable. Continue wound care. General Surgery assessed, no further intervention (8) Anemia of renal disease Code(s): D63.1 - ANEMIA IN CHRONIC KIDNEY DISEASE Status: Chronic Comment: Stable, serial monitoring, Continue Epo - Plan cont current plan of care, continue antibiotics, PT/OT, social services aide * .
[2017-04-20] MEDS: hydrALAZINE 20 MG/ML VIAL SLOW IVP PRN (14:36)
[2017-04-20] MEDS ORDERED: Sodium Bicarbonate Tab 325 MG TAB PER TUBE PRN (16:10)
[2017-04-20] MEDS ORDERED: Pancrelipase DR 12000 1 CAP FS PRN (16:10)
--- NOTE | 2017-04-20 18:25 | OP ---
DATE OF PROCEDURE: 04/20/2017 SERVICE: Pulmonary Medicine. PROCEDURE: Left-sided triple lumen internal jugular central venous catheter placement under ultrasou nd guidance. CONSENT: The risks and benefits of this procedure were explained to the medical decision maker. All questions were answered and alternative options were discussed. STAFF PHYSICIAN: Barrera Tejada MD MEDICATIONS USED: None. PREPROCEDURE DIAGNOSIS:. Need for IV access. POSTPROCEDURE DIAGNOSIS: Need for IV access. Vital sign monitoring was accomplished by noninvasive hemodynamic monitoring, pulse oximetry, telemet ry. DESCRIPTION OF PROCEDURE: A time-out was performed and the patient was positively identified using n jaqueline and date of . The procedure site was marked. The patient was placed in supine position. T he left neck was prepped and draped in sterile fashion. The course of the internal jugular vein was mapped with ultrasound and the overlying skin was anesthetized with 1% lidocaine without epinephrine. The cannulation needle was placed in the internal jugular vein under direct ultrasound guidance wit h return of dark red, nonpulsatile blood on the first attempt. A J-shaped guidewire was threaded thr ough the cannulation needle without difficulty. A small incision was made. The dilator and 8.5 Fren ch triple-lumen central venous catheter were serially threaded over the guidewire. The catheter was sutured to the skin at 18 cm with 3-0 silk sutures x2. All three ports withdrew and flushed without difficulty. A sterile dressing was applied and the procedure was terminated. Post-procedure chest x -ray demonstrated adequate location for the tip of the catheter. ESTIMATED BLOOD LOSS: 2 mL. COMPLICATIONS: None.
--- NOTE | 2017-04-20 18:33 | OP ---
DATE OF SERVICE: 04/20/2017 SERVICE: Pulmonary Medicine. PROCEDURE: Emergent endotracheal intubation. CONSENT: Procedure was performed emergently secondary to clinical condition and respiratory failure. STAFF PHYSICIAN: Barrera Tejada M.D. MEDICATIONS USED: 1. Etomidate 20 mg IV push. 2. Versed 4 mg IV push PREPROCEDURE DIAGNOSES: 1. Status epilepticus. 2. Respiratory failure. POSTPROCEDURE DIAGNOSES: 1. Status epilepticus. 2. Respiratory failure. DESCRIPTION OF PROCEDURE: Vital sign monitoring was accomplished by noninvasive hemodynamic monitori ng, pulse oximetry, and telemetry. In the supine position, the patient was preoxygenated with bag va lve mask ventilation and maintained with saturations of 100%. Following induction of anesthesia, a G lideScope was inserted through the mouth offering clear identification of the posterior oropharynx an d laryngeal structures with a grade I view. A 7.5 American endotracheal tube was visualized passing th rough the vocal cords. Placement was confirmed by condensation in the endotracheal tube, colorimetri c capnography, and by axillary chest auscultation. The endotracheal tube was secured at 23 cm, measu red at the teeth. Post-procedure chest x-ray demonstrated the tube was little deep, so was retracted 2 cm. We finally settled at 21 cm, measured at the teeth. At that time, the chest x-ray demonstrat ed good position for the endotracheal tube. ESTIMATED BLOOD LOSS: None. COMPLICATIONS: None.
[2017-04-20] MEDS: levETIRAcetam In NaCl (Iso-Os) 1,000 MG in Premix Bag 1 BAG IVPB SCH ×2 (21:01)
[2017-04-20] MEDS: Valproate Sodium 1,000 MG in Sodium Chloride 0.9% 100 ML IVPB SCH (21:03)
[2017-04-21] MEDS: Propofol 1,000 MG/100 ML VIAL IV PRN ×6 (02:15→21:07)
[2017-04-21 04:48] LABS: #Basophils 0.1 thou/uL (0.0-0.2); #Eosinphils 0.2 thou/uL (0.0-0.7); #Lymphocytes 1.4 thou/uL (1.20-3.40); #Monocytes 0.7 thou/uL (0.11-0.59); #Neutrophils 4.2 thou/uL (1.40-6.50); %Basophils 0.8 % (0.0-1.0); %Eosinophils 3.7 % (0.0-10.0); %Lymphocytes 21.5 % (21.0-51.0); %Monocytes 10.3 % (0.0-10.0); %Neutrophils 63.7 % (42.0-75.0); Hemoglobin 7.5 g/dL (12.0-16.0); Mean Corpuscular HGB CONC 31.6 g/dL (32.0-36.0); Mean Corpuscular Hemoglobin 29.8 pg (27.0-31.0); Mean Corpuscular Volume 94.3 fl (81.0-99.0); Mean Platelet Volume 7.6 fL (7.4-10.4); Platelet Count 186 thou/uL (130-400); RBC Distribution Width 17.6 % (11.5-14.5); White Blood Cell (WBC) Count 6.5 thou/uL (4.8-10.8)
[2017-04-21] MEDS: Levothyroxine Sodium 100 MCG TAB PO SCH (05:00)
[2017-04-21] MEDS: Piperacillin/Tazobactam 2.25 GM, Admixture Fee 1 EACH in Sodium Chloride 0.9% 100 ML IVPB SCH ×3 (05:01→21:40)
[2017-04-21 05:02] LABS: Anion Gap 13 mmol/L (10-20); BUN (Urea Nitrogen) 27 mg/dL (9.8-20.1); Calc. Creatinine Clearance 24 mL/min (70-130); Calcium 8.7 mg/dL (7.8-10.44); Carbon Dioxide 23 mmol/L (23-31); Chloride 111 mmol/L (98-107); Estimated GFR-MDRD 14; Glucose 99 mg/dL (80-115); Potassium 3.3 mmol/L (3.5-5.1); Sodium 144 mmol/L (136-145)
[2017-04-21] MEDS ORDERED: Potassium Chloride 40 MEQ in Premix Bag 1 BAG IVPB SCH (07:30)
[2017-04-21 08:09] LABS: Actual Bicarbonate (HCO3a) 21.9 mEq/L (22-26); Base Excess (BEa) -2.4 mEq/L (0 (+/-) 2.5); CO2 Tension 35.5 mmHg (35.0-45.0); Hematocrit-ABG 26.5 % (36.0-47.0); Hemoglobin (Hb) 8.5 g/dL (12.0-16.0); O2 Tension (PaO2) 78.6 mmHg (80.0-100.0); pH, Arterial 7.41 (7.35-7.45)
[2017-04-21 08:10] LABS: ALV-art Gradient 26.755 (0-20); Calcium, Ionized 1.3 mmol/L (1.12-1.30); Puncture Site RRA
[2017-04-21] MEDS ORDERED: Lorazepam 2 MG/ML VIAL SLOW IVP PRN (08:16)
[2017-04-21] MEDS: Calcitriol 0.25 MCG CAP PO SCH (08:41)
[2017-04-21] MEDS: Sodium Bicarbonate Tab 325 MG TAB PO SCH ×2 (08:41→20:31)
[2017-04-21] MEDS: Ferrous Sulfate 325 MG TAB PO SCH (08:41)
[2017-04-21] MEDS: Amlodipine 10 MG TAB PO SCH (08:42)
[2017-04-21] MEDS: Lorazepam 2 MG/ML VIAL SLOW IVP PRN ×2 (08:44)
[2017-04-21] MEDS: Famotidine/PF 20 mg/2ml Vial SLOW IVP SCH (08:44)
[2017-04-21] MEDS: Heparin 5,000 UNITS/ML VIAL SC SCH ×2 (08:44→20:30)
[2017-04-21] MEDS: levETIRAcetam In NaCl (Iso-Os) 1,000 MG in Premix Bag 1 BAG IVPB SCH ×2 (09:04)
[2017-04-21] MEDS: Valproate Sodium 1,000 MG in Sodium Chloride 0.9% 100 ML IVPB SCH (09:09)
[2017-04-21] MEDS: Calcium Acetate 667 MG CAP PO SCH ×3 (09:20→16:22)
[2017-04-21] MEDS: Folic Acid/Vit B Comp W-C PO SCH (09:22)
--- NOTE | 2017-04-21 11:34 | PRG ---
DATE OF SERVICE: 04/21/2017 RENAL MEDICINE SUBJECTIVE: Ms. Lorenzana is 61-year-old black female seen by Renal Service for acute kidney injury on to p of her chronic renal failure. Renal function is currently stable. However, in the last several da ys, patient has been having refractory seizures. She is being managed by Neurology. Renal function continues to remain steady. She is still diuresing. PHYSICAL EXAMINATION: VITAL SIGNS: Blood pressure is noted at 128/67 with heart rate of 57, respiratory rate 15, pulse ox 100%. GENERAL: Patient is sedated, intubated on ventilator support. SKIN: Adequate turgor. HEENT: Slightly pale conjunctivae, anicteric sclerae. NECK: No neck mass, no carotid bruits, no JVD. CHEST: No deformities. LUNGS: Clear breath sounds. No wheezing, no crackles. HEART: Normal sinus rhythm. No murmur, no gallops, no rubs. ABDOMEN: Globular, soft. Positive for urostomy and colostomy. EXTREMITIES: No edema or deformities. MEDICATIONS: Medications of 04/21/2017 was reviewed. LABORATORY DATA: Laboratories of 04/21/2017; white count 6.5, hemoglobin 7.5. Sodium 144, potassium 3.3, chloride 111, carbon dioxide 23, BUN 27, creatinine 3.86, glucose 99, calcium 8.7, and magnesiu m 1.2. ASSESSMENT AND PLAN: 1. Chronic renal failure/acute kidney injury, stable renal function. Creatinine of 3.86 is near bas brent. No indication for any dialytic intervention. The patient continues to diurese. 2. Seizure disorder/refractory seizure - managed by Neurology. Anti-seizure medications have been a djusted. 3. Mild hypokalemia, p.r.n. correction. 4. Anemia, currently on weekly Epogen and she is receiving 10,000 units subcutaneously every week. Continue supportive care.
--- NOTE | 2017-04-21 12:15 | PRG ---
DATE OF SERVICE: 04/21/2017 SUBJECTIVE: Morbidly obese, 5 feet 2 inches, BMI 40 female with status seizures. Seen by Neurology yesterday, will get additional Keppra. This morning, she was sedated on 40 mcg of Diprivan and at 30 mcg apparently she started seizing. OBJECTIVE: VITAL SIGNS: Blood pressure is 136/70, pulse 57, temperature 97. I's and O's are 3953 in and 3446 o ut. CHEST: Decreased breath sounds without any wheezing. CARDIAC: Normal S1 and S2. No gallops. ABDOMEN: Soft, no masses. LABORATORY DATA: White count 6, H and H is 7 and 23, platelet count 106, pO2 of 78, pCO2 of 37, pH 7 .41, on a rate of 11, 21 FiO2. Creatinine 3.8, BUN is 27. Urine is growing Citrobacter. Last chest x-ray showed cardiomegaly without any obvious infiltrates. IMPRESSION: 1. Seizure activity on Diprivan. We will add Keppra. 2. Acute renal failure. 3. Morbid obesity. 4. Probable sleep apnea. 5. Urinary tract infection. PLAN: She is clearly not weanable until her seizure activity resolves or improves. Most likely in t he morning, we can try more sedation briefly to see whether she is seizing. Seizure medication as pe r Neurology. Antibiotic, she is on vancomycin and Zosyn. As noted, the only culture so far is Citro bacter sensitive to Zosyn. I would discontinue the vancomycin. Await further renal insult. PLAN: Continue present medication. Otherwise, nutrition, PT, and supportive care. [id number] critical care time. Prognosis is grave. We will follow.
[2017-04-21] MEDS ORDERED: Fosphenytoin Sodium 1,200 MG in Sodium Chloride 0.9% 50 ML IVPB SCH (12:30)
[2017-04-21] MEDS: Sodium Bicarbonate 100 MEQ in Dextrose 5% in Water 1,000 ML IV SCH ×2 (12:56)
--- NOTE | 2017-04-21 14:43 | PDOC.PN ---
- Subjective Encounter Start Date: 04/21/17 Encounter Start Time: 14:50 Subjective: Remains intubated. Still has some seizure activity. Neurology following -: No acute events overnight. - Objective Resuscitation Status: Resuscitation Status FULL:Full Resuscitation MAR Reviewed: Yes Vital Signs & Weight: Vital Signs (12 hours) Temp Pulse Resp BP Pulse Ox 04/21/17 13:55 13 04/21/17 13:44 70 15 100 04/21/17 13:00 98.2 F 04/21/17 12:00 98.2 F 13 04/21/17 10:50 78 110/55 L 04/21/17 10:00 97.5 F L 13 04/21/17 09:00 97.5 F L 04/21/17 08:42 57 L 126/70 04/21/17 08:00 94.4 F L 70 15 04/21/17 07:27 57 L 126/70 04/21/17 07:00 94.4 F L 04/21/17 06:00 14 04/21/17 04:00 98.2 F 12 04/21/17 02:59 70 97/51 L Weight Admit Weight 222 lb 8 oz Weight 220 lb 6.4 oz Most Recent Monitor Data Heart Rate from ECG 71 NIBP 87/45 NIBP BP-Mean 57 Respiration from ECG 17 SpO2 100 I&O: 04/20/17 04/21/17 04/22/17 06:59 06:59 06:59 Intake Total 3340 3953 600 Output Total 2835 4460 1105 Balance 505 -507 -505 Result Diagrams: 04/21/17 04:00 04/21/17 04:00 Additional Labs: Accuchecks 04/21/17 04/20/17 04/20/17 11:02 20:52 16:03 POC Glucose 91 91 87 Phys Exam - Physical Examination Constitutional: NAD HEENT: PERRLA, moist MMs, sclera anicteric Neck: no nodes, no JVD Respiratory: no wheezing, no rales, no rhonchi, clear to auscultation bilateral Cardiovascular: RRR, no significant murmur, no rub Gastrointestinal: soft, non-tender, no distention, positive bowel sounds Musculoskeletal: no edema, pulses present Unable to cooperate-intubated and sedated Skin: no rash, normal turgor Dx/Plan (1) Acute respiratory failure Code(s): J96.00 - ACUTE RESPIRATORY FAILURE, UNSP W HYPOXIA OR HYPERCAPNIA Status: Resolved Qualifiers: Respiratory failure complication: hypoxia Qualified Code(s): J96.01 - Acute respiratory failure with hypoxia Comment: Requiring intubation. Continues to have intermittent seizures. Currently on clobazam, fosphenytoin and Keppra. Neurology on board Will be weaned off vent by pulmonary when appropriate. (2) Seizure disorder Code(s): G40.909 - EPILEPSY, UNSP, NOT INTRACTABLE, WITHOUT STATUS EPILEPTICUS Status: Acute Plan: As above. Comment: Has simple partialis continua. Had a repeat seizure episode 04/18--> ICU transfer, where she had further seizures eventually requiring intubation. (3) Pneumonia Code(s): J18.9 - PNEUMONIA, UNSPECIFIED ORGANISM Status: Acute Qualifiers: Pneumonia type: aspiration pneumonia Aspiration pneumonia type: due to gastric secretions Laterality: bilateral Lung location: lower lobe of lung Qualified Code(s): J69.0 - Pneumonitis due to inhalation of food and vomit Comment: Likely aspirated during seizure episode. CXR showing possible basilar infiltrates b/l Cxs taken, no growth on blood. Will continue Zosyn. (4) Acute on chronic renal failure Code(s): N17.9 - ACUTE KIDNEY FAILURE, UNSPECIFIED; N18.9 - CHRONIC KIDNEY DISEASE, UNSPECIFIED Status: Acute Qualifiers: Acute renal failure type: unspecified Chronic kidney disease stage: stage 4 (severe) Qualified Code(s): N17.9 - Acute kidney failure, unspecified; N18.4 - Chronic kidney disease, stage 4 (severe); N18.4 - Chronic kidney disease , stage 4 (severe); N18.4 - Chronic kidney disease, stage 4 (severe); N18.4 - Chronic kidney disease, stage 4 (severe) Comment: Cr plateaued. No indication for HD per nephrology. Likely new baseline. (5) HTN (hypertension) Code(s): I10 - ESSENTIAL (PRIMARY) HYPERTENSION Status: Chronic Qualifiers: Hypertension type: essential hypertension Qualified Code(s): I10 - Essential (primary) hypertension Comment: Controlled. Hydralazine PRN for SBP > 180 (6) Hypothyroidism Code(s): E03.9 - HYPOTHYROIDISM, UNSPECIFIED Status: Chronic Qualifiers: Hypothyroidism type: unspecified Qualified Code(s): E03.9 - Hypothyroidism , unspecified Comment: Continue Levothyroxine. (7) Sacral decubitus ulcer, stage IV Code(s): L89.154 - PRESSURE ULCER OF SACRAL REGION, STAGE 4 Status: Chronic Comment: Stable. Continue wound care. General Surgery assessed, no further intervention (8) Anemia of renal disease Code(s): D63.1 - ANEMIA IN CHRONIC KIDNEY DISEASE Status: Chronic Comment: Stable, serial monitoring, Continue Epo weekly Transfuse for Hb < 7 (9) UTI (urinary tract infection) Status: Acute Comment: Cx grew citrobacter freundii. Sensitive to Zosyn. Vanc discontinued. (10) Physical deconditioning Code(s): R53.81 - OTHER MALAISE Status: Chronic Comment: PT/OT on board. HEAVEN on discharge - Plan cont current plan of care, continue antibiotics, respiratory therapy, DVT proph w/heparin * .
--- NOTE | 2017-04-21 15:13 | CON ---
DATE OF SERVICE: 04/21/2017 Ms. Lorenzana continues to be in status epilepticus. Propofol was discontinued this morning briefly and s he went immediately back into convulsions. Despite maximum loading doses of Keppra and valproic acid , she failed to respond to these. I added a single dose of ONFI 20 mg last night as well. Unfortuna tely, this seems to have been unsuccessful. Given the drug interaction problems between valproic acid and Dilantin, I will discontinue the Depako te at this point. We can reload her with fosphenytoin and continue Keppra and ONFI, hopefully this w ill be successful.
[2017-04-21] MEDS: Fosphenytoin Sodium 200 MG in Sodium Chloride 0.9% 50 ML IVPB SCH (20:25)
[2017-04-21] MEDS: levETIRAcetam In NaCl (Iso-Os) 1,500 MG in Premix Bag 1 BAG IVPB SCH ×2 (20:31)
[2017-04-22] MEDS: Propofol 1,000 MG/100 ML VIAL IV PRN ×2 (00:24→05:35)
[2017-04-22] MEDS: Sodium Bicarbonate 100 MEQ in Dextrose 5% in Water 1,000 ML IV SCH ×4 (03:55→20:24)
[2017-04-22 04:17] LABS: #Eosinphils 0.3 thou/uL (0.0-0.7); #Lymphocytes 1.1 thou/uL (1.20-3.40); #Monocytes 0.6 thou/uL (0.11-0.59); #Neutrophils 6.3 thou/uL (1.40-6.50); %Basophils 0.5 % (0.0-1.0); %Eosinophils 3.2 % (0.0-10.0); %Lymphocytes 12.7 % (21.0-51.0); %Monocytes 7.3 % (0.0-10.0); %Neutrophils 76.3 % (42.0-75.0); Hemoglobin 7.9 g/dL (12.0-16.0); Mean Corpuscular HGB CONC 32.1 g/dL (32.0-36.0); Mean Corpuscular Hemoglobin 30.5 pg (27.0-31.0); Mean Corpuscular Volume 94.9 fl (81.0-99.0); Platelet Count 202 thou/uL (130-400); RBC Distribution Width 17.8 % (11.5-14.5); White Blood Cell (WBC) Count 8.2 thou/uL (4.8-10.8)
[2017-04-22 04:33] LABS: Anion Gap 14 mmol/L (10-20); BUN (Urea Nitrogen) 26 mg/dL (9.8-20.1); Calc. Creatinine Clearance 25 mL/min (70-130); Calcium 8.5 mg/dL (7.8-10.44); Carbon Dioxide 24 mmol/L (23-31); Chloride 111 mmol/L (98-107); Estimated GFR-MDRD 15; Glucose 95 mg/dL (80-115); Potassium 3.9 mmol/L (3.5-5.1); Sodium 145 mmol/L (136-145)
[2017-04-22] MEDS: Piperacillin/Tazobactam 2.25 GM, Admixture Fee 1 EACH in Sodium Chloride 0.9% 100 ML IVPB SCH ×3 (05:31→21:00)
[2017-04-22] MEDS: Levothyroxine Sodium 100 MCG TAB PO SCH (05:31)
[2017-04-22] MEDS ORDERED: Magnesium Sulfate 4 GM in Sodium Chloride 0.9% 250 ML 250 ML IVPB SCH (08:30)
[2017-04-22] MEDS: Fosphenytoin Sodium 200 MG in Sodium Chloride 0.9% 50 ML IVPB SCH ×2 (08:59→20:18)
[2017-04-22] MEDS: Folic Acid/Vit B Comp W-C PO SCH (09:00)
[2017-04-22] MEDS: levETIRAcetam In NaCl (Iso-Os) 1,500 MG in Premix Bag 1 BAG IVPB SCH ×4 (09:00→20:19)
[2017-04-22] MEDS: Sodium Bicarbonate Tab 325 MG TAB PO SCH ×2 (09:02→20:19)
[2017-04-22] MEDS: Calcitriol 0.25 MCG CAP PO SCH (09:02)
[2017-04-22] MEDS: Heparin 5,000 UNITS/ML VIAL SC SCH ×2 (09:03→20:19)
[2017-04-22] MEDS: Ferrous Sulfate 325 MG TAB PO SCH (09:03)
[2017-04-22] MEDS: Famotidine/PF 20 mg/2ml Vial SLOW IVP SCH (09:04)
[2017-04-22] MEDS: Amlodipine 10 MG TAB PO SCH (09:04)
[2017-04-22] MEDS: Calcium Acetate 667 MG CAP PO SCH ×3 (09:04→17:50)
--- NOTE | 2017-04-22 12:07 | PRG ---
DATE OF SERVICE: 04/21/2017 SUBJECTIVE: The patient this morning, intubated on the vent. Her Diprivan withheld for a period of time. She started seizing. She is in status epilepticus. She is on multiple medications. OBJECTIVE: VITAL SIGNS: Blood pressure is 160/83, pulse 70, respirations 20. I's and O's are 3952 in and 446 o ut. She has been afebrile. CHEST: Decreased breath sounds without any wheezing. CARDIAC: Normal S1 and S2. No gallops. ABDOMEN: Massive. NEUROLOGIC: Sedated. LABORATORY DATA: White count 8,000, hemoglobin and hematocrit 7 and 24, platelet count 202. Electro lytes are normal. Creatinine 3.7. Urine is growing Citrobacter. IMPRESSION: Status epilepticus, on multiple medications. She is presently on Dilantin, Keppra, valp roic acid and propofol. PLAN: Again, this morning is to kind of slow the Diprivan to see whether she is still seizing. Othe rwise, we will continue neb treatments, supportive care and nutrition. One-half hour critical care time.
--- NOTE | 2017-04-22 12:11 | PDOC.PN ---
- Subjective Encounter Start Date: 04/22/17 Encounter Start Time: 12:14 Subjective: Continues to be intubated and sedated. -: Anytime sedation turned down, she seizes. - Objective Resuscitation Status: Resuscitation Status FULL:Full Resuscitation MAR Reviewed: Yes Vital Signs & Weight: Vital Signs (12 hours) Temp Pulse Resp BP Pulse Ox 04/22/17 11:29 90 169/82 H 04/22/17 10:00 13 04/22/17 09:04 77 161/83 H 04/22/17 08:00 99.0 F 04/22/17 06:33 77 161/83 H 04/22/17 06:30 78 15 100 04/22/17 05:46 17 04/22/17 04:00 98.2 F 04/22/17 02:19 82 158/76 H 04/22/17 02:00 17 04/22/17 01:09 68 13 100 Weight Admit Weight 222 lb 8 oz Weight 220 lb 2.775 oz Most Recent Monitor Data Heart Rate from ECG 74 NIBP 169/82 NIBP BP-Mean 104 Respiration from ECG 16 SpO2 100 I&O: 04/21/17 04/22/17 04/23/17 06:59 06:59 06:59 Intake Total 3953 3918 300 Output Total 4460 2605 425 Balance -507 1313 -125 Result Diagrams: 04/22/17 04:00 04/22/17 04:00 Additional Labs: Accuchecks 04/21/17 04/21/17 21:02 15:49 POC Glucose 90 84 Phys Exam - Physical Examination Constitutional: NAD HEENT: PERRLA, moist MMs, sclera anicteric Neck: no JVD, supple Respiratory: no wheezing, no rales, no rhonchi, clear to auscultation bilateral Cardiovascular: RRR, no significant murmur, no rub Gastrointestinal: soft, non-tender, no distention, positive bowel sounds Musculoskeletal: no edema, pulses present Intubated and sedated. Skin: no rash, normal turgor Dx/Plan (1) Acute respiratory failure Code(s): J96.00 - ACUTE RESPIRATORY FAILURE, UNSP W HYPOXIA OR HYPERCAPNIA Status: Resolved Qualifiers: Respiratory failure complication: hypoxia Qualified Code(s): J96.01 - Acute respiratory failure with hypoxia Comment: Requiring intubation. Continues to have intermittent seizures. Currently on clobazam, fosphenytoin and Keppra. Neurology on board Will be weaned off vent by pulmonary when appropriate. (2) Seizure disorder Code(s): G40.909 - EPILEPSY, UNSP, NOT INTRACTABLE, WITHOUT STATUS EPILEPTICUS Status: Acute Comment: Has simple partialis continua. Had a repeat seizure episode 04/18--> ICU transfer, where she had further seizures eventually requiring intubation. (3) Pneumonia Code(s): J18.9 - PNEUMONIA, UNSPECIFIED ORGANISM Status: Acute Qualifiers: Pneumonia type: aspiration pneumonia Aspiration pneumonia type: due to gastric secretions Laterality: bilateral Lung location: lower lobe of lung Qualified Code(s): J69.0 - Pneumonitis due to inhalation of food and vomit Comment: Likely aspirated during seizure episode. CXR showing possible basilar infiltrates b/l Cxs taken, no growth on blood. Will continue Zosyn. (4) Acute on chronic renal failure Code(s): N17.9 - ACUTE KIDNEY FAILURE, UNSPECIFIED; N18.9 - CHRONIC KIDNEY DISEASE, UNSPECIFIED Status: Acute Qualifiers: Acute renal failure type: unspecified Chronic kidney disease stage: stage 4 (severe) Qualified Code(s): N17.9 - Acute kidney failure, unspecified; N18.4 - Chronic kidney disease, stage 4 (severe); N18.4 - Chronic kidney disease , stage 4 (severe); N18.4 - Chronic kidney disease, stage 4 (severe); N18.4 - Chronic kidney disease, stage 4 (severe) Comment: Cr fluctuating, maybe she is around new baseline. No indication for HD per nephrology. (5) HTN (hypertension) Code(s): I10 - ESSENTIAL (PRIMARY) HYPERTENSION Status: Chronic Qualifiers: Hypertension type: essential hypertension Qualified Code(s): I10 - Essential (primary) hypertension Comment: Controlled. Hydralazine PRN for SBP > 180 (6) Hypothyroidism Code(s): E03.9 - HYPOTHYROIDISM, UNSPECIFIED Status: Chronic Qualifiers: Hypothyroidism type: unspecified Qualified Code(s): E03.9 - Hypothyroidism , unspecified Comment: Continue Levothyroxine. (7) Sacral decubitus ulcer, stage IV Code(s): L89.154 - PRESSURE ULCER OF SACRAL REGION, STAGE 4 Status: Chronic Comment: Stable. Continue wound care. General Surgery assessed, no further intervention (8) Anemia of renal disease Code(s): D63.1 - ANEMIA IN CHRONIC KIDNEY DISEASE Status: Chronic Comment: Stable, serial monitoring, Continue Epo weekly Transfuse for Hb < 7 (9) UTI (urinary tract infection) Status: Acute Comment: Cx grew citrobacter freundii. Sensitive to Zosyn. Vanc discontinued. (10) Physical deconditioning Code(s): R53.81 - OTHER MALAISE Status: Chronic Comment: PT/OT on board. HEAVEN on discharge - Plan cont current plan of care, continue antibiotics, respiratory therapy, DVT proph w/heparin f/u neurology recs * .
--- NOTE | 2017-04-22 13:17 | PRG ---
DATE OF SERVICE: 04/22/2017 SUBJECTIVE: Ms. Lorenzana is a 61-year-old black female being followed by the renal service for her acute kidney injury on top of her chronic renal failure. Renal function has been stabilized with volume d epletion. Please note that the creatinine was said to have peaked to as high as 9 to 10 mg percent. Most recent creatinine is about 3.8 mg percent. She has been transferred to the ICU due to refracto ry seizures. Neurology is currently following. She is off her IV propofol. OBJECTIVE: GENERAL: The patient was noted to be intubated, sedated, and ventilator support. VITAL SIGNS: Blood pressure is noted at 161/83, heart rate 77. HEENT: Slightly pale conjunctivae, anicteric sclerae. NECK: No neck mass, no carotid bruits, no JVD. CHEST: No deformities. LUNGS: Decreased breath sounds. HEART: Normal sinus rhythm. No murmur, no gallops, no rubs. ABDOMEN: Globular, soft, nontender. Positive for urostomy and colostomy. EXTREMITIES: No edema, no deformities. MEDICATIONS: Of 04/22/2017, was reviewed. LABORATORY: Of 04/22/2007, white count 8.2, hemoglobin 7.9. Sodium 145, potassium 3.9, chloride 111 , carbon dioxide 24, BUN 26, creatinine 3.79, GFR 15 mL per minute, glucose 95, calcium 8.5. ASSESSMENT AND PLAN: 1. Acute kidney injury/chronic renal failure, stable renal function. She is currently at stage 4 ch ronic renal failure with a GFR of 15 mL per minute. There is no indication for any dialytic interven tion. I agree with current management. Continue supportive care. 2. Seizure disorder - being managed by Neurology. Currently on anti-seizure medications. 3. Anemia - stable on weekly Epogen. P.r.n. blood transfusion for hemoglobin less than 7.
[2017-04-22] MEDS: Epoetin (ESRD) 10,000 UNITS/ML VIAL SC SCH (15:46)
--- NOTE | 2017-04-22 16:37 | CON ---
DATE OF CONSULTATION: 04/22/2017 The patient remains intubated, but is now off of propofol drip. No seizure activity has been noted s adi discontinuation of the propofol. She received a loading dose of fosphenytoin yesterday. She se ems to be stable from a cardiovascular perspective. I am going to check a Dilantin level and continu e the current regimen with Saravanan and Danilo.
[2017-04-23 04:34] LABS: #Eosinphils 0.3 thou/uL (0.0-0.7); #Lymphocytes 1.5 thou/uL (1.20-3.40); #Monocytes 0.8 thou/uL (0.11-0.59); %Basophils 0.5 % (0.0-1.0); %Eosinophils 3.2 % (0.0-10.0); %Lymphocytes 15.8 % (21.0-51.0); %Monocytes 8.4 % (0.0-10.0); %Neutrophils 72.2 % (42.0-75.0); Hemoglobin 7.4 g/dL (12.0-16.0); Mean Corpuscular HGB CONC 31.8 g/dL (32.0-36.0); Mean Corpuscular Volume 94.5 fl (81.0-99.0); Platelet Count 211 thou/uL (130-400); RBC Distribution Width 17.7 % (11.5-14.5); Red Blood Cell (RBC) Count 2.46 mill/uL (4.20-5.40); White Blood Cell (WBC) Count 9.7 thou/uL (4.8-10.8)
[2017-04-23] MEDS: Piperacillin/Tazobactam 2.25 GM, Admixture Fee 1 EACH in Sodium Chloride 0.9% 100 ML IVPB SCH ×3 (05:00→21:02)
[2017-04-23] MEDS: Levothyroxine Sodium 100 MCG TAB PO SCH (05:00)
[2017-04-23 05:05] LABS: Anion Gap 13 mmol/L (10-20); BUN (Urea Nitrogen) 24 mg/dL (9.8-20.1); Calc. Creatinine Clearance 25 mL/min (70-130); Calcium 8.5 mg/dL (7.8-10.44); Carbon Dioxide 25 mmol/L (23-31); Chloride 109 mmol/L (98-107); Estimated GFR-MDRD 15; Glucose 95 mg/dL (80-115); Magnesium 1.9 mg/dL (1.6-2.6); Potassium 3.4 mmol/L (3.5-5.1); Sodium 144 mmol/L (136-145)
[2017-04-23] MEDS: Fosphenytoin Sodium 200 MG in Sodium Chloride 0.9% 50 ML IVPB SCH ×2 (08:48→20:12)
[2017-04-23] MEDS: Heparin 5,000 UNITS/ML VIAL SC SCH ×2 (08:49→20:12)
[2017-04-23] MEDS: levETIRAcetam In NaCl (Iso-Os) 1,500 MG in Premix Bag 1 BAG IVPB SCH ×4 (08:49→20:12)
[2017-04-23] MEDS: Folic Acid/Vit B Comp W-C PO SCH (08:49)
[2017-04-23] MEDS: Famotidine/PF 20 mg/2ml Vial SLOW IVP SCH (08:49)
[2017-04-23] MEDS: Sodium Bicarbonate Tab 325 MG TAB PO SCH ×2 (08:50→20:12)
[2017-04-23] MEDS: Calcitriol 0.25 MCG CAP PO SCH (08:50)
[2017-04-23] MEDS: Amlodipine 10 MG TAB PO SCH (08:50)
[2017-04-23] MEDS: Ferrous Sulfate 325 MG TAB PO SCH (08:51)
[2017-04-23] MEDS: Calcium Acetate 667 MG CAP PO SCH ×3 (08:51→16:08)
[2017-04-23] MEDS: Sodium Bicarbonate 100 MEQ in Dextrose 5% in Water 1,000 ML IV SCH ×2 (09:05)
--- NOTE | 2017-04-23 09:41 | PRG ---
DATE OF SERVICE: 04/23/2017 RENAL MEDICINE SUBJECTIVE: Ms. Lorenzana is a 61-year-old black female seen by the Renal Service for acute kidney injury over chronic renal failure. Her renal function has been stabilized. She has been having refractory seizures and Urology is following. No acute events noted in the last 24 hours. PHYSICAL EXAMINATION: VITAL SIGNS: Blood pressure is noted at 157/77 with heart rate of 94, respiratory rate 16, pulse ox 100%. GENERAL: Noted to be sedated, intubated and on ventilator support. SKIN: Adequate turgor. HEENT: Slightly pale conjunctivae, anicteric sclerae. NECK: No neck mass, no carotid bruits, no JVD. CHEST: No deformities. LUNGS: Clear breath sounds. No wheezing, no crackles. HEART: Normal sinus rhythm. No murmur, no gallops, no rubs. ABDOMEN: Globular, soft, nontender, no masses. Positive for urostomy. Positive for colostomy. EXTREMITIES: No edema or deformities. MEDICATIONS: Medications of 04/23/2017 was reviewed. LABORATORY DATA: Laboratories of 04/23/2017; white count 9.7, hemoglobin 7.4, hematocrit 23.3. Sodi um 144, potassium 3.4, chloride 109, carbon dioxide 25, BUN 24, creatinine 3.67, glucose is 95, calci um is 8.5, and magnesium 1.9. ASSESSMENT AND PLAN: 1. Seizure disorder - Neurology is following. She is currently on IV fosphenytoin sodium at 200 mg IV q.12. She is also on levetiracetam. Urology is following. 2. Acute kidney injury on top of chronic renal failure, much improved creatinine. Higher creatinine of 3.67 is now at baseline. She is currently on stage 4 chronic renal failure. There is no indicat ion for any dialytic intervention. 3. Anemia, continuing weekly Epogen, p.r.n. blood transfusion for hemoglobin less than 7.
--- NOTE | 2017-04-23 10:35 | PDOC.PN ---
- Subjective Encounter Start Date: 04/23/17 Encounter Start Time: 09:15 -: old records requested/rev Patient seen and examined. pt is on ventilator, still has recurrent seizure. No overnight events - Objective Resuscitation Status: Resuscitation Status FULL:Full Resuscitation MAR Reviewed: Yes Vital Signs & Weight: Vital Signs (12 hours) Temp Pulse Resp Pulse Ox 04/23/17 10:02 87 04/23/17 09:00 99 F 04/23/17 08:50 84 04/23/17 08:00 99 F 18 04/23/17 07:00 99 F 04/23/17 06:43 84 04/23/17 06:00 19 04/23/17 05:00 98.9 F 04/23/17 04:00 24 H 04/23/17 02:29 95 04/23/17 02:00 19 04/23/17 00:44 93 04/23/17 00:43 95 22 H 100 04/23/17 00:00 99.1 F 18 Weight Admit Weight 222 lb 8 oz Weight 236 lb 3.2 oz Most Recent Monitor Data Heart Rate from ECG 102 NIBP 154/75 NIBP BP-Mean 89 Respiration from ECG 21 SpO2 95 I&O: 04/22/17 04/23/17 04/24/17 06:59 06:59 06:59 Intake Total 3918 3684.3 Output Total 2605 3305 300 Balance 1313 379.3 -300 Result Diagrams: 04/23/17 04:00 04/23/17 04:00 Additional Labs: Accuchecks 04/23/17 04/22/17 04/22/17 04:03 21:04 16:31 POC Glucose 89 89 105 04/22/17 04/22/17 11:56 05:39 POC Glucose 86 99 Radiology Reviewed by me: Yes (chest xray) EKG Reviewed by me: Yes (NSR) Phys Exam - Physical Examination Constitutional: NAD intubated and sedated HEENT: PERRLA, sclera anicteric Neck: no JVD, supple Respiratory: no wheezing, no rales, no rhonchi Cardiovascular: RRR, no significant murmur, no rub Gastrointestinal: soft, positive bowel sounds urostomy, colostomy Musculoskeletal: edema present unable to assess Skin: no rash, normal turgor Dx/Plan (1) Acute metabolic encephalopathy Code(s): G93.41 - METABOLIC ENCEPHALOPATHY Status: Acute Comment: (2) Acute respiratory failure with hypoxia Code(s): J96.01 - ACUTE RESPIRATORY FAILURE WITH HYPOXIA Status: Acute Comment: on ventilator (3) Acute worsening of stage 4 chronic kidney disease Code(s): N28.9 - DISORDER OF KIDNEY AND URETER, UNSPECIFIED; N18.4 - CHRONIC KIDNEY DISEASE, STAGE 4 (SEVERE) Status: Acute Comment: (4) Metabolic acidosis Code(s): E87.2 - ACIDOSIS Status: Acute Comment: (5) Pneumonia Code(s): J18.9 - PNEUMONIA, UNSPECIFIED ORGANISM Status: Acute Qualifiers: Pneumonia type: aspiration pneumonia Aspiration pneumonia type: due to gastric secretions Laterality: bilateral Lung location: lower lobe of lung Qualified Code(s): J69.0 - Pneumonitis due to inhalation of food and vomit Comment: (6) Status epilepticus Code(s): G40.901 - EPILEPSY, UNSP, NOT INTRACTABLE, WITH STATUS EPILEPTICUS Status: Acute (7) UTI (urinary tract infection) Status: Acute Comment: (8) Anxiety and depression Code(s): F41.8 - OTHER SPECIFIED ANXIETY DISORDERS Status: Chronic Comment: (9) Bilateral hydronephrosis Code(s): N13.30 - UNSPECIFIED HYDRONEPHROSIS Status: Chronic (10) DM type 2 (diabetes mellitus, type 2) Status: Chronic Qualifiers: Diabetes mellitus complication status: with kidney complications Diabetes mellitus complication detail: with chronic kidney disease Diabetes mellitus long term care social worker insulin use: with snf use Chronic kidney disease stage: stage 5, not on chronic dialysis Qualified Code(s): E11.22 - Type 2 diabetes mellitus with diabetic chronic kidney disease; N18.5 - Chronic kidney disease, stage 5; N18.5 - Chronic kidney disease, stage 5; N18.5 - Chronic kidney disease , stage 5; N18.5 - Chronic kidney disease, stage 5; Z79.4 - half-way (current) use of insulin; Z79.4 - manager long term care (current) use of insulin; Z79.4 - half-way ( current) use of insulin; Z79.4 - manager long term care (current) use of insulin Comment: At goal. (11) HTN (hypertension) Code(s): I10 - ESSENTIAL (PRIMARY) HYPERTENSION Status: Chronic Qualifiers: Hypertension type: essential hypertension (12) Hypothyroidism Code(s): E03.9 - HYPOTHYROIDISM, UNSPECIFIED Status: Chronic Qualifiers: Hypothyroidism type: unspecified Qualified Code(s): E03.9 - Hypothyroidism , unspecified Comment: Continue Levothyroxine. (13) Physical deconditioning Code(s): R53.81 - OTHER MALAISE Status: Chronic Comment: (14) Sacral decubitus ulcer, stage IV Code(s): L89.154 - PRESSURE ULCER OF SACR[place] REG[place], STAGE 4 Status: Chronic Comment: (15) Seizure disorder Code(s): G40.909 - EPILEPSY, UNSP, NOT INTRACTABLE, WITHOUT STATUS EPILEPTICUS Status: Chronic Comment: (16) Hypomagnesemia Code(s): E83.42 - HYPOMAGNESEMIA Status: Resolved - Plan cont current plan of care, continue antibiotics, respiratory therapy * palliative care consulted * medication reviewed as below * symptomatic treatment * ventilator as per pulmonary * prognosis is guarded. Review of Systems - Review of Systems Other: unable to review as pt is intubated and sedated - Medications/Allergies Allergies/Adverse Reactions: Allergies Allergy/AdvReac Type Severity Reaction Status Date / Time banana Allergy Verified 05/10/16 08:43 chocolate flavor Allergy Verified 05/10/16 08:43 egg Allergy Verified 05/10/16 08:43 Iodinated Contrast- Oral and Allergy Verified 05/10/16 08:44 IV Dye [Iodinated Contrast Media - Oral and] iodine Allergy Verified 05/10/16 08:43 latex Allergy Verified 05/10/16 08:43 orange juice Allergy Verified 05/10/16 08:43 tolterodine tartrate Allergy Verified 05/10/16 08:43 [From Detrol] tomato Allergy Verified 05/10/16 08:43 Medications: Current Medications Acetaminophen (Tylenol) 650 mg PO Q4H PRN PRN Reason: Headache/Fever or Pain Last Admin: 04/19/17 12:01 Dose: 650 mg Hydrocodone Bitart/Acetaminophen ([place] 5/325) 1 tab PO Q4H PRN PRN Reason: Moderate Pain (4-6) Last Admin: 04/10/17 09:00 Dose: 1 tab Al Hydroxide/Mg Hydroxide (Maalox) 30 ml PO Q6H PRN PRN Reason: Heartburn or Indigestion Albuterol/Ipratropium (Duoneb) 3 ml NEB [id number] [facility] Last Admin: 04/23/17 06:42 Dose: 3 ml Alprazolam (Xanax) 0.25 mg PO BIDPRN PRN PRN Reason: Anxiety Last Admin: 04/19/17 12:02 Dose: 0.25 mg Amlodipine Besylate (Norvasc) 10 mg PO DAILY [facility] Last Admin: 04/23/17 08:50 Dose: 10 mg Lipase/Protease/[place]ylase ([place] [id number]) 1 cap FS .PER PROTOCOL PRN PRN Reason: TUBE OCCLUSION PROTOCOL Artificial Tears (Tears Naturale) 0 drop EA EYE PRN PRN PRN Reason: Dry Eyes Aspirin (Aspirin Chewable) 81 mg PO DAILY [facility] Last Admin: 04/23/17 08:51 Dose: 81 mg Calcitriol (Rocaltrol) 0.25 mcg PO DAILY [facility] Last Admin: 04/23/17 08:50 Dose: 0.25 mcg Calcium Acetate (Phoslo) 1,334 mg PO TID-[facility] Last Admin: 04/23/17 08:51 Dose: 1,334 mg Clobazam (Clobazam) 10 mg PO BID [facility] Last Admin: 04/23/17 09:27 Dose: 10 mg Dextrose/Water (Dextrose 50%) 25 gm SLOW IVP PRN PRN PRN Reason: Hypoglycemia Epoetin Javier (Procrit) 10,000 units SC Q7D [facility] Last Admin: 04/22/17 15:46 Dose: 10,000 units Famotidine (Pepcid) 20 mg SLOW IVP DAILY [facility] Last Admin: 04/23/17 08:49 Dose: 20 mg Ferrous Sulfate (Feosol) 325 mg PO QAM-[facility] Last Admin: 04/23/17 08:51 Dose: 325 mg Glucagon (Glucagon) 1 mg IM PRN PRN PRN Reason: Hypoglycemia Guaifenesin (Robitussin Sf) 200 mg PO Q4H PRN PRN Reason: Cough Heparin Sodium (Porcine) (Heparin) 5,000 units SC BID [facility] Last Admin: 04/23/17 08:49 Dose: 5,000 units Hydralazine HCl (Apresoline) 10 mg SLOW IVP Q4H PRN PRN Reason: Systolic BP > 180 Last Admin: 04/20/17 14:36 Dose: 10 mg Dextrose/Water (D5w) 1,000 mls @ 0 mls/hr IV .Q0M PRN; As Directed PRN Reason: Hypoglycemia Piperacillin Sod/Tazobactam Sod 2.25 gm/ Miscellaneous Medication 1 each/ Sodium Chloride 100 mls @ 200 mls/hr IVPB Q8HR [facility] Last Admin: 04/23/17 05:00 Dose: 100 mls Fentanyl Citrate 2,000 mcg/ (Sodium Chloride) 100 mls @ 0 mls/hr IV INF [facility]; Per Protocol PRN Reason: Protocol Stop: 05/20/17 03:31 Fentanyl Citrate (Fentanyl Bolus) 250 mls @ 0 mls/hr IVPB PRN PRN; As Directed PRN Reason: Breakthrough pain Stop: 05/20/17 03:31 Sodium Bicarbonate 100 meq/ (Dextrose/Water) 1,100 mls @ 75 mls/hr IV .[id number] [facility] Last Admin: 04/23/17 09:05 Dose: 1,100 mls Levetiracetam 1,500 mg/ Device 100 mls @ 200 mls/hr IVPB BID [facility] Last Admin: 04/23/17 08:49 Dose: 100 mls Fosphenytoin Sodium 200 mg/ (Sodium Chloride) 54 mls @ 108 mls/hr IVPB BID [facility] Last Admin: 04/23/17 08:48 Dose: 54 mls Insulin Human Lispro (Humalog) 0 units SC .MODERATE SLIDING SC PRN PRN Reason: Moderate Correctional Scale Insulin Human Lispro (Humalog) 0 units SC .BEDTIME SLIDING SC PRN PRN Reason: Bedtime Correctional Scale Levothyroxine Sodium (Synthroid) 100 mcg PO 0600 [facility] Last Admin: 04/23/17 05:00 Dose: 100 mcg Loperamide HCl (Imodium) 2 mg PO PRN PRN PRN Reason: Diarrhea/Loose Stools Loratadine (Claritin) 10 mg PO DAILYPRN PRN PRN Reason: Sinus Symptoms Lorazepam (Ativan) 2 mg SLOW IVP Q2H PRN PRN Reason: Anxiety to achieve [place] 2-3 Stop: 05/20/17 03:31 Last Admin: 04/21/17 08:44 Dose: 2 mg Lorazepam (Ativan) 2 mg SLOW IVP Q6H PRN PRN Reason: Anxiety/Agitation Magnesium Hydroxide (Milk Of Magnesium) 30 ml PO DAILYPRN PRN PRN Reason: Constipation Mineral Oil/White Petrolatum (Eucerin Cream) 0 gm TOP BIDPRN PRN PRN Reason: Dry Skin Morphine Sulfate (Morphine) 2 mg SLOW IVP Q2H PRN PRN Reason: Breakthrough pain Stop: 05/20/17 03:34 Discontinue Previous Narcotic Pain Medications And Benzodiazepines 1 each FS .ONE [facility] Stop: 05/20/17 03:31 Ondansetron HCl (Zofran Odt) 4 mg PO Q6H PRN PRN Reason: Nausea/Vomiting Ondansetron HCl (Zofran) 4 mg IVP Q6H PRN PRN Reason: Nausea/Vomiting Last Admin: 04/12/17 13:07 Dose: 4 mg Phenol (Chloraseptic [place] 180 Ml Bot) 0 ml PO PRN PRN PRN Reason: Sore Throat Propofol (Diprivan) 1,000 mg IV INF PRN; Protocol PRN Reason: TO ACHIEVE MOTLEY SCORE 2-3 Stop: 05/20/17 03:31 Last Admin: 04/22/17 05:35 Dose: 1,000 mg Senna (Senokot) 2 tab PO HSPRN PRN PRN Reason: Constipation Sertraline HCl (Zoloft) 150 mg PO DAILY [facility] Last Admin: 04/23/17 08:50 Dose: 150 mg Sodium Bicarbonate (Bicarbonate, Sodium) 325 mg PO BID [facility] Last Admin: 04/23/17 08:50 Dose: 325 mg Sodium Bicarbonate (Bicarbonate, Sodium) 650 mg PER TUBE .PER PROTOCOL PRN PRN Reason: ENTERAL TUBE OCCLUSION Sodium Chloride ([place]ris Nasal [place] 0.65%) 0 ml EA NARE QIDPRN PRN PRN Reason: Nasal Congestion Sodium Chloride (Flush - Normal Saline) 10 ml IVF Q12HR [facility] Last Admin: 04/23/17 08:51 Dose: 10 ml Sodium Chloride (Flush - Normal Saline) 10 ml IVF PRN PRN PRN Reason: Saline Flush Vitamin B Complex/Vit C/Folic Acid (Nephro-Supriya Tablet) 1 tab PO DAILY [facility] Last Admin: 04/23/17 08:49 Dose: 1 tab
[2017-04-23] MEDS: Lorazepam 2 MG/ML VIAL SLOW IVP PRN (13:24)
--- NOTE | 2017-04-23 16:43 | CON ---
DATE OF SERVICE: 04/23/2017 SUBJECTIVE: Ms. Lorenzana remains intubated, but is off sedation. Her vital signs are stable with satura tions 95% . When you hold her eyes open, she stirs around a bit, but I could not get her to follow a ny commands. The nurse reports she was following some simple commands earlier in the day. No visibl e seizure activity has been noted today. Her Dilantin level is 9.3. I will keep her overnight and see if she is not more responsive. We might repeat an EEG tomorrow if she remains lethargic. I will continue her current dosing schedule.
[2017-04-24] MEDS: Sodium Bicarbonate 100 MEQ in Dextrose 5% in Water 1,000 ML IV SCH ×4 (00:47→14:41)
[2017-04-24] MEDS: Piperacillin/Tazobactam 2.25 GM, Admixture Fee 1 EACH in Sodium Chloride 0.9% 100 ML IVPB SCH ×3 (05:41→21:07)
[2017-04-24] MEDS: Levothyroxine Sodium 100 MCG TAB PO SCH (05:41)
[2017-04-24] MEDS: Calcitriol 0.25 MCG CAP PO SCH (09:00)
[2017-04-24] MEDS: Folic Acid/Vit B Comp W-C PO SCH (09:00)
[2017-04-24] MEDS: Ferrous Sulfate 325 MG TAB PO SCH (09:00)
[2017-04-24] MEDS: Sodium Bicarbonate Tab 325 MG TAB PO SCH ×2 (09:00→20:02)
[2017-04-24] MEDS: Heparin 5,000 UNITS/ML VIAL SC SCH ×2 (09:01→20:04)
[2017-04-24] MEDS: Amlodipine 10 MG TAB PO SCH (09:01)
[2017-04-24] MEDS: Calcium Acetate 667 MG CAP PO SCH ×3 (09:01→18:17)
[2017-04-24] MEDS: levETIRAcetam In NaCl (Iso-Os) 1,500 MG in Premix Bag 1 BAG IVPB SCH ×4 (09:02→20:02)
--- NOTE | 2017-04-24 09:05 | PRG ---
DATE OF SERVICE: 04/23/2017 SERVICE: Pulmonary Medicine. INTERVAL HISTORY: The patient is doing great from a respiratory standpoint. She is a little somnole nt this morning. There is report of a seizure at some point today, but that activity stopped. Neuro fernanda has since seen her and is planning on doing an EEG if she remains somnolent tomorrow. Otherwise , there has been no interval change to her condition and nursing reports no overnight events. She is tolerating tube feeds well and on minimal support with the ventilator. PHYSICAL EXAMINATION: VITAL SIGNS: Afebrile, pulse 97, blood pressure 137/72, respirations 21, saturation 96% on 21% FiO2 and PEEP of 5. GENERAL: The patient is somnolent. With some stimulation, she follows very simple commands. HEENT: Normocephalic, atraumatic. Sclerae are white, conjunctivae pink. Oral and nasal mucosa is m oist without lesions. LUNGS: Decent air entry. There is no prolonged expiratory phase or wheezing present. HEART: Normal rate, regular. ABDOMEN: Soft, nontender, nondistended. Bowel sounds are positive. MUSCULOSKELETAL: No cyanosis or clubbing. There is no pitting in the bilateral lower extremities. NEUROLOGIC: Grossly nonfocal. LABORATORY DATA: WBC 9.7, hemoglobin 7.4, and platelets 211,000. Creatinine 3.67. Basic metabolic profile is otherwise unremarkable except for potassium of 3.4. Magnesium 1.9. Urine nephrostomy tub e is growing Citrobacter, which is sensitive to Zosyn. Blood cultures x2 and urine culture are negat landon to date. ASSESSMENT: 1. Acute hypoxic respiratory failure, resolved. 2. Status epilepticus. 3. Chronic kidney disease. 4. 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 5. Urinary tract infection, complicated. PLAN: We will continue supporting her on the ventilator. Hopefully in 24 hours by holding sedation, she will start to wake up and we consider a spontaneous breathing trial and weaning. Pulmonary or C ritical Care will continue to follow. CRITICAL CARE TIME: 30 minutes.
[2017-04-24] MEDS: Fosphenytoin Sodium 200 MG in Sodium Chloride 0.9% 50 ML IVPB SCH ×2 (09:25→20:03)
[2017-04-24] MEDS: Famotidine/PF 20 mg/2ml Vial SLOW IVP SCH (09:25)
--- NOTE | 2017-04-24 09:36 | EEG ---
Referring Physician: Roxie HERNANDEZ EEG # [id number] TEST TYPE: STAT INPATIENT PORTABLE REPORT: AN EEG USING THE [employer]NATIONAL TEN-TWENTY SYSTEM OF ELECTRODE PLACEMENT WAS PERFORMED. The best waking background is a 9 hertz alpha frequency when the patient is under sedation. There is fairly constant seizure activity was noted in the left parasagital chain with phase reversing sharp transients being present when the seizure activity subsided. This waxed and waned depending on the medication administration. Photic stimulation was unremarkable. IMPRESSION: THIS EEG IS CONSISTENT WITH SUBCLINICAL STATUS EPILEPTICUS. Television Announcer: MARY ANN Pricing/Signage Team Member: [email or web address]
--- NOTE | 2017-04-24 11:35 | PDOC.PN ---
- Subjective Encounter Start Date: 04/24/17 Encounter Start Time: 10:00 pt is intubated and sedated, still lethargic - Objective Resuscitation Status: Resuscitation Status FULL:Full Resuscitation MAR Reviewed: Yes Vital Signs & Weight: Vital Signs (12 hours) Temp Pulse Resp BP Pulse Ox 04/24/17 10:00 24 H 04/24/17 09:59 79 167/73 H 04/24/17 09:01 97 175/76 H 04/24/17 08:00 100.9 F H 21 H 04/24/17 06:24 97 157/72 H 04/24/17 06:00 15 04/24/17 04:00 97.9 F 12 04/24/17 02:00 18 04/24/17 00:00 97.9 F 12 04/23/17 23:42 77 12 98 Weight Admit Weight 222 lb 8 oz Weight 236 lb 3.2 oz Most Recent Monitor Data Heart Rate from ECG 86 NIBP 188/87 NIBP BP-Mean 107 Respiration from ECG 15 SpO2 96 I&O: 04/23/17 04/24/17 04/25/17 06:59 06:59 06:59 Intake Total 3684.3 3493 275 Output Total 3305 3345 500 Balance 379.3 148 -225 Result Diagrams: 04/23/17 04:00 04/23/17 04:00 Additional Labs: Accuchecks 04/24/17 04/24/17 04/23/17 11:15 05:24 21:09 POC Glucose 112 H 119 H 94 04/23/17 04/23/17 16:03 11:54 POC Glucose 100 90 EKG Reviewed by me: Yes (nsr) Phys Exam - Physical Examination Constitutional: NAD intubated HEENT: PERRLA, sclera anicteric Neck: no JVD, supple Respiratory: no wheezing, no rales, no rhonchi Cardiovascular: RRR, no significant murmur, no rub Gastrointestinal: soft, no distention, positive bowel sounds Musculoskeletal: pulses present, edema present unable to assess Deviation from normal: unable to assess Skin: no rash, normal turgor Dx/Plan (1) Acute metabolic encephalopathy Code(s): G93.41 - METABOLIC ENCEPHALOPATHY Status: Acute Comment: (2) Acute respiratory failure with hypoxia Code(s): J96.01 - ACUTE RESPIRATORY FAILURE WITH HYPOXIA Status: Acute Comment: on ventilator (3) Acute worsening of stage 4 chronic kidney disease Code(s): N28.9 - DISORDER OF KIDNEY AND URETER, UNSPECIFIED; N18.4 - CHRONIC KIDNEY DISEASE, STAGE 4 (SEVERE) Status: Acute Comment: (4) Metabolic acidosis Code(s): E87.2 - ACIDOSIS Status: Acute Comment: (5) Pneumonia Code(s): J18.9 - PNEUMONIA, UNSPECIFIED ORGANISM Status: Acute Qualifiers: Pneumonia type: aspiration pneumonia Aspiration pneumonia type: due to gastric secretions Laterality: bilateral Lung location: lower lobe of lung Qualified Code(s): J69.0 - Pneumonitis due to inhalation of food and vomit Comment: (6) Status epilepticus Code(s): G40.901 - EPILEPSY, UNSP, NOT INTRACTABLE, WITH STATUS EPILEPTICUS Status: Acute (7) UTI (urinary tract infection) Status: Acute Comment: (8) Anxiety and depression Code(s): F41.8 - OTHER SPECIFIED ANXIETY DISORDERS Status: Chronic Comment: (9) Bilateral hydronephrosis Code(s): N13.30 - UNSPECIFIED HYDRONEPHROSIS Status: Chronic (10) DM type 2 (diabetes mellitus, type 2) Status: Chronic Qualifiers: Diabetes mellitus complication status: with kidney complications Diabetes mellitus complication detail: with chronic kidney disease Diabetes mellitus jail insulin use: with jail use Chronic kidney disease stage: stage 5, not on chronic dialysis Qualified Code(s): E11.22 - Type 2 diabetes mellitus with diabetic chronic kidney disease; N18.5 - Chronic kidney disease, stage 5; N18.5 - Chronic kidney disease, stage 5; N18.5 - Chronic kidney disease , stage 5; N18.5 - Chronic kidney disease, stage 5; Z79.4 - terminal gauger supervisor (current) use of insulin; Z79.4 - [facility] (current) use of insulin; Z79.4 - [facility] ( current) use of insulin; Z79.4 - [facility] (current) use of insulin Comment: At goal. (11) HTN (hypertension) Code(s): I10 - ESSENTIAL (PRIMARY) HYPERTENSION Status: Chronic Qualifiers: Hypertension type: essential hypertension (12) Hypothyroidism Code(s): E03.9 - HYPOTHYROIDISM, UNSPECIFIED Status: Chronic Qualifiers: Hypothyroidism type: unspecified Qualified Code(s): E03.9 - Hypothyroidism , unspecified Comment: Continue Levothyroxine. (13) Physical deconditioning Code(s): R53.81 - OTHER MALAISE Status: Chronic Comment: (14) Sacral decubitus ulcer, stage IV Code(s): L89.154 - PRESSURE ULCER OF SACRAL REGION, STAGE 4 Status: Chronic Comment: (15) Seizure disorder Code(s): G40.909 - EPILEPSY, UNSP, NOT INTRACTABLE, WITHOUT STATUS EPILEPTICUS Status: Chronic Comment: (16) Hypomagnesemia Code(s): E83.42 - HYPOMAGNESEMIA Status: Resolved - Plan cont current plan of care, continue antibiotics, respiratory therapy * continue keppra * EEG will defer to neurology * vent management as per pulmonary * continue zosyn * medication reviewed as below * symptomatic treatment. Review of Systems - Review of Systems Other: unable to review due to pt is intubated and sedated - Medications/Allergies Allergies/Adverse Reactions: Allergies Allergy/AdvReac Type Severity Reaction Status Date / Time banana Allergy Verified 05/10/16 08:43 chocolate flavor Allergy Verified 05/10/16 08:43 egg Allergy Verified 05/10/16 08:43 Iodinated Contrast- Oral and Allergy Verified 05/10/16 08:44 IV Dye [Iodinated Contrast Media - Oral and] iodine Allergy Verified 05/10/16 08:43 latex Allergy Verified 05/10/16 08:43 orange juice Allergy Verified 05/10/16 08:43 tolterodine tartrate Allergy Verified 05/10/16 08:43 [From Detrol] tomato Allergy Verified 05/10/16 08:43 Medications: Current Medications Acetaminophen (Tylenol) 650 mg PO Q4H PRN PRN Reason: Headache/Fever or Pain Last Admin: 04/19/17 12:01 Dose: 650 mg Hydrocodone Bitart/Acetaminophen ([place] 5/325) 1 tab PO Q4H PRN PRN Reason: Moderate Pain (4-6) Last Admin: 04/10/17 09:00 Dose: 1 tab Al Hydroxide/Mg Hydroxide (Maalox) 30 ml PO Q6H PRN PRN Reason: Heartburn or Indigestion Albuterol/Ipratropium (Duoneb) 3 ml NEB [id number] CHIO Last Admin: 04/24/17 06:22 Dose: 3 ml Alprazolam (Xanax) 0.25 mg PO BIDPRN PRN PRN Reason: Anxiety Last Admin: 04/19/17 12:02 Dose: 0.25 mg Amlodipine Besylate (Norvasc) 10 mg PO DAILY [facility] Last Admin: 04/24/17 09:01 Dose: 10 mg Lipase/Protease/[place] ([place] [id number]) 1 cap FS .PER PROTOCOL PRN PRN Reason: TUBE OCCLUSION PROTOCOL Artificial Tears (Tears Naturale) 0 drop EA EYE PRN PRN PRN Reason: Dry Eyes Aspirin (Aspirin Chewable) 81 mg PO DAILY [facility] Last Admin: 04/24/17 09:01 Dose: 81 mg Calcitriol (Rocaltrol) 0.25 mcg PO DAILY [facility] Last Admin: 04/24/17 09:00 Dose: 0.25 mcg Calcium Acetate (Phoslo) 1,334 mg PO TID-[facility] Last Admin: 04/24/17 09:01 Dose: 1,334 mg Clobazam (Clobazam) 10 mg PO BID [facility] Last Admin: 04/24/17 10:20 Dose: 10 mg Dextrose/Water (Dextrose 50%) 25 gm SLOW IVP PRN PRN PRN Reason: Hypoglycemia Epoetin Javier (Procrit) 10,000 units SC Q7D [facility] Last Admin: 04/22/17 15:46 Dose: 10,000 units Famotidine (Pepcid) 20 mg SLOW IVP DAILY [facility] Last Admin: 04/24/17 09:25 Dose: 20 mg Ferrous Sulfate (Feosol) 325 mg PO QAM-[facility] Last Admin: 04/24/17 09:00 Dose: 325 mg Glucagon (Glucagon) 1 mg IM PRN PRN PRN Reason: Hypoglycemia Guaifenesin (Robitussin Sf) 200 mg PO Q4H PRN PRN Reason: Cough Heparin Sodium (Porcine) (Heparin) 5,000 units SC BID [facility] Last Admin: 04/24/17 09:01 Dose: 5,000 units Hydralazine HCl (Apresoline) 10 mg SLOW IVP Q4H PRN PRN Reason: Systolic BP > 180 Last Admin: 04/20/17 14:36 Dose: 10 mg Dextrose/Water (D5w) 1,000 mls @ 0 mls/hr IV .Q0M PRN; As Directed PRN Reason: Hypoglycemia Piperacillin Sod/Tazobactam Sod 2.25 gm/ Miscellaneous Medication 1 each/ Sodium Chloride 100 mls @ 200 mls/hr IVPB Q8HR [facility] Last Admin: 04/24/17 05:41 Dose: 100 mls Fentanyl Citrate 2,000 mcg/ (Sodium Chloride) 100 mls @ 0 mls/hr IV INF CHIO; Per Protocol PRN Reason: Protocol Stop: 05/20/17 03:31 Fentanyl Citrate (Fentanyl Bolus) 250 mls @ 0 mls/hr IVPB PRN PRN; As Directed PRN Reason: Breakthrough pain Stop: 05/20/17 03:31 Sodium Bicarbonate 100 meq/ (Dextrose/Water) 1,100 mls @ 75 mls/hr IV .[id number] [facility] Last Admin: 04/24/17 00:47 Dose: 1,100 mls Levetiracetam 1,500 mg/ Device 100 mls @ 200 mls/hr IVPB BID [facility] Last Admin: 04/24/17 09:02 Dose: 100 mls Fosphenytoin Sodium 200 mg/ (Sodium Chloride) 54 mls @ 108 mls/hr IVPB BID [facility] Last Admin: 04/24/17 09:25 Dose: 54 mls Insulin Human Lispro (Humalog) 0 units SC .MODERATE SLIDING SC PRN PRN Reason: Moderate Correctional Scale Insulin Human Lispro (Humalog) 0 units SC .BEDTIME SLIDING SC PRN PRN Reason: Bedtime Correctional Scale Levothyroxine Sodium (Synthroid) 100 mcg PO 0600 [facility] Last Admin: 04/24/17 05:41 Dose: 100 mcg Loperamide HCl (Imodium) 2 mg PO PRN PRN PRN Reason: Diarrhea/Loose Stools Loratadine (Claritin) 10 mg PO DAILYPRN PRN PRN Reason: Sinus Symptoms Lorazepam (Ativan) 2 mg SLOW IVP Q2H PRN PRN Reason: Anxiety to achieve [place]ley 2-3 Stop: 05/20/17 03:31 Last Admin: 04/23/17 13:24 Dose: 2 mg Lorazepam (Ativan) 2 mg SLOW IVP Q6H PRN PRN Reason: Anxiety/Agitation Magnesium Hydroxide (Milk Of Magnesium) 30 ml PO DAILYPRN PRN PRN Reason: Constipation Mineral Oil/White Petrolatum (Eucerin Cream) 0 gm TOP BIDPRN PRN PRN Reason: Dry Skin Morphine Sulfate (Morphine) 2 mg SLOW IVP Q2H PRN PRN Reason: Breakthrough pain Stop: 05/20/17 03:34 Discontinue Previous Narcotic Pain Medications And Benzodiazepines 1 each FS .ONE [facility] Stop: 05/20/17 03:31 Ondansetron HCl (Zofran Odt) 4 mg PO Q6H PRN PRN Reason: Nausea/Vomiting Ondansetron HCl (Zofran) 4 mg IVP Q6H PRN PRN Reason: Nausea/Vomiting Last Admin: 04/12/17 13:07 Dose: 4 mg Phenol (Chloraseptic [place] 180 Ml Bot) 0 ml PO PRN PRN PRN Reason: Sore Throat Propofol (Diprivan) 1,000 mg IV INF PRN; Protocol PRN Reason: TO ACHIEVE MOTLEY SCORE 2-3 Stop: 05/20/17 03:31 Last Admin: 04/22/17 05:35 Dose: 1,000 mg Senna (Senokot) 2 tab PO HSPRN PRN PRN Reason: Constipation Sertraline HCl (Zoloft) 150 mg PO DAILY [facility] Last Admin: 04/24/17 09:00 Dose: 150 mg Sodium Bicarbonate (Bicarbonate, Sodium) 325 mg PO BID [facility] Last Admin: 04/24/17 09:00 Dose: 325 mg Sodium Bicarbonate (Bicarbonate, Sodium) 650 mg PER TUBE .PER PROTOCOL PRN PRN Reason: ENTERAL TUBE OCCLUSION Sodium Chloride ([place] Nasal [place] 0.65%) 0 ml EA NARE QIDPRN PRN PRN Reason: Nasal Congestion Sodium Chloride (Flush - Normal Saline) 10 ml IVF Q12HR [facility] Last Admin: 04/24/17 09:03 Dose: 10 ml Sodium Chloride (Flush - Normal Saline) 10 ml IVF PRN PRN PRN Reason: Saline Flush Vitamin B Complex/Vit C/Folic Acid (Nephro-Supriya Tablet) 1 tab PO DAILY [facility] Last Admin: 04/24/17 09:00 Dose: 1 tab
--- NOTE | 2017-04-24 12:16 | PRG ---
DATE OF SERVICE: 04/24/2017 SERVICE: Renal Medicine. SUBJECTIVE: Ms. Lorenzana is a 61-year-old black female with chronic renal failure with superimposed acut e kidney injury. Her renal function is much improved and has come back to near baseline. She also i n the ICU due to refractory seizures. Patient is currently still intubated. Her mentation somewhat decreased. OBJECTIVE: VITAL SIGNS: Blood pressure 157/72, heart rate 97. GENERAL: The patient has decreased mentation. She is intubated on ventilator support. SKIN: Adequate turgor. HEENT: Slightly pale conjunctivae, anicteric sclerae. NECK: No neck mass, no carotid bruits, no JVD. CHEST: No deformities. LUNGS: Clear breath sounds. HEART: Normal sinus rhythm. No murmur, no gallops, no rubs. ABDOMEN: Globular, soft, nontender, no masses. Positive for urostomy and colostomy. EXTREMITIES: No edema. MEDICATIONS: Of 04/24/2017 was reviewed. LABORATORY DATA: Of 04/24/2017, glucose 119. On 04/23/2017, BUN 24, creatinine 3.67, hemoglobin 7.4 . ASSESSMENT AND PLAN: 1. Acute kidney injury/chronic renal failure, stable renal function. Renal function is at baseline. There is no indication for any dialytic intervention at the present time. Continue supportive care . The patient is noted to be diuresing. 2. Seizure disorder. Stable - currently on anti-seizure protocol. Managed by Neurology. 3. Anemia, continuing weekly Epogen of 10,000 units subcutaneously every week, p.r.n. blood transfus ion for hemoglobin less than 7. We will be rechecking a basic met and CBC in a.m.
--- NOTE | 2017-04-24 13:59 | PRG ---
DATE OF SERVICE: 04/24/2017 SERVICE: Pulmonary Medicine. INTERVAL HISTORY: The patient is doing okay from a respiratory standpoint. This morning, she remains obtunded. A repeat EEG demonstrated persistent seizure activity. She had another dose of an antiepileptic drug. Outside of this, there has been no interval change to her condition. PHYSICAL EXAMINATION: VITAL SIGNS: T-max 100.9, pulse 79, blood pressure 174/78, respirations 23, saturation 95% on 27% FiO2 and a PEEP of 5. GENERAL: The patient is intubated. She is under the influence of no sedation, but remains encephalopathic. HEENT: Normocephalic, atraumatic. Sclerae are white. Conjunctivae pink. Oral and nasal mucosa is moist without lesions. LUNGS: Decent air entry. There is no prolonged expiratory phase. There is no wheezing, rhonchi, or crackles appreciated. HEART: Normal rate, regular. ABDOMEN: Soft, nontender, nondistended. Bowel sounds are positive. MUSCULOSKELETAL: No cyanosis or clubbing. There is no pitting in the bilateral lower extremities. NEUROLOGIC: Grossly nonfocal. LABORATORY DATA: Urine nephrostomy tube is growing Citrobacter freundii. ASSESSMENT: 1. Acute hypoxic respiratory failure, resolved. 2. Status epilepticus. 3. Chronic kidney disease. 4. 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 5. Urinary tract infection, complicated PLAN: We will continue her antibiotics and other supportive care. We are going to put her into a propofol coma. I will leave her there for 48 hours and will slowly wake her up. Pulmonary Critical Care will continue to follow while she remains in this location. Critical care time: 30 minutes. [facility]
[2017-04-24] MEDS: Propofol 1,000 MG/100 ML VIAL IV PRN (14:40)
--- NOTE | 2017-04-24 16:17 | MRI ---
EXAM: BRAIN MRI WITHOUT CONTRAST 04/24/17 HISTORY: Focal right upper extremity motor seizure. COMPARISON: None. TECHNIQUE: Brain MRI is performed without intravenous gadolinium administration. Multisequential, multiplanar im aging is performed. FINDINGS: Limited evaluation due to motion degradation. There are T2 and FLAIR white matter hyperintensities involving bilateral occipital lobes as well as t he left parietal lobe. These hyperintensities are predominantly confined to the white matter. There i s abnormal hyperintensity involving the kallie. There appears to be associated restricted diffusion. Calvarium has a normal T1 marrow signal intensity. Midline brain parenchymal structures are unremarka ble. Mucosal thickening of the sinuses is noted. IMPRESSION: Limited evaluation due to motion degradation. Abnormal white matter hyperintensity predominantly invo lving the posterior cerebrum and kallie. Distribution favors PRES. Correlate clinically. There is assoc iated restricted diffusion. ADDENDUM: Results were discussed with Dr. Jovel who states that the patient has been in status epilepticus fo r multiple days. PRES and status epilepticus have a similar imaging feature. Given patient's history, status epilepticus is the favored differential diagnosis. POS: REGINE
[2017-04-24] MEDS: hydrALAZINE 20 MG/ML VIAL SLOW IVP PRN (16:31)
[2017-04-24] MEDS ORDERED: Dexamethasone 4 mg/ml Vial SLOW IVP SCH (19:00)
[2017-04-24] MEDS: Dexamethasone 4 mg/ml Vial SLOW IVP SCH (19:34)
--- NOTE | 2017-04-24 20:02 | PRG ---
DATE OF SERVICE: 04/24/2017 SUBJECTIVE: The patient remains intubated and on IV sedation. She had an EEG done earlier this morning which showed generalized 10-second burst of subclinical seizure activity occurring repetitively throughout the study. An extra loading dose of Cerebyx 500 mg was given earlier today. MRI of the brain was obtained this afternoon. There is patchy subcortical white matter high signal on flair sequences involving the left hemisphere without any mass effect or shift. There are a few smaller areas seen on the right. The case was discussed with Dr. Diaz. This can be seen with status epilepticus or PRESS. Her blood pressure has only been nominally elevated. I discussed the situation with her son that we are running out of options. We are going to start her on some Decadron and maximize her Dilantin level. We will repeat EEG tomorrow and determine whether a transfer to tertiary care center might be necessary. IVONE
[2017-04-25] MEDS: Dexamethasone 4 mg/ml Vial SLOW IVP SCH ×4 (03:29→20:56)
[2017-04-25 04:20] LABS: #Basophils 0.1 thou/uL (0.0-0.2); #Eosinphils 0.1 thou/uL (0.0-0.7); #Lymphocytes 1.7 thou/uL (1.20-3.40); #Monocytes 1.3 thou/uL (0.11-0.59); #Neutrophils 7.1 thou/uL (1.40-6.50); %Basophils 0.7 % (0.0-1.0); %Lymphocytes 16.1 % (21.0-51.0); %Monocytes 13.1 % (0.0-10.0); %Neutrophils 69.1 % (42.0-75.0); Hemoglobin 7.4 g/dL (12.0-16.0); Mean Corpuscular HGB CONC 31.5 g/dL (32.0-36.0); Mean Corpuscular Hemoglobin 30.4 pg (27.0-31.0); Mean Corpuscular Volume 96.5 fl (81.0-99.0); Mean Platelet Volume 7.4 fL (7.4-10.4); Platelet Count 196 thou/uL (130-400); RBC Distribution Width 17.3 % (11.5-14.5); Red Blood Cell (RBC) Count 2.44 mill/uL (4.20-5.40); White Blood Cell (WBC) Count 10.2 thou/uL (4.8-10.8)
[2017-04-25 04:32] LABS: Anion Gap 11 mmol/L (10-20); BUN (Urea Nitrogen) 26 mg/dL (9.8-20.1); Calc. Creatinine Clearance 28 mL/min (70-130); Calcium 8.8 mg/dL (7.8-10.44); Carbon Dioxide 32 mmol/L (23-31); Chloride 102 mmol/L (98-107); Estimated GFR-MDRD 16; Glucose 98 mg/dL (80-115); Potassium 3.4 mmol/L (3.5-5.1); Sodium 142 mmol/L (136-145)
[2017-04-25] MEDS: Piperacillin/Tazobactam 2.25 GM, Admixture Fee 1 EACH in Sodium Chloride 0.9% 100 ML IVPB SCH ×3 (05:10→21:15)
[2017-04-25] MEDS: Levothyroxine Sodium 100 MCG TAB PO SCH (05:11)
[2017-04-25] MEDS: Sodium Bicarbonate 100 MEQ in Dextrose 5% in Water 1,000 ML IV SCH ×2 (05:24)
[2017-04-25] MEDS: Calcium Acetate 667 MG CAP PO SCH ×3 (08:58→16:27)
[2017-04-25] MEDS: Ferrous Sulfate 325 MG TAB PO SCH (08:59)
[2017-04-25] MEDS: Amlodipine 10 MG TAB PO SCH (08:59)
[2017-04-25] MEDS: Calcitriol 0.25 MCG CAP PO SCH (09:00)
[2017-04-25] MEDS: Folic Acid/Vit B Comp W-C PO SCH (09:00)
[2017-04-25] MEDS: Fosphenytoin Sodium 200 MG in Sodium Chloride 0.9% 50 ML IVPB SCH ×2 (09:00→20:56)
[2017-04-25] MEDS: levETIRAcetam In NaCl (Iso-Os) 1,500 MG in Premix Bag 1 BAG IVPB SCH ×4 (09:01→20:56)
[2017-04-25] MEDS: Sodium Bicarbonate Tab 325 MG TAB PO SCH ×4 (09:01→21:09)
[2017-04-25] MEDS: Heparin 5,000 UNITS/ML VIAL SC SCH ×2 (09:01→20:57)
--- NOTE | 2017-04-25 09:31 | PRG ---
DATE OF SERVICE: 04/25/2017. SUBJECTIVE: Ms. Lorenzana is a 61-year-old black female followed up by the Renal Service for her chronic renal failure. She has a superimposed acute kidney injury that was hemodynamically mediated renal dy sfunction. Over time this has improved with volume repletion. She is currently in ICU due to refrac tory seizures. Repeat EEG has been ordered by Dr. Jovel, her neurologist. No acute events last ni ght. PHYSICAL EXAMINATION: VITAL SIGNS: Blood pressure is 178/107, heart rate 94. GENERAL: The patient is sedated and intubated on ventilator support. SKIN: Adequate turgor. HEENT: Slightly pale conjunctivae, anicteric sclerae. NECK: No neck mass, no carotid bruits, no JVD. CHEST: No deformities. LUNGS: Decreased breath sounds. HEART: Normal sinus rhythm. No murmur, no gallops, no rubs. ABDOMEN: Globular, soft, nontender, no masses. EXTREMITIES: No edema, no deformities. Please note she has colostomy and urostomy. MEDICATIONS: 04/25/2017 - Reviewed. LABORATORY: White count 10.2, hemoglobin 7.4, sodium 142, potassium 3.4, chloride 102, carbon dioxid e 32, BUN 26, creatinine 3.52, glucose is 98, calcium 8.8. ASSESSMENT AND PLAN: 1. Chronic renal failure/acute kidney injury. Stable renal function. Renal function remains stable for the last several days. She is probably at baseline GFR. There is no indication for any dialyti c intervention. Please note her GFR is noted at 16 mL per minute and this places her at stage 4 business services manager henna renal failure. Continue supportive care. 2. Seizure disorder. Neurology is following. The patient is on anti-seizure meds. 3. Anemia, stable, p.r.n. blood transfusion, continuing weekly Epogen.
[2017-04-25] MEDS: Propofol 1,000 MG/100 ML VIAL IV PRN ×5 (09:32→23:52)
[2017-04-25] MEDS: Famotidine 40 MG/4 ML VIAL SLOW IVP SCH (09:32)
[2017-04-25] MEDS: Famotidine/PF 20 mg/2ml Vial SLOW IVP SCH (10:33)
[2017-04-25] MEDS ORDERED: Norepinephrine 8 MG/0.9% NS 250 ML IVPB SCH (11:00)
--- NOTE | 2017-04-25 11:16 | PRG ---
DATE OF SERVICE: 04/25/2017 SERVICE: Pulmonary Medicine. INTERVAL HISTORY: The patient is doing very poorly from a neurologic standpoint. She will continual ly have on and off seizure activity. She is on multiple antiepileptic drugs. She is put on propofol , but this was discontinued this morning. She is not waking up smoothly and has continued to have tw itching motions. Previously, she demonstrated epileptiform discharges with those twitching motions a nd overt seizure activity with these twitching motions. My presumption is she is still having seizur es. Today, we are going to put her into propofol coma and leave her there for the next 48 hours befo re considering withdrawal of that. PHYSICAL EXAMINATION: VITAL SIGNS: Afebrile currently with a T-max of 100.9 yesterday afternoon. Pulse 77, blood pressure 104/49, respirations 11, saturation 94% on 27% FiO2 and a PEEP of 5. GENERAL: Patient is intubated. HEENT: Normocephalic, atraumatic. Sclerae are white, conjunctivae pink. Oral mucosa is moist witho ut lesions. LUNGS: Decent air entry. There is no prolonged expiratory phase or wheezing present. HEART: Normal rate, regular. ABDOMEN: Soft, nontender, nondistended. Bowel sounds are positive. MUSCULOSKELETAL: No cyanosis or clubbing. No pitting in the bilateral lower extremities. NEUROLOGIC: Grossly nonfocal. LABORATORY DATA: WBC 10.2, hemoglobin 7.4, platelets 196,000. Creatinine 3.52 and roughly stable. BUN 26, bicarbonate 32 and trending upward. Potassium 3.4. Nephrostomy tube is growing Citrobacter, which has a fairly extensive resistance profile, but is sensitive to Zosyn. IMAGING: MRI of the brain demonstrates motion degradation. That being said, there is white matter h yperintensity predominantly displayed throughout the posterior cerebral kallie. 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 Restricted diffusion is also identified. Status epileptic us may create similar findings, however. ASSESSMENT: 1. Acute hypoxic respiratory failure. 2. Status epilepticus. 3. Chronic kidney disease. 4. 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 5. Urinary tract infection, complicated. PLAN: We will continue Zosyn to treat a total duration of 10 days. We will put the patient into a p ropofol coma for the next 48 hours and slowly wean this away. Hopefully, her seizure activity will h ave stopped. If it has, she can be considered for extubation. I am going to discontinue her bicarbo gloria drip for the time being, but this may need to be restarted. We will put her on her home p.o. bi carbonate. Pulmonary Critical Care will continue to follow while the patient remains in this locatio n. Critical care time: 30 minutes.
--- NOTE | 2017-04-25 11:23 | PDOC.PN ---
- Subjective Encounter Start Date: 04/25/17 Encounter Start Time: 09:40 Patient seen and examined. pt is intubated and sedated. No overnight events - Objective Resuscitation Status: Resuscitation Status FULL:Full Resuscitation MAR Reviewed: Yes Vital Signs & Weight: Vital Signs (12 hours) Temp Pulse Resp BP Pulse Ox 04/25/17 10:30 77 104/49 L 04/25/17 10:00 11 L 04/25/17 08:59 94 179/84 H 04/25/17 08:00 99.1 F 22 H 04/25/17 07:59 94 178/107 H 04/25/17 04:00 99 F 14 04/25/17 02:00 18 04/25/17 00:50 81 11 L 94 L 04/25/17 00:00 99.1 F 12 Weight Admit Weight 222 lb 8 oz Weight 237 lb 1.6 oz Most Recent Monitor Data Heart Rate from ECG 75 NIBP 111/55 NIBP BP-Mean 74 Respiration from ECG 15 SpO2 94 I&O: 04/24/17 04/25/17 04/26/17 06:59 06:59 06:59 Intake Total 3493 3358 145 Output Total 3345 2600 Balance 148 758 145 Result Diagrams: 04/25/17 04:00 04/25/17 04:00 Additional Labs: Accuchecks 04/24/17 04/24/17 04/24/17 21:05 16:32 11:15 POC Glucose 110 101 112 H Radiology Reviewed by me: Yes (MRI) EKG Reviewed by me: Yes (NSR) Phys Exam - Physical Examination Constitutional: NAD intubated sedated HEENT: PERRLA, sclera anicteric Neck: no JVD, supple Respiratory: no wheezing, no rales, no rhonchi Cardiovascular: RRR, no significant murmur, no rub Gastrointestinal: soft, no distention, positive bowel sounds Musculoskeletal: no edema, pulses present Lymphatic: no nodes Skin: no rash, normal turgor Dx/Plan (1) Acute metabolic encephalopathy Code(s): G93.41 - METABOLIC ENCEPHALOPATHY Status: Acute Comment: (2) Acute respiratory failure with hypoxia Code(s): J96.01 - ACUTE RESPIRATORY FAILURE WITH HYPOXIA Status: Acute Comment: on ventilator (3) Acute worsening of stage 4 chronic kidney disease Code(s): N28.9 - DISORDER OF KIDNEY AND URETER, UNSPECIFIED; N18.4 - CHRONIC KIDNEY DISEASE, STAGE 4 (SEVERE) Status: Acute Comment: (4) Metabolic acidosis Code(s): E87.2 - ACIDOSIS Status: Acute Comment: (5) Pneumonia Code(s): J18.9 - PNEUMONIA, UNSPECIFIED ORGANISM Status: Acute Qualifiers: Pneumonia type: aspiration pneumonia Aspiration pneumonia type: due to gastric secretions Laterality: bilateral Lung location: lower lobe of lung Qualified Code(s): J69.0 - Pneumonitis due to inhalation of food and vomit Comment: (6) Status epilepticus Code(s): G40.901 - EPILEPSY, UNSP, NOT INTRACTABLE, WITH STATUS EPILEPTICUS Status: Acute (7) UTI (urinary tract infection) Status: Acute Comment: (8) Anxiety and depression Code(s): F41.8 - OTHER SPECIFIED ANXIETY DISORDERS Status: Chronic Comment: (9) Bilateral hydronephrosis Code(s): N13.30 - UNSPECIFIED HYDRONEPHROSIS Status: Chronic (10) DM type 2 (diabetes mellitus, type 2) Status: Chronic Qualifiers: Diabetes mellitus complication status: with kidney complications Diabetes mellitus complication detail: with chronic kidney disease Diabetes mellitus chcf insulin use: with oil heaterman use Chronic kidney disease stage: stage 5, not on chronic dialysis Qualified Code(s): E11.22 - Type 2 diabetes mellitus with diabetic chronic kidney disease; N18.5 - Chronic kidney disease, stage 5; N18.5 - Chronic kidney disease, stage 5; N18.5 - Chronic kidney disease , stage 5; N18.5 - Chronic kidney disease, stage 5; Z79.4 - intermediate accountant (current) use of insulin; Z79.4 - intermediate accountant (current) use of insulin; Z79.4 - intermediate accountant ( current) use of insulin; Z79.4 - custodial (current) use of insulin Comment: At goal. (11) HTN (hypertension) Code(s): I10 - ESSENTIAL (PRIMARY) HYPERTENSION Status: Chronic Qualifiers: Hypertension type: essential hypertension (12) Hypothyroidism Code(s): E03.9 - HYPOTHYROIDISM, UNSPECIFIED Status: Chronic Qualifiers: Hypothyroidism type: unspecified Qualified Code(s): E03.9 - Hypothyroidism , unspecified Comment: Continue Levothyroxine. (13) Physical deconditioning Code(s): R53.81 - OTHER MALAISE Status: Chronic Comment: (14) Sacral decubitus ulcer, stage IV Code(s): L89.154 - PRESSURE ULCER OF SACRAL REGION, STAGE 4 Status: Chronic Comment: (15) Seizure disorder Code(s): G40.909 - EPILEPSY, UNSP, NOT INTRACTABLE, WITHOUT STATUS EPILEPTICUS Status: Chronic Comment: (16) Hypomagnesemia Code(s): E83.42 - HYPOMAGNESEMIA Status: Resolved - Plan cont current plan of care, plan discussed w/ family, blank catheter, continue antibiotics, respiratory therapy * today updated family about current condition and plan * medication reviewed as below * symptomatic treatment * pulmonary and neurology managing. Review of Systems - Review of Systems Other: unable to review due to intubated status - Medications/Allergies Allergies/Adverse Reactions: Allergies Allergy/AdvReac Type Severity Reaction Status Date / Time banana Allergy Verified 05/10/16 08:43 chocolate flavor Allergy Verified 05/10/16 08:43 egg Allergy Verified 05/10/16 08:43 Iodinated Contrast- Oral and Allergy Verified 05/10/16 08:44 IV Dye [Iodinated Contrast Media - Oral and] iodine Allergy Verified 05/10/16 08:43 latex Allergy Verified 05/10/16 08:43 orange juice Allergy Verified 05/10/16 08:43 tolterodine tartrate Allergy Verified 05/10/16 08:43 [From Detrol] tomato Allergy Verified 05/10/16 08:43 Medications: Current Medications Acetaminophen (Tylenol) 650 mg PO Q4H PRN PRN Reason: Headache/Fever or Pain Last Admin: 04/19/17 12:01 Dose: 650 mg Hydrocodone Bitart/Acetaminophen ([place] 5/325) 1 tab PO Q4H PRN PRN Reason: Moderate Pain (4-6) Last Admin: 04/10/17 09:00 Dose: 1 tab Al Hydroxide/Mg Hydroxide (Maalox) 30 ml PO Q6H PRN PRN Reason: Heartburn or Indigestion Albuterol/Ipratropium (Duoneb) 3 ml NEB [id number] CHIO Last Admin: 04/25/17 07:57 Dose: 3 ml Alprazolam (Xanax) 0.25 mg PO BIDPRN PRN PRN Reason: Anxiety Last Admin: 04/19/17 12:02 Dose: 0.25 mg Amlodipine Besylate (Norvasc) 10 mg PO DAILY REPLACED BY [facility] Last Admin: 04/25/17 08:59 Dose: 10 mg Lipase/Protease/Amylase ([place] [id number]) 1 cap FS .PER PROTOCOL PRN PRN Reason: TUBE OCCLUSION PROTOCOL Artificial Tears (Tears Naturale) 0 drop EA EYE PRN PRN PRN Reason: Dry Eyes Aspirin (Aspirin Chewable) 81 mg PO DAILY REPLACED BY [facility] Last Admin: 04/25/17 08:59 Dose: 81 mg Calcitriol (Rocaltrol) 0.25 mcg PO DAILY REPLACED BY [facility] Last Admin: 04/25/17 09:00 Dose: Not Given Calcium Acetate (Phoslo) 1,334 mg PO TID-[facility] Last Admin: 04/25/17 08:58 Dose: 1,334 mg Clobazam (Clobazam) 10 mg PO BID REPLACED BY [facility] Last Admin: 04/25/17 10:10 Dose: 10 mg Dexamethasone (Decadron) 4 mg SLOW IVP 0200,0800,1400,2000 REPLACED BY [facility] Last Admin: 04/25/17 08:58 Dose: 4 mg Dextrose/Water (Dextrose 50%) 25 gm SLOW IVP PRN PRN PRN Reason: Hypoglycemia Epoetin Javier (Procrit) 10,000 units SC Q7D REPLACED BY [facility] Last Admin: 04/22/17 15:46 Dose: 10,000 units Famotidine (Pepcid) 20 mg SLOW IVP DAILY REPLACED BY [facility] Last Admin: 04/25/17 09:32 Dose: 20 mg Ferrous Sulfate (Feosol) 325 mg PO QAM-[facility] Last Admin: 04/25/17 08:59 Dose: 325 mg Glucagon (Glucagon) 1 mg IM PRN PRN PRN Reason: Hypoglycemia Guaifenesin (Robitussin Sf) 200 mg PO Q4H PRN PRN Reason: Cough Heparin Sodium (Porcine) (Heparin) 5,000 units SC BID REPLACED BY [facility] Last Admin: 04/25/17 09:01 Dose: 5,000 units Hydralazine HCl (Apresoline) 10 mg SLOW IVP Q4H PRN PRN Reason: Systolic BP > 180 Last Admin: 04/24/17 16:31 Dose: 10 mg Dextrose/Water (D5w) 1,000 mls @ 0 mls/hr IV .Q0M PRN; As Directed PRN Reason: Hypoglycemia Piperacillin Sod/Tazobactam Sod 2.25 gm/ Miscellaneous Medication 1 each/ Sodium Chloride 100 mls @ 200 mls/hr IVPB Q8HR REPLACED BY [facility] Last Admin: 04/25/17 05:10 Dose: 100 mls Fentanyl Citrate 2,000 mcg/ (Sodium Chloride) 100 mls @ 0 mls/hr IV INF CHIO; Per Protocol PRN Reason: Protocol Stop: 05/20/17 03:31 Fentanyl Citrate (Fentanyl Bolus) 250 mls @ 0 mls/hr IVPB PRN PRN; As Directed PRN Reason: Breakthrough pain Stop: 05/20/17 03:31 Sodium Bicarbonate 100 meq/ (Dextrose/Water) 1,100 mls @ 75 mls/hr IV .[id number] REPLACED BY [facility] Last Admin: 04/25/17 05:24 Dose: 1,100 mls Levetiracetam 1,500 mg/ Device 100 mls @ 200 mls/hr IVPB BID REPLACED BY [facility] Last Admin: 04/25/17 09:01 Dose: 100 mls Fosphenytoin Sodium 200 mg/ (Sodium Chloride) 54 mls @ 108 mls/hr IVPB BID REPLACED BY [facility] Last Admin: 04/25/17 09:00 Dose: 54 mls Norepinephrine Bitartrate (Levophed) 250 mls @ 0 mls/hr IVPB INF REPLACED BY [facility]; Titrate PRN Reason: Protocol Insulin Human Lispro (Humalog) 0 units SC .MODERATE SLIDING SC PRN PRN Reason: Moderate Correctional Scale Insulin Human Lispro (Humalog) 0 units SC .BEDTIME SLIDING SC PRN PRN Reason: Bedtime Correctional Scale Levothyroxine Sodium (Synthroid) 100 mcg PO 0600 REPLACED BY [facility] Last Admin: 04/25/17 05:11 Dose: 100 mcg Loperamide HCl (Imodium) 2 mg PO PRN PRN PRN Reason: Diarrhea/Loose Stools Loratadine (Claritin) 10 mg PO DAILYPRN PRN PRN Reason: Sinus Symptoms Lorazepam (Ativan) 2 mg SLOW IVP Q2H PRN PRN Reason: Anxiety to achieve [place]ley 2-3 Stop: 05/20/17 03:31 Last Admin: 04/23/17 13:24 Dose: 2 mg Lorazepam (Ativan) 2 mg SLOW IVP Q6H PRN PRN Reason: Anxiety/Agitation Magnesium Hydroxide (Milk Of Magnesium) 30 ml PO DAILYPRN PRN PRN Reason: Constipation Mineral Oil/White Petrolatum (Eucerin Cream) 0 gm TOP BIDPRN PRN PRN Reason: Dry Skin Morphine Sulfate (Morphine) 2 mg SLOW IVP Q2H PRN PRN Reason: Breakthrough pain Stop: 05/20/17 03:34 Discontinue Previous Narcotic Pain Medications And Benzodiazepines 1 each FS .ONE REPLACED BY [facility] Stop: 05/20/17 03:31 Ondansetron HCl (Zofran Odt) 4 mg PO Q6H PRN PRN Reason: Nausea/Vomiting Ondansetron HCl (Zofran) 4 mg IVP Q6H PRN PRN Reason: Nausea/Vomiting Last Admin: 04/12/17 13:07 Dose: 4 mg Phenol (Chloraseptic [place] 180 Ml Bot) 0 ml PO PRN PRN PRN Reason: Sore Throat Potassium Chloride (Klor-Con) 20 meq PO NOW REPLACED BY [facility] Stop: 04/25/17 13:00 Propofol (Diprivan) 1,000 mg IV INF PRN; Protocol PRN Reason: TO ACHIEVE MOTLEY SCORE 2-3 Stop: 05/20/17 03:31 Last Admin: 04/25/17 09:32 Dose: 1,000 mg Senna (Senokot) 2 tab PO HSPRN PRN PRN Reason: Constipation Sertraline HCl (Zoloft) 150 mg PO DAILY REPLACED BY [facility] Last Admin: 04/25/17 09:01 Dose: 150 mg Sodium Bicarbonate (Bicarbonate, Sodium) 325 mg PO BID REPLACED BY [facility] Last Admin: 04/25/17 09:01 Dose: 325 mg Sodium Bicarbonate (Bicarbonate, Sodium) 650 mg PER TUBE .PER PROTOCOL PRN PRN Reason: ENTERAL TUBE OCCLUSION Sodium Bicarbonate (Bicarbonate, Sodium) 325 mg PO BID REPLACED BY [facility] Sodium Chloride ([place] Nasal [place] 0.65%) 0 ml EA NARE QIDPRN PRN PRN Reason: Nasal Congestion Sodium Chloride (Flush - Normal Saline) 10 ml IVF Q12HR REPLACED BY [facility] Last Admin: 04/25/17 09:02 Dose: 10 ml Sodium Chloride (Flush - Normal Saline) 10 ml IVF PRN PRN PRN Reason: Saline Flush Vitamin B Complex/Vit C/Folic Acid (Nephro-Supriya Tablet) 1 tab PO DAILY REPLACED BY [facility] Last Admin: 04/25/17 09:00 Dose: 1 tab
[2017-04-26] MEDS: Dexamethasone 4 mg/ml Vial SLOW IVP SCH ×4 (02:58→20:43)
[2017-04-26] MEDS: Propofol 1,000 MG/100 ML VIAL IV PRN ×7 (02:58→22:11)
[2017-04-26] MEDS: Piperacillin/Tazobactam 2.25 GM, Admixture Fee 1 EACH in Sodium Chloride 0.9% 100 ML IVPB SCH ×3 (05:18→21:10)
[2017-04-26] MEDS: Levothyroxine Sodium 100 MCG TAB PO SCH (05:19)
[2017-04-26] MEDS: Calcium Acetate 667 MG CAP PO SCH ×3 (08:55→16:35)
[2017-04-26] MEDS: Ferrous Sulfate 325 MG TAB PO SCH (08:55)
[2017-04-26] MEDS: Amlodipine 10 MG TAB PO SCH (09:10)
[2017-04-26] MEDS: Calcitriol 0.25 MCG CAP PO SCH (09:12)
[2017-04-26] MEDS: Fosphenytoin Sodium 200 MG in Sodium Chloride 0.9% 50 ML IVPB SCH ×2 (09:13→20:44)
[2017-04-26] MEDS: Folic Acid/Vit B Comp W-C PO SCH (09:13)
[2017-04-26] MEDS: Heparin 5,000 UNITS/ML VIAL SC SCH ×2 (09:13→20:44)
[2017-04-26] MEDS: Famotidine 40 MG/4 ML VIAL SLOW IVP SCH (09:13)
[2017-04-26] MEDS: levETIRAcetam In NaCl (Iso-Os) 1,500 MG in Premix Bag 1 BAG IVPB SCH ×4 (09:14→20:44)
[2017-04-26] MEDS: Sodium Bicarbonate Tab 325 MG TAB PO SCH ×2 (09:14→20:44)
--- NOTE | 2017-04-26 09:39 | PRG ---
DATE OF SERVICE: 04/26/2017 RENAL MEDICINE SUBJECTIVE: Ms. Lorenzana is a 61-year-old black female being followed by the Renal Service for acute kid nathan injury on top of her chronic renal failure. She initially came with creatinine of about 8.3 mill igram percent. Empiric volume repletion was given with improvement of her creatinine. She is curren tly at baseline GFR. In the interim, she has developed refractory seizure. She is being followed by Neurology. EEG suggests that there is still ongoing seizure with her. PHYSICAL EXAMINATION: VITAL SIGNS: Blood pressure 147/68, heart rate 62, respiratory rate 15, O2 sat is 90%. GENERAL: Sedated and intubated on ventilator support. SKIN: Adequate turgor. HEENT: She has slightly pale conjunctivae, anicteric sclerae. NECK: No neck mass, no carotid bruits, no JVD. CHEST: No deformities. LUNGS: Decreased breath sounds. HEART: Normal sinus rhythm. No murmurs, no gallops, no rubs. ABDOMEN: Globular, soft, nontender. Positive for ostomy. Positive for bowel sounds. EXTREMITIES: No edema or deformities. MEDICATIONS: Medications of 04/26/2017 was reviewed. LABORATORY DATA: Laboratories of 04/25/2017; white count 10.2, hemoglobin 7.4, sodium 142, potassium 3.4, chloride 102, carbon dioxide 32, BUN 26, creatinine 3.52, calcium 8.8. On 04/26/2017, glucose 117. ASSESSMENT AND PLAN: 1. Acute kidney injury on top of chronic renal failure, stable renal function. No indication for an y dialytic intervention. My last creatinine was 3.52. The plan is to recheck another base met and C BC. 2. Anemia - on weekly Epogen p.r.n. blood transfusion. 3. Seizure disorder - on anti-seizure medications. Neurology is following. Overall, prognosis elliot ins guarded. We will recheck basic metabolic panel and CBC in a.m.
--- NOTE | 2017-04-26 10:50 | PDOC.PN ---
- Subjective Encounter Start Date: 04/26/17 Encounter Start Time: 09:20 Patient seen and examined. No overnight events, pt is intubated - Objective Resuscitation Status: Resuscitation Status FULL:Full Resuscitation MAR Reviewed: Yes Vital Signs & Weight: Vital Signs (12 hours) Temp Pulse Resp 04/26/17 10:00 15 04/26/17 09:57 61 04/26/17 09:10 63 04/26/17 08:00 97.7 F 15 04/26/17 06:57 63 04/26/17 06:00 15 04/26/17 04:00 15 04/26/17 03:00 98.8 F 04/26/17 02:24 68 04/26/17 02:00 15 04/26/17 00:00 15 04/25/17 23:00 98.8 F Weight Admit Weight 222 lb 8 oz Weight 235 lb 0.204 oz Most Recent Monitor Data Heart Rate from ECG 62 NIBP 156/79 NIBP BP-Mean 91 Respiration from ECG 15 SpO2 96 I&O: 04/25/17 04/26/17 04/27/17 06:59 06:59 06:59 Intake Total 3358 2652 150 Output Total 2600 Balance 758 2652 150 Result Diagrams: 04/25/17 04:00 04/25/17 04:00 Additional Labs: Accuchecks 04/26/17 04/26/17 04/25/17 06:25 00:52 18:00 POC Glucose 117 H 115 H 115 H 04/25/17 11:17 POC Glucose 108 EKG Reviewed by me: Yes (nsr) Phys Exam - Physical Examination Constitutional: NAD intubated HEENT: PERRLA, sclera anicteric Neck: no JVD, supple Respiratory: no wheezing, no rales, no rhonchi Cardiovascular: RRR, no significant murmur, no rub Gastrointestinal: soft, no distention, positive bowel sounds Musculoskeletal: no edema, pulses present Lymphatic: no nodes Skin: no rash Dx/Plan (1) Acute metabolic encephalopathy Code(s): G93.41 - METABOLIC ENCEPHALOPATHY Status: Acute Comment: (2) Acute respiratory failure with hypoxia Code(s): J96.01 - ACUTE RESPIRATORY FAILURE WITH HYPOXIA Status: Acute Comment: on ventilator (3) Acute worsening of stage 4 chronic kidney disease Code(s): N28.9 - DISORDER OF KIDNEY AND URETER, UNSPECIFIED; N18.4 - CHRONIC KIDNEY DISEASE, STAGE 4 (SEVERE) Status: Acute Comment: (4) Metabolic acidosis Code(s): E87.2 - ACIDOSIS Status: Acute Comment: (5) Pneumonia Code(s): J18.9 - PNEUMONIA, UNSPECIFIED ORGANISM Status: Acute Qualifiers: Pneumonia type: aspiration pneumonia Aspiration pneumonia type: due to gastric secretions Laterality: bilateral Lung location: lower lobe of lung Qualified Code(s): J69.0 - Pneumonitis due to inhalation of food and vomit Comment: (6) Status epilepticus Code(s): G40.901 - EPILEPSY, UNSP, NOT INTRACTABLE, WITH STATUS EPILEPTICUS Status: Acute (7) UTI (urinary tract infection) Status: Acute Comment: (8) Anxiety and depression Code(s): F41.8 - OTHER SPECIFIED ANXIETY DISORDERS Status: Chronic Comment: (9) Bilateral hydronephrosis Code(s): N13.30 - UNSPECIFIED HYDRONEPHROSIS Status: Chronic (10) DM type 2 (diabetes mellitus, type 2) Status: Chronic Qualifiers: Diabetes mellitus complication status: with kidney complications Diabetes mellitus complication detail: with chronic kidney disease Diabetes mellitus continuous churn buttermaker insulin use: with senior living use Chronic kidney disease stage: stage 5, not on chronic dialysis Qualified Code(s): E11.22 - Type 2 diabetes mellitus with diabetic chronic kidney disease; N18.5 - Chronic kidney disease, stage 5; N18.5 - Chronic kidney disease, stage 5; N18.5 - Chronic kidney disease , stage 5; N18.5 - Chronic kidney disease, stage 5; Z79.4 - custodial (current) use of insulin; Z79.4 - terminal press operator (current) use of insulin; Z79.4 - custodial ( current) use of insulin; Z79.4 - custodial (current) use of insulin Comment: At goal. (11) HTN (hypertension) Code(s): I10 - ESSENTIAL (PRIMARY) HYPERTENSION Status: Chronic Qualifiers: Hypertension type: essential hypertension (12) Hypothyroidism Code(s): E03.9 - HYPOTHYROIDISM, UNSPECIFIED Status: Chronic Qualifiers: Hypothyroidism type: unspecified Qualified Code(s): E03.9 - Hypothyroidism , unspecified Comment: Continue Levothyroxine. (13) Physical deconditioning Code(s): R53.81 - OTHER MALAISE Status: Chronic Comment: (14) Sacral decubitus ulcer, stage IV Code(s): L89.154 - PRESSURE ULCER OF SACRAL REGION, STAGE 4 Status: Chronic Comment: (15) Seizure disorder Code(s): G40.909 - EPILEPSY, UNSP, NOT INTRACTABLE, WITHOUT STATUS EPILEPTICUS Status: Chronic Comment: (16) Hypomagnesemia Code(s): E83.42 - HYPOMAGNESEMIA Status: Resolved - Plan cont current plan of care, continue antibiotics, respiratory therapy * finish course of zosyn * neurology and pulmonary managing * medication reviewed as below * symptomatic treatment. Review of Systems - Review of Systems Other: unable to review due to intubated status - Medications/Allergies Allergies/Adverse Reactions: Allergies Allergy/AdvReac Type Severity Reaction Status Date / Time banana Allergy Verified 05/10/16 08:43 chocolate flavor Allergy Verified 05/10/16 08:43 egg Allergy Verified 05/10/16 08:43 Iodinated Contrast- Oral and Allergy Verified 05/10/16 08:44 IV Dye [Iodinated Contrast Media - Oral and] iodine Allergy Verified 05/10/16 08:43 latex Allergy Verified 05/10/16 08:43 orange juice Allergy Verified 05/10/16 08:43 tolterodine tartrate Allergy Verified 05/10/16 08:43 [From Detrol] tomato Allergy Verified 05/10/16 08:43 Medications: Current Medications Acetaminophen (Tylenol) 650 mg PO Q4H PRN PRN Reason: Headache/Fever or Pain Last Admin: 04/19/17 12:01 Dose: 650 mg Al Hydroxide/Mg Hydroxide (Maalox) 30 ml PO Q6H PRN PRN Reason: Heartburn or Indigestion Albuterol/Ipratropium (Duoneb) 3 ml NEB T1ND-QT CHIO Last Admin: 04/26/17 06:57 Dose: 3 ml Amlodipine Besylate (Norvasc) 10 mg PO DAILY [facility] Last Admin: 04/26/17 09:10 Dose: Not Given Lipase/Protease/Amylase ([place] [id number]) 1 cap FS .PER PROTOCOL PRN PRN Reason: TUBE OCCLUSION PROTOCOL Artificial Tears (Tears Naturale) 0 drop EA EYE PRN PRN PRN Reason: Dry Eyes Aspirin (Aspirin Chewable) 81 mg PO DAILY [facility] Last Admin: 04/26/17 09:10 Dose: 81 mg Calcitriol (Rocaltrol) 0.25 mcg PO DAILY [facility] Last Admin: 04/26/17 09:12 Dose: Not Given Calcium Acetate (Phoslo) 1,334 mg PO TID-[facility] Last Admin: 04/26/17 08:55 Dose: 1,334 mg Clobazam (Clobazam) 10 mg PO BID [facility] Last Admin: 04/26/17 10:23 Dose: 10 mg Dexamethasone (Decadron) 4 mg SLOW IVP 0200,0800,1400,2000 [facility] Last Admin: 04/26/17 08:55 Dose: 4 mg Dextrose/Water (Dextrose 50%) 25 gm SLOW IVP PRN PRN PRN Reason: Hypoglycemia Epoetin Javier (Procrit) 10,000 units SC Q7D [facility] Last Admin: 04/22/17 15:46 Dose: 10,000 units Famotidine (Pepcid) 20 mg SLOW IVP DAILY [facility] Last Admin: 04/26/17 09:13 Dose: 20 mg Ferrous Sulfate (Feosol) 325 mg PO QAM-[facility] Last Admin: 04/26/17 08:55 Dose: 325 mg Glucagon (Glucagon) 1 mg IM PRN PRN PRN Reason: Hypoglycemia Guaifenesin (Robitussin Sf) 200 mg PO Q4H PRN PRN Reason: Cough Heparin Sodium (Porcine) (Heparin) 5,000 units SC BID [facility] Last Admin: 04/26/17 09:13 Dose: 5,000 units Hydralazine HCl (Apresoline) 10 mg SLOW IVP Q4H PRN PRN Reason: Systolic BP > 180 Last Admin: 04/24/17 16:31 Dose: 10 mg Dextrose/Water (D5w) 1,000 mls @ 0 mls/hr IV .Q0M PRN; As Directed PRN Reason: Hypoglycemia Piperacillin Sod/Tazobactam Sod 2.25 gm/ Miscellaneous Medication 1 each/ Sodium Chloride 100 mls @ 200 mls/hr IVPB Q8HR [facility] Last Admin: 04/26/17 05:18 Dose: 100 mls Fentanyl Citrate 2,000 mcg/ (Sodium Chloride) 100 mls @ 0 mls/hr IV INF [facility]; Per Protocol PRN Reason: Protocol Stop: 05/20/17 03:31 Fentanyl Citrate (Fentanyl Bolus) 250 mls @ 0 mls/hr IVPB PRN PRN; As Directed PRN Reason: Breakthrough pain Stop: 05/20/17 03:31 Levetiracetam 1,500 mg/ Device 100 mls @ 200 mls/hr IVPB BID [facility] Last Admin: 04/26/17 09:14 Dose: 100 mls Fosphenytoin Sodium 200 mg/ (Sodium Chloride) 54 mls @ 108 mls/hr IVPB BID [facility] Last Admin: 04/26/17 09:13 Dose: 54 mls Norepinephrine Bitartrate (Levophed) 250 mls @ 0 mls/hr IVPB INF CHIO; Titrate PRN Reason: Protocol Last Admin: 04/25/17 16:27 Dose: 250 mls Midazolam HCl (Versed) 100 mls @ 0 mls/hr IVPB INF PRN; Protocol; Titrate PRN Reason: Sedation Last Admin: 04/26/17 10:38 Dose: 100 mls Insulin Human Lispro (Humalog) 0 units SC .MODERATE SLIDING SC PRN PRN Reason: Moderate Correctional Scale Insulin Human Lispro (Humalog) 0 units SC .BEDTIME SLIDING SC PRN PRN Reason: Bedtime Correctional Scale Levothyroxine Sodium (Synthroid) 100 mcg PO 0600 [facility] Last Admin: 04/26/17 05:19 Dose: 100 mcg Loperamide HCl (Imodium) 2 mg PO PRN PRN PRN Reason: Diarrhea/Loose Stools Loratadine (Claritin) 10 mg PO DAILYPRN PRN PRN Reason: Sinus Symptoms Lorazepam (Ativan) 2 mg SLOW IVP Q2H PRN PRN Reason: Anxiety to achieve [place] 2-3 Stop: 05/20/17 03:31 Last Admin: 04/23/17 13:24 Dose: 2 mg Magnesium Hydroxide (Milk Of Magnesium) 30 ml PO DAILYPRN PRN PRN Reason: Constipation Mineral Oil/White Petrolatum (Eucerin Cream) 0 gm TOP BIDPRN PRN PRN Reason: Dry Skin Morphine Sulfate (Morphine) 2 mg SLOW IVP Q2H PRN PRN Reason: Breakthrough pain Stop: 05/20/17 03:34 Ondansetron HCl (Zofran Odt) 4 mg PO Q6H PRN PRN Reason: Nausea/Vomiting Ondansetron HCl (Zofran) 4 mg IVP Q6H PRN PRN Reason: Nausea/Vomiting Last Admin: 04/12/17 13:07 Dose: 4 mg Phenol (Chloraseptic [place] 180 Ml Bot) 0 ml PO PRN PRN PRN Reason: Sore Throat Propofol (Diprivan) 1,000 mg IV INF PRN; Protocol PRN Reason: TO ACHIEVE [place]LEY SCORE 2-3 Stop: 05/20/17 03:31 Last Admin: 04/26/17 09:18 Dose: 1,000 mg Senna (Senokot) 2 tab PO HSPRN PRN PRN Reason: Constipation Sertraline HCl (Zoloft) 150 mg PO DAILY [facility] Last Admin: 04/26/17 09:14 Dose: 150 mg Sodium Bicarbonate (Bicarbonate, Sodium) 650 mg PER TUBE .PER PROTOCOL PRN PRN Reason: ENTERAL TUBE OCCLUSION Sodium Bicarbonate (Bicarbonate, Sodium) 325 mg PO BID [facility] Last Admin: 04/26/17 09:14 Dose: 325 mg Sodium Chloride ([place] Nasal [place] 0.65%) 0 ml EA NARE QIDPRN PRN PRN Reason: Nasal Congestion Sodium Chloride (Flush - Normal Saline) 10 ml IVF Q12HR [facility] Last Admin: 04/26/17 09:15 Dose: 10 ml Sodium Chloride (Flush - Normal Saline) 10 ml IVF PRN PRN PRN Reason: Saline Flush Vitamin B Complex/Vit C/Folic Acid (Nephro-Supriya Tablet) 1 tab PO DAILY [facility] Last Admin: 04/26/17 09:13 Dose: 1 tab
--- NOTE | 2017-04-26 15:33 | PRG ---
DATE OF SERVICE: 04/26/2017 SERVICE: Pulmonary Medicine. INTERVAL HISTORY: The patient is doing poorly from a neurologic standpoint. We increased her propof ol, Versed overnight to the point of her not being able to really be responsive in outward way. That being said, when we hooked up in EEG monitor, she is still having epileptiform discharges. As such, we will add phenobarbital. If we cannot stop the seizures here, I am not really quite certain what tertiary care facility is going to be able to do for her. I will discuss with Dr. Jovel this etheli ng. Otherwise, there has been no interval change to her condition. Because of the high dose of prop ofol, she is requiring a little bit of Levophed. PHYSICAL EXAMINATION: VITAL SIGNS: Afebrile, pulse 57, blood pressure 133/71, respirations 15, saturation 95% on 23% FiO2 and PEEP of 5. HEENT: Normocephalic, atraumatic. Sclerae are white, conjunctivae pink. Oral and nasal mucosa is m oist without lesions. LUNGS: Excellent air entry. There is no prolonged expiratory phase. HEART: Normal rate, regular. ABDOMEN: Soft, nontender, nondistended, bowel sounds positive. MUSCULOSKELETAL: No cyanosis or clubbing. No pitting in the bilateral lower extremities. NEUROLOGIC: Comatose. LABORATORY DATA: Phenytoin 12.1. Valproic acid level is 21. Creatinine 3.52, which is roughly stab le. BUN 26. Basic metabolic profile is otherwise unremarkable. Citrobacter is growing in the urine . ASSESSMENT: 1. Acute hypoxic respiratory failure. 2. Status epilepticus. 3. Chronic kidney disease. 4. 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 5. Urinary tract infection, complicated. PLAN: We will increase the Versed and propofol to the upper limits of where we can push those drips. If these are not effective at controlling seizure activity, the patient will be given a bolus of pe ntobarbital. Pulmonary or Critical Care will continue to follow while the patient remains in conditi on. My guess is the patient has been seizing for the better part of week now and it is very unlikely that we are going to be able to recover her brain from this insult. If these things do not work, [facility] care discussion will be had with the patient's family to see if we can transition over to co mfort care only. If we can stop the seizures, we will keep her down for a period of 72 hours. CRITICAL CARE TIME: 30 minutes.
[2017-04-26] MEDS ORDERED: Lacosamide 200 MG in Sodium Chloride 0.9% 50 ML IVPB SCH (16:00)
[2017-04-26] MEDS: Midazolam HCl 2 mg/2 ml Vial SLOW IVP PRN (16:10)
[2017-04-26] MEDS ORDERED: Lacosamide 100 MG in Sodium Chloride 0.9% 50 ML IVPB SCH (21:00)
[2017-04-27] MEDS: Propofol 1,000 MG/100 ML VIAL IV PRN ×7 (00:30→20:46)
[2017-04-27] MEDS: Dexamethasone 4 mg/ml Vial SLOW IVP SCH ×4 (02:32→20:44)
[2017-04-27] MEDS: Lacosamide 100 MG in Sodium Chloride 0.9% 50 ML IVPB SCH ×2 (04:10→16:10)
[2017-04-27] MEDS: Piperacillin/Tazobactam 2.25 GM, Admixture Fee 1 EACH in Sodium Chloride 0.9% 100 ML IVPB SCH ×3 (05:10→21:08)
[2017-04-27] MEDS: Levothyroxine Sodium 100 MCG TAB PO SCH (05:11)
[2017-04-27 05:32] LABS: #Eosinphils 0.1 thou/uL (0.0-0.7); #Lymphocytes 1.2 thou/uL (1.20-3.40); #Monocytes 0.4 thou/uL (0.11-0.59); #Neutrophils 5.8 thou/uL (1.40-6.50); %Basophils 0.3 % (0.0-1.0); %Eosinophils 0.7 % (0.0-10.0); %Lymphocytes 15.7 % (21.0-51.0); %Monocytes 5.9 % (0.0-10.0); %Neutrophils 77.5 % (42.0-75.0); Hemoglobin 7.6 g/dL (12.0-16.0); Mean Corpuscular HGB CONC 31.4 g/dL (32.0-36.0); Mean Corpuscular Hemoglobin 30.5 pg (27.0-31.0); Mean Corpuscular Volume 97.2 fl (81.0-99.0); Mean Platelet Volume 7.4 fL (7.4-10.4); Platelet Count 295 thou/uL (130-400); RBC Distribution Width 17.4 % (11.5-14.5); White Blood Cell (WBC) Count 7.5 thou/uL (4.8-10.8)
[2017-04-27 06:08] LABS: Anion Gap 14 mmol/L (10-20); BUN (Urea Nitrogen) 44 mg/dL (9.8-20.1); Calc. Creatinine Clearance 29 mL/min (70-130); Calcium 8.8 mg/dL (7.8-10.44); Carbon Dioxide 27 mmol/L (23-31); Chloride 107 mmol/L (98-107); Estimated GFR-MDRD 16; Glucose 111 mg/dL (80-115); Potassium 4.2 mmol/L (3.5-5.1); Sodium 144 mmol/L (136-145)
[2017-04-27] MEDS: Midazolam HCl 2 mg/2 ml Vial SLOW IVP PRN (07:28)
[2017-04-27] MEDS: levETIRAcetam In NaCl (Iso-Os) 1,500 MG in Premix Bag 1 BAG IVPB SCH ×4 (10:07→20:45)
[2017-04-27] MEDS: Heparin 5,000 UNITS/ML VIAL SC SCH ×2 (10:08→20:45)
[2017-04-27] MEDS: Folic Acid/Vit B Comp W-C PO SCH (10:08)
[2017-04-27] MEDS: Sodium Bicarbonate Tab 325 MG TAB PO SCH ×2 (10:09→20:46)
[2017-04-27] MEDS: Ferrous Sulfate 325 MG TAB PO SCH (10:09)
[2017-04-27] MEDS: Calcitriol 0.25 MCG CAP PO SCH (10:09)
[2017-04-27] MEDS: Amlodipine 10 MG TAB PO SCH (10:09)
[2017-04-27] MEDS: Calcium Acetate 667 MG CAP PO SCH ×3 (10:10→16:09)
--- NOTE | 2017-04-27 10:14 | PDOC.PN ---
- Subjective Encounter Start Date: 04/27/17 Encounter Start Time: 09:00 Patient seen and examined. No overnight events - Objective Resuscitation Status: Resuscitation Status FULL:Full Resuscitation MAR Reviewed: Yes Vital Signs & Weight: Vital Signs (12 hours) Temp Pulse Resp BP Pulse Ox 04/27/17 10:09 62 108/54 L 04/27/17 09:00 97.6 F 04/27/17 08:00 15 04/27/17 07:00 94.1 F L 04/27/17 06:44 50 L 135/68 04/27/17 06:41 50 L 15 97 04/27/17 06:00 15 04/27/17 04:47 52 L 135/61 04/27/17 04:00 15 04/27/17 03:00 98 F 04/27/17 02:10 50 L 04/27/17 02:00 15 04/27/17 00:00 15 04/26/17 23:01 51 L 04/26/17 23:00 97.8 F Weight Admit Weight 222 lb 8 oz Weight 236 lb 8.896 oz Most Recent Monitor Data Heart Rate from ECG 55 NIBP 119/60 NIBP BP-Mean 104 Respiration from ECG 18 SpO2 98 I&O: 04/26/17 04/27/17 04/28/17 06:59 06:59 06:59 Intake Total 2652 2471 Output Total 100 Balance 2652 2471 -100 Result Diagrams: 04/27/17 04:55 04/27/17 04:55 Additional Labs: Accuchecks 04/26/17 04/26/17 04/26/17 21:13 17:42 13:11 POC Glucose 97 100 98 EKG Reviewed by me: Yes (nsr) Phys Exam - Physical Examination Constitutional: NAD intubated and sedated HEENT: PERRLA, sclera anicteric Neck: no JVD, supple Respiratory: no wheezing, no rales, no rhonchi Cardiovascular: RRR, no significant murmur, no rub Gastrointestinal: soft, no distention, positive bowel sounds Musculoskeletal: no edema, pulses present scd+ blank+ Lymphatic: no nodes Skin: no rash, normal turgor Dx/Plan (1) Acute metabolic encephalopathy Code(s): G93.41 - METABOLIC ENCEPHALOPATHY Status: Acute Comment: (2) Acute respiratory failure with hypoxia Code(s): J96.01 - ACUTE RESPIRATORY FAILURE WITH HYPOXIA Status: Acute Comment: on ventilator (3) Acute worsening of stage 4 chronic kidney disease Code(s): N28.9 - DISORDER OF KIDNEY AND URETER, UNSPECIFIED; N18.4 - CHRONIC KIDNEY DISEASE, STAGE 4 (SEVERE) Status: Acute Comment: (4) Metabolic acidosis Code(s): E87.2 - ACIDOSIS Status: Acute Comment: (5) Pneumonia Code(s): J18.9 - PNEUMONIA, UNSPECIFIED ORGANISM Status: Acute Qualifiers: Pneumonia type: aspiration pneumonia Aspiration pneumonia type: due to gastric secretions Laterality: bilateral Lung location: lower lobe of lung Qualified Code(s): J69.0 - Pneumonitis due to inhalation of food and vomit Comment: (6) Status epilepticus Code(s): G40.901 - EPILEPSY, UNSP, NOT INTRACTABLE, WITH STATUS EPILEPTICUS Status: Acute (7) UTI (urinary tract infection) Status: Acute Comment: (8) Anxiety and depression Code(s): F41.8 - OTHER SPECIFIED ANXIETY DISORDERS Status: Chronic Comment: (9) Bilateral hydronephrosis Code(s): N13.30 - UNSPECIFIED HYDRONEPHROSIS Status: Chronic (10) DM type 2 (diabetes mellitus, type 2) Status: Chronic Qualifiers: Diabetes mellitus complication status: with kidney complications Diabetes mellitus complication detail: with chronic kidney disease Diabetes mellitus skilled nursing insulin use: with skilled nursing use Chronic kidney disease stage: stage 5, not on chronic dialysis Qualified Code(s): E11.22 - Type 2 diabetes mellitus with diabetic chronic kidney disease; N18.5 - Chronic kidney disease, stage 5; N18.5 - Chronic kidney disease, stage 5; N18.5 - Chronic kidney disease , stage 5; N18.5 - Chronic kidney disease, stage 5; Z79.4 - ferry terminal agent (current) use of insulin; Z79.4 - long-term (current) use of insulin; Z79.4 - long-term ( current) use of insulin; Z79.4 - long-term (current) use of insulin Comment: At goal. (11) HTN (hypertension) Code(s): I10 - ESSENTIAL (PRIMARY) HYPERTENSION Status: Chronic Qualifiers: Hypertension type: essential hypertension (12) Hypothyroidism Code(s): E03.9 - HYPOTHYROIDISM, UNSPECIFIED Status: Chronic Qualifiers: Hypothyroidism type: unspecified Qualified Code(s): E03.9 - Hypothyroidism , unspecified Comment: Continue Levothyroxine. (13) Physical deconditioning Code(s): R53.81 - OTHER MALAISE Status: Chronic Comment: (14) Sacral decubitus ulcer, stage IV Code(s): L89.154 - PRESSURE ULCER OF SACRAL REGION, STAGE 4 Status: Chronic Comment: (15) Seizure disorder Code(s): G40.909 - EPILEPSY, UNSP, NOT INTRACTABLE, WITHOUT STATUS EPILEPTICUS Status: Chronic Comment: (16) Hypomagnesemia Code(s): E83.42 - HYPOMAGNESEMIA Status: Resolved - Plan cont current plan of care, respiratory therapy * continue vent management per pulmonary * currently induced coma for status epilepticus * if continue to have seizure, family has to decide about goal of care * medication reviewed as below * symptomatic treatment * prognosis is very poor. Review of Systems - Review of Systems Other: unable to review due to intubated status - Medications/Allergies Allergies/Adverse Reactions: Allergies Allergy/AdvReac Type Severity Reaction Status Date / Time banana Allergy Verified 05/10/16 08:43 chocolate flavor Allergy Verified 05/10/16 08:43 egg Allergy Verified 05/10/16 08:43 Iodinated Contrast- Oral and Allergy Verified 05/10/16 08:44 IV Dye [Iodinated Contrast Media - Oral and] iodine Allergy Verified 05/10/16 08:43 latex Allergy Verified 05/10/16 08:43 orange juice Allergy Verified 05/10/16 08:43 tolterodine tartrate Allergy Verified 05/10/16 08:43 [From Detrol] tomato Allergy Verified 05/10/16 08:43 Medications: Current Medications Acetaminophen (Tylenol) 650 mg PO Q4H PRN PRN Reason: Headache/Fever or Pain Last Admin: 04/19/17 12:01 Dose: 650 mg Al Hydroxide/Mg Hydroxide (Maalox) 30 ml PO Q6H PRN PRN Reason: Heartburn or Indigestion Albuterol/Ipratropium (Duoneb) 3 ml NEB [id number] CHIO Last Admin: 04/27/17 06:41 Dose: 3 ml Amlodipine Besylate (Norvasc) 10 mg PO DAILY [facility] Last Admin: 04/27/17 10:09 Dose: 10 mg Lipase/Protease/Amylase ([place]rows 33210) 1 cap FS .PER PROTOCOL PRN PRN Reason: TUBE OCCLUSION PROTOCOL Artificial Tears (Tears Naturale) 0 drop EA EYE PRN PRN PRN Reason: Dry Eyes Aspirin (Aspirin Chewable) 81 mg PO DAILY [facility] Last Admin: 04/27/17 10:08 Dose: 81 mg Calcitriol (Rocaltrol) 0.25 mcg PO DAILY [facility] Last Admin: 04/27/17 10:09 Dose: 0.25 mcg Calcium Acetate (Phoslo) 1,334 mg PO TID-[facility] Last Admin: 04/27/17 10:10 Dose: 1,334 mg Dexamethasone (Decadron) 4 mg SLOW IVP 0200,0800,1400,2000 [facility] Last Admin: 04/27/17 10:08 Dose: 4 mg Dextrose/Water (Dextrose 50%) 25 gm SLOW IVP PRN PRN PRN Reason: Hypoglycemia Epoetin Javier (Procrit) 10,000 units SC Q7D [facility] Last Admin: 04/22/17 15:46 Dose: 10,000 units Famotidine (Pepcid) 20 mg SLOW IVP DAILY [facility] Last Admin: 04/26/17 09:13 Dose: 20 mg Ferrous Sulfate (Feosol) 325 mg PO QAM-[facility] Last Admin: 04/27/17 10:09 Dose: 325 mg Glucagon (Glucagon) 1 mg IM PRN PRN PRN Reason: Hypoglycemia Guaifenesin (Robitussin Sf) 200 mg PO Q4H PRN PRN Reason: Cough Heparin Sodium (Porcine) (Heparin) 5,000 units SC BID [facility] Last Admin: 04/27/17 10:08 Dose: 5,000 units Hydralazine HCl (Apresoline) 10 mg SLOW IVP Q4H PRN PRN Reason: Systolic BP > 180 Last Admin: 04/24/17 16:31 Dose: 10 mg Dextrose/Water (D5w) 1,000 mls @ 0 mls/hr IV .Q0M PRN; As Directed PRN Reason: Hypoglycemia Piperacillin Sod/Tazobactam Sod 2.25 gm/ Miscellaneous Medication 1 each/ Sodium Chloride 100 mls @ 200 mls/hr IVPB Q8HR [facility] Last Admin: 04/27/17 05:10 Dose: 100 mls Fentanyl Citrate 2,000 mcg/ (Sodium Chloride) 100 mls @ 0 mls/hr IV INF CHIO; Per Protocol PRN Reason: Protocol Stop: 05/20/17 03:31 Fentanyl Citrate (Fentanyl Bolus) 250 mls @ 0 mls/hr IVPB PRN PRN; As Directed PRN Reason: Breakthrough pain Stop: 05/20/17 03:31 Levetiracetam 1,500 mg/ Device 100 mls @ 200 mls/hr IVPB BID CHIO Last Admin: 04/27/17 10:07 Dose: 100 mls Fosphenytoin Sodium 200 mg/ (Sodium Chloride) 54 mls @ 108 mls/hr IVPB BID CHIO Last Admin: 04/26/17 20:44 Dose: 54 mls Norepinephrine Bitartrate (Levophed) 250 mls @ 0 mls/hr IVPB INF CHIO; Titrate PRN Reason: Protocol Last Admin: 04/25/17 16:27 Dose: 250 mls Midazolam HCl (Versed) 100 mls @ 15 mls/hr IVPB INF PRN; Protocol PRN Reason: Sedation/SEIZURES Last Admin: 04/27/17 07:35 Dose: 100 mls Lacosamide 100 mg/ Sodium (Chloride) 60 mls @ 120 mls/hr IVPB 0400,1600 CHIO Last Admin: 04/27/17 04:10 Dose: 60 mls Insulin Human Lispro (Humalog) 0 units SC .MODERATE SLIDING SC PRN PRN Reason: Moderate Correctional Scale Insulin Human Lispro (Humalog) 0 units SC .BEDTIME SLIDING SC PRN PRN Reason: Bedtime Correctional Scale Levothyroxine Sodium (Synthroid) 100 mcg PO 0600 [facility] Last Admin: 04/27/17 05:11 Dose: 100 mcg Loperamide HCl (Imodium) 2 mg PO PRN PRN PRN Reason: Diarrhea/Loose Stools Loratadine (Claritin) 10 mg PO DAILYPRN PRN PRN Reason: Sinus Symptoms Lorazepam (Ativan) 2 mg SLOW IVP Q2H PRN PRN Reason: Anxiety to achieve [place] 2-3 Stop: 05/20/17 03:31 Last Admin: 04/23/17 13:24 Dose: 2 mg Magnesium Hydroxide (Milk Of Magnesium) 30 ml PO DAILYPRN PRN PRN Reason: Constipation Midazolam HCl (Versed) 10 mg SLOW IVP Q15MIN PRN PRN Reason: .SEIZURE ACTIVITY Last Admin: 04/27/17 07:28 Dose: 10 mg Mineral Oil/White Petrolatum (Eucerin Cream) 0 gm TOP BIDPRN PRN PRN Reason: Dry Skin Morphine Sulfate (Morphine) 2 mg SLOW IVP Q2H PRN PRN Reason: Breakthrough pain Stop: 05/20/17 03:34 Ondansetron HCl (Zofran Odt) 4 mg PO Q6H PRN PRN Reason: Nausea/Vomiting Ondansetron HCl (Zofran) 4 mg IVP Q6H PRN PRN Reason: Nausea/Vomiting Last Admin: 04/12/17 13:07 Dose: 4 mg Phenol (Chloraseptic [place] 180 Ml Bot) 0 ml PO PRN PRN PRN Reason: Sore Throat Propofol (Diprivan) 1,000 mg IV INF PRN; Protocol PRN Reason: TO ACHIEVE MOTLEY SCORE 2-3 Stop: 05/20/17 03:31 Last Admin: 04/27/17 07:28 Dose: 1,000 mg Senna (Senokot) 2 tab PO HSPRN PRN PRN Reason: Constipation Sertraline HCl (Zoloft) 150 mg PO DAILY [facility] Last Admin: 04/27/17 10:09 Dose: 150 mg Sodium Bicarbonate (Bicarbonate, Sodium) 650 mg PER TUBE .PER PROTOCOL PRN PRN Reason: ENTERAL TUBE OCCLUSION Sodium Bicarbonate (Bicarbonate, Sodium) 325 mg PO BID [facility] Last Admin: 04/27/17 10:09 Dose: 325 mg Sodium Chloride (Abie Nasal [place] 0.65%) 0 ml EA NARE QIDPRN PRN PRN Reason: Nasal Congestion Sodium Chloride (Flush - Normal Saline) 10 ml IVF Q12HR [facility] Last Admin: 04/27/17 10:10 Dose: 10 ml Sodium Chloride (Flush - Normal Saline) 10 ml IVF PRN PRN PRN Reason: Saline Flush Last Admin: 04/26/17 20:45 Dose: 10 ml Vitamin B Complex/Vit C/Folic Acid (Nephro-Supriya Tablet) 1 tab PO DAILY [facility] Last Admin: 04/27/17 10:08 Dose: 1 tab
[2017-04-27] MEDS: Famotidine 40 MG/4 ML VIAL SLOW IVP SCH (10:39)
[2017-04-27] MEDS: Fosphenytoin Sodium 200 MG in Sodium Chloride 0.9% 50 ML IVPB SCH ×2 (11:07→20:44)
[2017-04-27] MEDS ORDERED: SODIUM CHLORIDE 0.9% IVPB SCH (15:45)
[2017-04-27] MEDS ORDERED: PHENOBARBITAL SODIUM IVPB SCH (15:45)
[2017-04-27] MEDS: Sodium Chloride 0.45% 1,000 ML IV SCH (20:44)
--- NOTE | 2017-04-27 20:44 | PRG ---
DATE OF SERVICE: 04/27/2017 SERVICE: Pulmonary Medicine. INTERVAL HISTORY: The patient is doing fine from a cardiovascular and respiratory standpoint. Mentation solano, she is on a continuous EEG monitor that demonstrates near continuous epileptiform type activity. This is despite the fact that she is on very high dose of propofol, and Versed as well as three other antiepileptic drugs. As such, today we are going to try using phenobarbital. If this fails suppressing any brainwave activity, it would be very unlikely for us to be able to stop seizure activity and the patient would be unlikely to make a meaningful recovery moving forward. Either way, she has been seizing on and off and near continuously for the past several days. As such, as time goes on and the seizure activity cannot be stopped, it portends a poor prognosis. I assured this with the patient's sister today. She understands the situation. PHYSICAL EXAMINATION: VITAL SIGNS: Afebrile, pulse 69, blood pressure 92/49, respirations 14, saturation 98% on 21% FIO2 and PEEP of 5. GENERAL: Patient is intubated and sedated. HEENT: Normocephalic, atraumatic. Sclerae are white, conjunctivae pink. Oral and nasal mucosa is moist without lesions. LUNGS: Excellent air entry with no prolonged expiratory phase or wheezing. HEART: Normal rate, regular. ABDOMEN: Soft, nontender, nondistended. Bowel sounds are positive. MUSCULOSKELETAL: No cyanosis or clubbing. No pitting in the bilateral lower extremities. NEUROLOGIC: Grossly nonfocal. LABORATORY DATA: WBC 7.5, hemoglobin 7.6, platelets 295,000. Basic metabolic profile was essentially unremarkable. Creatinine 3.47 and roughly stable. Sodium 144 and gently uptrending. Nephrostomy tube culture is growing Citrobacter. Blood culture x2 is negative. Urine cultures also unremarkable. ASSESSMENT: 1. Acute hypoxic respiratory failure. 2. Status epilepticus. 3. Chronic kidney disease. 4. 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 5. Urinary tract infection, complicated. DISCUSSION AND PLAN: The patient will need to a total duration of 10 days of antibiotics. After this, the Zosyn can be discontinued. We will continue high rate of Versed, and propofol. Since she has been on the high rate of propofol for a couple of days, I will check a triglyceride tomorrow morning. We will need to watch for propofol infusion syndrome at this rate. There is no current evidence of that. We are going to make an attempt at giving the patient phenobarbital. If this is ineffective at controlling the patient's brainwave activity, she is unlikely to make a neurologic recovery. If on the other hand, she is able to go flat on the EEG with it, she would be maintained flat for a period of 48-72 hours. The patient's family has suggested that they would like us to make this attempt moving forward. Hopefully, she will not have to repeat seizures. I have told them that if she does, that would be a very poor prognostic sign. Additionally, the appreciate that even if seizures do not come back, she may still have severe neurologic impairment moving forward. We will continue to follow very closely during the hospital stay. Critical care time: 30 minutes. IVONE
[2017-04-27] MEDS ORDERED: PHENobarbital Sodium 65 MG/ML VIAL SLOW IVP SCH (22:00)
--- NOTE | 2017-04-27 23:36 | PRG ---
DATE OF SERVICE: 04/27/2017 SUBJECTIVE: The patient continues to have subclinical seizure. Neurology following. The neurologis t will obtain with this patient. We are currently following her up for acute kidney injury on top of chronic renal failure. Renal function has been stable for the last several days. OBJECTIVE: VITAL SIGNS: Blood pressure is 111/62, heart rate 62, respiratory rate 15, pulse ox 97%. GENERAL: Sedated and intubated on ventilator support. SKIN: Adequate turgor. HEENT: Slightly pale conjunctivae, anicteric sclerae. NECK: No neck mass, no carotid bruits. No JVD. CHEST: No deformities. LUNGS: Decreased breath sounds. No wheezing, no crackles. HEART: Normal sinus rhythm. No murmur, no gallops, no rubs. ABDOMEN: Globular, soft, nontender, no masses. Abdominal exam shows colostomy and urostomy. EXTREMITIES: No edema, no deformities. MEDICATIONS: Of 04/27/2017, was reviewed. LABORATORY: Of 04/27/2017, white count 7.5, hemoglobin 7.6. Sodium 144, potassium 4.2, chloride 107 , carbon dioxide 27, BUN 44, creatinine 3.47, glucose 111, and calcium 8.8. ASSESSMENT AND PLAN: 1. Acute kidney injury/chronic renal failure, stable renal function. Creatinine 3.47. She is stabl e and near baseline. She is currently at stage IV chronic renal failure. There is no indication for any dialytic intervention at the present time. 2. Anemia, on weekly Epogen. 3. Seizure disorder - Neurology following. Possible introduction of a new anti-seizure medication i s being considered. For the moment, I agree with current management.
[2017-04-28] MEDS: Dexamethasone 4 mg/ml Vial SLOW IVP SCH ×4 (01:09→20:10)
[2017-04-28] MEDS: Propofol 1,000 MG/100 ML VIAL IV PRN ×7 (01:10→23:23)
[2017-04-28] MEDS: Lacosamide 100 MG in Sodium Chloride 0.9% 50 ML IVPB SCH ×2 (04:39→16:32)
[2017-04-28] MEDS: PHENOBARBITAL SODIUM IVPB SCH ×3 (05:45→21:34)
[2017-04-28] MEDS: Levothyroxine Sodium 100 MCG TAB PO SCH (05:45)
[2017-04-28] MEDS: SODIUM CHLORIDE 0.9% IVPB SCH ×3 (05:45→21:34)
[2017-04-28] MEDS: Piperacillin/Tazobactam 2.25 GM, Admixture Fee 1 EACH in Sodium Chloride 0.9% 100 ML IVPB SCH ×3 (05:46→22:29)
[2017-04-28 06:17] LABS: Anion Gap 14 mmol/L (10-20); BUN (Urea Nitrogen) 46 mg/dL (9.8-20.1); Calc. Creatinine Clearance 28 mL/min (70-130); Carbon Dioxide 23 mmol/L (23-31); Chloride 110 mmol/L (98-107); Estimated GFR-MDRD 16; Potassium 4.1 mmol/L (3.5-5.1); Sodium 143 mmol/L (136-145)
[2017-04-28 06:18] LABS: Calcium 8.1 mg/dL (7.8-10.44); Glucose 98 mg/dL (80-115); Magnesium 1.7 mg/dL (1.6-2.6); Phosphorus 4.5 mg/dL (2.3-4.7)
[2017-04-28] MEDS: Folic Acid/Vit B Comp W-C PO SCH (09:46)
[2017-04-28] MEDS: Amlodipine 10 MG TAB PO SCH (09:47)
[2017-04-28] MEDS: Calcium Acetate 667 MG CAP PO SCH ×3 (09:48→16:38)
[2017-04-28] MEDS: Ferrous Sulfate 325 MG TAB PO SCH (09:48)
[2017-04-28] MEDS: Calcitriol 0.25 MCG CAP PO SCH (09:50)
[2017-04-28] MEDS: Sodium Bicarbonate Tab 325 MG TAB PO SCH ×2 (09:51→20:11)
[2017-04-28] MEDS: Heparin 5,000 UNITS/ML VIAL SC SCH ×2 (09:52→20:11)
[2017-04-28] MEDS: Famotidine 40 MG/4 ML VIAL SLOW IVP SCH (09:52)
[2017-04-28] MEDS: Fosphenytoin Sodium 200 MG in Sodium Chloride 0.9% 50 ML IVPB SCH ×2 (09:55→20:10)
[2017-04-28] MEDS: levETIRAcetam In NaCl (Iso-Os) 1,500 MG in Premix Bag 1 BAG IVPB SCH ×4 (09:55→20:11)
--- NOTE | 2017-04-28 10:00 | PDOC.PN ---
- Subjective Encounter Start Date: 04/28/17 Encounter Start Time: 07:20 pt is deeply sedated, Patient seen and examined. No overnight events - Objective Resuscitation Status: Resuscitation Status FULL:Full Resuscitation MAR Reviewed: Yes Vital Signs & Weight: Vital Signs (12 hours) Temp Pulse Resp BP Pulse Ox 04/28/17 08:00 97.8 F 66 15 96 04/28/17 07:06 66 107/55 L 04/28/17 07:04 65 15 97 04/28/17 06:00 15 04/28/17 04:00 15 04/28/17 03:00 97.8 F 04/28/17 02:18 72 04/28/17 02:00 15 04/28/17 01:09 70 15 96 04/28/17 00:00 15 04/27/17 23:00 98.2 F 04/27/17 22:17 70 04/27/17 22:00 15 Weight Admit Weight 222 lb 8 oz Weight 239 lb 6.752 oz Most Recent Monitor Data Heart Rate from ECG 77 NIBP 110/55 NIBP BP-Mean 71 Respiration from ECG 17 SpO2 96 I&O: 04/27/17 04/28/17 04/29/17 06:59 06:59 06:59 Intake Total 2471 864 1359 Output Total 250 50 Balance 2471 614 1309 Result Diagrams: 04/27/17 04:55 04/28/17 05:25 Additional Labs: Accuchecks 04/27/17 04/27/17 04/27/17 23:57 17:46 12:32 POC Glucose 104 89 90 EKG Reviewed by me: Yes (nsr) Phys Exam - Physical Examination Constitutional: NAD HEENT: PERRLA, sclera anicteric Neck: no JVD, supple Respiratory: no wheezing, no rales, no rhonchi Cardiovascular: RRR, no significant murmur, no rub Gastrointestinal: soft, no distention, positive bowel sounds Musculoskeletal: no edema, pulses present Lymphatic: no nodes Skin: no rash, normal turgor Dx/Plan (1) Acute metabolic encephalopathy Code(s): G93.41 - METABOLIC ENCEPHALOPATHY Status: Acute Comment: (2) Acute respiratory failure with hypoxia Code(s): J96.01 - ACUTE RESPIRATORY FAILURE WITH HYPOXIA Status: Acute Comment: on ventilator (3) Acute worsening of stage 4 chronic kidney disease Code(s): N28.9 - DISORDER OF KIDNEY AND URETER, UNSPECIFIED; N18.4 - CHRONIC KIDNEY DISEASE, STAGE 4 (SEVERE) Status: Acute Comment: (4) Metabolic acidosis Code(s): E87.2 - ACIDOSIS Status: Acute Comment: (5) Pneumonia Code(s): J18.9 - PNEUMONIA, UNSPECIFIED ORGANISM Status: Acute Qualifiers: Pneumonia type: aspiration pneumonia Aspiration pneumonia type: due to gastric secretions Laterality: bilateral Lung location: lower lobe of lung Qualified Code(s): J69.0 - Pneumonitis due to inhalation of food and vomit Comment: (6) Status epilepticus Code(s): G40.901 - EPILEPSY, UNSP, NOT INTRACTABLE, WITH STATUS EPILEPTICUS Status: Acute (7) UTI (urinary tract infection) Status: Acute Comment: (8) Anxiety and depression Code(s): F41.8 - OTHER SPECIFIED ANXIETY DISORDERS Status: Chronic Comment: (9) Bilateral hydronephrosis Code(s): N13.30 - UNSPECIFIED HYDRONEPHROSIS Status: Chronic (10) DM type 2 (diabetes mellitus, type 2) Status: Chronic Qualifiers: Diabetes mellitus complication status: with kidney complications Diabetes mellitus complication detail: with chronic kidney disease Diabetes mellitus terminal gauger supervisor insulin use: with terminal gauger supervisor use Chronic kidney disease stage: stage 5, not on chronic dialysis Qualified Code(s): E11.22 - Type 2 diabetes mellitus with diabetic chronic kidney disease; N18.5 - Chronic kidney disease, stage 5; N18.5 - Chronic kidney disease, stage 5; N18.5 - Chronic kidney disease , stage 5; N18.5 - Chronic kidney disease, stage 5; Z79.4 - exterminator (current) use of insulin; Z79.4 - exterminator (current) use of insulin; Z79.4 - correction ( current) use of insulin; Z79.4 - correction (current) use of insulin Comment: At goal. (11) HTN (hypertension) Code(s): I10 - ESSENTIAL (PRIMARY) HYPERTENSION Status: Chronic Qualifiers: Hypertension type: essential hypertension (12) Hypothyroidism Code(s): E03.9 - HYPOTHYROIDISM, UNSPECIFIED Status: Chronic Qualifiers: Hypothyroidism type: unspecified Qualified Code(s): E03.9 - Hypothyroidism , unspecified Comment: Continue Levothyroxine. (13) Physical deconditioning Code(s): R53.81 - OTHER MALAISE Status: Chronic Comment: (14) Sacral decubitus ulcer, stage IV Code(s): L89.154 - PRESSURE ULCER OF [place], STAGE 4 Status: Chronic Comment: (15) Seizure disorder Code(s): G40.909 - EPILEPSY, UNSP, NOT INTRACTABLE, WITHOUT STATUS EPILEPTICUS Status: Chronic Comment: (16) Hypomagnesemia Code(s): E83.42 - HYPOMAGNESEMIA Status: Resolved - Plan cont current plan of care, continue antibiotics * currently on induced coma for status epilepticus * neurology following. * ventilator management per pulmonary * if further seizure, prognosis is poor * medication reviewed as below * symptomatic treatment * renal function stable Review of Systems - Review of Systems Other: unable to review due to intubated status - Medications/Allergies Allergies/Adverse Reactions: Allergies Allergy/AdvReac Type Severity Reaction Status Date / Time banana Allergy Verified 05/10/16 08:43 chocolate flavor Allergy Verified 05/10/16 08:43 egg Allergy Verified 05/10/16 08:43 Iodinated Contrast- Oral and Allergy Verified 05/10/16 08:44 IV Dye [Iodinated Contrast Media - Oral and] iodine Allergy Verified 05/10/16 08:43 latex Allergy Verified 05/10/16 08:43 orange juice Allergy Verified 05/10/16 08:43 tolterodine tartrate Allergy Verified 05/10/16 08:43 [From Detrol] tomato Allergy Verified 05/10/16 08:43 Medications: Current Medications Acetaminophen (Tylenol) 650 mg PO Q4H PRN PRN Reason: Headache/Fever or Pain Last Admin: 04/19/17 12:01 Dose: 650 mg Al Hydroxide/Mg Hydroxide (Maalox) 30 ml PO Q6H PRN PRN Reason: Heartburn or Indigestion Albuterol/Ipratropium (Duoneb) 3 ml NEB [id number] CHIO Last Admin: 04/28/17 07:04 Dose: 3 ml Amlodipine Besylate (Norvasc) 10 mg PO DAILY CHIO Last Admin: 04/27/17 10:09 Dose: 10 mg Lipase/Protease/[place]ylase ([place] [id number]) 1 cap FS .PER PROTOCOL PRN PRN Reason: TUBE OCCLUSION PROTOCOL Artificial Tears (Tears Naturale) 0 drop EA EYE PRN PRN PRN Reason: Dry Eyes Aspirin (Aspirin Chewable) 81 mg PO DAILY [facility] Last Admin: 04/27/17 10:08 Dose: 81 mg Calcitriol (Rocaltrol) 0.25 mcg PO DAILY [facility] Last Admin: 04/27/17 10:09 Dose: 0.25 mcg Calcium Acetate (Phoslo) 1,334 mg PO TID-[facility] Last Admin: 04/27/17 16:09 Dose: 1,334 mg Dexamethasone (Decadron) 4 mg SLOW IVP 0200,0800,1400,2000 [facility] Last Admin: 04/28/17 01:09 Dose: 4 mg Dextrose/Water (Dextrose 50%) 25 gm SLOW IVP PRN PRN PRN Reason: Hypoglycemia Epoetin Javier (Procrit) 10,000 units SC Q7D [facility] Last Admin: 04/22/17 15:46 Dose: 10,000 units Famotidine (Pepcid) 20 mg SLOW IVP DAILY [facility] Last Admin: 04/27/17 10:39 Dose: 20 mg Ferrous Sulfate (Feosol) 325 mg PO QAM-[facility] Last Admin: 04/27/17 10:09 Dose: 325 mg Glucagon (Glucagon) 1 mg IM PRN PRN PRN Reason: Hypoglycemia Guaifenesin (Robitussin Sf) 200 mg PO Q4H PRN PRN Reason: Cough Heparin Sodium (Porcine) (Heparin) 5,000 units SC BID [facility] Last Admin: 04/27/17 20:45 Dose: 5,000 units Hydralazine HCl (Apresoline) 10 mg SLOW IVP Q4H PRN PRN Reason: Systolic BP > 180 Last Admin: 04/24/17 16:31 Dose: 10 mg Dextrose/Water (D5w) 1,000 mls @ 0 mls/hr IV .Q0M PRN; As Directed PRN Reason: Hypoglycemia Piperacillin Sod/Tazobactam Sod 2.25 gm/ Miscellaneous Medication 1 each/ Sodium Chloride 100 mls @ 200 mls/hr IVPB Q8HR [facility] Last Admin: 04/28/17 05:46 Dose: 100 mls Fentanyl Citrate (Fentanyl Bolus) 250 mls @ 0 mls/hr IVPB PRN PRN; As Directed PRN Reason: Breakthrough pain Stop: 05/20/17 03:31 Levetiracetam 1,500 mg/ Device 100 mls @ 200 mls/hr IVPB BID [facility] Last Admin: 04/27/17 20:45 Dose: 100 mls Fosphenytoin Sodium 200 mg/ (Sodium Chloride) 54 mls @ 108 mls/hr IVPB BID [facility] Last Admin: 04/27/17 20:44 Dose: 54 mls Norepinephrine Bitartrate (Levophed) 250 mls @ 0 mls/hr IVPB INF CHIO; Titrate PRN Reason: Protocol Last Admin: 04/25/17 16:27 Dose: 250 mls Midazolam HCl (Versed) 100 mls @ 15 mls/hr IVPB INF PRN; Protocol PRN Reason: Sedation/SEIZURES Last Admin: 04/28/17 04:39 Dose: 100 mls Lacosamide 100 mg/ Sodium (Chloride) 60 mls @ 120 mls/hr IVPB 0400,1600 [facility] Last Admin: 04/28/17 04:39 Dose: 60 mls Phenobarbital Sodium 65 mg/ (Sodium Chloride) 101 mls @ 202 mls/hr IVPB Q8HR [facility] Last Admin: 04/28/17 05:45 Dose: 101 mls Sodium Chloride (1/2 Normal Saline) 1,000 mls @ 50 mls/hr IV .Q20H [facility] Last Admin: 04/27/17 20:44 Dose: 1,000 mls Insulin Human Lispro (Humalog) 0 units SC .MODERATE SLIDING SC PRN PRN Reason: Moderate Correctional Scale Insulin Human Lispro (Humalog) 0 units SC .BEDTIME SLIDING SC PRN PRN Reason: Bedtime Correctional Scale Levothyroxine Sodium (Synthroid) 100 mcg PO 0600 [facility] Last Admin: 04/28/17 05:45 Dose: 100 mcg Loperamide HCl (Imodium) 2 mg PO PRN PRN PRN Reason: Diarrhea/Loose Stools Loratadine (Claritin) 10 mg PO DAILYPRN PRN PRN Reason: Sinus Symptoms Lorazepam (Ativan) 2 mg SLOW IVP Q2H PRN PRN Reason: Anxiety to achieve [place] 2-3 Stop: 05/20/17 03:31 Last Admin: 04/23/17 13:24 Dose: 2 mg Magnesium Hydroxide (Milk Of Magnesium) 30 ml PO DAILYPRN PRN PRN Reason: Constipation Midazolam HCl (Versed) 10 mg SLOW IVP Q15MIN PRN PRN Reason: .SEIZURE ACTIVITY Last Admin: 04/27/17 07:28 Dose: 10 mg Mineral Oil/White Petrolatum (Eucerin Cream) 0 gm TOP BIDPRN PRN PRN Reason: Dry Skin Morphine Sulfate (Morphine) 2 mg SLOW IVP Q2H PRN PRN Reason: Breakthrough pain Stop: 05/20/17 03:34 Ondansetron HCl (Zofran Odt) 4 mg PO Q6H PRN PRN Reason: Nausea/Vomiting Ondansetron HCl (Zofran) 4 mg IVP Q6H PRN PRN Reason: Nausea/Vomiting Last Admin: 04/12/17 13:07 Dose: 4 mg Phenol (Chloraseptic [place] 180 Ml Bot) 0 ml PO PRN PRN PRN Reason: Sore Throat Propofol (Diprivan) 1,000 mg IV INF PRN; Protocol PRN Reason: TO ACHIEVE MOTLEY SCORE 2-3 Stop: 05/20/17 03:31 Last Admin: 04/28/17 05:47 Dose: 1,000 mg Senna (Senokot) 2 tab PO HSPRN PRN PRN Reason: Constipation Sertraline HCl (Zoloft) 150 mg PO DAILY [facility] Last Admin: 04/27/17 10:09 Dose: 150 mg Sodium Bicarbonate (Bicarbonate, Sodium) 650 mg PER TUBE .PER PROTOCOL PRN PRN Reason: ENTERAL TUBE OCCLUSION Sodium Bicarbonate (Bicarbonate, Sodium) 650 mg PO BID [facility] Last Admin: 04/27/17 20:46 Dose: 650 mg Sodium Chloride ([place] Nasal [place] 0.65%) 0 ml EA NARE QIDPRN PRN PRN Reason: Nasal Congestion Sodium Chloride (Flush - Normal Saline) 10 ml IVF Q12HR [facility] Last Admin: 04/27/17 20:46 Dose: 10 ml Sodium Chloride (Flush - Normal Saline) 10 ml IVF PRN PRN PRN Reason: Saline Flush Last Admin: 04/26/17 20:45 Dose: 10 ml Vitamin B Complex/Vit C/Folic Acid (Nephro-Supriya Tablet) 1 tab PO DAILY [facility] Last Admin: 04/27/17 10:08 Dose: 1 tab
--- NOTE | 2017-04-28 10:04 | PRG ---
DATE OF SERVICE: 04/28/2017 SUBJECTIVE: Ms. Lorenzana is a 61-year-old black female being followed by the Renal Service for acute kid nathan injury on top of her chronic renal failure. For the last several days, renal function has remain ed stable. She is currently in the ICU due to refractory seizure. She is being managed by Neurology . Adjustment of her anti-seizure medications as being made by the Neurology Service. No acute events noted last night. PHYSICAL EXAMINATION: VITAL SIGNS: Blood pressure is 110/55, heart rate 77, respiratory rate 17, and pulse ox 96%. GENERAL: Patient is sedated, intubated, and ventilator support. SKIN: Adequate turgor. HEENT: She has pale conjunctivae, anicteric sclerae. NECK: No neck mass, no carotid bruits, no JVD. CHEST: No deformities. LUNGS: Decreased breath sounds. HEART: Normal sinus rhythm. No murmur, no gallops, no rubs. ABDOMEN: Globular, soft, nontender, no masses. EXTREMITIES: No edema, no deformities. Please note she has colostomy and urostomy on the abdomen. MEDICATIONS: Medications of 04/28/2017 reviewed. LABORATORY DATA: 04/27/2017 - Hemoglobin 7.6, hematocrit 24.3. On 04/28/2017 - Sodium 143, potassiu m 4.1, chloride 110, carbon dioxide 23, BUN 46, creatinine 3.54, calcium 8.9, phosphorus 4.5. ASSESSMENT AND PLAN: 1. Acute kidney injury on top of her chronic renal failure, stabilizing renal function. Creatinine of 3.54 is near baseline. She is currently at stage 4 chronic renal failure. Continue current manag ement. There is no indication for any dialytic intervention with this patient. 2. Anemia, on weekly Epogen at 10,000 units subcutaneously every week. 3. Seizure disorder. Neurology is following and adjusting anti-seizure meds. Overall, prognosis remains guarded.
[2017-04-28] MEDS: Sodium Chloride 0.45% 1,000 ML IV SCH (16:38)
--- NOTE | 2017-04-28 18:05 | PRG ---
DATE OF SERVICE: 04/28/2017 Critical care time 35 minutes.
--- NOTE | 2017-04-28 18:33 | PRG ---
DATE OF SERVICE: 04/28/2017 SUBJECTIVE: Ms. Lorenzana remains in the critical care unit. She has continuous EEG monitoring in place. The last note I have seen is from the [address] Jovel. Per my discussion with the nurses, it appears Dr. Tejada started phenobarbital yesterday. My review at the bedside tracings are that she continues to have burst suppression. OBJECTIVE: VITAL SIGNS: Remarkable for a blood pressure of 116/61, heart rate 69, respiratory rate per mechanical ventilation and oximetry is 96%. LUNGS: Clear. HEART: Regular rhythm. ABDOMEN: Soft. EXTREMITIES: Without asymmetry. LABORATORY DATA: There is no CBC today. Hemoglobin yesterday was 7.6. Sodium 143, potassium 4.1, chloride 110, bicarb 23, BUN 46 and creatinine 3.54. There is no recent blood gas. IMPRESSION: Respiratory failure associated with neurological injury or insult. PLAN: If this is simply burst suppression and not seizures and her prognosis is dismal, we will continue with supportive care, order some lab work in the morning and order chest radiograph in the morning. Neurology input would be nice. Critical care time 30 min. IVONE
[2017-04-29] MEDS: Dexamethasone 4 mg/ml Vial SLOW IVP SCH ×4 (02:10→20:31)
[2017-04-29] MEDS: Propofol 1,000 MG/100 ML VIAL IV PRN ×8 (02:21→23:56)
[2017-04-29] MEDS: Lacosamide 100 MG in Sodium Chloride 0.9% 50 ML IVPB SCH ×2 (04:00→16:26)
[2017-04-29] MEDS: Piperacillin/Tazobactam 2.25 GM, Admixture Fee 1 EACH in Sodium Chloride 0.9% 100 ML IVPB SCH (05:20)
[2017-04-29] MEDS: Levothyroxine Sodium 100 MCG TAB PO SCH (05:31)
[2017-04-29] MEDS: PHENOBARBITAL SODIUM IVPB SCH ×3 (06:00→21:28)
[2017-04-29] MEDS: SODIUM CHLORIDE 0.9% IVPB SCH ×3 (06:00→21:28)
[2017-04-29 06:23] LABS: Anion Gap 15 mmol/L (10-20); BUN (Urea Nitrogen) 45 mg/dL (9.8-20.1); Calc. Creatinine Clearance 31 mL/min (70-130); Calcium 8.3 mg/dL (7.8-10.44); Carbon Dioxide 21 mmol/L (23-31); Chloride 112 mmol/L (98-107); Estimated GFR-MDRD 17; Glucose 95 mg/dL (80-115); Magnesium 1.7 mg/dL (1.6-2.6); Potassium 4.1 mmol/L (3.5-5.1); Sodium 144 mmol/L (136-145)
[2017-04-29 06:33] LABS: Band 6 % (5-11); Eosinophils 1 % (0-10); Hemoglobin 7.5 g/dL (12.0-16.0); Lymphocytes 6 % (21-51); MDiff Complete? YES; Mean Corpuscular HGB CONC 31.8 g/dL (32.0-36.0); Mean Corpuscular Hemoglobin 30.7 pg (27.0-31.0); Mean Corpuscular Volume 96.6 fl (81.0-99.0); Mean Platelet Volume 6.3 fL (7.4-10.4); Monocytes 11 % (0-10); Neutrophil 76 % (42-75); Platelet Count 316 thou/uL (130-400); RBC Distribution Width 16.8 % (11.5-14.5); Red Blood Cell (RBC) Count 2.45 mill/uL (4.20-5.40); White Blood Cell (WBC) Count 11.7 thou/uL (4.8-10.8)
[2017-04-29 07:09] LABS: Actual Bicarbonate (HCO3a) 19.9 mEq/L (22-26); Base Excess (BEa) -4.2 mEq/L (0 (+/-) 2.5); CO2 Tension 31.7 mmHg (35.0-45.0); Hematocrit-ABG 20.3 % (36.0-47.0); Hemoglobin (Hb) 6.6 g/dL (12.0-16.0); O2 Tension (PaO2) 75.6 mmHg (80.0-100.0); pH, Arterial 7.42 (7.35-7.45)
[2017-04-29 07:10] LABS: ALV-art Gradient 34.505 (0-20); Analyzer IN Cardio OR; Calcium, Ionized 1.1 mmol/L (1.12-1.30); Puncture Site RRA
--- NOTE | 2017-04-29 08:29 | RAD ---
CHEST 1 VIEW: HISTORY: Dyspnea. Intubated. Followup. COMPARISON: 04/20/17. FINDINGS: Cardiac silhouette is magnified and enlarged. Pulmonary vasculature is more engorged with more promi nent reticulonodular interstitial prominence and patchy bibasilar infiltrates. Hazy opacity is also present at each base, suggesting pleural fluid. Mediastinum is midline. Liens and tubes appear unch anged in position. No evidence of pneumothorax. IMPRESSION: Worsening pulmonary vascular congestion. Bilateral pleural fluid. POS: H
[2017-04-29] MEDS: Folic Acid/Vit B Comp W-C PO SCH (08:32)
[2017-04-29] MEDS: Sodium Bicarbonate Tab 325 MG TAB PO SCH ×2 (08:32→20:31)
[2017-04-29] MEDS: Calcium Acetate 667 MG CAP PO SCH ×3 (08:32→17:31)
[2017-04-29] MEDS: Calcitriol 0.25 MCG CAP PO SCH (08:33)
[2017-04-29] MEDS: Heparin 5,000 UNITS/ML VIAL SC SCH ×2 (08:33→20:31)
[2017-04-29] MEDS: Amlodipine 10 MG TAB PO SCH (08:33)
[2017-04-29] MEDS: Ferrous Sulfate 325 MG TAB PO SCH (08:33)
[2017-04-29] MEDS: Famotidine 40 MG/4 ML VIAL SLOW IVP SCH (08:33)
[2017-04-29] MEDS: levETIRAcetam In NaCl (Iso-Os) 1,500 MG in Premix Bag 1 BAG IVPB SCH ×4 (08:49→20:51)
[2017-04-29] MEDS: Fosphenytoin Sodium 200 MG in Sodium Chloride 0.9% 50 ML IVPB SCH ×2 (09:00→20:31)
--- NOTE | 2017-04-29 09:54 | PDOC.PN ---
- Subjective Encounter Start Date: 04/29/17 Encounter Start Time: 09:20 -: old records requested/rev pt is intubated, sedated, Patient seen and examined. No overnight events - Objective Resuscitation Status: Resuscitation Status FULL:Full Resuscitation MAR Reviewed: Yes Vital Signs & Weight: Vital Signs (12 hours) Temp Pulse Resp BP Pulse Ox 04/29/17 08:33 62 04/29/17 08:00 15 04/29/17 07:00 98.3 F 04/29/17 06:47 62 15 96 04/29/17 06:41 63 138/67 04/29/17 06:00 15 04/29/17 04:00 98.5 F 15 04/29/17 02:46 78 04/29/17 02:00 15 04/29/17 01:40 65 15 95 04/29/17 00:00 98.0 F 15 04/28/17 22:11 63 04/28/17 22:00 15 Weight Admit Weight 222 lb 8 oz Weight 240 lb 15.444 oz Most Recent Monitor Data Heart Rate from ECG 65 NIBP 137/66 NIBP BP-Mean 107 Respiration from ECG 17 SpO2 96 I&O: 04/28/17 04/29/17 04/30/17 06:59 06:59 06:59 Intake Total 864 4670.8 180 Output Total 250 700 Balance 614 3970.8 180 Result Diagrams: 04/29/17 05:45 04/29/17 05:45 Additional Labs: Accuchecks 04/29/17 04/29/17 04/28/17 05:48 00:22 17:21 POC Glucose 96 94 92 04/28/17 11:01 POC Glucose 83 Radiology Reviewed by me: Yes (chest xray-pulmonary vascular congestion) EKG Reviewed by me: Yes (nsr) Phys Exam - Physical Examination Constitutional: NAD intubated, sedated HEENT: PERRLA, sclera anicteric Neck: no nodes, supple central line+ Respiratory: no wheezing, no rales, no rhonchi anteriorly Cardiovascular: RRR, no significant murmur, no rub Gastrointestinal: soft, no distention, positive bowel sounds colostomy, ileal conduit Musculoskeletal: no edema, pulses present scd+ Lymphatic: no nodes Skin: no rash, normal turgor Dx/Plan (1) Acute metabolic encephalopathy Code(s): G93.41 - METABOLIC ENCEPHALOPATHY Status: Acute Comment: (2) Acute respiratory failure with hypoxia Code(s): J96.01 - ACUTE RESPIRATORY FAILURE WITH HYPOXIA Status: Acute Comment: on ventilator (3) Acute worsening of stage 4 chronic kidney disease Code(s): N28.9 - DISORDER OF KIDNEY AND URETER, UNSPECIFIED; N18.4 - CHRONIC KIDNEY DISEASE, STAGE 4 (SEVERE) Status: Acute Comment: (4) Metabolic acidosis Code(s): E87.2 - ACIDOSIS Status: Acute Comment: (5) Pneumonia Code(s): J18.9 - PNEUMONIA, UNSPECIFIED ORGANISM Status: Acute Qualifiers: Pneumonia type: aspiration pneumonia Aspiration pneumonia type: due to gastric secretions Laterality: bilateral Lung location: lower lobe of lung Qualified Code(s): J69.0 - Pneumonitis due to inhalation of food and vomit Comment: (6) Status epilepticus Code(s): G40.901 - EPILEPSY, UNSP, NOT INTRACTABLE, WITH STATUS EPILEPTICUS Status: Acute (7) UTI (urinary tract infection) Status: Acute Comment: (8) Anxiety and depression Code(s): F41.8 - OTHER SPECIFIED ANXIETY DISORDERS Status: Chronic Comment: (9) Bilateral hydronephrosis Code(s): N13.30 - UNSPECIFIED HYDRONEPHROSIS Status: Chronic (10) DM type 2 (diabetes mellitus, type 2) Status: Chronic Qualifiers: Diabetes mellitus complication status: with kidney complications Diabetes mellitus complication detail: with chronic kidney disease Diabetes mellitus hedis registered nurse rn insulin use: with hedis registered nurse rn use Chronic kidney disease stage: stage 5, not on chronic dialysis Qualified Code(s): E11.22 - Type 2 diabetes mellitus with diabetic chronic kidney disease; N18.5 - Chronic kidney disease, stage 5; N18.5 - Chronic kidney disease, stage 5; N18.5 - Chronic kidney disease , stage 5; N18.5 - Chronic kidney disease, stage 5; Z79.4 - regional construction manager (current) use of insulin; Z79.4 - half-way (current) use of insulin; Z79.4 - half-way ( current) use of insulin; Z79.4 - regional construction manager (current) use of insulin Comment: At goal. (11) HTN (hypertension) Code(s): I10 - ESSENTIAL (PRIMARY) HYPERTENSION Status: Chronic Qualifiers: Hypertension type: essential hypertension (12) Hypothyroidism Code(s): E03.9 - HYPOTHYROIDISM, UNSPECIFIED Status: Chronic Qualifiers: Hypothyroidism type: unspecified Qualified Code(s): E03.9 - Hypothyroidism , unspecified Comment: Continue Levothyroxine. (13) Physical deconditioning Code(s): R53.81 - OTHER MALAISE Status: Chronic Comment: (14) Sacral decubitus ulcer, stage IV Code(s): L89.154 - PRESSURE ULCER OF SACRAL REGION, STAGE 4 Status: Chronic Comment: (15) Seizure disorder Code(s): G40.909 - EPILEPSY, UNSP, NOT INTRACTABLE, WITHOUT STATUS EPILEPTICUS Status: Chronic Comment: (16) Hypomagnesemia Code(s): E83.42 - HYPOMAGNESEMIA Status: Resolved (17) Pulmonary vascular congestion Code(s): R09.89 - OTH SYMPTOMS AND SIGNS INVOLVING THE CIRC AND RESP SYSTEMS Status: Acute (18) Anemia of renal disease Code(s): D63.1 - ANEMIA IN CHRONIC KIDNEY DISEASE Status: Chronic Comment: - Plan cont current plan of care, continue antibiotics * today Zosyn last day * DC IVF * today creatinine is improving but developing pulmonary vascular congestion, will stop IVF * vent management per pulmonary * prognosis is very poor * medication reviewed as below * symptomatic treatment. Review of Systems - Review of Systems Other: unable to review due to intubated status - Medications/Allergies Allergies/Adverse Reactions: Allergies Allergy/AdvReac Type Severity Reaction Status Date / Time banana Allergy Verified 05/10/16 08:43 chocolate flavor Allergy Verified 05/10/16 08:43 egg Allergy Verified 05/10/16 08:43 Iodinated Contrast- Oral and Allergy Verified 05/10/16 08:44 IV Dye [Iodinated Contrast Media - Oral and] iodine Allergy Verified 05/10/16 08:43 latex Allergy Verified 05/10/16 08:43 orange juice Allergy Verified 05/10/16 08:43 tolterodine tartrate Allergy Verified 05/10/16 08:43 [From Detrol] tomato Allergy Verified 05/10/16 08:43 Medications: Current Medications Acetaminophen (Tylenol) 650 mg PO Q4H PRN PRN Reason: Headache/Fever or Pain Last Admin: 04/19/17 12:01 Dose: 650 mg Al Hydroxide/Mg Hydroxide (Maalox) 30 ml PO Q6H PRN PRN Reason: Heartburn or Indigestion Albuterol/Ipratropium (Duoneb) 3 ml NEB [id number] [facility] Last Admin: 04/29/17 06:47 Dose: 3 ml Amlodipine Besylate (Norvasc) 10 mg PO DAILY [facility] Last Admin: 04/29/17 08:33 Dose: 10 mg Lipase/Protease/[place]ylase ([place] [address]) 1 cap FS .PER PROTOCOL PRN PRN Reason: TUBE OCCLUSION PROTOCOL Artificial Tears (Tears Naturale) 0 drop EA EYE PRN PRN PRN Reason: Dry Eyes Aspirin (Aspirin Chewable) 81 mg PO DAILY [facility] Last Admin: 04/29/17 08:33 Dose: 81 mg Calcitriol (Rocaltrol) 0.25 mcg PO DAILY [facility] Last Admin: 04/29/17 08:33 Dose: 0.25 mcg Calcium Acetate (Phoslo) 1,334 mg PO TID-[facility] Last Admin: 04/29/17 08:32 Dose: 1,334 mg Dexamethasone (Decadron) 4 mg SLOW IVP 0200,0800,1400,2000 [facility] Last Admin: 04/29/17 08:32 Dose: 4 mg Dextrose/Water (Dextrose 50%) 25 gm SLOW IVP PRN PRN PRN Reason: Hypoglycemia Epoetin Javier (Procrit) 10,000 units SC Q7D [facility] Last Admin: 04/22/17 15:46 Dose: 10,000 units Famotidine (Pepcid) 20 mg SLOW IVP DAILY [facility] Last Admin: 04/29/17 08:33 Dose: 20 mg Ferrous Sulfate (Feosol) 325 mg PO QAM-[facility] Last Admin: 04/29/17 08:33 Dose: 325 mg Glucagon (Glucagon) 1 mg IM PRN PRN PRN Reason: Hypoglycemia Guaifenesin (Robitussin Sf) 200 mg PO Q4H PRN PRN Reason: Cough Heparin Sodium (Porcine) (Heparin) 5,000 units SC BID [facility] Last Admin: 04/29/17 08:33 Dose: 5,000 units Hydralazine HCl (Apresoline) 10 mg SLOW IVP Q4H PRN PRN Reason: Systolic BP > 180 Last Admin: 04/24/17 16:31 Dose: 10 mg Dextrose/Water (D5w) 1,000 mls @ 0 mls/hr IV .Q0M PRN; As Directed PRN Reason: Hypoglycemia Piperacillin Sod/Tazobactam Sod 2.25 gm/ Miscellaneous Medication 1 each/ Sodium Chloride 100 mls @ 200 mls/hr IVPB Q8HR [facility] Last Admin: 04/29/17 05:20 Dose: 100 mls Fentanyl Citrate (Fentanyl Bolus) 250 mls @ 0 mls/hr IVPB PRN PRN; As Directed PRN Reason: Breakthrough pain Stop: 05/20/17 03:31 Levetiracetam 1,500 mg/ Device 100 mls @ 200 mls/hr IVPB BID [facility] Last Admin: 04/29/17 08:49 Dose: 100 mls Fosphenytoin Sodium 200 mg/ (Sodium Chloride) 54 mls @ 108 mls/hr IVPB BID [facility] Last Admin: 04/29/17 09:00 Dose: 54 mls Norepinephrine Bitartrate (Levophed) 250 mls @ 0 mls/hr IVPB INF [facility]; Titrate PRN Reason: Protocol Last Admin: 04/25/17 16:27 Dose: 250 mls Midazolam HCl (Versed) 100 mls @ 15 mls/hr IVPB INF PRN; Protocol PRN Reason: Sedation/SEIZURES Last Admin: 04/29/17 09:35 Dose: 100 mls Lacosamide 100 mg/ Sodium (Chloride) 60 mls @ 120 mls/hr IVPB 0400,1600 [facility] Last Admin: 04/29/17 04:00 Dose: 60 mls Phenobarbital Sodium 65 mg/ (Sodium Chloride) 101 mls @ 202 mls/hr IVPB Q8HR [facility] Last Admin: 04/29/17 06:00 Dose: 101 mls Sodium Chloride (1/2 Normal Saline) 1,000 mls @ 50 mls/hr IV .Q20H [facility] Last Admin: 04/28/17 16:38 Dose: 1,000 mls Insulin Human Lispro (Humalog) 0 units SC .MODERATE SLIDING SC PRN PRN Reason: Moderate Correctional Scale Insulin Human Lispro (Humalog) 0 units SC .BEDTIME SLIDING SC PRN PRN Reason: Bedtime Correctional Scale Levothyroxine Sodium (Synthroid) 100 mcg PO 0600 [facility] Last Admin: 02/18/18 05:31 Dose: 100 mcg Loperamide HCl (Imodium) 2 mg PO PRN PRN PRN Reason: Diarrhea/Loose Stools Loratadine (Claritin) 10 mg PO DAILYPRN PRN PRN Reason: Sinus Symptoms Lorazepam (Ativan) 2 mg SLOW IVP Q2H PRN PRN Reason: Anxiety to achieve Motley 2-3 Stop: 05/20/17 03:31 Last Admin: 04/23/17 13:24 Dose: 2 mg Magnesium Hydroxide (Milk Of Magnesium) 30 ml PO DAILYPRN PRN PRN Reason: Constipation Midazolam HCl (Versed) 10 mg SLOW IVP Q15MIN PRN PRN Reason: .SEIZURE ACTIVITY Last Admin: 04/27/17 07:28 Dose: 10 mg Mineral Oil/White Petrolatum (Eucerin Cream) 0 gm TOP BIDPRN PRN PRN Reason: Dry Skin Morphine Sulfate (Morphine) 2 mg SLOW IVP Q2H PRN PRN Reason: Breakthrough pain Stop: 05/20/17 03:34 Ondansetron HCl (Zofran Odt) 4 mg PO Q6H PRN PRN Reason: Nausea/Vomiting Ondansetron HCl (Zofran) 4 mg IVP Q6H PRN PRN Reason: Nausea/Vomiting Last Admin: 04/12/17 13:07 Dose: 4 mg Phenol (Chloraseptic [place] 180 Ml Bot) 0 ml PO PRN PRN PRN Reason: Sore Throat Propofol (Diprivan) 1,000 mg IV INF PRN; Protocol PRN Reason: TO ACHIEVE MOTLEY SCORE 2-3 Stop: 05/20/17 03:31 Last Admin: 04/29/17 08:32 Dose: 1,000 mg Senna (Senokot) 2 tab PO HSPRN PRN PRN Reason: Constipation Sertraline HCl (Zoloft) 150 mg PO DAILY [facility] Last Admin: 04/29/17 08:32 Dose: 150 mg Sodium Bicarbonate (Bicarbonate, Sodium) 650 mg PER TUBE .PER PROTOCOL PRN PRN Reason: ENTERAL TUBE OCCLUSION Sodium Bicarbonate (Bicarbonate, Sodium) 650 mg PO BID [facility] Last Admin: 04/29/17 08:32 Dose: 650 mg Sodium Chloride ([place] Nasal [place] 0.65%) 0 ml EA NARE QIDPRN PRN PRN Reason: Nasal Congestion Sodium Chloride (Flush - Normal Saline) 10 ml IVF Q12HR [facility] Last Admin: 04/29/17 08:34 Dose: 10 ml Sodium Chloride (Flush - Normal Saline) 10 ml IVF PRN PRN PRN Reason: Saline Flush Last Admin: 04/26/17 20:45 Dose: 10 ml Vitamin B Complex/Vit C/Folic Acid (Nephro-Supriya Tablet) 1 tab PO DAILY [facility] Last Admin: 04/29/17 08:32 Dose: 1 tab
--- NOTE | 2017-04-29 10:31 | PRG ---
DATE OF SERVICE: 04/29/2017 LOCATION: Renal Medicine. SUBJECTIVE: No new events noted with Ms. Sakina Lorenzana. She is still intubated in ventilator support. We are following her up for her chronic renal failure. OBJECTIVE: VITAL SIGNS: Blood pressure is 137/66, heart rate 65, respiratory rate 17 and pulse ox 96%. GENERAL: The patient is sedated and intubated on ventilator support. SKIN: Adequate Turgor. HEENT: Slightly pale conjunctivae, anicteric sclerae. NECK: No neck mass, no carotid bruit, no JVD. CHEST: No deformities. LUNGS: Decreased breath sounds. HEART: Normal sinus rhythm. No murmur, no gallops, no rubs. ABDOMEN: Globular, soft and nontender, no masses. Positive for colostomy, positive for urostomy. EXTREMITIES: Trace edema. MEDICATIONS: Medications of 04/29/2017 reviewed. LABORATORY DATA: Laboratories of 04/29/2017; white count 11.7 and hemoglobin 7.5. Sodium 144, potas sium 4.1, chloride 112, carbon dioxide 21, BUN 45, creatinine 3.32, GFR 17 mL per minute, phosphorus 5.0, magnesium 1.7 and calcium 8.3. ASSESSMENT AND PLAN: 1. Chronic renal failure - stable renal function. No changes in the last several days. Continue hylton pportive care. No indication for any dialytic intervention. 2. Anemia, continuing weekly Epogen. She is currently at 10,000 units subcu every week. 3. Seizure disorder, refractory. Neurology is following. She has been started on new anti-seizure meds. Repeat EEG scheduled this week. Overall, agree with current management.
--- NOTE | 2017-04-29 12:59 | PRG ---
DATE OF SERVICE: 04/29/2017 Ms. Lorenzana remains on a continuous EEG, blood pressure 143/70, heart rate 63, respiratory rate 20, oxim etry is 94. Reviewing her EEG looks to me like she still has burst suppression, but I do not read EE Gs every day.
[2017-04-29] MEDS: Epoetin (ESRD) 10,000 UNITS/ML VIAL SC SCH (16:20)
--- NOTE | 2017-04-29 18:06 | CON ---
DATE OF CONSULTATION: 04/29/2017 CHIEF COMPLAINT: Evaluate for seizure activity. HISTORY OF PRESENT ILLNESS: Patient was seen by Dr. Jovel last week and the last EMR note from Dr. Jovel from 04/24/2017 was reviewed, and based on that note, patient was going to be on continuous EEG and he was considering a transfer to tertiary care center. Primary care physician, Dr. Dale called me today to request a reconsult on this patient. Patient's EEG seems abnormal and I was asked to see this patient. Patient was admitted on 04/08/2017 for acute on chronic renal failure, severe metabolic acidosis and bandemia and she was admitted because she was having encephalopathy and more tremor, inability to do think well, being incoherent. She was admitted for possible metabolic encephalopathy and chronic kidney failure, hypertension, and she was left on Keppra at that time and during her hospital course, she developed more complications medically and also neurologically and she was seen by Dr. Jovel and her initial EEG reading shows that it is consistent with subclinical status epilepticus and patient has remained on sedation plus various Antiepileptic medications including Versed, propofol, Keppra, and fosphenytoin. Her fosphenytoin dose is at 200 mg b.i.d. and she is on Keppra 1500 mg b.i.d. MOST RECENT LABORATORY REPORT: White count 11.7, hemoglobin 7.5, hematocrit 23.7, platelets 316. Chemistry: Sodium 144, potassium 4.1, chloride 112, bicarbonate 21, BUN 45, creatinine 3.32, and valproic acid level was 21.3 in the past. She was on phenytoin, last phenytoin level is 12.1 from 04/24/2017. In the interim, she also has a phenobarbital level of 22.7. PAST MEDICAL HISTORY: The patient has renal problems and she has hypertension, diabetes, hypothyroidism, anemia of chronic renal disease, seizure disorder, neurogenic bladder, bilateral hydronephrosis, recurrent UTIs, chronic kidney disease stage 4, dyslipidemia, history of colon cancer. PAST SURGICAL HISTORY: Hysterectomy, ileostomy, colostomy, urostomy, cholecystectomy, goiter, history of tracheostomy. PSYCHIATRIC HISTORY: Anxiety, depression. SOCIAL HISTORY: She lives with her family. No tobacco, alcohol or drug use. FAMILY HISTORY: Negative for coronary artery disease, stroke or cancer. ALLERGIES: BANANA, CHOCOLATES, FLAVORING EGG, IODINE, ORANGE JUICE, TOMATO. No medication allergies. MEDICATIONS: As noted. REVIEW OF SYSTEMS: Unobtainable. PHYSICAL EXAMINATION: VITAL SIGNS: Blood pressure 120/59, heart rate is 66. GENERAL: Somewhat obese lady who is intubated at this time. CHEST: Clear vesicular breathing. CARDIOVASCULAR: S1, S2 heard. No murmurs. ABDOMEN: Soft. NEUROLOGICAL: Higher intellectual functions. No withdrawal to any stimuli. Cranial nerves: Pupils 1.5 mm bilaterally nonreactive, and corneal reflexes present only on the left side. Absent corneal on the right side. Deep tendon reflexes absent. Motor: No response to any stimuli. IMPRESSION: Patient is a 61-year-old lady with multiple medical problems including chronic kidney disease stage 4, and diabetes. She presents to the hospital with encephalopathy and she has had a prolonged hospital course so far with the various medications. She was in subclinical status epilepticus and therefore she was placed on various medications including midazolam and she received Ativan as needed. She also is on lacosamide, Keppra and she was started on phenobarbital plus fosphenytoin. I do not see valproic acid in her medication list at this time but she was on it earlier. I reviewed the EEG recording. It seems to me two of the leads particularly in the temporal lead area are disconnected and the EEG system is not currently recording any activity. Per nursing staff, this has not been recording for the past few days. This seems to be a very complex situation with multiple medications and malfunction of the EEG machine. RECOMMENDATIONS: 1. Please call solar installer technician to come and reset the leads and restart the recording. I will also notify small electric engine technician plus reader. 2. I will request Dr. Claire tomorrow to review this patient's case and also go through the entire EEG recordings that have been available so far and clean and fresh recording will be helpful to evaluate where we are with her seizures. 3. I requested that the nurse to start decreasing sedative agents maybe we can start that with Versed and drop the dose slightly and try to decrease sedation in the first place to see what cortical activity remains in this patient. I suspect most of this is a reflection of medications plus metabolic factors. 4. I will request a CT of the head to look at whether or not there is any cytotoxic edema. I do not see a recent CT. I see an MRI from 04/24/2017 which shows limited evaluation due to motion degradation abnormal white matter hyperintensity in the posterior cerebrum and kallie distribution favors posterior reversible encephalopathy syndrome and associated restricted diffusion. 5. I will have someone from Neurology follow this patient tomorrow. IVONE
--- NOTE | 2017-04-29 20:06 | PRG ---
DATE OF SERVICE: 04/29/2017 SUBJECTIVE: Ms. Lorenzana is unchanged. Her EEG is still abnormal and very similar to yesterday's miesha cisneros. I have contacted the [facility] neurologist on-call since no neurologist seen her for a couple of d ays. Family is constantly calling wanting updates on her condition, I really do not know what to tel l them at this point from a neurological perspective. OBJECTIVE: VITAL SIGNS: Her heart rate 60, blood pressure 134/66, respiratory rate 15, oximetry is 94. LUNGS: Clear anteriorly. HEART: Regular rhythm. ABDOMEN: Soft. EXTREMITIES: Without clubbing, cyanosis, or edema. Chest radiograph shows worsening pulmonary edema and findings suggestive of a right effusion. Intake and output is positive 3970. White count 11.7, hemoglobin 7.5, and platelets 316,000. Sodium 144, potassium 4.1, chloride 112, bi carb 21, BUN 45, and creatinine 3.32. IMPRESSION: 1. Volume overload. She will not tolerate much more in the way positive fluid balance from a pulmon linda perspective. 2. Acute on chronic kidney disease. 3. Seizures/burst suppression. Neurology input will be appreciated. 4. Anemia of chronic disease. PLAN: Continue supportive care. She is certainly not weanable. Neurology input and eventually disc ussion with family about prognosis will be appreciated. We will continue to keep the family updated. They were told today that she is stable, but still critically ill.
[2017-04-30] MEDS: Dexamethasone 4 mg/ml Vial SLOW IVP SCH ×4 (02:49→19:41)
[2017-04-30] MEDS: Propofol 1,000 MG/100 ML VIAL IV PRN ×7 (02:50→22:53)
[2017-04-30] MEDS: Lacosamide 100 MG in Sodium Chloride 0.9% 50 ML IVPB SCH ×2 (03:12→16:22)
[2017-04-30] MEDS: Levothyroxine Sodium 100 MCG TAB PO SCH (05:37)
[2017-04-30] MEDS: PHENOBARBITAL SODIUM IVPB SCH ×3 (05:51→21:19)
[2017-04-30] MEDS: SODIUM CHLORIDE 0.9% IVPB SCH ×3 (05:51→21:19)
[2017-04-30 06:25] LABS: Anion Gap 15 mmol/L (10-20); BUN (Urea Nitrogen) 42 mg/dL (9.8-20.1); Calc. Creatinine Clearance 33 mL/min (70-130); Calcium 8.7 mg/dL (7.8-10.44); Carbon Dioxide 19 mmol/L (23-31); Chloride 112 mmol/L (98-107); Estimated GFR-MDRD 19; Glucose 93 mg/dL (80-115); Magnesium 1.9 mg/dL (1.6-2.6); Phosphorus 5.3 mg/dL (2.3-4.7); Potassium 4.3 mmol/L (3.5-5.1); Sodium 142 mmol/L (136-145)
[2017-04-30 06:38] LABS: Dilantin 10.4 ug/mL (10.0-20.0)
[2017-04-30 07:05] LABS: Actual Bicarbonate (HCO3a) 18.3 mEq/L (22-26); CO2 Tension 33.6 mmHg (35.0-45.0); O2 Tension (PaO2) 66.7 mmHg (80.0-100.0); pH, Arterial 7.35 (7.35-7.45)
[2017-04-30 07:06] LABS: Base Excess (BEa) -6.6 mEq/L (0 (+/-) 2.5); Calcium, Ionized 1.2 mmol/L (1.12-1.30); Hematocrit-ABG 24.6 % (36.0-47.0); Hemoglobin (Hb) 7.3 g/dL (12.0-16.0); Puncture Site RRA
[2017-04-30 07:52] LABS: Band 3 % (5-11); Hemoglobin 8.1 g/dL (12.0-16.0); Lymphocytes 4 % (21-51); MDiff Complete? YES; Mean Corpuscular HGB CONC 31.1 g/dL (32.0-36.0); Mean Corpuscular Hemoglobin 30.3 pg (27.0-31.0); Mean Corpuscular Volume 97.6 fl (81.0-99.0); Mean Platelet Volume 6.7 fL (7.4-10.4); Monocytes 5 % (0-10); Neutrophil 88 % (42-75); Platelet Count 402 thou/uL (130-400); RBC Distribution Width 16.6 % (11.5-14.5); Red Blood Cell (RBC) Count 2.68 mill/uL (4.20-5.40); White Blood Cell (WBC) Count 15.4 thou/uL (4.8-10.8)
--- NOTE | 2017-04-30 08:45 | PRG ---
DATE OF SERVICE: 04/30/2017 A 35 minutes critical care time. Events of the weekend were noted on this patient. She is a 61-year-old female currently hospitalized with status epilepticus. She has had a continuous EEG monitor in place the weekend, but apparently it has not been working very well. Neurology had not been seeing her since last Sunday, but a wel come physician covering for them did come yesterday at the request of Dr. Dale. It is unclear at th is time whether the patient continues to have seizure activity or not. Certainly, there has been not [place] visible externally. PHYSICAL EXAMINATION: VITAL SIGNS: At the current time, temperature is 97.6, pulse 72, blood pressure 164/79, a 24-hour in take 4670 and output 700. NEUROLOGIC: Her pupils are reactive, but she does not withdraw to any pain. She is currently on Jayne sed and propofol drip. HEENT: Otherwise, unremarkable. NECK: No JVD. LUNGS: Coarse breath sounds. CARDIOVASCULAR: S1 and S2 regular. ABDOMEN: Soft and nontender. She apparently is not tolerating tube feeds well. EXTREMITIES: No clubbing, cyanosis. She has generalized edema throughout. LABORATORY DATA: White blood cell count 15.4, hematocrit 26.1, platelet count 402. PH 7.35, pCO2 of 33, pO2 67 on SIMV rate 15, tidal volume 430, PEEP 5, pressure 10, FiO2 of 21%. Sodium 142, potassi um 4.3, chloride 112, CO2 of 19, BUN 42, creatinine 3.0, glucose 93. ASSESSMENT: 1. Status epilepticus. 2. Volume overload. 3. Acute on chronic kidney disease. 4. Acute respiratory failure, requiring mechanical ventilation. PLAN: 1. I will add Reglan, as she is not tolerating tube feeds. Add scopolamine patch, because she has e xcess secretions. 2. Recheck chest x-ray tomorrow. 3. Hold the Versed drip and lighten the propofol. We will need to see if she will wake up. We have asked Dr. Jovel to reengage on this case continuously to guide us through the management of her di fficult seizures.
[2017-04-30] MEDS: Calcium Acetate 667 MG CAP PO SCH ×3 (09:03→18:21)
[2017-04-30] MEDS: Sodium Bicarbonate Tab 325 MG TAB PO SCH ×2 (09:08→20:01)
[2017-04-30] MEDS: Folic Acid/Vit B Comp W-C PO SCH (09:09)
[2017-04-30] MEDS: Calcitriol 0.25 MCG CAP PO SCH (09:09)
[2017-04-30] MEDS: Ferrous Sulfate 325 MG TAB PO SCH (09:10)
[2017-04-30] MEDS: Amlodipine 10 MG TAB PO SCH (09:10)
[2017-04-30] MEDS: Scopolamine 1.5 mg/72 hour Patch TD SCH (09:11)
[2017-04-30] MEDS: Fosphenytoin Sodium 200 MG in Sodium Chloride 0.9% 50 ML IVPB SCH ×2 (09:12→20:18)
[2017-04-30] MEDS: levETIRAcetam In NaCl (Iso-Os) 1,500 MG in Premix Bag 1 BAG IVPB SCH ×4 (09:14→20:01)
[2017-04-30] MEDS ORDERED: Famotidine 20 MG TAB PER TUBE SCH (09:15)
[2017-04-30] MEDS: Famotidine 20 MG TAB PER TUBE SCH (09:18)
[2017-04-30] MEDS: Heparin 5,000 UNITS/ML VIAL SC SCH ×2 (09:19→20:01)
--- NOTE | 2017-04-30 09:36 | PRG ---
DATE OF SERVICE: 04/30/2017 SUBJECTIVE: Ms. Lorenzana is a 61-year-old black female being followed up by the Renal Service for her ac nayana kidney injury on top of her chronic renal failure. Conservative management has been done with urszula r. Renal function has slowly been improving. Her creatinine this morning was noted at 3.07 which vizcarra s been the best value so far in the last 1-2 weeks. She continues to have a seizure. She is still i ntubated. No acute events noted last night. PHYSICAL EXAMINATION: VITAL SIGNS: Blood pressure is 156/75, heart rate 87, respiratory rate 22, pulse ox 100%. GENERAL: The patient is sedated, intubated and on ventilator support. SKIN: Adequate turgor. HEENT: She has pale conjunctivae, anicteric sclerae. NECK: No neck mass, no carotid bruits, no JVD. CHEST: No deformities. LUNGS: Clear. Decreased breath sounds. HEART: Normal sinus rhythm. No murmur, no gallops, no rubs. ABDOMEN: Globular, soft. Positive for ileostomy. Positive for colostomy. EXTREMITIES: No edema. MEDICATIONS: 04/30/2017 - Reviewed. LABORATORY: 04/30/2017 - Sodium 142, potassium 4.3, chloride 112, carbon dioxide 19, BUN 42, creatin ine 3.07. GFR 19 mL per minute, glucose 93, phosphorus 5.3, calcium 8.7. Hemoglobin 8.1. ASSESSMENT AND PLAN: 1. Acute kidney injury on top of chronic renal failure - superimposed prerenal azotemia. There is s tabilization of the renal function. Most recent creatinine is now 3.01. This is the best value so f ar. Again, no indication for any dialytic intervention. 2. Anemia p.r.n. blood transfusion, continuing weekly Epogen. 3. Seizure disorder. Neurology is following. I agree with current management, recheck basic metabolic panel and CBC in a.m.
[2017-04-30] MEDS: Metoclopramide HCl 10 MG/2 ML VIAL IVP SCH ×3 (09:49→19:41)
--- NOTE | 2017-04-30 10:52 | CT ---
Noncontrast head ct: HISTORY: Comatose patient. Epileptic seizure. COMPARISON: 12/27/16. TECHNIQUE: Noncontrast head CT is performed from the skull base to the skull vertex. CORRELATION: Brain MRI 04/24/17. FINDINGS: No hemorrhage. No extraaxial hematoma. No midline shift. Basilar cisterns are patent. Brain volume is age appropriate. There are white matter hypodensities predominantly involving the po sterior parietal as well as the occipital lobe. These white matter hypodensities are felt to corresp ond to the previous MRI findings. There is also some white matter hypoattenuation involving the lef t frontal lobe. Adequate aeration of the mastoid air cells. There is right sphenoid sinus disease. The calvarium is intact. IMPRESSION: Redemonstration of white matter hypodensities. Distribution predominantly follows the previous MRI. POS: [facility]
--- NOTE | 2017-04-30 10:52 | PDOC.PN ---
- Subjective Encounter Start Date: 04/30/17 Encounter Start Time: 08:50 Patient seen and examined. No overnight events, intubated, sedated - Objective Resuscitation Status: Resuscitation Status FULL:Full Resuscitation MAR Reviewed: Yes Vital Signs & Weight: Vital Signs (12 hours) Temp Pulse Resp BP Pulse Ox 04/30/17 09:10 86 04/30/17 07:34 98.4 F 86 15 04/30/17 07:22 15 04/30/17 06:38 72 157/76 H 04/30/17 06:37 72 15 99 04/30/17 06:00 15 04/30/17 04:00 15 04/30/17 02:48 79 04/30/17 02:00 15 04/30/17 00:36 69 04/30/17 00:35 67 15 94 L 04/30/17 00:00 97.9 F 15 Weight Admit Weight 222 lb 8 oz Weight 239 lb 6.752 oz Most Recent Monitor Data Heart Rate from ECG 87 NIBP 156/75 NIBP BP-Mean 100 Respiration from ECG 22 SpO2 100 I&O: 04/29/17 04/30/17 05/01/17 06:59 06:59 06:59 Intake Total 4670.8 2112 Output Total 700 Balance 3970.8 2112 Result Diagrams: 04/30/17 05:40 04/30/17 05:40 Additional Labs: Accuchecks 04/30/17 04/29/17 04/29/17 00:49 17:12 11:22 POC Glucose 85 92 98 Radiology Reviewed by me: Yes (CT brain) EKG Reviewed by me: Yes (nsr) Phys Exam - Physical Examination Constitutional: NAD intubated, sedated HEENT: PERRLA, sclera anicteric Neck: no JVD, supple Respiratory: no wheezing, no rales, no rhonchi Cardiovascular: RRR, no significant murmur, no rub Gastrointestinal: soft, no distention, positive bowel sounds Musculoskeletal: no edema, pulses present Skin: no rash, normal turgor Dx/Plan (1) Acute metabolic encephalopathy Code(s): G93.41 - METABOLIC ENCEPHALOPATHY Status: Acute Comment: (2) Acute respiratory failure with hypoxia Code(s): J96.01 - ACUTE RESPIRATORY FAILURE WITH HYPOXIA Status: Acute Comment: on ventilator (3) Acute worsening of stage 4 chronic kidney disease Code(s): N28.9 - DISORDER OF KIDNEY AND URETER, UNSPECIFIED; N18.4 - CHRONIC KIDNEY DISEASE, STAGE 4 (SEVERE) Status: Acute Comment: (4) Metabolic acidosis Code(s): E87.2 - ACIDOSIS Status: Acute Comment: (5) Pneumonia Code(s): J18.9 - PNEUMONIA, UNSPECIFIED ORGANISM Status: Acute Qualifiers: Pneumonia type: aspiration pneumonia Aspiration pneumonia type: due to gastric secretions Laterality: bilateral Lung location: lower lobe of lung Qualified Code(s): J69.0 - Pneumonitis due to inhalation of food and vomit Comment: (6) Status epilepticus Code(s): G40.901 - EPILEPSY, UNSP, NOT INTRACTABLE, WITH STATUS EPILEPTICUS Status: Acute (7) UTI (urinary tract infection) Status: Acute Comment: (8) Anxiety and depression Code(s): F41.8 - OTHER SPECIFIED ANXIETY DISORDERS Status: Chronic Comment: (9) Bilateral hydronephrosis Code(s): N13.30 - UNSPECIFIED HYDRONEPHROSIS Status: Chronic (10) DM type 2 (diabetes mellitus, type 2) Status: Chronic Qualifiers: Diabetes mellitus complication status: with kidney complications Diabetes mellitus complication detail: with chronic kidney disease Diabetes mellitus bed bug exterminator insulin use: with bed bug exterminator use Chronic kidney disease stage: stage 5, not on chronic dialysis Qualified Code(s): E11.22 - Type 2 diabetes mellitus with diabetic chronic kidney disease; N18.5 - Chronic kidney disease, stage 5; N18.5 - Chronic kidney disease, stage 5; N18.5 - Chronic kidney disease , stage 5; N18.5 - Chronic kidney disease, stage 5; Z79.4 - terminal gauger (current) use of insulin; Z79.4 - terminal gauger (current) use of insulin; Z79.4 - FPC ( current) use of insulin; Z79.4 - terminal gauger (current) use of insulin Comment: At goal. (11) HTN (hypertension) Code(s): I10 - ESSENTIAL (PRIMARY) HYPERTENSION Status: Chronic Qualifiers: Hypertension type: essential hypertension (12) Hypothyroidism Code(s): E03.9 - HYPOTHYROIDISM, UNSPECIFIED Status: Chronic Qualifiers: Hypothyroidism type: unspecified Qualified Code(s): E03.9 - Hypothyroidism , unspecified Comment: Continue Levothyroxine. (13) Physical deconditioning Code(s): R53.81 - OTHER MALAISE Status: Chronic Comment: (14) Sacral decubitus ulcer, stage IV Code(s): L89.154 - PRESSURE ULCER OF SACRAL REGION, STAGE 4 Status: Chronic Comment: (15) Seizure disorder Code(s): G40.909 - EPILEPSY, UNSP, NOT INTRACTABLE, WITHOUT STATUS EPILEPTICUS Status: Chronic Comment: (16) Hypomagnesemia Code(s): E83.42 - HYPOMAGNESEMIA Status: Resolved (17) Pulmonary vascular congestion Code(s): R09.89 - OTH SYMPTOMS AND SIGNS INVOLVING THE CIRC AND RESP SYSTEMS Status: Acute (18) Anemia of renal disease Code(s): D63.1 - ANEMIA IN CHRONIC KIDNEY DISEASE Status: Chronic Comment: - Plan cont current plan of care, continue antibiotics * continue ventilator as per pulmonary * today versed off * on propofol * on zosyn, once 10 day finish will DC * medication reviewed as below * symptomatic treatment * prognosis is poor. Review of Systems - Review of Systems Other: unable to review due to intubated status - Medications/Allergies Allergies/Adverse Reactions: Allergies Allergy/AdvReac Type Severity Reaction Status Date / Time banana Allergy Verified 05/10/16 08:43 chocolate flavor Allergy Verified 05/10/16 08:43 egg Allergy Verified 05/10/16 08:43 Iodinated Contrast- Oral and Allergy Verified 05/10/16 08:44 IV Dye [Iodinated Contrast Media - Oral and] iodine Allergy Verified 05/10/16 08:43 latex Allergy Verified 05/10/16 08:43 orange juice Allergy Verified 05/10/16 08:43 tolterodine tartrate Allergy Verified 05/10/16 08:43 [From Detrol] tomato Allergy Verified 05/10/16 08:43 Medications: Current Medications Acetaminophen (Tylenol) 650 mg PO Q4H PRN PRN Reason: Headache/Fever or Pain Last Admin: 04/19/17 12:01 Dose: 650 mg Al Hydroxide/Mg Hydroxide (Maalox) 30 ml PO Q6H PRN PRN Reason: Heartburn or Indigestion Albuterol/Ipratropium (Duoneb) 3 ml NEB [id number] CHIO Last Admin: 04/30/17 06:37 Dose: 3 ml Amlodipine Besylate (Norvasc) 10 mg PO DAILY [facility] Last Admin: 04/30/17 09:10 Dose: 10 mg Lipase/Protease/Amylase ([place] [id number]) 1 cap FS .PER PROTOCOL PRN PRN Reason: TUBE OCCLUSION PROTOCOL Artificial Tears (Tears Naturale) 0 drop EA EYE PRN PRN PRN Reason: Dry Eyes Aspirin (Aspirin Chewable) 81 mg PO DAILY [facility] Last Admin: 04/30/17 09:09 Dose: 81 mg Calcitriol (Rocaltrol) 0.25 mcg PO DAILY [facility] Last Admin: 04/30/17 09:09 Dose: 0.25 mcg Calcium Acetate (Phoslo) 1,334 mg PO TID-[facility] Last Admin: 04/30/17 09:03 Dose: 1,334 mg Dexamethasone (Decadron) 4 mg SLOW IVP 0200,0800,1400,2000 [facility] Last Admin: 04/30/17 09:03 Dose: 4 mg Dextrose/Water (Dextrose 50%) 25 gm SLOW IVP PRN PRN PRN Reason: Hypoglycemia Epoetin Jvaier (Procrit) 10,000 units SC Q7D [facility] Last Admin: 04/29/17 16:20 Dose: 10,000 units Famotidine (Pepcid) 20 mg PER TUBE DAILY [facility] Last Admin: 04/30/17 09:18 Dose: 20 mg Famotidine (Pepcid) 20 mg PER TUBE NOW [facility] Stop: 04/30/17 11:00 Last Admin: 04/30/17 10:06 Dose: Not Given Ferrous Sulfate (Feosol) 325 mg PO QAM-[facility] Last Admin: 04/30/17 09:10 Dose: 325 mg Glucagon (Glucagon) 1 mg IM PRN PRN PRN Reason: Hypoglycemia Guaifenesin (Robitussin Sf) 200 mg PO Q4H PRN PRN Reason: Cough Heparin Sodium (Porcine) (Heparin) 5,000 units SC BID [facility] Last Admin: 04/30/17 09:19 Dose: 5,000 units Hydralazine HCl (Apresoline) 10 mg SLOW IVP Q4H PRN PRN Reason: Systolic BP > 180 Last Admin: 04/24/17 16:31 Dose: 10 mg Dextrose/Water (D5w) 1,000 mls @ 0 mls/hr IV .Q0M PRN; As Directed PRN Reason: Hypoglycemia Levetiracetam 1,500 mg/ Device 100 mls @ 200 mls/hr IVPB BID [facility] Last Admin: 04/30/17 09:14 Dose: 100 mls Fosphenytoin Sodium 200 mg/ (Sodium Chloride) 54 mls @ 108 mls/hr IVPB BID [facility] Last Admin: 04/30/17 09:12 Dose: 54 mls Norepinephrine Bitartrate (Levophed) 250 mls @ 0 mls/hr IVPB INF CHIO; Titrate PRN Reason: Protocol Last Admin: 04/25/17 16:27 Dose: 250 mls Lacosamide 100 mg/ Sodium (Chloride) 60 mls @ 120 mls/hr IVPB 0400,1600 [facility] Last Admin: 04/30/17 03:12 Dose: 60 mls Phenobarbital Sodium 65 mg/ (Sodium Chloride) 101 mls @ 202 mls/hr IVPB Q8HR [facility] Last Admin: 04/30/17 05:51 Dose: 101 mls Insulin Human Lispro (Humalog) 0 units SC .MODERATE SLIDING SC PRN PRN Reason: Moderate Correctional Scale Insulin Human Lispro (Humalog) 0 units SC .BEDTIME SLIDING SC PRN PRN Reason: Bedtime Correctional Scale Levothyroxine Sodium (Synthroid) 100 mcg PO 0600 [facility] Last Admin: 04/30/17 05:37 Dose: 100 mcg Loperamide HCl (Imodium) 2 mg PO PRN PRN PRN Reason: Diarrhea/Loose Stools Loratadine (Claritin) 10 mg PO DAILYPRN PRN PRN Reason: Sinus Symptoms Magnesium Hydroxide (Milk Of Magnesium) 30 ml PO DAILYPRN PRN PRN Reason: Constipation Metoclopramide HCl (Reglan) 10 mg IVP Q6H [facility] Last Admin: 04/30/17 09:49 Dose: 10 mg Midazolam HCl (Versed) 10 mg SLOW IVP Q15MIN PRN PRN Reason: .SEIZURE ACTIVITY Last Admin: 04/27/17 07:28 Dose: 10 mg Mineral Oil/White Petrolatum (Eucerin Cream) 0 gm TOP BIDPRN PRN PRN Reason: Dry Skin Ondansetron HCl (Zofran Odt) 4 mg PO Q6H PRN PRN Reason: Nausea/Vomiting Ondansetron HCl (Zofran) 4 mg IVP Q6H PRN PRN Reason: Nausea/Vomiting Last Admin: 04/12/17 13:07 Dose: 4 mg Phenol (Chloraseptic [place] 180 Ml Bot) 0 ml PO PRN PRN PRN Reason: Sore Throat Propofol (Diprivan) 1,000 mg IV INF PRN; Protocol PRN Reason: TO ACHIEVE MOTLEY SCORE 2-3 Stop: 05/20/17 03:31 Last Admin: 04/30/17 09:18 Dose: 1,000 mg Scopolamine (Transderm Scop) 1.5 mg TD Q3D [facility] Last Admin: 04/30/17 09:11 Dose: 1.5 mg Senna (Senokot) 2 tab PO HSPRN PRN PRN Reason: Constipation Sertraline HCl (Zoloft) 150 mg PO DAILY [facility] Last Admin: 04/30/17 09:09 Dose: 150 mg Sodium Bicarbonate (Bicarbonate, Sodium) 650 mg PER TUBE .PER PROTOCOL PRN PRN Reason: ENTERAL TUBE OCCLUSION Sodium Bicarbonate (Bicarbonate, Sodium) 650 mg PO BID [facility] Last Admin: 04/30/17 09:08 Dose: 650 mg Sodium Chloride ([place] Nasal [place] 0.65%) 0 ml EA NARE QIDPRN PRN PRN Reason: Nasal Congestion Sodium Chloride (Flush - Normal Saline) 10 ml IVF Q12HR [facility] Last Admin: 04/30/17 09:16 Dose: 10 ml Sodium Chloride (Flush - Normal Saline) 10 ml IVF PRN PRN PRN Reason: Saline Flush Last Admin: 04/26/17 20:45 Dose: 10 ml Vitamin B Complex/Vit C/Folic Acid (Nephro-Supriya Tablet) 1 tab PO DAILY [facility] Last Admin: 04/30/17 09:09 Dose: 1 tab
--- NOTE | 2017-04-30 22:43 | PRG ---
DATE OF SERVICE: 04/30/2017 SUBJECTIVE: Ms. Lorenzana continues to be on maximum propofol with no clinical seizure-like activity. Sh sahra is on continuous EEG monitoring and on my review of the EEG monitoring, she has intermittent period ic epileptiform discharges, I would not consider this being as the status epilepticus. I am being as ked to further manage for this patient's changes in EEG. PHYSICAL EXAMINATION: VITAL SIGNS: Blood pressure of 111/61, pulse of 76, temperature of 98.5, respirations of 30 on mecha nical ventilation. GENERAL: Intubated, sedated -Japanese female. RESPIRATORY: Clear to auscultation bilaterally. CARDIOVASCULAR: Regular rate and rhythm. NEUROLOGICAL: Mental status: The patient is intubated and comatose, on maximum dose of propofol. C ranial nerves: Pupils are 3 mm and sluggishly reactive. Corneal reflexes are sluggishly present tejas aterally. She does breathe over the ventilator machine. Motor exam showed flaccid bilateral upper a nd lower extremity. No response to sternal rub or nail bed pressure in both upper and lower extremit ies. LABORATORY DATA: I reviewed, which included CBC, BMP, which is significant for WBC of 15.4, hemoglob in 8.1, hematocrit of 26.1, platelet count of 402. BUN of 42, creatinine of 3.07. EEG was partially reviewed. On the ongoing EEG it did not appear that the patient was in subclinical status epileptic us. She had intermittent episodes of a spike and wave discharges, but it did not show her to be in e lectrographic seizures. IMPRESSION: Status epilepticus, acute on chronic kidney disease, acute respiratory failure. ASSESSMENT AND PLAN: Ms. Lorenzana is a 61-year-old female who initially presented with worsening chronic kidney disease. She was found to have focal motor seizures involving the right upper extrem ity which improved with use of Depakote; however, that she then had a generalized tonic-clonic seizur e after which she was transferred to ICU, she had since then had been on status epilepticus and had r equired multiple antiepileptic medications along with sedation. I have reviewed the ongoing continuo us EEG on today and on my review, she does not appear to be in status epilepticus. She has intermitt ent epileptiform discharges, but no continuous electrographic seizures. I would recommend slowly wea clary down on propofol starting tomorrow. I would recommend continuing her on current antiepileptic m edications. I would recommend checking the levels for Dilantin, phenobarbital on tomorrow morning. Continue supportive care. Continue current medical management. Thank you for the consultation.
[2017-05-01] MEDS: Propofol 1,000 MG/100 ML VIAL IV PRN ×2 (02:07→04:42)
[2017-05-01] MEDS: Dexamethasone 4 mg/ml Vial SLOW IVP SCH ×4 (02:07→20:21)
[2017-05-01] MEDS: Metoclopramide HCl 10 MG/2 ML VIAL IVP SCH ×4 (02:07→20:21)
[2017-05-01] MEDS: Lacosamide 100 MG in Sodium Chloride 0.9% 50 ML IVPB SCH ×2 (03:37→16:57)
[2017-05-01] MEDS: PHENOBARBITAL SODIUM IVPB SCH ×3 (05:38→21:19)
[2017-05-01] MEDS: SODIUM CHLORIDE 0.9% IVPB SCH ×3 (05:38→21:19)
[2017-05-01] MEDS: Levothyroxine Sodium 100 MCG TAB PO SCH (06:23)
[2017-05-01 06:25] LABS: Band 7 % (5-11); Hemoglobin 7.3 g/dL (12.0-16.0); Lymphocytes 4 % (21-51); MDiff Complete? YES; Mean Corpuscular HGB CONC 31.4 g/dL (32.0-36.0); Mean Corpuscular Hemoglobin 30.6 pg (27.0-31.0); Mean Corpuscular Volume 97.3 fl (81.0-99.0); Mean Platelet Volume 6.8 fL (7.4-10.4); Metamyelocyte 2 % (0-0); Neutrophil 87 % (42-75); Platelet Count 357 thou/uL (130-400); RBC Distribution Width 16.6 % (11.5-14.5); White Blood Cell (WBC) Count 17.7 thou/uL (4.8-10.8)
[2017-05-01 06:38] LABS: Anion Gap 11 mmol/L (10-20); BUN (Urea Nitrogen) 43 mg/dL (9.8-20.1); Calc. Creatinine Clearance 35 mL/min (70-130); Calcium 8.7 mg/dL (7.8-10.44); Carbon Dioxide 19 mmol/L (23-31); Chloride 114 mmol/L (98-107); Estimated GFR-MDRD 21; Glucose 97 mg/dL (80-115); Magnesium 1.8 mg/dL (1.6-2.6); Phosphorus 4.9 mg/dL (2.3-4.7); Potassium 4.2 mmol/L (3.5-5.1); Sodium 140 mmol/L (136-145)
[2017-05-01] MEDS: Fosphenytoin Sodium 200 MG in Sodium Chloride 0.9% 50 ML IVPB SCH ×2 (07:44→20:21)
[2017-05-01] MEDS: Folic Acid/Vit B Comp W-C PO SCH (07:46)
[2017-05-01] MEDS: Ferrous Sulfate 325 MG TAB PO SCH (07:47)
[2017-05-01] MEDS: Heparin 5,000 UNITS/ML VIAL SC SCH ×2 (07:48→20:21)
[2017-05-01] MEDS: Calcium Acetate 667 MG CAP PO SCH ×3 (07:48→17:21)
[2017-05-01] MEDS: Amlodipine 10 MG TAB PO SCH (07:49)
[2017-05-01] MEDS: Famotidine 20 MG TAB PER TUBE SCH (07:51)
[2017-05-01] MEDS: Calcitriol 0.25 MCG CAP PO SCH (07:51)
[2017-05-01] MEDS: levETIRAcetam In NaCl (Iso-Os) 1,500 MG in Premix Bag 1 BAG IVPB SCH ×4 (07:52→20:21)
[2017-05-01] MEDS ORDERED: Furosemide 40 MG/4 ML VIAL SLOW IVP SCH (08:00)
--- NOTE | 2017-05-01 08:18 | RAD ---
CHEST ONE VIEW: History: Dyspnea. Follow up. Comparison: 04-29-17 FINDINGS: Cardiac silhouette is magnified and enlarged. Pulmonary vasculature remains engorged. Mediastinum is midline. Lines and tubes appear unchanged in position. Patchy parenchymal infiltrates at each base an d bilateral pleural fluid are similar in appearance to the previous exam. IMPRESSION: 1. Pulmonary edema and pleural fluid are stable compared to the previous exam. POS: [facility]
--- NOTE | 2017-05-01 08:24 | PRG ---
DATE OF SERVICE: 05/01/2017 Thirty five minutes of critical care time. SUBJECTIVE: The patient remains intubated on mechanical ventilation. She is still having occasional epileptic discharges but is not in status. OBJECTIVE: VITAL SIGNS: Temperature is 98.5, pulse 67, blood pressure 118/62. A 24-hour intake 2143, output 11 25. GENERAL: Neurologically, she is sedated on propofol. HEENT: Remarkable for some conjunctival edema. Oropharynx is clear. NECK: No JVD. LUNGS: Clear. CARDIAC: S1 and S2 regular. ABDOMEN: Soft, nontender. EXTREMITIES: No edema. LABORATORY DATA: Phenobarbital level is 23.9, phenytoin was 20.4 yesterday. Sodium 140, potassium 4 .2, chloride 114, CO2 of 19, BUN 42, creatinine 2.8, glucose 97. White blood cell count 17.7, hemato crit 23.3, platelet count 357. Blood gas was not done. ASSESSMENT: 1. Status epilepticus. 2. Acute respiratory failure secondary to the status epilepticus. 3. Chronic kidney disease. 4. Volume overload. PLAN: 1. Try to hold the propofol and see if she wakes up. 2. One dose diuretics. 3. Continue supportive care with enteral tube feeds. 4. Check phenobarbital and phenytoin levels tomorrow. 5. Greatly appreciate the input from Neurology and continued care.
--- NOTE | 2017-05-01 09:42 | PRG ---
DATE OF SERVICE: 05/01/2017 SUBJECTIVE: Ms. Lorenzana is a 61-year-old black female who was seen by the Renal Service for her acute k idney injury on top of her chronic renal failure. Her renal function has been slowly improving over the last few weeks. Most recent creatinine now is down to 2.82, which is her best value so far. We are continuing simple supportive care for this patient. IV hydration, p.o. and tube feedings have be en done. She is still in the ICU due to the refractory seizure. Recently started on a new anti-seizure medica tion by Neurology. OBJECTIVE: VITAL SIGNS: Blood pressure is noted at 118/62 with a heart rate of 67, O2 sat 99%. GENERAL: The patient is intubated on ventilator support, not following commands. HEENT: Pale conjunctivae, anicteric sclerae. NECK: No neck mass, no carotid bruits, no JVD. CHEST: No deformities. LUNGS: Decreased breath sounds. HEART: Normal sinus rhythm. No murmur, no gallops, no rubs. ABDOMEN: Globular, soft, nontender, no masses. Positive for ileostomy and colostomy. EXTREMITIES: No edema. MEDICATIONS: Medications of 05/01/2017 was reviewed. LABORATORY DATA: Laboratories of 05/01/2017, sodium 140, potassium 4.2, chloride 114, carbon dioxide 19, BUN 43, creatinine 2.82, phosphorus 4.9, calcium 8.7, magnesium 1.8. White count 17.7, hemoglob in 7.3. ASSESSMENT AND PLAN: 1. Anemia - continuing weekly Epogen of 10,000 units subcutaneously every week, p.r.n. blood transfu nii. 2. Acute kidney injury/chronic renal failure - slowly improving renal function. Creatinine of 2.81 is the best value so far for this patient. As previously mentioned, there is no indication for any d ialytic intervention. 4. Seizure disorder. Neurology following, currently on anti-seizure regimen.
--- NOTE | 2017-05-01 10:47 | PDOC.PN ---
- Subjective Encounter Start Date: 05/01/17 Encounter Start Time: 08:40 Patient seen and examined. No overnight events - Objective Resuscitation Status: Resuscitation Status FULL:Full Resuscitation MAR Reviewed: Yes Vital Signs & Weight: Vital Signs (12 hours) Temp Pulse Resp Pulse Ox 05/01/17 09:07 94 05/01/17 07:49 65 05/01/17 07:40 65 05/01/17 07:00 97.6 F 05/01/17 06:00 15 05/01/17 04:00 98.5 F 15 05/01/17 02:00 15 05/01/17 00:00 98.3 F 15 04/30/17 23:51 66 15 100 Weight Admit Weight 222 lb 8 oz Weight 236 lb 8.896 oz Most Recent Monitor Data Heart Rate from ECG 83 NIBP 164/84 NIBP BP-Mean 102 Respiration from ECG 22 SpO2 94 I&O: 04/30/17 05/01/17 05/02/17 06:59 06:59 06:59 Intake Total 2112 2143 100 Output Total 1125 Balance 2112 1018 100 Result Diagrams: 05/01/17 05:45 05/01/17 05:45 Additional Labs: Accuchecks 05/01/17 05/01/17 04/30/17 05:45 00:25 17:56 POC Glucose 98 115 H 100 04/30/17 04/30/17 16:16 12:50 POC Glucose 104 89 Radiology Reviewed by me: Yes (chest xray) EKG Reviewed by me: Yes (nsr) Phys Exam - Physical Examination Constitutional: NAD intubated, sedated Neck: no JVD, supple Respiratory: no wheezing, no rales, no rhonchi Cardiovascular: RRR, no significant murmur, no rub Gastrointestinal: soft, no distention, positive bowel sounds SCD+ Lymphatic: no nodes Skin: normal turgor Deviation from normal: decubitus ulcer Dx/Plan (1) Acute metabolic encephalopathy Code(s): G93.41 - METABOLIC ENCEPHALOPATHY Status: Acute Comment: (2) Acute respiratory failure with hypoxia Code(s): J96.01 - ACUTE RESPIRATORY FAILURE WITH HYPOXIA Status: Acute Comment: on ventilator (3) Acute worsening of stage 4 chronic kidney disease Code(s): N28.9 - DISORDER OF KIDNEY AND URETER, UNSPECIFIED; N18.4 - CHRONIC KIDNEY DISEASE, STAGE 4 (SEVERE) Status: Acute Comment: (4) Metabolic acidosis Code(s): E87.2 - ACIDOSIS Status: Acute Comment: (5) Pneumonia Code(s): J18.9 - PNEUMONIA, UNSPECIFIED ORGANISM Status: Acute Qualifiers: Pneumonia type: aspiration pneumonia Aspiration pneumonia type: due to gastric secretions Laterality: bilateral Lung location: lower lobe of lung Qualified Code(s): J69.0 - Pneumonitis due to inhalation of food and vomit Comment: (6) Status epilepticus Code(s): G40.901 - EPILEPSY, UNSP, NOT INTRACTABLE, WITH STATUS EPILEPTICUS Status: Acute (7) UTI (urinary tract infection) Status: Acute Comment: (8) Anxiety and depression Code(s): F41.8 - OTHER SPECIFIED ANXIETY DISORDERS Status: Chronic Comment: (9) Bilateral hydronephrosis Code(s): N13.30 - UNSPECIFIED HYDRONEPHROSIS Status: Chronic (10) DM type 2 (diabetes mellitus, type 2) Status: Chronic Qualifiers: Diabetes mellitus complication status: with kidney complications Diabetes mellitus complication detail: with chronic kidney disease Diabetes mellitus [employer] insulin use: with [facility] use Chronic kidney disease stage: stage 5, not on chronic dialysis Qualified Code(s): E11.22 - Type 2 diabetes mellitus with diabetic chronic kidney disease; N18.5 - Chronic kidney disease, stage 5; N18.5 - Chronic kidney disease, stage 5; N18.5 - Chronic kidney disease , stage 5; N18.5 - Chronic kidney disease, stage 5; Z79.4 - regional intermodal truck driver (current) use of insulin; Z79.4 - regional intermodal truck driver (current) use of insulin; Z79.4 - halfway ( current) use of insulin; Z79.4 - halfway (current) use of insulin Comment: At goal. (11) HTN (hypertension) Code(s): I10 - ESSENTIAL (PRIMARY) HYPERTENSION Status: Chronic Qualifiers: Hypertension type: essential hypertension (12) Hypothyroidism Code(s): E03.9 - HYPOTHYROIDISM, UNSPECIFIED Status: Chronic Qualifiers: Hypothyroidism type: unspecified Qualified Code(s): E03.9 - Hypothyroidism , unspecified Comment: Continue Levothyroxine. (13) Physical deconditioning Code(s): R53.81 - OTHER MALAISE Status: Chronic Comment: (14) Sacral decubitus ulcer, stage IV Code(s): L89.154 - PRESSURE ULCER OF SACR[place] REGION, STAGE 4 Status: Chronic Comment: (15) Seizure disorder Code(s): G40.909 - EPILEPSY, UNSP, NOT INTRACTABLE, WITHOUT STATUS EPILEPTICUS Status: Chronic Comment: (16) Hypomagnesemia Code(s): E83.42 - HYPOMAGNESEMIA Status: Resolved (17) Pulmonary vascular congestion Code(s): R09.89 - OTH SYMPTOMS AND SIGNS INVOLVING THE CIRC AND RESP SYSTEMS Status: Acute (18) Anemia of renal disease Code(s): D63.1 - ANEMIA IN CHRONIC KIDNEY DISEASE Status: Chronic Comment: - Plan cont current plan of care * wbc going up, will defer to start antibiotics to pulmonary * neurology managing status epilepticus * vent per pulmonary * prognosis is very poor * family dynamics going on to decide about her goal of care * medication reviewed as below * symptomatic treatment. Review of Systems - Review of Systems Other: unable to review due to intubated status - Medications/Allergies Allergies/Adverse Reactions: Allergies Allergy/AdvReac Type Severity Reaction Status Date / Time banana Allergy Verified 05/10/16 08:43 chocolate flavor Allergy Verified 05/10/16 08:43 egg Allergy Verified 05/10/16 08:43 Iodinated Contrast- Oral and Allergy Verified 05/10/16 08:44 IV Dye [Iodinated Contrast Media - Oral and] iodine Allergy Verified 05/10/16 08:43 latex Allergy Verified 05/10/16 08:43 orange juice Allergy Verified 05/10/16 08:43 tolterodine tartrate Allergy Verified 05/10/16 08:43 [From Detrol] tomato Allergy Verified 05/10/16 08:43 Medications: Current Medications Acetaminophen (Tylenol) 650 mg PO Q4H PRN PRN Reason: Headache/Fever or Pain Last Admin: 04/19/17 12:01 Dose: 650 mg Al Hydroxide/Mg Hydroxide (Maalox) 30 ml PO Q6H PRN PRN Reason: Heartburn or Indigestion Albuterol/Ipratropium (Duoneb) 3 ml NEB [id number] [facility] Last Admin: 05/01/17 07:37 Dose: 3 ml Amlodipine Besylate (Norvasc) 10 mg PO DAILY [facility] Last Admin: 05/01/17 07:49 Dose: 10 mg Lipase/Protease/[place]ylase ([place] [id number]) 1 cap FS .PER PROTOCOL PRN PRN Reason: TUBE OCCLUSION PROTOCOL Artificial Tears (Tears Naturale) 0 drop EA EYE PRN PRN PRN Reason: Dry Eyes Aspirin (Aspirin Chewable) 81 mg PO DAILY [facility] Last Admin: 05/01/17 07:48 Dose: 81 mg Calcitriol (Rocaltrol) 0.25 mcg PO DAILY [facility] Last Admin: 05/01/17 07:51 Dose: 0.25 mcg Calcium Acetate (Phoslo) 1,334 mg PO TID-[facility] Last Admin: 05/01/17 07:48 Dose: 1,334 mg Dexamethasone (Decadron) 4 mg SLOW IVP 0200,0800,1400,2000 [facility] Last Admin: 05/01/17 07:47 Dose: 4 mg Dextrose/Water (Dextrose 50%) 25 gm SLOW IVP PRN PRN PRN Reason: Hypoglycemia Epoetin Javier (Procrit) 10,000 units SC Q7D [facility] Last Admin: 04/29/17 16:20 Dose: 10,000 units Famotidine (Pepcid) 20 mg PER TUBE DAILY [facility] Last Admin: 05/01/17 07:51 Dose: 20 mg Ferrous Sulfate (Feosol) 325 mg PO QAM-[facility] Last Admin: 05/01/17 07:47 Dose: 325 mg Glucagon (Glucagon) 1 mg IM PRN PRN PRN Reason: Hypoglycemia Guaifenesin (Robitussin Sf) 200 mg PO Q4H PRN PRN Reason: Cough Heparin Sodium (Porcine) (Heparin) 5,000 units SC BID [facility] Last Admin: 05/01/17 07:48 Dose: 5,000 units Hydralazine HCl (Apresoline) 10 mg SLOW IVP Q4H PRN PRN Reason: Systolic BP > 180 Last Admin: 04/24/17 16:31 Dose: 10 mg Dextrose/Water (D5w) 1,000 mls @ 0 mls/hr IV .Q0M PRN; As Directed PRN Reason: Hypoglycemia Levetiracetam 1,500 mg/ Device 100 mls @ 200 mls/hr IVPB BID [facility] Last Admin: 05/01/17 07:52 Dose: 100 mls Fosphenytoin Sodium 200 mg/ (Sodium Chloride) 54 mls @ 108 mls/hr IVPB BID [facility] Last Admin: 05/01/17 07:44 Dose: 54 mls Lacosamide 100 mg/ Sodium (Chloride) 60 mls @ 120 mls/hr IVPB 0400,1600 [facility] Last Admin: 05/01/17 03:37 Dose: 60 mls Phenobarbital Sodium 65 mg/ (Sodium Chloride) 101 mls @ 202 mls/hr IVPB Q8HR [facility] Last Admin: 05/01/17 05:38 Dose: 101 mls Fentanyl Citrate (Fentanyl Bolus) 250 mls @ 0 mls/hr IVPB PRN PRN; As Directed PRN Reason: Breakthrough pain Insulin Human Lispro (Humalog) 0 units SC .MODERATE SLIDING SC PRN PRN Reason: Moderate Correctional Scale Insulin Human Lispro (Humalog) 0 units SC .BEDTIME SLIDING SC PRN PRN Reason: Bedtime Correctional Scale Levothyroxine Sodium (Synthroid) 100 mcg PO 0600 [facility] Last Admin: 05/01/17 06:23 Dose: 100 mcg Loperamide HCl (Imodium) 2 mg PO PRN PRN PRN Reason: Diarrhea/Loose Stools Loratadine (Claritin) 10 mg PO DAILYPRN PRN PRN Reason: Sinus Symptoms Lorazepam (Ativan) 2 mg SLOW IVP Q2H PRN PRN Reason: Anxiety to achieve [place] 2-3 Magnesium Hydroxide (Milk Of Magnesium) 30 ml PO DAILYPRN PRN PRN Reason: Constipation Metoclopramide HCl (Reglan) 10 mg IVP Q6H [facility] Last Admin: 05/01/17 07:49 Dose: 10 mg Midazolam HCl (Versed) 10 mg SLOW IVP Q15MIN PRN PRN Reason: .SEIZURE ACTIVITY Last Admin: 04/27/17 07:28 Dose: 10 mg Mineral Oil/White Petrolatum (Eucerin Cream) 0 gm TOP BIDPRN PRN PRN Reason: Dry Skin Morphine Sulfate (Morphine) 2 mg SLOW IVP Q2H PRN PRN Reason: Breakthrough pain Ondansetron HCl (Zofran Odt) 4 mg PO Q6H PRN PRN Reason: Nausea/Vomiting Ondansetron HCl (Zofran) 4 mg IVP Q6H PRN PRN Reason: Nausea/Vomiting Last Admin: 04/12/17 13:07 Dose: 4 mg Phenol (Chloraseptic [place] 180 Ml Bot) 0 ml PO PRN PRN PRN Reason: Sore Throat Propofol (Diprivan) 1,000 mg IV INF PRN; Protocol PRN Reason: TO ACHIEVE MOTLEY SCORE 2-3 Stop: 05/20/17 03:31 Last Admin: 05/01/17 04:42 Dose: 1,000 mg Scopolamine (Transderm Scop) 1.5 mg TD Q3D [facility] Last Admin: 04/30/17 09:11 Dose: 1.5 mg Senna (Senokot) 2 tab PO HSPRN PRN PRN Reason: Constipation Sertraline HCl (Zoloft) 150 mg PO DAILY [facility] Last Admin: 05/01/17 07:50 Dose: 150 mg Sodium Bicarbonate (Bicarbonate, Sodium) 650 mg PER TUBE .PER PROTOCOL PRN PRN Reason: ENTERAL TUBE OCCLUSION Last Admin: 05/01/17 07:46 Dose: 650 mg Sodium Bicarbonate (Bicarbonate, Sodium) 650 mg PO BID [facility] Last Admin: 04/30/17 20:01 Dose: 650 mg Sodium Chloride ([place] Nasal [place] 0.65%) 0 ml EA NARE QIDPRN PRN PRN Reason: Nasal Congestion Sodium Chloride (Flush - Normal Saline) 10 ml IVF Q12HR [facility] Last Admin: 04/30/17 20:02 Dose: 10 ml Sodium Chloride (Flush - Normal Saline) 10 ml IVF PRN PRN PRN Reason: Saline Flush Last Admin: 04/26/17 20:45 Dose: 10 ml Vitamin B Complex/Vit C/Folic Acid (Nephro-Supriya Tablet) 1 tab PO DAILY [facility] Last Admin: 05/01/17 07:46 Dose: 1 tab
[2017-05-01] MEDS: Sodium Bicarbonate Tab 325 MG TAB PO SCH ×2 (12:31→20:22)
[2017-05-01] MEDS: hydrALAZINE 20 MG/ML VIAL SLOW IVP PRN ×2 (13:03→17:22)
[2017-05-01] MEDS: Acetaminophen 325 MG TAB PO PRN (18:52)
[2017-05-01] MEDS: Famotidine 40 MG/4 ML VIAL SLOW IVP SCH (19:26)
[2017-05-02] MEDS: Metoclopramide HCl 10 MG/2 ML VIAL IVP SCH ×4 (02:49→21:24)
[2017-05-02] MEDS: Dexamethasone 4 mg/ml Vial SLOW IVP SCH ×4 (02:49→21:24)
--- NOTE | 2017-05-02 03:06 | PRG ---
DATE OF SERVICE: 05/01/2017 SUBJECTIVE: Ms. Lorenzana has been able to be weaned off of sedation and able to open her eyes spontaneou sly. According to the nurse, she had an episode where she was resisting on her left side. She is st ill not able to follow commands. There has not been any seizure type activity noted. PHYSICAL EXAMINATION: VITAL SIGNS: Blood pressure of 115/57, pulse of 100, respirations of 23 on mechanical ventilation, t emperature of 101.3. GENERAL: An female in no apparent distress. RESPIRATORY: Clear to auscultation bilaterally. CARDIOVASCULAR: Regular rate and rhythm. NEUROLOGICAL: She is opening her eyest to noxious stimuli. She is not able to follow any commands. Pupils are 3 mm and reactive. Motor exam showed normal tone with . IMPRESSION: 1. Status epilepticus, . 2. Acute on chronic renal failure. Ms. Lorenzana is a 61-year-old female with who was admitted status epilepticus. Sh e has slowly improved. I have reviewed her EEG prior to continuous EEG. This EEG showed prima rily theta activity without any epileptiform discharges. There was a lot of EMG artifact present. A t this time, I will recommend continuing her current inotropic medication. We will closely monitor f or neurological changes. Her Dilantin and phenobarbital level are in normal range. We will continue on the same current dose of antiepileptic medications.
[2017-05-02] MEDS: Levothyroxine Sodium 100 MCG TAB PO SCH (05:05)
[2017-05-02] MEDS: Lacosamide 100 MG in Sodium Chloride 0.9% 50 ML IVPB SCH ×2 (05:05→15:24)
[2017-05-02] MEDS: SODIUM CHLORIDE 0.9% IVPB SCH ×3 (05:30→21:33)
[2017-05-02] MEDS: PHENOBARBITAL SODIUM IVPB SCH ×3 (05:30→21:33)
[2017-05-02 05:53] LABS: Dilantin 7.8 ug/mL (10.0-20.0)
[2017-05-02 05:56] LABS: Anion Gap 16 mmol/L (10-20); BUN (Urea Nitrogen) 44 mg/dL (9.8-20.1); Calc. Creatinine Clearance 34 mL/min (70-130); Calcium 9.4 mg/dL (7.8-10.44); Carbon Dioxide 17 mmol/L (23-31); Chloride 114 mmol/L (98-107); Estimated GFR-MDRD 21; Glucose 100 mg/dL (80-115); Magnesium 1.7 mg/dL (1.6-2.6); Phosphorus 4.1 mg/dL (2.3-4.7); Potassium 3.6 mmol/L (3.5-5.1); Sodium 143 mmol/L (136-145)
[2017-05-02 06:27] LABS: Band 12 % (5-11); Hemoglobin 7.9 g/dL (12.0-16.0); Lymphocytes 4 % (21-51); MDiff Complete? YES; Mean Corpuscular HGB CONC 30.2 g/dL (32.0-36.0); Mean Corpuscular Hemoglobin 29.4 pg (27.0-31.0); Mean Corpuscular Volume 97.4 fl (81.0-99.0); Mean Platelet Volume 7.1 fL (7.4-10.4); Monocytes 2 % (0-10); Neutrophil 82 % (42-75); Platelet Count 438 thou/uL (130-400); RBC Distribution Width 16.8 % (11.5-14.5); Red Blood Cell (RBC) Count 2.68 mill/uL (4.20-5.40); White Blood Cell (WBC) Count 19.8 thou/uL (4.8-10.8)
[2017-05-02 07:19] LABS: Actual Bicarbonate (HCO3a) 16.9 mEq/L (22-26); Base Excess (BEa) -7.8 mEq/L (0 (+/-) 2.5); CO2 Tension 31.1 mmHg (35.0-45.0); Hematocrit-ABG 24.1 % (36.0-47.0); Hemoglobin (Hb) 7.6 g/dL (12.0-16.0); O2 Tension (PaO2) 69.3 mmHg (80.0-100.0); pH, Arterial 7.35 (7.35-7.45)
[2017-05-02 07:20] LABS: ALV-art Gradient 41.555 (0-20); Calcium, Ionized 1.3 mmol/L (1.12-1.30); Puncture Site LRA
--- NOTE | 2017-05-02 08:01 | PRG ---
DATE OF SERVICE: 05/02/2017 Thirty-five minutes critical care time. The patient remains on mechanical ventilation. All sedation has been held. Neurologically, I can ge t her to open her eyes to stimulation. She will grimace to painful stimulation. She will withdraw w ith her hands. She will not follow any commands specifically. PHYSICAL EXAMINATION: VITAL SIGNS: Temperature is 99.2 with a T-max 101.3 yesterday, pulse 92, O2 saturation 98%, blood pr essure 130/61. Total intake for 24 hours 1635, output 3015. HEENT: Unremarkable. NECK: No JVD. LUNGS: Clear to auscultation anteriorly. CARDIOVASCULAR: S1, S2 regular, without murmur. ABDOMEN: Soft, nontender. EXTREMITIES: Generalized edema throughout. LABORATORY DATA: White blood cell count 19.8, hemoglobin 7.9, hematocrit 26.1, platelet count 438, p H 7.35, pCO2 31, pO2 69 on SIMV rate 15, tidal volume 430, PEEP 5, pressure support 15, FiO2 of 21%. Sodium 143, potassium 3.6, chloride 114, CO2 17, BUN 44, creatinine 2.8, glucose 100. ASSESSMENT: 1. Status epilepticus with no indication of seizure activity over the last 24 hours off sedation. 2. Acute respiratory failure requiring mechanical ventilation. 3. Chronic kidney disease. 4. Elevated white count and development of fever. PLAN: 1. Need to culture the patient. 2. I need to check what is being done for IV access. 3. Check a chest x-ray. 4. Hopefully, with time, she will begin to wake up. She was on a Versed drip for many days in half life is quite long and it may take a while to wear off. Also, she received a substantial dose of phe nobarbital last week. 5. Speak with the family when they are available.
[2017-05-02] MEDS: Heparin 5,000 UNITS/ML VIAL SC SCH ×2 (08:37→21:31)
[2017-05-02] MEDS: Calcitriol 0.25 MCG CAP PO SCH (08:38)
[2017-05-02] MEDS: Sodium Bicarbonate Tab 325 MG TAB PO SCH ×2 (08:40→21:33)
[2017-05-02] MEDS: Calcium Acetate 667 MG CAP PO SCH ×3 (08:41→16:04)
[2017-05-02] MEDS: Ferrous Sulfate 325 MG TAB PO SCH (08:42)
[2017-05-02] MEDS: Amlodipine 10 MG TAB PO SCH (08:42)
[2017-05-02] MEDS: Famotidine 20 MG TAB PER TUBE SCH (08:43)
[2017-05-02] MEDS: Piperacillin/Tazobactam 2.25 GM in Sodium Chloride 0.9% 100 ML IVPB SCH ×3 (08:45→21:25)
[2017-05-02] MEDS: Fosphenytoin Sodium 200 MG in Sodium Chloride 0.9% 50 ML IVPB SCH (08:50)
[2017-05-02] MEDS: Folic Acid/Vit B Comp W-C PO SCH (08:51)
[2017-05-02] MEDS: levETIRAcetam In NaCl (Iso-Os) 1,500 MG in Premix Bag 1 BAG IVPB SCH ×4 (08:51→21:31)
[2017-05-02] MEDS ORDERED: Vancomycin HCl 1.5 GM in Sodium Chloride 0.9% 250 ML 300 ML IVPB SCH (09:00)
--- NOTE | 2017-05-02 11:25 | PDOC.PN ---
- Subjective Encounter Start Date: 05/02/17 Encounter Start Time: 09:00 pt had fever yesterday, today panculture done, has foul smelling decubitus ulcer - Objective Resuscitation Status: Resuscitation Status FULL:Full Resuscitation MAR Reviewed: Yes Vital Signs & Weight: Vital Signs (12 hours) Temp Pulse Resp BP Pulse Ox 05/02/17 10:37 96 05/02/17 08:42 96 131/68 05/02/17 06:58 96 05/02/17 06:00 19 05/02/17 04:00 99.2 F 24 H 05/02/17 02:00 33 H 05/02/17 00:00 99.9 F H 27 H 05/01/17 23:58 97 28 H 98 Weight Admit Weight 222 lb 8 oz Weight 224 lb 10.417 oz Most Recent Monitor Data Heart Rate from ECG 95 NIBP 139/63 NIBP BP-Mean 80 Respiration from ECG 18 SpO2 95 I&O: 05/01/17 05/02/17 05/03/17 06:59 06:59 06:59 Intake Total 2143 1635.5 Output Total 1125 3015 Balance 1018 -1379.5 Result Diagrams: 05/02/17 04:30 05/02/17 04:30 Additional Labs: Accuchecks 05/02/17 05/01/17 05/01/17 04:11 21:22 17:42 POC Glucose 97 105 83 05/01/17 12:28 POC Glucose 80 EKG Reviewed by me: Yes (nsr) Phys Exam - Physical Examination Constitutional: NAD intubated sedated HEENT: PERRLA, sclera anicteric Neck: no JVD, supple Respiratory: no wheezing, no rales, no rhonchi Cardiovascular: RRR, no significant murmur, no rub Gastrointestinal: soft, no distention, positive bowel sounds colostomy, ileal conduit Musculoskeletal: no edema, pulses present Lymphatic: no nodes Skin: no rash, normal turgor Dx/Plan (1) Acute metabolic encephalopathy Code(s): G93.41 - METABOLIC ENCEPHALOPATHY Status: Acute Comment: (2) Acute respiratory failure with hypoxia Code(s): J96.01 - ACUTE RESPIRATORY FAILURE WITH HYPOXIA Status: Acute Comment: on ventilator (3) Acute worsening of stage 4 chronic kidney disease Code(s): N28.9 - DISORDER OF KIDNEY AND URETER, UNSPECIFIED; N18.4 - CHRONIC KIDNEY DISEASE, STAGE 4 (SEVERE) Status: Acute Comment: (4) Metabolic acidosis Code(s): E87.2 - ACIDOSIS Status: Acute Comment: (5) Pneumonia Code(s): J18.9 - PNEUMONIA, UNSPECIFIED ORGANISM Status: Acute Qualifiers: Pneumonia type: aspiration pneumonia Aspiration pneumonia type: due to gastric secretions Laterality: bilateral Lung location: lower lobe of lung Qualified Code(s): J69.0 - Pneumonitis due to inhalation of food and vomit Comment: (6) Status epilepticus Code(s): G40.901 - EPILEPSY, UNSP, NOT INTRACTABLE, WITH STATUS EPILEPTICUS Status: Acute (7) UTI (urinary tract infection) Status: Acute Comment: (8) Anxiety and depression Code(s): F41.8 - OTHER SPECIFIED ANXIETY DISORDERS Status: Chronic Comment: (9) Bilateral hydronephrosis Code(s): N13.30 - UNSPECIFIED HYDRONEPHROSIS Status: Chronic (10) DM type 2 (diabetes mellitus, type 2) Status: Chronic Qualifiers: Diabetes mellitus complication status: with kidney complications Diabetes mellitus complication detail: with chronic kidney disease Diabetes mellitus penitentiary insulin use: with terminal gauger use Chronic kidney disease stage: stage 5, not on chronic dialysis Qualified Code(s): E11.22 - Type 2 diabetes mellitus with diabetic chronic kidney disease; N18.5 - Chronic kidney disease, stage 5; N18.5 - Chronic kidney disease, stage 5; N18.5 - Chronic kidney disease , stage 5; N18.5 - Chronic kidney disease, stage 5; Z79.4 - marine oil terminal superintendent (current) use of insulin; Z79.4 - snf (current) use of insulin; Z79.4 - snf ( current) use of insulin; Z79.4 - snf (current) use of insulin Comment: At goal. (11) HTN (hypertension) Code(s): I10 - ESSENTIAL (PRIMARY) HYPERTENSION Status: Chronic Qualifiers: Hypertension type: essential hypertension (12) Hypothyroidism Code(s): E03.9 - HYPOTHYROIDISM, UNSPECIFIED Status: Chronic Qualifiers: Hypothyroidism type: unspecified Qualified Code(s): E03.9 - Hypothyroidism , unspecified Comment: Continue Levothyroxine. (13) Physical deconditioning Code(s): R53.81 - OTHER MALAISE Status: Chronic Comment: (14) Sacral decubitus ulcer, stage IV Code(s): L89.154 - PRESSURE ULCER OF SACRAL REGION, STAGE 4 Status: Chronic Comment: (15) Seizure disorder Code(s): G40.909 - EPILEPSY, UNSP, NOT INTRACTABLE, WITHOUT STATUS EPILEPTICUS Status: Chronic Comment: (16) Hypomagnesemia Code(s): E83.42 - HYPOMAGNESEMIA Status: Resolved (17) Pulmonary vascular congestion Code(s): R09.89 - OTH SYMPTOMS AND SIGNS INVOLVING THE CIRC AND RESP SYSTEMS Status: Acute (18) Anemia of renal disease Code(s): D63.1 - ANEMIA IN CHRONIC KIDNEY DISEASE Status: Chronic Comment: - Plan cont current plan of care, continue antibiotics * continue vent as per pulmonary * polanco culture done * vancomycin and zosyn started * medication reviewed as below * symptomatic treatment * prognosis is very poor * wound care. * versed and propofol off Review of Systems - Review of Systems Other: unable to review due to intubated status - Medications/Allergies Allergies/Adverse Reactions: Allergies Allergy/AdvReac Type Severity Reaction Status Date / Time banana Allergy Verified 05/10/16 08:43 chocolate flavor Allergy Verified 05/10/16 08:43 egg Allergy Verified 05/10/16 08:43 Iodinated Contrast- Oral and Allergy Verified 05/10/16 08:44 IV Dye [Iodinated Contrast Media - Oral and] iodine Allergy Verified 05/10/16 08:43 latex Allergy Verified 05/10/16 08:43 orange juice Allergy Verified 05/10/16 08:43 tolterodine tartrate Allergy Verified 05/10/16 08:43 [From Detrol] tomato Allergy Verified 05/10/16 08:43 Medications: Current Medications Acetaminophen (Tylenol) 650 mg PO Q4H PRN PRN Reason: Headache/Fever or Pain Last Admin: 05/01/17 18:52 Dose: 650 mg Al Hydroxide/Mg Hydroxide (Maalox) 30 ml PO Q6H PRN PRN Reason: Heartburn or Indigestion Albuterol/Ipratropium (Duoneb) 3 ml NEB [id number] [facility]IO Last Admin: 05/02/17 06:56 Dose: 3 ml Amlodipine Besylate (Norvasc) 10 mg PO DAILY [facility] Last Admin: 05/02/17 08:42 Dose: 10 mg Lipase/Protease/[place]ylase ([place] [id number]) 1 cap FS .PER PROTOCOL PRN PRN Reason: TUBE OCCLUSION PROTOCOL Artificial Tears (Tears Naturale) 0 drop EA EYE PRN PRN PRN Reason: Dry Eyes Aspirin (Aspirin Chewable) 81 mg PO DAILY [facility] Last Admin: 05/02/17 08:43 Dose: 81 mg Calcitriol (Rocaltrol) 0.25 mcg PO DAILY [facility] Last Admin: 05/02/17 08:38 Dose: 0.25 mcg Calcium Acetate (Phoslo) 1,334 mg PO TID-[facility] Last Admin: 05/02/17 08:41 Dose: 1,334 mg Dexamethasone (Decadron) 4 mg SLOW IVP 0200,0800,1400,2000 [facility] Last Admin: 05/02/17 08:43 Dose: 4 mg Dextrose/Water (Dextrose 50%) 25 gm SLOW IVP PRN PRN PRN Reason: Hypoglycemia Epoetin Javier (Procrit) 10,000 units SC Q7D [facility] Last Admin: 04/29/17 16:20 Dose: 10,000 units Famotidine (Pepcid) 20 mg PER TUBE DAILY [facility] Last Admin: 05/02/17 08:43 Dose: 20 mg Ferrous Sulfate (Feosol) 325 mg PO QAM-[facility] Last Admin: 05/02/17 08:42 Dose: 325 mg Glucagon (Glucagon) 1 mg IM PRN PRN PRN Reason: Hypoglycemia Guaifenesin (Robitussin Sf) 200 mg PO Q4H PRN PRN Reason: Cough Heparin Sodium (Porcine) (Heparin) 5,000 units SC BID [facility] Last Admin: 05/02/17 08:37 Dose: 5,000 units Hydralazine HCl (Apresoline) 10 mg SLOW IVP Q4H PRN PRN Reason: Systolic BP > 180 Last Admin: 05/01/17 17:22 Dose: 10 mg Dextrose/Water (D5w) 1,000 mls @ 0 mls/hr IV .Q0M PRN; As Directed PRN Reason: Hypoglycemia Levetiracetam 1,500 mg/ Device 100 mls @ 200 mls/hr IVPB BID [facility] Last Admin: 05/02/17 08:51 Dose: 100 mls Fosphenytoin Sodium 200 mg/ (Sodium Chloride) 54 mls @ 108 mls/hr IVPB BID [facility] Last Admin: 05/02/17 08:50 Dose: 54 mls Lacosamide 100 mg/ Sodium (Chloride) 60 mls @ 120 mls/hr IVPB 0400,1600 [facility] Last Admin: 05/02/17 05:05 Dose: 60 mls Phenobarbital Sodium 65 mg/ (Sodium Chloride) 101 mls @ 202 mls/hr IVPB Q8HR [facility] Last Admin: 05/02/17 05:30 Dose: 101 mls Fentanyl Citrate (Fentanyl Bolus) 250 mls @ 0 mls/hr IVPB PRN PRN; As Directed PRN Reason: Breakthrough pain Piperacillin Sod/Tazobactam (Sod 2.25 gm/ Sodium Chloride) 100 mls @ 200 mls/ hr IVPB 0200,0800,1400,2000 [facility] Last Admin: 05/02/17 08:45 Dose: 100 mls Insulin Human Lispro (Humalog) 0 units SC .MODERATE SLIDING SC PRN PRN Reason: Moderate Correctional Scale Insulin Human Lispro (Humalog) 0 units SC .BEDTIME SLIDING SC PRN PRN Reason: Bedtime Correctional Scale Levothyroxine Sodium (Synthroid) 100 mcg PO 0600 [facility] Last Admin: 05/02/17 05:05 Dose: 100 mcg Loperamide HCl (Imodium) 2 mg PO PRN PRN PRN Reason: Diarrhea/Loose Stools Loratadine (Claritin) 10 mg PO DAILYPRN PRN PRN Reason: Sinus Symptoms Lorazepam (Ativan) 2 mg SLOW IVP Q2H PRN PRN Reason: Anxiety to achieve [place] 2-3 Magnesium Hydroxide (Milk Of Magnesium) 30 ml PO DAILYPRN PRN PRN Reason: Constipation Metoclopramide HCl (Reglan) 10 mg IVP Q6H [facility] Last Admin: 05/02/17 08:50 Dose: 10 mg Midazolam HCl (Versed) 10 mg SLOW IVP Q15MIN PRN PRN Reason: .SEIZURE ACTIVITY Last Admin: 04/27/17 07:28 Dose: 10 mg Mineral Oil/White Petrolatum (Eucerin Cream) 0 gm TOP BIDPRN PRN PRN Reason: Dry Skin Miscellaneous Medication (Pharmacy To Dose) 0 each IVPB ASDIR PRN PRN Reason: Pharmacy to Dose VANCOMYCIN Morphine Sulfate (Morphine) 2 mg SLOW IVP Q2H PRN PRN Reason: Breakthrough pain Ondansetron HCl (Zofran Odt) 4 mg PO Q6H PRN PRN Reason: Nausea/Vomiting Ondansetron HCl (Zofran) 4 mg IVP Q6H PRN PRN Reason: Nausea/Vomiting Last Admin: 04/12/17 13:07 Dose: 4 mg Phenol (Chloraseptic [place] 180 Ml Bot) 0 ml PO PRN PRN PRN Reason: Sore Throat Propofol (Diprivan) 1,000 mg IV INF PRN; Protocol PRN Reason: TO ACHIEVE MOTLEY SCORE 2-3 Stop: 05/20/17 03:31 Last Admin: 05/01/17 04:42 Dose: 1,000 mg Scopolamine (Transderm Scop) 1.5 mg TD Q3D [facility] Last Admin: 04/30/17 09:11 Dose: 1.5 mg Senna (Senokot) 2 tab PO HSPRN PRN PRN Reason: Constipation Sertraline HCl (Zoloft) 150 mg PO DAILY [facility] Last Admin: 05/02/17 08:37 Dose: 150 mg Sodium Bicarbonate (Bicarbonate, Sodium) 650 mg PER TUBE .PER PROTOCOL PRN PRN Reason: ENTERAL TUBE OCCLUSION Last Admin: 05/01/17 07:46 Dose: 650 mg Sodium Bicarbonate (Bicarbonate, Sodium) 650 mg PO BID [facility] Last Admin: 05/02/17 08:40 Dose: 650 mg Sodium Chloride ([place] Nasal [place] 0.65%) 0 ml EA NARE QIDPRN PRN PRN Reason: Nasal Congestion Sodium Chloride (Flush - Normal Saline) 10 ml IVF Q12HR [facility] Last Admin: 05/02/17 08:52 Dose: 10 ml Sodium Chloride (Flush - Normal Saline) 10 ml IVF PRN PRN PRN Reason: Saline Flush Last Admin: 04/26/17 20:45 Dose: 10 ml Vitamin B Complex/Vit C/Folic Acid (Nephro-Supriya Tablet) 1 tab PO DAILY [facility] Last Admin: 05/02/17 08:51 Dose: 1 tab
--- NOTE | 2017-05-02 11:50 | PRG ---
DATE OF SERVICE: 05/02/2017 SERVICE: Renal Medicine. SUBJECTIVE: Ms. Lorenzana is a 61-year-old black female followed up for her acute kidney injury on top of her chronic renal failure. Over the last few weeks, her renal function slowly stabilized with her c reatinine being much improved and almost at baseline. She also was admitted in the ICU and was intub ated and placed on ventilator support due to refractory seizures. Her seizure is now under control. Neurology is following. OBJECTIVE: VITAL SIGNS: Blood pressure is 131/68, heart rate 96. GENERAL: Intubated. Sedated on ventilator support. SKIN: Adequate turgor. HEENT: Slightly pale conjunctivae, anicteric sclerae. NECK: No neck mass, no carotid bruits, no JVD. CHEST: No deformities. LUNGS: Clear breath sounds. No wheezing, no crackles. HEART: Normal sinus rhythm. No murmur, no gallops, no rubs. ABDOMEN: Globular, soft. Positive for colostomy and ileostomy. EXTREMITIES: Trace edema. MEDICATIONS: Of 05/02/2017 was reviewed. LABORATORY DATA: Of 05/02/2017, white count 19.8, hemoglobin 7.9, sodium 143, potassium 3.6, chlorid e 104, carbon dioxide 17, BUN 44, creatinine 2.82, GFR 21 mL per minute, phosphorus 4.1, magnesium 1. 7, calcium 9.4. ASSESSMENT AND PLAN: 1. Acute kidney injury/chronic renal failure, stable renal function. Creatinine is noted at 2.82. This is most likely her baseline. Continue current supportive management. Continue current tube fee ding with this patient. 2. Status post seizure disorder - seizures are now controlled. Neurology is following. 3. Acute respiratory failure, but eventual extubation. Patient is still groggy and this could be se condary from the sedative that she has received in the recent past. Overall, prognosis remains guarded. ADDENDUM: Anemia on weekly Epogen.
--- NOTE | 2017-05-02 15:39 | SPC ---
RIGHT UPPER EXTREMITY PICC LINE ULTRASOUND AND FLUOROSCOPIC GUIDANCE: PROCEDURE: After informed consent had been obtained, the patient was placed on the interventional suite table in a supine position. The right arm was prepped and draped in a standard sterile fashion. Topical ane sthesia was achieved utilizing 1% Lidocaine and sodium bicarbonate. Under real-time sonography, the brachial vein of the right upper extremity was accessed with a small caliber needle with venous flash present at the needle hub. A guidewire was then advanced in to the needle, and under real-time fluo roscopy, the guidewire was advanced to the level of the inferior vena cava to confirm appropriate abby ous placement. A small skin incision was made and the needle was removed. Over the guidewire, a rima ble lumen PICC line was cut to 44 cm. The PICC line was advanced under real-time fluoroscopy over th e guidewire to the level of the cavoatrial junction. The guidewire and peelaway sheath were then rem elizabeth. PICC line flushed and aspirated appropriately and was secured to the right upper extremity. T here were no procedural complications. Exposure Data: Less than 0.1 minutes radiation exposure. IMPRESSION: Technically successful ultrasound and fluoroscopic-guided right PICC line placement, as above. POS: [facility]
[2017-05-03] MEDS: Dexamethasone 4 mg/ml Vial SLOW IVP SCH ×4 (02:09→20:04)
[2017-05-03] MEDS: Piperacillin/Tazobactam 2.25 GM in Sodium Chloride 0.9% 100 ML IVPB SCH ×4 (02:09→20:05)
[2017-05-03] MEDS: Metoclopramide HCl 10 MG/2 ML VIAL IVP SCH ×4 (02:09→20:04)
[2017-05-03 04:53] LABS: Dilantin 7.9 ug/mL (10.0-20.0)
[2017-05-03] MEDS: Lacosamide 100 MG in Sodium Chloride 0.9% 50 ML IVPB SCH ×2 (04:57→16:25)
[2017-05-03 04:59] LABS: Anion Gap 15 mmol/L (10-20); BUN (Urea Nitrogen) 49 mg/dL (9.8-20.1); Calc. Creatinine Clearance 35 mL/min (70-130); Calcium 9.3 mg/dL (7.8-10.44); Carbon Dioxide 17 mmol/L (23-31); Chloride 118 mmol/L (98-107); Estimated GFR-MDRD 21; Glucose 121 mg/dL (80-115); Magnesium 1.6 mg/dL (1.6-2.6); Phosphorus 4.2 mg/dL (2.3-4.7); Potassium 3.9 mmol/L (3.5-5.1); Sodium 146 mmol/L (136-145)
[2017-05-03] MEDS: Levothyroxine Sodium 100 MCG TAB PO SCH (05:10)
[2017-05-03] MEDS: PHENOBARBITAL SODIUM IVPB SCH ×3 (05:10→21:51)
[2017-05-03] MEDS: Propofol 1,000 MG/100 ML VIAL IV PRN ×5 (05:10→20:03)
[2017-05-03] MEDS: SODIUM CHLORIDE 0.9% IVPB SCH ×3 (05:10→21:51)
[2017-05-03 05:29] LABS: Anisocytosis SLIGHT = 6-15 cells (100X) (0-5/hpf); Band 4 % (5-11); Hemoglobin 7.4 g/dL (12.0-16.0); Lymphocytes 14 % (21-51); MDiff Complete? YES; Mean Corpuscular HGB CONC 31.1 g/dL (32.0-36.0); Mean Corpuscular Hemoglobin 30.3 pg (27.0-31.0); Mean Corpuscular Volume 97.5 fl (81.0-99.0); Mean Platelet Volume 6.9 fL (7.4-10.4); Monocytes 4 % (0-10); Neutrophil 77 % (42-75); Ovalocytes SLIGHT = 2-5 cells (100X) (0-1/hpf); PLT Morphology Comment Appears Adequate; Platelet Count 394 thou/uL (130-400); RBC Distribution Width 16.4 % (11.5-14.5); Reactive Lymphocytes 1 % (0-10); Red Blood Cell (RBC) Count 2.45 mill/uL (4.20-5.40); Tear Drops SLIGHT = 2-5 cells (100X) (0-1/hpf); White Blood Cell (WBC) Count 14.1 thou/uL (4.8-10.8)
[2017-05-03 07:11] LABS: Actual Bicarbonate (HCO3a) 15.3 mEq/L (22-26); Base Excess (BEa) -9.6 mEq/L (0 (+/-) 2.5); CO2 Tension 29.8 mmHg (35.0-45.0); Calcium, Ionized 1.4 mmol/L (1.12-1.30); Hematocrit-ABG 24.4 % (36.0-47.0); Hemoglobin (Hb) 8.5 g/dL (12.0-16.0); O2 Tension (PaO2) 61.1 mmHg (80.0-100.0); pH, Arterial 7.33 (7.35-7.45)
[2017-05-03 07:12] LABS: Puncture Site RRA
[2017-05-03] MEDS: Calcium Acetate 667 MG CAP PO SCH ×3 (07:51→17:00)
[2017-05-03] MEDS: Lorazepam 2 MG/ML VIAL SLOW IVP PRN ×2 (07:51→10:07)
[2017-05-03] MEDS: Ferrous Sulfate 325 MG TAB PO SCH (07:51)
--- NOTE | 2017-05-03 07:52 | PRG ---
DATE OF SERVICE: 05/03/2017 A 35 minutes critical care time. SUBJECTIVE: The patient remains intubated on mechanical ventilation about 5:00 this morning. Her pr opofol has to be restarted, because she began coughing and more agitated. OBJECTIVE: VITAL SIGNS: On exam, her temperature is 100.0 with a T-max of 100.1, pulse is 99, blood pressure 11 6/53. A 24-hour intake 1635, output 3015. NEUROLOGICAL: She will grimace to pain, but will not follow any commands. HEENT: Pupils react. Sclerae anicteric. Oropharynx dry. NECK: No JVD. LUNGS: Coarse breath sounds. CARDIAC: S1 and S2 regular. ABDOMEN: Soft, nontender. EXTREMITIES: Generalized edema throughout. LABORATORY DATA: White blood cell count 14.1, hemoglobin 7.4, hematocrit 23.9, platelet count 394. PH 7.33, pCO2 of 29, pO2 61 on SIMV rate 15, tidal volume 430, PEEP 5, pressure support 15, FiO2 30%. Sodium 146, potassium 3.9, chloride 118, CO2 17, BUN 49, creatinine 2.7, glucose 121. Phenytoin le leo 7.9. Phenobarbital level 26.2. Cultures growing out coag negative Staphylococcus from one of tw o bottles, I am not sure whether this was from central line or peripheral. Of note, her central line was pulled and a PICC line was inserted after this culture was drawn. ASSESSMENT: 1. Catheter related sepsis. 2. Acute respiratory failure requiring mechanical ventilation. 3. Chronic kidney disease. 4. Status epilepticus with no indication of seizure activity over the last couple of days. PLAN: 1. I had a conversation with the patient's son over the phone yesterday evening and I told him that we need to proceed with tracheostomy and PEG tube placement. He says he needed to clear this with th e rest of the family and he would let us know. 2. Continue the vancomycin until final cultures are back. Continue the Zosyn until final cultures a re back. 3. Anticonvulsive management per Neurology. 4. Decrease Decadron dose as it is not clear to me what that is being used for at this time. 5. Consult General Surgery when the family gives permission to go ahead with tracheostomy and PEG tu be placement. In the meantime, she is not weanable.
[2017-05-03] MEDS: Scopolamine 1.5 mg/72 hour Patch TD SCH (07:59)
[2017-05-03] MEDS: Sodium Bicarbonate Tab 325 MG TAB PO SCH ×2 (08:05→20:12)
[2017-05-03] MEDS: Famotidine 20 MG TAB PER TUBE SCH (08:06)
[2017-05-03] MEDS: Calcitriol 0.25 MCG CAP PO SCH (08:06)
[2017-05-03] MEDS: Amlodipine 10 MG TAB PO SCH (08:07)
[2017-05-03] MEDS: Vancomycin HCl 1 GM in Premix Bag 1 BAG IVPB SCH (08:08)
[2017-05-03] MEDS: Heparin 5,000 UNITS/ML VIAL SC SCH ×2 (08:09→20:11)
[2017-05-03] MEDS: Folic Acid/Vit B Comp W-C PO SCH (08:09)
[2017-05-03] MEDS: Fosphenytoin Sodium 200 MG in Sodium Chloride 0.9% 50 ML IVPB SCH (08:15)
[2017-05-03] MEDS: levETIRAcetam In NaCl (Iso-Os) 1,500 MG in Premix Bag 1 BAG IVPB SCH ×4 (08:43→20:12)
--- NOTE | 2017-05-03 09:07 | EEG ---
Referring Physician: Jenny OSBORN EEG # [id number] TEST TYPE: PORTABLE INPATIENT REPORT: AN EEG USING THE INTERNATIONAL TEN-TWENTY SYSTEM OF ELECTRODE PLACEMENT WAS PERFORMED. This is an extended period of EEG monitoring performed in the ICU. The background activity consists of either generalized bursts of polyspike and slow wave discharges that occur approximately 2 times per second with either intervening alpha activity or suppressed cerebral activity that is not overtly flat line. The periodic epileptiform bursts vary in frequency and in duration, mostly lasting 1-2 seconds. IMPRESSION: THIS EEG SHOWS CONTINUED PERIODIC EPILEPTIFORM DISCHARGES OCCURRING IN A GENERALIZED FASHION, EITHER INTERMIXED WITH SUPPRESSION OR NORMAL BACKGROUND, LIKELY SECONDARY TO THE LEVEL OF ANESTHESIA AT THAT POINT IN TIME. Sustainable Landscape Architect: MARY ANN Paralegal Internship: [email or web address]
--- NOTE | 2017-05-03 09:56 | PRG ---
DATE OF SERVICE: 05/03/2017 RENAL MEDICINE SUBJECTIVE: Ms. Lorenzana is a 61-year-old black female followed up by the Renal Service for her acute ki dney failure on top of her chronic renal failure. Sensation has been marked by refractory seizure. Seizure is now much improved. She is currently intubated due to her inability to fully wakeup. Plan tracie tracheostomy and PEG tube placement is being contemplated. No acute events noted last night. PHYSICAL EXAMINATION: VITAL SIGNS: Blood pressure is 112/61, heart rate 101, respiratory rate is 36, pulse ox 97%. GENERAL: Unresponsive, not following commands, intubated on ventilator support. HEENT: She has slightly pale conjunctivae, anicteric sclerae. NECK: No neck mass, no carotid bruits, no JVD. CHEST: No deformities. LUNGS: Clear. Decreased breath sounds. HEART: Normal sinus rhythm. No murmurs, no gallops, no rubs. ABDOMEN: Globular, soft, nontender. No masses. Positive for urostomy. Positive for colostomy. EXTREMITIES: No edema, no deformities. MEDICATIONS: Medications of 05/03/2017 was reviewed. LABORATORY DATA: Laboratories of 05/03/2017; white count 14.1, hemoglobin 7.4, sodium 146, potassium 3.9, chloride 108, carbon dioxide 17, BUN 49, creatinine 2.73, glucose 121, phosphorus 4.2, calcium 9.3, and magnesium 1.6. ASSESSMENT AND PLAN: 1. Acute kidney injury on top of her chronic renal failure - stable renal function. Renal function is much improved. She is most likely at her baseline renal function. No indication for any dialytic intervention. 2. Seizure disorder - much improved. Currently on anti-seizure regimen. Urology following. 3. Acute respiratory failure - for possible tracheostomy. 4. Anemia, continuing weekly Epogen, p.r.n. blood transfusion.
--- NOTE | 2017-05-03 10:08 | PDOC.PN ---
- Subjective Encounter Start Date: 05/03/17 Encounter Start Time: 09:10 Patient seen and examined. No overnight events - Objective Resuscitation Status: Resuscitation Status FULL:Full Resuscitation MAR Reviewed: Yes Vital Signs & Weight: Vital Signs (12 hours) Temp Pulse Resp Pulse Ox 05/03/17 08:07 108 H 05/03/17 07:00 100.5 F H 05/03/17 06:56 108 H 05/03/17 06:00 32 H 05/03/17 04:00 100.0 F H 33 H 05/03/17 02:00 25 H 05/03/17 00:00 99.4 F 33 H 05/02/17 23:13 95 24 H 95 Weight Admit Weight 222 lb 8 oz Weight 225 lb 4.999 oz Most Recent Monitor Data Heart Rate from ECG 101 NIBP 112/61 NIBP BP-Mean 93 Respiration from ECG 36 SpO2 97 I&O: 05/02/17 05/03/17 05/04/17 06:59 06:59 06:59 Intake Total 1635.5 2651 Output Total 3015 2845 120 Balance -1379.5 -194 -120 Result Diagrams: 05/03/17 04:00 05/03/17 04:00 Additional Labs: Accuchecks 05/03/17 05/02/17 05/02/17 04:11 21:38 16:12 POC Glucose 123 H 88 98 05/02/17 12:00 POC Glucose 105 EKG Reviewed by me: Yes (nsr, tachycardia) Phys Exam - Physical Examination Constitutional: NAD intubated, sedated HEENT: PERRLA, sclera anicteric Neck: no JVD, supple Respiratory: no wheezing, no rales, no rhonchi Cardiovascular: RRR, no significant murmur, no rub Gastrointestinal: soft colostomy, ileal conduit Musculoskeletal: no edema, pulses present Lymphatic: no nodes Skin: no rash, normal turgor Dx/Plan (1) Acute metabolic encephalopathy Code(s): G93.41 - METABOLIC ENCEPHALOPATHY Status: Acute Comment: (2) Acute respiratory failure with hypoxia Code(s): J96.01 - ACUTE RESPIRATORY FAILURE WITH HYPOXIA Status: Acute Comment: on ventilator (3) Acute worsening of stage 4 chronic kidney disease Code(s): N28.9 - DISORDER OF KIDNEY AND URETER, UNSPECIFIED; N18.4 - CHRONIC KIDNEY DISEASE, STAGE 4 (SEVERE) Status: Acute Comment: (4) Metabolic acidosis Code(s): E87.2 - ACIDOSIS Status: Acute Comment: (5) Pneumonia Code(s): J18.9 - PNEUMONIA, UNSPECIFIED ORGANISM Status: Acute Qualifiers: Pneumonia type: aspiration pneumonia Aspiration pneumonia type: due to gastric secretions Laterality: bilateral Lung location: lower lobe of lung Qualified Code(s): J69.0 - Pneumonitis due to inhalation of food and vomit Comment: (6) Status epilepticus Code(s): G40.901 - EPILEPSY, UNSP, NOT INTRACTABLE, WITH STATUS EPILEPTICUS Status: Acute (7) UTI (urinary tract infection) Status: Acute Comment: (8) Anxiety and depression Code(s): F41.8 - OTHER SPECIFIED ANXIETY DISORDERS Status: Chronic Comment: (9) Bilateral hydronephrosis Code(s): N13.30 - UNSPECIFIED HYDRONEPHROSIS Status: Chronic (10) DM type 2 (diabetes mellitus, type 2) Status: Chronic Qualifiers: Diabetes mellitus complication status: with kidney complications Diabetes mellitus complication detail: with chronic kidney disease Diabetes mellitus mcc insulin use: with intermediate frame tender use Chronic kidney disease stage: stage 5, not on chronic dialysis Qualified Code(s): E11.22 - Type 2 diabetes mellitus with diabetic chronic kidney disease; N18.5 - Chronic kidney disease, stage 5; N18.5 - Chronic kidney disease, stage 5; N18.5 - Chronic kidney disease , stage 5; N18.5 - Chronic kidney disease, stage 5; Z79.4 - rat exterminator (current) use of insulin; Z79.4 - long-term (current) use of insulin; Z79.4 - rat exterminator ( current) use of insulin; Z79.4 - long-term (current) use of insulin Comment: At goal. (11) HTN (hypertension) Code(s): I10 - ESSENTIAL (PRIMARY) HYPERTENSION Status: Chronic Qualifiers: Hypertension type: essential hypertension (12) Hypothyroidism Code(s): E03.9 - HYPOTHYROIDISM, UNSPECIFIED Status: Chronic Qualifiers: Hypothyroidism type: unspecified Qualified Code(s): E03.9 - Hypothyroidism , unspecified Comment: Continue Levothyroxine. (13) Physical deconditioning Code(s): R53.81 - OTHER MALAISE Status: Chronic Comment: (14) Sacral decubitus ulcer, stage IV Code(s): L89.154 - PRESSURE ULCER OF SACRAL REGION, STAGE 4 Status: Chronic Comment: (15) Seizure disorder Code(s): G40.909 - EPILEPSY, UNSP, NOT INTRACTABLE, WITHOUT STATUS EPILEPTICUS Status: Chronic Comment: (16) Hypomagnesemia Code(s): E83.42 - HYPOMAGNESEMIA Status: Resolved (17) Pulmonary vascular congestion Code(s): R09.89 - OTH SYMPTOMS AND SIGNS INVOLVING THE CIRC AND RESP SYSTEMS Status: Acute (18) Anemia of renal disease Code(s): D63.1 - ANEMIA IN CHRONIC KIDNEY DISEASE Status: Chronic Comment: (19) CRBSI (catheter-related bloodstream infection) Code(s): T80.211A - BLOODSTREAM INFECTION DUE TO CENTRAL VENOUS CATHETER, INIT Status: Acute - Plan cont current plan of care, continue antibiotics * vent per pulmonary * family to decide about trach and PEG * continue vancomycin and zosyn * follow on culture * wound care * medication reviewed as below * symptomatic treatment * prognosis poor. Review of Systems - Review of Systems Other: unable to review due to intubated status - Medications/Allergies Allergies/Adverse Reactions: Allergies Allergy/AdvReac Type Severity Reaction Status Date / Time banana Allergy Verified 05/10/16 08:43 chocolate flavor Allergy Verified 05/10/16 08:43 egg Allergy Verified 05/10/16 08:43 Iodinated Contrast- Oral and Allergy Verified 05/10/16 08:44 IV Dye [Iodinated Contrast Media - Oral and] iodine Allergy Verified 05/10/16 08:43 latex Allergy Verified 05/10/16 08:43 orange juice Allergy Verified 05/10/16 08:43 tolterodine tartrate Allergy Verified 05/10/16 08:43 [From Detrol] tomato Allergy Verified 05/10/16 08:43 Medications: Current Medications Acetaminophen (Tylenol) 650 mg PO Q4H PRN PRN Reason: Headache/Fever or Pain Last Admin: 05/01/17 18:52 Dose: 650 mg Al Hydroxide/Mg Hydroxide (Maalox) 30 ml PO Q6H PRN PRN Reason: Heartburn or Indigestion Albuterol/Ipratropium (Duoneb) 3 ml NEB [id number] [facility] Last Admin: 05/03/17 06:56 Dose: 3 ml Amlodipine Besylate (Norvasc) 10 mg PO DAILY [facility] Last Admin: 05/03/17 08:07 Dose: 10 mg Lipase/Protease/Amylase (Crejasmin [place] 98968) 1 cap FS .PER PROTOCOL PRN PRN Reason: TUBE OCCLUSION PROTOCOL Artificial Tears (Tears Naturale) 0 drop EA EYE PRN PRN PRN Reason: Dry Eyes Aspirin (Aspirin Chewable) 81 mg PO DAILY [facility] Last Admin: 05/03/17 08:08 Dose: 81 mg Calcitriol (Rocaltrol) 0.25 mcg PO DAILY [facility] [place] Last Admin: 05/03/17 08:06 Dose: 0.25 mcg Calcium Acetate (Phoslo) 1,334 mg PO TID-[facility] Last Admin: 05/03/17 07:51 Dose: 1,334 mg Dexamethasone (Decadron) 2 mg SLOW IVP 0200,0800,1400,2000 [facility] Last Admin: 05/03/17 07:50 Dose: 2 mg Dextrose/Water (Dextrose 50%) 25 gm SLOW IVP PRN PRN PRN Reason: Hypoglycemia Epoetin Javier (Procrit) 10,000 units SC Q7D [facility] Last Admin: 04/29/17 16:20 Dose: 10,000 units Famotidine (Pepcid) 20 mg PER TUBE DAILY [facility] Last Admin: 05/03/17 08:06 Dose: 20 mg Ferrous Sulfate (Feosol) 325 mg PO QAM-[facility] Last Admin: 05/03/17 07:51 Dose: 325 mg Glucagon (Glucagon) 1 mg IM PRN PRN PRN Reason: Hypoglycemia Guaifenesin (Robitussin Sf) 200 mg PO Q4H PRN PRN Reason: Cough Heparin Sodium (Porcine) (Heparin) 5,000 units SC BID [facility] Last Admin: 05/03/17 08:09 Dose: 5,000 units Hydralazine HCl (Apresoline) 10 mg SLOW IVP Q4H PRN PRN Reason: Systolic BP > 180 Last Admin: 05/01/17 17:22 Dose: 10 mg Dextrose/Water (D5w) 1,000 mls @ 0 mls/hr IV .Q0M PRN; As Directed PRN Reason: Hypoglycemia Levetiracetam 1,500 mg/ Device 100 mls @ 200 mls/hr IVPB BID [facility] Last Admin: 05/03/17 08:43 Dose: 100 mls Lacosamide 100 mg/ Sodium (Chloride) 60 mls @ 120 mls/hr IVPB 0400,1600 [facility] Last Admin: 05/03/17 04:57 Dose: 60 mls Phenobarbital Sodium 65 mg/ (Sodium Chloride) 101 mls @ 202 mls/hr IVPB Q8HR [facility] Last Admin: 05/03/17 05:10 Dose: 101 mls Fentanyl Citrate (Fentanyl Bolus) 250 mls @ 0 mls/hr IVPB PRN PRN; As Directed PRN Reason: Breakthrough pain Piperacillin Sod/Tazobactam (Sod 2.25 gm/ Sodium Chloride) 100 mls @ 200 mls/ hr IVPB 0200,0800,1400,2000 [facility] Last Admin: 05/03/17 07:52 Dose: 100 mls Vancomycin HCl 1 gm/ Device 200 mls @ 200 mls/hr IVPB 0900 [facility] Last Admin: 05/03/17 08:08 Dose: 200 mls Fosphenytoin Sodium 200 mg/ (Sodium Chloride) 54 mls @ 108 mls/hr IVPB 0900 [facility] Last Admin: 05/03/17 08:15 Dose: 54 mls Fosphenytoin Sodium 300 mg/ (Sodium Chloride) 56 mls @ 112 mls/hr IVPB 2100 [facility] [place] Last Admin: 05/02/17 21:30 Dose: 56 mls Insulin Human Lispro (Humalog) 0 units SC .MODERATE SLIDING SC PRN PRN Reason: Moderate Correctional Scale Insulin Human Lispro (Humalog) 0 units SC .BEDTIME SLIDING SC PRN PRN Reason: Bedtime Correctional Scale Levothyroxine Sodium (Synthroid) 100 mcg PO 0600 [facility] Last Admin: 05/03/17 05:10 Dose: 100 mcg Loperamide HCl (Imodium) 2 mg PO PRN PRN PRN Reason: Diarrhea/Loose Stools Loratadine (Claritin) 10 mg PO DAILYPRN PRN PRN Reason: Sinus Symptoms Lorazepam (Ativan) 2 mg SLOW IVP Q2H PRN PRN Reason: Anxiety to achieve [place] 2-3 Last Admin: 05/03/17 10:07 Dose: 2 mg Magnesium Hydroxide (Milk Of Magnesium) 30 ml PO DAILYPRN PRN PRN Reason: Constipation Metoclopramide HCl (Reglan) 10 mg IVP Q6H [facility] Last Admin: 05/03/17 08:05 Dose: 10 mg Midazolam HCl (Versed) 10 mg SLOW IVP Q15MIN PRN PRN Reason: .SEIZURE ACTIVITY Last Admin: 04/27/17 07:28 Dose: 10 mg Mineral Oil/White Petrolatum (Eucerin Cream) 0 gm TOP BIDPRN PRN PRN Reason: Dry Skin Miscellaneous Medication (Pharmacy To Dose) 0 each IVPB ASDIR PRN PRN Reason: Pharmacy to Dose VANCOMYCIN Morphine Sulfate (Morphine) 2 mg SLOW IVP Q2H PRN PRN Reason: Breakthrough pain Last Admin: 05/03/17 04:56 Dose: 2 mg Ondansetron HCl (Zofran Odt) 4 mg PO Q6H PRN PRN Reason: Nausea/Vomiting Ondansetron HCl (Zofran) 4 mg IVP Q6H PRN PRN Reason: Nausea/Vomiting Last Admin: 04/12/17 13:07 Dose: 4 mg Phenol (Chloraseptic [place] 180 Ml Bot) 0 ml PO PRN PRN PRN Reason: Sore Throat Propofol (Diprivan) 1,000 mg IV INF PRN; Protocol PRN Reason: TO ACHIEVE MOTLEY SCORE 2-3 Stop: 05/20/17 03:31 Last Admin: 05/03/17 07:50 Dose: 1,000 mg Scopolamine (Transderm Scop) 1.5 mg TD Q3D [facility] Last Admin: 05/03/17 07:59 Dose: 1.5 mg Senna (Senokot) 2 tab PO HSPRN PRN PRN Reason: Constipation Sertraline HCl (Zoloft) 150 mg PO DAILY [facility] Last Admin: 05/03/17 08:21 Dose: 150 mg Sodium Bicarbonate (Bicarbonate, Sodium) 650 mg PER TUBE .PER PROTOCOL PRN PRN Reason: ENTERAL TUBE OCCLUSION Last Admin: 05/01/17 07:46 Dose: 650 mg Sodium Bicarbonate (Bicarbonate, Sodium) 650 mg PO BID [facility] Last Admin: 05/03/17 08:05 Dose: 650 mg Sodium Chloride ([place] Nasal [place] 0.65%) 0 ml EA NARE QIDPRN PRN PRN Reason: Nasal Congestion Sodium Chloride (Flush - Normal Saline) 10 ml IVF Q12HR [facility] Last Admin: 02/22/18 08:22 Dose: 10 ml Sodium Chloride (Flush - Normal Saline) 10 ml IVF PRN PRN PRN Reason: Saline Flush Last Admin: 04/26/17 20:45 Dose: 10 ml Vitamin B Complex/Vit C/Folic Acid (Nephro-Supriya Tablet) 1 tab PO DAILY [facility] Last Admin: 05/03/17 08:09 Dose: 1 tab
[2017-05-03] MEDS ORDERED: Heparin 1,000 UNITS/ML VIAL ONE (18:19)
[2017-05-04] MEDS: Piperacillin/Tazobactam 2.25 GM in Sodium Chloride 0.9% 100 ML IVPB SCH ×4 (01:58→21:28)
[2017-05-04] MEDS: Dexamethasone 4 mg/ml Vial SLOW IVP SCH ×3 (01:58→19:52)
[2017-05-04] MEDS: Lorazepam 2 MG/ML VIAL SLOW IVP PRN ×2 (02:08→19:49)
[2017-05-04] MEDS: Metoclopramide HCl 10 MG/2 ML VIAL IVP SCH ×4 (02:13→20:41)
[2017-05-04] MEDS: Propofol 1,000 MG/100 ML VIAL IV PRN ×4 (03:08→20:47)
[2017-05-04] MEDS: Lacosamide 100 MG in Sodium Chloride 0.9% 50 ML IVPB SCH ×2 (04:09→15:39)
[2017-05-04 04:36] LABS: Band 19 % (5-11); Dilantin 7.5 ug/mL (10.0-20.0); Eosinophils 1 % (0-10); Hemoglobin 7.7 g/dL (12.0-16.0); Lymphocytes 6 % (21-51); MDiff Complete? YES; Mean Corpuscular HGB CONC 30.8 g/dL (32.0-36.0); Mean Corpuscular Hemoglobin 30.1 pg (27.0-31.0); Mean Corpuscular Volume 97.6 fl (81.0-99.0); Monocytes 4 % (0-10); Neutrophil 70 % (42-75); PLT Morphology Comment Appears Adequate; Platelet Count 335 thou/uL (130-400); Red Blood Cell (RBC) Count 2.57 mill/uL (4.20-5.40); White Blood Cell (WBC) Count 23.5 thou/uL (4.8-10.8)
[2017-05-04 04:38] LABS: Anion Gap 15 mmol/L (10-20); BUN (Urea Nitrogen) 58 mg/dL (9.8-20.1); Calc. Creatinine Clearance 33 mL/min (70-130); Calcium 9.4 mg/dL (7.8-10.44); Carbon Dioxide 16 mmol/L (23-31); Chloride 118 mmol/L (98-107); Estimated GFR-MDRD 20; Glucose 121 mg/dL (80-115); Magnesium 1.6 mg/dL (1.6-2.6); Phosphorus 4.2 mg/dL (2.3-4.7); Potassium 4.3 mmol/L (3.5-5.1); Sodium 145 mmol/L (136-145)
[2017-05-04] MEDS: PHENOBARBITAL SODIUM IVPB SCH ×3 (06:11→21:35)
[2017-05-04] MEDS: SODIUM CHLORIDE 0.9% IVPB SCH ×3 (06:11→21:35)
[2017-05-04] MEDS: Levothyroxine Sodium 100 MCG TAB PO SCH (06:16)
--- NOTE | 2017-05-04 07:37 | PDOC.PULCC ---
CCU Progress Note: Subj/Obj - Subjective Date: 05/04/17 Time: 07:35 Narrative: About the same. Only responsive to deep stimulation - Objective Allergies/Adverse Reactions: Allergies Allergy/AdvReac Type Severity Reaction Status Date / Time banana Allergy Verified 05/10/16 08:43 chocolate flavor Allergy Verified 05/10/16 08:43 egg Allergy Verified 05/10/16 08:43 Iodinated Contrast- Oral and Allergy Verified 05/10/16 08:44 IV Dye [Iodinated Contrast Media - Oral and] iodine Allergy Verified 05/10/16 08:43 latex Allergy Verified 05/10/16 08:43 orange juice Allergy Verified 05/10/16 08:43 tolterodine tartrate Allergy Verified 05/10/16 08:43 [From Detrol] tomato Allergy Verified 05/10/16 08:43 Medications: Current Medications Acetaminophen (Tylenol) 650 mg PO Q4H PRN PRN Reason: Headache/Fever or Pain Last Admin: 05/01/17 18:52 Dose: 650 mg Al Hydroxide/Mg Hydroxide (Maalox) 30 ml PO Q6H PRN PRN Reason: Heartburn or Indigestion Albuterol/Ipratropium (Duoneb) 3 ml NEB [id number] [facility] Last Admin: 05/04/17 06:47 Dose: 3 ml Amlodipine Besylate (Norvasc) 10 mg PO DAILY [facility] Last Admin: 05/03/17 08:07 Dose: 10 mg Lipase/Protease/Amylase ([place] [id number]) 1 cap FS .PER PROTOCOL PRN PRN Reason: TUBE OCCLUSION PROTOCOL Artificial Tears (Tears Naturale) 0 drop EA EYE PRN PRN PRN Reason: Dry Eyes Aspirin (Aspirin Chewable) 81 mg PO DAILY [facility] Last Admin: 05/03/17 08:08 Dose: 81 mg Calcitriol (Rocaltrol) 0.25 mcg PO DAILY [facility] Last Admin: 05/03/17 08:06 Dose: 0.25 mcg Calcium Acetate (Phoslo) 1,334 mg PO TID-WM [facility] Last Admin: 05/03/17 17:00 Dose: 1,334 mg Dexamethasone (Decadron) 2 mg SLOW IVP 0200,0800,1400,2000 [facility] Last Admin: 05/04/17 01:58 Dose: 2 mg Dextrose/Water (Dextrose 50%) 25 gm SLOW IVP PRN PRN PRN Reason: Hypoglycemia Epoetin Javier (Procrit) 10,000 units SC Q7D [facility] Last Admin: 04/29/17 16:20 Dose: 10,000 units Famotidine (Pepcid) 20 mg PER TUBE DAILY [facility] Last Admin: 05/03/17 08:06 Dose: 20 mg Ferrous Sulfate (Feosol) 325 mg PO QAM-WM [facility] Last Admin: 05/03/17 07:51 Dose: 325 mg Glucagon (Glucagon) 1 mg IM PRN PRN PRN Reason: Hypoglycemia Guaifenesin (Robitussin Sf) 200 mg PO Q4H PRN PRN Reason: Cough Heparin Sodium (Porcine) (Heparin) 5,000 units SC BID [facility] Last Admin: 05/03/17 20:11 Dose: 5,000 units Hydralazine HCl (Apresoline) 10 mg SLOW IVP Q4H PRN PRN Reason: Systolic BP > 180 Last Admin: 05/01/17 17:22 Dose: 10 mg Dextrose/Water (D5w) 1,000 mls @ 0 mls/hr IV .Q0M PRN; As Directed PRN Reason: Hypoglycemia Levetiracetam 1,500 mg/ Device 100 mls @ 200 mls/hr IVPB BID [facility] Last Admin: 05/03/17 20:12 Dose: 100 mls Lacosamide 100 mg/ Sodium (Chloride) 60 mls @ 120 mls/hr IVPB 0400,1600 [facility] Last Admin: 05/04/17 04:09 Dose: 60 mls Phenobarbital Sodium 65 mg/ (Sodium Chloride) 101 mls @ 202 mls/hr IVPB Q8HR [facility] Last Admin: 05/04/17 06:11 Dose: 101 mls Fentanyl Citrate (Fentanyl Bolus) 250 mls @ 0 mls/hr IVPB PRN PRN; As Directed PRN Reason: Breakthrough pain Piperacillin Sod/Tazobactam (Sod 2.25 gm/ Sodium Chloride) 100 mls @ 200 mls/ hr IVPB 0200,0800,1400,2000 [facility] Last Admin: 05/04/17 01:58 Dose: 100 mls Vancomycin HCl 1 gm/ Device 200 mls @ 200 mls/hr IVPB 0900 [facility] Last Admin: 05/03/17 08:08 Dose: 200 mls Fosphenytoin Sodium 200 mg/ (Sodium Chloride) 54 mls @ 108 mls/hr IVPB 0900 [facility] Last Admin: 05/03/17 08:15 Dose: 54 mls Fosphenytoin Sodium 300 mg/ (Sodium Chloride) 56 mls @ 112 mls/hr IVPB 2100 [facility] Last Admin: 05/03/17 20:11 Dose: 56 mls Insulin Human Lispro (Humalog) 0 units SC .MODERATE SLIDING SC PRN PRN Reason: Moderate Correctional Scale Insulin Human Lispro (Humalog) 0 units SC .BEDTIME SLIDING SC PRN PRN Reason: Bedtime Correctional Scale Levothyroxine Sodium (Synthroid) 100 mcg PO 0600 [facility] Last Admin: 05/04/17 06:16 Dose: 100 mcg Loperamide HCl (Imodium) 2 mg PO PRN PRN PRN Reason: Diarrhea/Loose Stools Loratadine (Claritin) 10 mg PO DAILYPRN PRN PRN Reason: Sinus Symptoms Lorazepam (Ativan) 2 mg SLOW IVP Q2H PRN PRN Reason: Anxiety to achieve [place] 2-3 Last Admin: 05/04/17 02:08 Dose: 2 mg Magnesium Hydroxide (Milk Of Magnesium) 30 ml PO DAILYPRN PRN PRN Reason: Constipation Metoclopramide HCl (Reglan) 10 mg IVP Q6H [facility] Last Admin: 05/04/17 02:13 Dose: 10 mg Midazolam HCl (Versed) 10 mg SLOW IVP Q15MIN PRN PRN Reason: .SEIZURE ACTIVITY Last Admin: 04/27/17 07:28 Dose: 10 mg Mineral Oil/White Petrolatum (Eucerin Cream) 0 gm TOP BIDPRN PRN PRN Reason: Dry Skin Miscellaneous Medication (Pharmacy To Dose) 0 each IVPB ASDIR PRN PRN Reason: Pharmacy to Dose VANCOMYCIN Morphine Sulfate (Morphine) 2 mg SLOW IVP Q2H PRN PRN Reason: Breakthrough pain Last Admin: 05/03/17 04:56 Dose: 2 mg Ondansetron HCl (Zofran Odt) 4 mg PO Q6H PRN PRN Reason: Nausea/Vomiting Ondansetron HCl (Zofran) 4 mg IVP Q6H PRN PRN Reason: Nausea/Vomiting Last Admin: 04/12/17 13:07 Dose: 4 mg Phenol (Chloraseptic [place] 180 Ml Bot) 0 ml PO PRN PRN PRN Reason: Sore Throat Propofol (Diprivan) 1,000 mg IV INF PRN; Protocol PRN Reason: TO ACHIEVE MOTLEY SCORE 2-3 Stop: 05/20/17 03:31 Last Admin: 05/04/17 03:08 Dose: 1,000 mg Scopolamine (Transderm Scop) 1.5 mg TD Q3D [facility] Last Admin: 05/03/17 07:59 Dose: 1.5 mg Senna (Senokot) 2 tab PO HSPRN PRN PRN Reason: Constipation Sertraline HCl (Zoloft) 150 mg PO DAILY [facility] Last Admin: 05/03/17 08:21 Dose: 150 mg Sodium Bicarbonate (Bicarbonate, Sodium) 650 mg PER TUBE .PER PROTOCOL PRN PRN Reason: ENTERAL TUBE OCCLUSION Last Admin: 05/01/17 07:46 Dose: 650 mg Sodium Bicarbonate (Bicarbonate, Sodium) 650 mg PO BID [facility] Last Admin: 05/03/17 20:12 Dose: 650 mg Sodium Chloride ([place] Nasal [place] 0.65%) 0 ml EA NARE QIDPRN PRN PRN Reason: Nasal Congestion Sodium Chloride (Flush - Normal Saline) 10 ml IVF Q12HR [facility] Last Admin: 05/03/17 20:13 Dose: 10 ml Sodium Chloride (Flush - Normal Saline) 10 ml IVF PRN PRN PRN Reason: Saline Flush Last Admin: 04/26/17 20:45 Dose: 10 ml Vitamin B Complex/Vit C/Folic Acid (Nephro-Supriya Tablet) 1 tab PO DAILY [facility] Last Admin: 05/03/17 08:09 Dose: 1 tab MAR Reviewed: Yes Vital Signs and I&O: Vital Signs Temp 98.7 F 05/04/17 04:00 Pulse 105 H 05/04/17 06:53 Resp 34 H 05/04/17 06:47 BP 175/80 H 05/04/17 06:53 Pulse Ox 96 05/04/17 06:47 Intake & Output 05/03/17 05/04/17 05/04/17 18:59 06:59 18:59 Intake Total 1332 2745 Output Total 1550 1030 Balance -218 1715 Weight 225 lb 4.992 oz 235 lb 3.732 oz Intake: Intake, IV Amount 182 3837 Fosphenytoin Sodium 200 50 mg In Sodium Chloride 0.9 % 50 ml @ 108 mls/hr IVPB BID [facility] Rx#:[id number] PHENobarbital Sodium 65 202 mg In Sodium Chloride 0.9 % 100 ml @ 202 mls/hr IVPB Q8HR [facility] Rx#: [id number] Piperacillin/Tazobactam 2 100 .25 gm In Sodium Chloride 0.9% 100 ml @ 200 mls/hr IVPB 0200,0800,1400,2000 [facility] Rx#:[id number] Propofol 1000 mg (See 395 Protocol) IV INF PRN Rx#: [id number] Sodium Chloride 0.9% 10 1972 ml IVF PRN PRN Rx#: [id number] Vancomycin HCl 1 gm In 200 Premix Bag 1 bag @ 200 mls/hr IVPB 0900 [facility] Rx#: [id number] levETIRAcetam In NaCl ( 200 Iso-Os) 1,500 mg In Premix Bag 1 bag @ 200 mls/hr IVPB BID [facility] Rx#: [id number] Tube Feeding 250 258 Tube Irrigant 330 120 Output: Ostomy Output 1110 1030 Ileal Conduit 1110 930 Ileostomy 100 Stool 440 Other: Voiding Method Ileal Conduit (Right) Ileal Conduit (Left) Vent Setting: Continues on SIMV 15, fiO2 30% Spontaneous Breathing Test: not done Lines (incl Aterial, CVC, PICC+Insertion date): PICC line in place. LIJ line removed due to septicemia CCU Progress Note: Exam - Physical Exam Constitutional: NAD HEENT: PERRLA Deviation from normal: opens eyes to deep stimulation Neck: no nodes, no JVD Cardiovascular: RRR Respiratory: clear to auscultation bilaterally Gastrointestinal: soft, non-tender Musculoskeletal: edema present Deviation from normal: facial movements to pain, not moving extremities to pain Lymphatic: no nodes Deviation from normal: not following Skin: no rash CCU Progress Note: Data - Labs Result Diagrams: 05/04/17 04:21 05/04/17 04:21 Lab results: Laboratory Results 05/02/17 05/02/17 05/02/17 12:00 16:12 21:38 WBC RBC Hgb Hct MCV MCH MCHC RDW Plt Count MPV Neutrophils % (Manual) Band Neuts % (Manual) Lymphocytes % (Manual) Reactive Lymphs % Monocytes % (Manual) Eosinophils % (Manual) Plt Morphology Comment Anisocytosis Tear Drop Cells Ovalocytes Specimen Type Puncture Site Bicarbonate Actual ABG pH ABG pCO2 ABG pO2 ABG O2 Sat Calc/Arie ABG O2 Content ABG Base Excess ABG Hematocrit ABG Hemoglobin ABG Oxyhemoglobin ABG Carboxyhemoglobin ABG Methemoglobin A-a O2 Gradient Ionized Calcium Mode of Support Mechanical Rate Inspired O2 Tidal Volume Pressure Support PEEP or CPAP Sodium Potassium Chloride Carbon Dioxide Anion Gap BUN Creatinine Estimated GFR (MDRD) Glucose POC Glucose 105 98 88 Calcium Phosphorus Magnesium Phenytoin Phenobarbital 05/03/17 05/03/17 05/03/17 04:00 04:00 04:00 WBC 14.1 H RBC 2.45 L Hgb 7.4 L Hct 23.9 L MCV 97.5 MCH 30.3 MCHC 31.1 L RDW 16.4 H Plt Count 394 MPV 6.9 L Neutrophils % (Manual) 77 H Band Neuts % (Manual) 4 L Lymphocytes % (Manual) 14 L Reactive Lymphs % 1 Monocytes % (Manual) 4 Eosinophils % (Manual) Plt Morphology Comment Appears Adequate Anisocytosis SLIGHT = 6-15 cells Tear Drop Cells SLIGHT = 2-5 cells Ovalocytes SLIGHT = 2-5 cells Specimen Type Puncture Site Bicarbonate Actual ABG pH ABG pCO2 ABG pO2 ABG O2 Sat Calc/[place] ABG O2 Content ABG Base Excess ABG Hematocrit ABG Hemoglobin ABG Oxyhemoglobin ABG Carboxyhemoglobin ABG Methemoglobin A-a O2 Gradient Ionized Calcium Mode of Support Mechanical Rate Inspired O2 Tidal Volume Pressure Support PEEP or CPAP Sodium 146 H Potassium 3.9 Chloride 118 H Carbon Dioxide 17 L Anion Gap 15 BUN 49 H Creatinine 2.73 H Estimated GFR (MDRD) 21 Glucose 121 H POC Glucose Calcium 9.3 Phosphorus 4.2 Magnesium 1.6 Phenytoin 7.9 L Phenobarbital 26.2 05/03/17 05/03/17 05/03/17 04:11 07:00 11:28 WBC RBC Hgb Hct MCV MCH MCHC RDW Plt Count MPV Neutrophils % (Manual) Band Neuts % (Manual) Lymphocytes % (Manual) Reactive Lymphs % Monocytes % (Manual) Eosinophils % (Manual) Plt Morphology Comment Anisocytosis Tear Drop Cells Ovalocytes Specimen Type ARTERIAL Puncture Site RRA Bicarbonate Actual 15.3 L ABG pH 7.33 L ABG pCO2 29.8 L ABG pO2 61.1 L ABG O2 Sat Calc/Arie 88.0 L ABG O2 Content 10.3 L ABG Base Excess -9.6 L ABG Hematocrit 24.4 L ABG Hemoglobin 8.5 L ABG Oxyhemoglobin 85.7 L ABG Carboxyhemoglobin 2.1 ABG Methemoglobin 0.5 A-a O2 Gradient 115.550 H Ionized Calcium 1.4 H Mode of Support SIMV Mechanical Rate 15 Inspired O2 30 Tidal Volume 430 Pressure Support 15 PEEP or CPAP 5.0 Sodium 146 Potassium 4.5 Chloride 115 H Carbon Dioxide Anion Gap BUN Creatinine Estimated GFR (MDRD) Glucose POC Glucose 123 H 127 H Calcium Phosphorus Magnesium Phenytoin Phenobarbital 05/03/17 05/03/17 05/04/17 17:15 22:58 04:21 WBC RBC Hgb Hct MCV MCH MCHC RDW Plt Count MPV Neutrophils % (Manual) Band Neuts % (Manual) Lymphocytes % (Manual) Reactive Lymphs % Monocytes % (Manual) Eosinophils % (Manual) Plt Morphology Comment Anisocytosis Tear Drop Cells Ovalocytes Specimen Type Puncture Site Bicarbonate Actual ABG pH ABG pCO2 ABG pO2 ABG O2 Sat Calc/[place] ABG O2 Content ABG Base Excess ABG Hematocrit ABG Hemoglobin ABG Oxyhemoglobin ABG Carboxyhemoglobin ABG Methemoglobin A-a O2 Gradient Ionized Calcium Mode of Support Mechanical Rate Inspired O2 Tidal Volume Pressure Support PEEP or CPAP Sodium 145 Potassium 4.3 Chloride 118 H Carbon Dioxide 16 L Anion Gap 15 BUN 58 H Creatinine 2.87 H Estimated GFR (MDRD) 20 Glucose 121 H POC Glucose 90 128 H Calcium 9.4 Phosphorus 4.2 Magnesium 1.6 Phenytoin Phenobarbital 05/04/17 05/04/17 04:21 04:21 WBC 23.5 H RBC 2.57 L Hgb 7.7 L Hct 25.1 L MCV 97.6 MCH 30.1 MCHC 30.8 L RDW 16.0 H Plt Count 335 MPV 7.0 L Neutrophils % (Manual) 70 Band Neuts % (Manual) 19 H Lymphocytes % (Manual) 6 L Reactive Lymphs % Monocytes % (Manual) 4 Eosinophils % (Manual) 1 Plt Morphology Comment Appears Adequate Anisocytosis Tear Drop Cells Ovalocytes Specimen Type Puncture Site Bicarbonate Actual ABG pH ABG pCO2 ABG pO2 ABG O2 Sat Calc/[place] ABG O2 Content ABG Base Excess ABG Hematocrit ABG Hemoglobin ABG Oxyhemoglobin ABG Carboxyhemoglobin ABG Methemoglobin A-a O2 Gradient Ionized Calcium Mode of Support Mechanical Rate Inspired O2 Tidal Volume Pressure Support PEEP or CPAP Sodium Potassium Chloride Carbon Dioxide Anion Gap BUN Creatinine Estimated GFR (MDRD) Glucose POC Glucose Calcium Phosphorus Magnesium Phenytoin 7.5 L Phenobarbital 25.8 - ABG Interpretation ABG Results: ABG pH 7.33 (7.35-7.45) L 05/03/17 07:00 ABG pCO2 29.8 mmHg (35.0-45.0) L 05/03/17 07:00 ABG O2 Sat Calc/A[place] 88.0 % (94.0-100.0) L 05/03/17 07:00 ABG Base Excess -9.6 mEq/L (0 (+/-) 2.5) L 05/03/17 07:00 CCU Progress Note: A/P - Problems (1) Acute metabolic encephalopathy Current Visit: Yes Status: Acute Code(s): G93.41 - METABOLIC ENCEPHALOPATHY (2) Acute respiratory failure with hypoxia Current Visit: Yes Status: Acute Code(s): J96.01 - ACUTE RESPIRATORY FAILURE WITH HYPOXIA (3) Acute worsening of stage 4 chronic kidney disease Current Visit: Yes Status: Acute Code(s): N28.9 - DISORDER OF KIDNEY AND URETER, UNSPECIFIED; N18.4 - CHRONIC KIDNEY DISEASE, STAGE 4 (SEVERE) (4) CRBSI (catheter-related bloodstream infection) Current Visit: Yes Status: Acute Code(s): T80.211A - BLOODSTREAM INFECTION DUE TO CENTRAL VENOUS CATHETER, INIT (5) Metabolic acidosis Current Visit: Yes Status: Acute Code(s): E87.2 - ACIDOSIS (6) Status epilepticus Current Visit: Yes Status: Acute Code(s): G40.901 - EPILEPSY, UNSP, NOT INTRACTABLE, WITH STATUS EPILEPTICUS (7) Seizure disorder Current Visit: Yes Status: Chronic Code(s): G40.909 - EPILEPSY, UNSP, NOT INTRACTABLE, WITHOUT STATUS EPILEPTICUS - Time Spent with Patient Time (minutes): 35 (cc time) - Plan Plan: Not weanable secondary to neuro status. I'm waiting for family to give me a decision on trach and peg Adjust antibiotics depending on culture results wean steroids minimize all sedation TF
[2017-05-04 07:40] LABS: Actual Bicarbonate (HCO3a) 15.5 mEq/L (22-26); Base Excess (BEa) -10.6 mEq/L (0 (+/-) 2.5); CO2 Tension 35.5 mmHg (35.0-45.0); Hematocrit-ABG 21.8 % (36.0-47.0); Hemoglobin (Hb) 6.9 g/dL (12.0-16.0); O2 Tension (PaO2) 66.3 mmHg (80.0-100.0); pH, Arterial 7.26 (7.35-7.45)
[2017-05-04 07:41] LABS: ALV-art Gradient 103.225 (0-20); Puncture Site RRA
[2017-05-04] MEDS: Ferrous Sulfate 325 MG TAB PO SCH (08:23)
[2017-05-04] MEDS: Calcitriol 0.25 MCG CAP PO SCH (08:23)
[2017-05-04] MEDS: Heparin 5,000 UNITS/ML VIAL SC SCH ×2 (08:24→19:53)
[2017-05-04] MEDS: Calcium Acetate 667 MG CAP PO SCH ×3 (08:24→16:58)
[2017-05-04] MEDS: Famotidine 20 MG TAB PER TUBE SCH (08:24)
[2017-05-04] MEDS: Sodium Bicarbonate Tab 325 MG TAB PO SCH ×2 (08:24→19:54)
[2017-05-04] MEDS: Amlodipine 10 MG TAB PO SCH (08:25)
[2017-05-04] MEDS: Vancomycin HCl 1 GM in Premix Bag 1 BAG IVPB SCH (08:26)
[2017-05-04] MEDS: levETIRAcetam In NaCl (Iso-Os) 1,500 MG in Premix Bag 1 BAG IVPB SCH ×4 (08:27→20:41)
[2017-05-04] MEDS: Folic Acid/Vit B Comp W-C PO SCH (08:28)
[2017-05-04 08:42] LABS: Vancomycin, Trough 22.5 ug/mL
[2017-05-04] MEDS: Fosphenytoin Sodium 200 MG in Sodium Chloride 0.9% 50 ML IVPB SCH (08:44)
--- NOTE | 2017-05-04 09:43 | PDOC.PN ---
- Subjective Encounter Start Date: 05/04/17 Encounter Start Time: 07:15 Patient seen and examined. No overnight events no change in overall condition, today has elevated wbc count - Objective Resuscitation Status: Resuscitation Status FULL:Full Resuscitation MAR Reviewed: Yes Vital Signs & Weight: Vital Signs (12 hours) Temp Pulse Resp BP Pulse Ox 05/04/17 08:25 99 155/78 H 05/04/17 07:27 98.7 F 105 H 37 H 97 05/04/17 06:53 105 H 175/80 H 05/04/17 06:47 98 34 H 96 05/04/17 04:00 98.7 F 05/04/17 01:00 99.1 F 05/03/17 23:24 93 29 H 98 Weight Admit Weight 222 lb 8 oz Weight 235 lb 3.732 oz Most Recent Monitor Data Heart Rate from ECG 97 NIBP 120/54 NIBP BP-Mean 81 Respiration from ECG 32 SpO2 94 I&O: 05/03/17 05/04/17 05/05/17 06:59 06:59 06:59 Intake Total 2651 4077 Output Total 2845 2580 Balance -194 1497 Result Diagrams: 05/04/17 04:21 05/04/17 04:21 Additional Labs: Accuchecks 05/03/17 05/03/17 05/03/17 22:58 17:15 11:28 POC Glucose 128 H 90 127 H EKG Reviewed by me: Yes (tachycardia) Phys Exam - Physical Examination Constitutional: NAD HEENT: PERRLA, sclera anicteric Neck: no JVD, supple Respiratory: no wheezing, no rales, no rhonchi Cardiovascular: RRR, no significant murmur, no rub tachycardia colostomy, ileul conduit scd+, edema+ Lymphatic: no nodes Skin: no rash Dx/Plan (1) Acute metabolic encephalopathy Code(s): G93.41 - METABOLIC ENCEPHALOPATHY Status: Acute Comment: (2) Acute respiratory failure with hypoxia Code(s): J96.01 - ACUTE RESPIRATORY FAILURE WITH HYPOXIA Status: Acute Comment: on ventilator (3) Acute worsening of stage 4 chronic kidney disease Code(s): N28.9 - DISORDER OF KIDNEY AND URETER, UNSPECIFIED; N18.4 - CHRONIC KIDNEY DISEASE, STAGE 4 (SEVERE) Status: Acute Comment: (4) Metabolic acidosis Code(s): E87.2 - ACIDOSIS Status: Acute Comment: (5) Pneumonia Code(s): J18.9 - PNEUMONIA, UNSPECIFIED ORGANISM Status: Acute Qualifiers: Pneumonia type: aspiration pneumonia Aspiration pneumonia type: due to gastric secretions Laterality: bilateral Lung location: lower lobe of lung Qualified Code(s): J69.0 - Pneumonitis due to inhalation of food and vomit Comment: (6) Status epilepticus Code(s): G40.901 - EPILEPSY, UNSP, NOT INTRACTABLE, WITH STATUS EPILEPTICUS Status: Acute (7) UTI (urinary tract infection) Status: Acute Comment: (8) Anxiety and depression Code(s): F41.8 - OTHER SPECIFIED ANXIETY DISORDERS Status: Chronic Comment: (9) Bilateral hydronephrosis Code(s): N13.30 - UNSPECIFIED HYDRONEPHROSIS Status: Chronic (10) DM type 2 (diabetes mellitus, type 2) Status: Chronic Qualifiers: Diabetes mellitus complication status: with kidney complications Diabetes mellitus complication detail: with chronic kidney disease Diabetes mellitus intermediate project manager insulin use: with intermediate project manager use Chronic kidney disease stage: stage 5, not on chronic dialysis Qualified Code(s): E11.22 - Type 2 diabetes mellitus with diabetic chronic kidney disease; N18.5 - Chronic kidney disease, stage 5; N18.5 - Chronic kidney disease, stage 5; N18.5 - Chronic kidney disease , stage 5; N18.5 - Chronic kidney disease, stage 5; Z79.4 - truck terminal manager (current) use of insulin; Z79.4 - truck terminal manager (current) use of insulin; Z79.4 - truck terminal manager ( current) use of insulin; Z79.4 - FPC (current) use of insulin Comment: At goal. (11) HTN (hypertension) Code(s): I10 - ESSENTIAL (PRIMARY) HYPERTENSION Status: Chronic Qualifiers: Hypertension type: essential hypertension (12) Hypothyroidism Code(s): E03.9 - HYPOTHYROIDISM, UNSPECIFIED Status: Chronic Qualifiers: Hypothyroidism type: unspecified Qualified Code(s): E03.9 - Hypothyroidism , unspecified Comment: Continue Levothyroxine. (13) Physical deconditioning Code(s): R53.81 - OTHER MALAISE Status: Chronic Comment: (14) Sacral decubitus ulcer, stage IV Code(s): L89.154 - PRESSURE ULCER OF [place] REG[place], STAGE 4 Status: Chronic Comment: (15) Seizure disorder Code(s): G40.909 - EPILEPSY, UNSP, NOT INTRACTABLE, WITHOUT STATUS EPILEPTICUS Status: Chronic Comment: (16) Hypomagnesemia Code(s): E83.42 - HYPOMAGNESEMIA Status: Resolved (17) Pulmonary vascular congestion Code(s): R09.89 - OTH SYMPTOMS AND SIGNS INVOLVING THE CIRC AND RESP SYSTEMS Status: Acute (18) Anemia of renal disease Code(s): D63.1 - ANEMIA IN CHRONIC KIDNEY DISEASE Status: Chronic Comment: (19) CRBSI (catheter-related bloodstream infection) Code(s): T80.211A - BLOODSTREAM INFECTION DUE TO CENTRAL VENOUS CATHETER, INIT Status: Acute - Plan cont current plan of care, continue antibiotics, respiratory therapy * family to decide if they are interested in trach and Peg * continue vancomycin and zosyn for CRBSI and UTI * continue seizure meds as per neurology * wound care * medication reviewed as below * symptomatic treatment * prognosis is very poor. Review of Systems - Review of Systems Other: unable to review due to intubated status - Medications/Allergies Allergies/Adverse Reactions: Allergies Allergy/AdvReac Type Severity Reaction Status Date / Time banana Allergy Verified 05/10/16 08:43 chocolate flavor Allergy Verified 05/10/16 08:43 egg Allergy Verified 05/10/16 08:43 Iodinated Contrast- Oral and Allergy Verified 05/10/16 08:44 IV Dye [Iodinated Contrast Media - Oral and] iodine Allergy Verified 05/10/16 08:43 latex Allergy Verified 05/10/16 08:43 orange juice Allergy Verified 05/10/16 08:43 tolterodine tartrate Allergy Verified 05/10/16 08:43 [From Detrol] tomato Allergy Verified 05/10/16 08:43 Medications: Current Medications Acetaminophen (Tylenol) 650 mg PO Q4H PRN PRN Reason: Headache/Fever or Pain Last Admin: 05/01/17 18:52 Dose: 650 mg Al Hydroxide/Mg Hydroxide (Maalox) 30 ml PO Q6H PRN PRN Reason: Heartburn or Indigestion Albuterol/Ipratropium (Duoneb) 3 ml NEB [id number] CHIO Last Admin: 05/04/17 06:47 Dose: 3 ml Amlodipine Besylate (Norvasc) 10 mg PO DAILY [facility] Last Admin: 05/04/17 08:25 Dose: 10 mg Lipase/Protease/Amylase (Creon 65333) 1 cap FS .PER PROTOCOL PRN PRN Reason: TUBE OCCLUSION PROTOCOL Artificial Tears (Tears Naturale) 0 drop EA EYE PRN PRN PRN Reason: Dry Eyes Aspirin (Aspirin Chewable) 81 mg PO DAILY [facility] Last Admin: 05/04/17 08:25 Dose: 81 mg Calcitriol (Rocaltrol) 0.25 mcg PO DAILY [facility] Last Admin: 05/04/17 08:23 Dose: 0.25 mcg Calcium Acetate (Phoslo) 1,334 mg PO TID-[facility] Last Admin: 05/04/17 08:24 Dose: 1,334 mg Dexamethasone (Decadron) 2 mg SLOW IVP BID [facility] Last Admin: 05/04/17 08:25 Dose: 2 mg Dextrose/Water (Dextrose 50%) 25 gm SLOW IVP PRN PRN PRN Reason: Hypoglycemia Epoetin Javier (Procrit) 10,000 units SC Q7D [facility] Last Admin: 04/29/17 16:20 Dose: 10,000 units Famotidine (Pepcid) 20 mg PER TUBE DAILY [facility] Last Admin: 05/04/17 08:24 Dose: 20 mg Ferrous Sulfate (Feosol) 325 mg PO QAM-[facility] Last Admin: 05/04/17 08:23 Dose: 325 mg Glucagon (Glucagon) 1 mg IM PRN PRN PRN Reason: Hypoglycemia Guaifenesin (Robitussin Sf) 200 mg PO Q4H PRN PRN Reason: Cough Heparin Sodium (Porcine) (Heparin) 5,000 units SC BID [facility] Last Admin: 05/04/17 08:24 Dose: 5,000 units Hydralazine HCl (Apresoline) 10 mg SLOW IVP Q4H PRN PRN Reason: Systolic BP > 180 Last Admin: 05/01/17 17:22 Dose: 10 mg Dextrose/Water (D5w) 1,000 mls @ 0 mls/hr IV .Q0M PRN; As Directed PRN Reason: Hypoglycemia Levetiracetam 1,500 mg/ Device 100 mls @ 200 mls/hr IVPB BID [facility] Last Admin: 05/04/17 08:27 Dose: 100 mls Lacosamide 100 mg/ Sodium (Chloride) 60 mls @ 120 mls/hr IVPB 0400,1600 [facility] Last Admin: 05/04/17 04:09 Dose: 60 mls Phenobarbital Sodium 65 mg/ (Sodium Chloride) 101 mls @ 202 mls/hr IVPB Q8HR [facility] Last Admin: 05/04/17 06:11 Dose: 101 mls Fentanyl Citrate (Fentanyl Bolus) 250 mls @ 0 mls/hr IVPB PRN PRN; As Directed PRN Reason: Breakthrough pain Piperacillin Sod/Tazobactam (Sod 2.25 gm/ Sodium Chloride) 100 mls @ 200 mls/ hr IVPB 0200,0800,1400,2000 [facility] Last Admin: 05/04/17 08:22 Dose: 100 mls Fosphenytoin Sodium 200 mg/ (Sodium Chloride) 54 mls @ 108 mls/hr IVPB 0900 [facility] Last Admin: 05/04/17 08:44 Dose: 54 mls Fosphenytoin Sodium 300 mg/ (Sodium Chloride) 56 mls @ 112 mls/hr IVPB 2100 [facility] Last Admin: 05/03/17 20:11 Dose: 56 mls Vancomycin HCl 750 mg/ Sodium (Chloride) 250 mls @ 250 mls/hr IVPB 0900 [facility] Insulin Human Lispro (Humalog) 0 units SC .MODERATE SLIDING SC PRN PRN Reason: Moderate Correctional Scale Insulin Human Lispro (Humalog) 0 units SC .BEDTIME SLIDING SC PRN PRN Reason: Bedtime Correctional Scale Levothyroxine Sodium (Synthroid) 100 mcg PO 0600 [facility] Last Admin: 05/04/17 06:16 Dose: 100 mcg Loperamide HCl (Imodium) 2 mg PO PRN PRN PRN Reason: Diarrhea/Loose Stools Loratadine (Claritin) 10 mg PO DAILYPRN PRN PRN Reason: Sinus Symptoms Lorazepam (Ativan) 2 mg SLOW IVP Q2H PRN PRN Reason: Anxiety to achieve Motley 2-3 Last Admin: 05/04/17 02:08 Dose: 2 mg Magnesium Hydroxide (Milk Of Magnesium) 30 ml PO DAILYPRN PRN PRN Reason: Constipation Metoclopramide HCl (Reglan) 10 mg IVP Q6H [facility] Last Admin: 05/04/17 08:23 Dose: 10 mg Mineral Oil/White Petrolatum (Eucerin Cream) 0 gm TOP BIDPRN PRN PRN Reason: Dry Skin Miscellaneous Medication (Pharmacy To Dose) 0 each IVPB ASDIR PRN PRN Reason: Pharmacy to Dose VANCOMYCIN Morphine Sulfate (Morphine) 2 mg SLOW IVP Q2H PRN PRN Reason: Breakthrough pain Last Admin: 05/03/17 04:56 Dose: 2 mg Ondansetron HCl (Zofran Odt) 4 mg PO Q6H PRN PRN Reason: Nausea/Vomiting Ondansetron HCl (Zofran) 4 mg IVP Q6H PRN PRN Reason: Nausea/Vomiting Last Admin: 04/12/17 13:07 Dose: 4 mg Phenol (Chloraseptic [place] 180 Ml Bot) 0 ml PO PRN PRN PRN Reason: Sore Throat Propofol (Diprivan) 1,000 mg IV INF PRN; Protocol PRN Reason: TO ACHIEVE MOTLEY SCORE 2-3 Stop: 05/20/17 03:31 Last Admin: 05/04/17 08:22 Dose: 1,000 mg Scopolamine (Transderm Scop) 1.5 mg TD Q3D [facility] Last Admin: 05/03/17 07:59 Dose: 1.5 mg Senna (Senokot) 2 tab PO HSPRN PRN PRN Reason: Constipation Sertraline HCl (Zoloft) 150 mg PO DAILY [facility] Last Admin: 05/04/17 08:24 Dose: 150 mg Sodium Bicarbonate (Bicarbonate, Sodium) 650 mg PER TUBE .PER PROTOCOL PRN PRN Reason: ENTERAL TUBE OCCLUSION Last Admin: 05/01/17 07:46 Dose: 650 mg Sodium Bicarbonate (Bicarbonate, Sodium) 650 mg PO BID [facility] Last Admin: 05/04/17 08:24 Dose: 650 mg Sodium Chloride (Gordon Nasal [place] 0.65%) 0 ml EA NARE QIDPRN PRN PRN Reason: Nasal Congestion Sodium Chloride (Flush - Normal Saline) 10 ml IVF Q12HR [facility] Last Admin: 05/04/17 08:27 Dose: 10 ml Sodium Chloride (Flush - Normal Saline) 10 ml IVF PRN PRN PRN Reason: Saline Flush Last Admin: 04/26/17 20:45 Dose: 10 ml Vitamin B Complex/Vit C/Folic Acid (Nephro-Supriya Tablet) 1 tab PO DAILY [facility] Last Admin: 05/04/17 08:28 Dose: 1 tab
--- NOTE | 2017-05-04 13:51 | EEG ---
Referring Physician: Roxie HERNANDEZ EEG # TEST TYPE: PROLONGED EEG MONITORING REPORT: AN EEG USING THE INTERNATIONAL TEN-TWENTY SYSTEM OF ELECTRODE PLACEMENT WAS PERFORMED. This is a extended period of EEG monitoring in the ICU. There are 52 hours of EEG recording. The background fluctuated from a burst-suppression pattern to periodic generalized epileptiform discharges with intermixed alpha activity. The periodic epileptiform bursts vary in frequency and in duration. IMPRESSION: CONTINUED SUBCLINICAL SEIZURE ACTIVITY. Metal Annealer:MARY ANN Sand Filler: EEG.ALTAF WISEMAN
--- NOTE | 2017-05-04 17:48 | CON ---
DATE OF CONSULTATION: 05/04/2017 HISTORY OF PRESENT ILLNESS: Ms. Lorenzana is a 61-year-old black female followed up by renal service for her acute kidney injury on top of her chronic heart failure. For the last several weeks, renal funct ion remain stable. Dialysis has not being initiated due to the stabilization of the renal dysfunctio n. Patient stated noted to be intubated on ventilator support due to decreased mentation. They have been advised or made aware about the need for tracheostomy and PEG tube feeding. However, the famil y could not make a decision yet. She was also in the ICU for refractory seizure, but seizures, now better controlled. PHYSICAL EXAMINATION: VITAL SIGNS: Blood pressure 151/77, heart rate 103, respiratory rate 36, pulse ox 98%. GENERAL: The patient is unresponsive, not following commands, intubated on ventilator support. SKIN: Adequate turgor. HEENT: Slightly pale conjunctivae, anicteric sclerae. NECK: No neck mass, no carotid bruits. No JVD. CHEST: No deformities. LUNGS: Decreased breath sounds. HEART: Normal sinus rhythm. No murmur, no gallops, no rubs. ABDOMEN: Globular, soft, nontender. EXTREMITIES: Positive for edema. MEDICATIONS: Of 05/04/2017 was reviewed. LABORATORY: Of 05/04/2017, white count 23.5, hemoglobin 7.7. Sodium 145, potassium 4.3, chloride 10 8, carbon dioxide is 16, BUN 58, creatinine 2.87, GFR 20 mL per minute. Calcium 9.4, phosphorus 4.2, magnesium 1.6. ASSESSMENT AND PLAN: 1. Acute kidney injury on top of her chronic renal failure, stabilizing renal function. No indicati on for any dialytic intervention. Continue supportive care. 2. Anemia, on weekly Epogen p.r.n. blood transfusion. 3. Seizure disorder, much improved. 4. Acute respiratory failure -- unable to wean. For this reason, on recommendation for tracheostomy placement has been done. Family still thinking about this. Overall, I agree with current managemen t.
[2017-05-05] MEDS: Lorazepam 2 MG/ML VIAL SLOW IVP PRN ×2 (00:27→23:49)
[2017-05-05] MEDS: Metoclopramide HCl 10 MG/2 ML VIAL IVP SCH ×4 (02:28→20:43)
[2017-05-05 04:06] LABS: Dilantin 6.8 ug/mL (10.0-20.0)
[2017-05-05 04:07] LABS: Anion Gap 15 mmol/L (10-20); BUN (Urea Nitrogen) 54 mg/dL (9.8-20.1); Calc. Creatinine Clearance 35 mL/min (70-130); Calcium 9.5 mg/dL (7.8-10.44); Carbon Dioxide 15 mmol/L (23-31); Chloride 122 mmol/L (98-107); Estimated GFR-MDRD 20; Glucose 104 mg/dL (80-115); Magnesium 1.6 mg/dL (1.6-2.6); Phosphorus 4.1 mg/dL (2.3-4.7); Potassium 4.2 mmol/L (3.5-5.1); Sodium 148 mmol/L (136-145)
[2017-05-05 04:13] LABS: Anisocytosis SLIGHT = 6-15 cells (100X) (0-5/hpf); Band 1 % (5-11); Eosinophils 2 % (0-10); Hemoglobin 6.1 g/dL (12.0-16.0); Hypochromia SLIGHT = 6-15 cells (100X) (0-5/hpf); Lymphocytes 7 % (21-51); MDiff Complete? YES; Mean Corpuscular HGB CONC 31.6 g/dL (32.0-36.0); Mean Corpuscular Hemoglobin 30.7 pg (27.0-31.0); Mean Corpuscular Volume 97.3 fl (81.0-99.0); Mean Platelet Volume 6.8 fL (7.4-10.4); Monocytes 3 % (0-10); Neutrophil 86 % (42-75); PLT Morphology Comment Appears Adequate; Platelet Count 317 thou/uL (130-400); Red Blood Cell (RBC) Count 1.98 mill/uL (4.20-5.40)
[2017-05-05] MEDS: Lacosamide 100 MG in Sodium Chloride 0.9% 50 ML IVPB SCH ×2 (04:20→17:06)
[2017-05-05] MEDS: Piperacillin/Tazobactam 2.25 GM in Sodium Chloride 0.9% 100 ML IVPB SCH ×5 (04:22→21:02)
[2017-05-05] MEDS: Levothyroxine Sodium 100 MCG TAB PO SCH (05:42)
[2017-05-05] MEDS: SODIUM CHLORIDE 0.9% IVPB SCH ×3 (05:45→21:01)
[2017-05-05] MEDS: PHENOBARBITAL SODIUM IVPB SCH ×3 (05:45→21:01)
[2017-05-05 07:21] LABS: Actual Bicarbonate (HCO3a) 14.5 mEq/L (22-26); CO2 Tension 33.5 mmHg (35.0-45.0); O2 Tension (PaO2) 79.7 mmHg (80.0-100.0); pH, Arterial 7.25 (7.35-7.45)
[2017-05-05 07:25] LABS: Base Excess (BEa) -11.7 mEq/L (0 (+/-) 2.5); Hematocrit-ABG 20.8 % (36.0-47.0); Hemoglobin (Hb) 6.7 g/dL (12.0-16.0)
[2017-05-05 07:26] LABS: ALV-art Gradient 127.975 (0-20); Calcium, Ionized 1.4 mmol/L (1.12-1.30); Puncture Site RRA
[2017-05-05] MEDS: Calcium Acetate 667 MG CAP PO SCH ×3 (08:23→16:11)
[2017-05-05] MEDS: Ferrous Sulfate 325 MG TAB PO SCH (08:24)
[2017-05-05] MEDS: Sodium Bicarbonate Tab 325 MG TAB PO SCH ×2 (08:25→20:43)
[2017-05-05] MEDS: Vancomycin HCl 750 MG in Sodium Chloride 0.9% 250 ML 250 ML IVPB SCH (08:26)
[2017-05-05] MEDS: Folic Acid/Vit B Comp W-C PO SCH (08:27)
[2017-05-05] MEDS: Heparin 5,000 UNITS/ML VIAL SC SCH ×2 (08:30→20:50)
[2017-05-05] MEDS: Amlodipine 10 MG TAB PO SCH (08:30)
[2017-05-05] MEDS: Famotidine 20 MG TAB PER TUBE SCH (08:30)
[2017-05-05] MEDS: Calcitriol 0.25 MCG CAP PO SCH (08:31)
[2017-05-05] MEDS: Fosphenytoin Sodium 200 MG in Sodium Chloride 0.9% 50 ML IVPB SCH (08:31)
[2017-05-05] MEDS: Dexamethasone 4 mg/ml Vial SLOW IVP SCH ×2 (08:32→20:44)
[2017-05-05] MEDS: levETIRAcetam In NaCl (Iso-Os) 1,500 MG in Premix Bag 1 BAG IVPB SCH ×4 (08:36→20:44)
--- NOTE | 2017-05-05 08:38 | PDOC.PN ---
- Subjective Encounter Start Date: 05/05/17 Encounter Start Time: 08:36 Subjective: Seen and examined - Objective Resuscitation Status: Resuscitation Status FULL:Full Resuscitation Vital Signs & Weight: Vital Signs (12 hours) Temp Pulse Resp BP Pulse Ox 05/05/17 06:31 100 182/54 H 05/05/17 06:30 98 40 H 98 05/05/17 06:00 16 05/05/17 04:00 98.6 F 39 H 05/05/17 02:20 100 05/05/17 02:00 35 H 05/05/17 00:01 87 29 H 95 05/05/17 00:00 98.8 F 40 H 05/04/17 22:28 94 05/04/17 22:00 32 H Weight Admit Weight 222 lb 8 oz Weight 235 lb 14.314 oz Most Recent Monitor Data Heart Rate from ECG 98 NIBP 182/84 NIBP BP-Mean 118 Respiration from ECG 41 SpO2 98 I&O: 05/04/17 05/05/17 05/06/17 06:59 06:59 06:59 Intake Total 4077 2148 Output Total 2580 2145 Balance 1497 3 Result Diagrams: 05/05/17 03:40 05/05/17 03:40 Additional Labs: Accuchecks 05/05/17 05/04/17 05/04/17 03:57 21:57 16:14 POC Glucose 103 101 96 05/04/17 10:33 POC Glucose 119 H Phys Exam - Physical Examination Constitutional: NAD HEENT: PERRLA, moist MMs, sclera anicteric Neck: no nodes, no JVD, supple Respiratory: no wheezing, no rales, no rhonchi, clear to auscultation bilateral Cardiovascular: RRR, no significant murmur, no rub Gastrointestinal: soft, non-tender, no distention Musculoskeletal: pulses present Dx/Plan (1) Acute metabolic encephalopathy Code(s): G93.41 - METABOLIC ENCEPHALOPATHY Status: Acute Comment: (2) Acute respiratory failure with hypoxia Code(s): J96.01 - ACUTE RESPIRATORY FAILURE WITH HYPOXIA Status: Acute Comment: on ventilator (3) Acute worsening of stage 4 chronic kidney disease Code(s): N28.9 - DISORDER OF KIDNEY AND URETER, UNSPECIFIED; N18.4 - CHRONIC KIDNEY DISEASE, STAGE 4 (SEVERE) Status: Acute Comment: (4) CRBSI (catheter-related bloodstream infection) Code(s): T80.211A - BLOODSTREAM INFECTION DUE TO CENTRAL VENOUS CATHETER, INIT Status: Acute (5) Metabolic acidosis Code(s): E87.2 - ACIDOSIS Status: Acute Comment: (6) Pneumonia Code(s): J18.9 - PNEUMONIA, UNSPECIFIED ORGANISM Status: Acute Qualifiers: Pneumonia type: aspiration pneumonia Aspiration pneumonia type: due to gastric secretions Laterality: bilateral Lung location: lower lobe of lung Qualified Code(s): J69.0 - Pneumonitis due to inhalation of food and vomit Comment: (7) Pulmonary vascular congestion Code(s): R09.89 - OTH SYMPTOMS AND SIGNS INVOLVING THE CIRC AND RESP SYSTEMS Status: Acute (8) Status epilepticus Code(s): G40.901 - EPILEPSY, UNSP, NOT INTRACTABLE, WITH STATUS EPILEPTICUS Status: Acute - Plan plan discussed w/ family, continue antibiotics, PT/OT, social welfare research worker, respiratory therapy Vent management p-er pulmonary -: Renal following - -: May need blood transfusion * .
--- NOTE | 2017-05-05 08:40 | PRG ---
DATE OF SERVICE: 05/05/2017 Thirty-five minutes critical care time. SUBJECTIVE: The patient remains intubated on mechanical ventilation. There have been no acute dumont es overnight. PHYSICAL EXAMINATION: VITAL SIGNS: Temperature 98.6 with a T-max of 99.8, pulse 98, blood pressure 182/84. A 24 hour inta ke is 2148, output 2145. NEUROLOGIC: Neurologically, she apparently coughs and becomes agitated when the propofol is less, bu t does not follow commands appropriately and is still having some subclinical seizures at times accor ding to the EEG report. HEENT: Pupils are sluggishly reactive. Sclerae are anicteric. Oropharynx is dry. NECK: No JVD. CHEST: Coarse breath sounds bilaterally. CARDIOVASCULAR: S1 and S2 regular without murmur. ABDOMEN: Soft, nontender, nondistended. EXTREMITIES: No clubbing, cyanosis, trace edema. LABORATORY DATA: White blood cell count 22.0, hemoglobin 6.1, hematocrit 19.2, platelet count 317. PH of 7.25, pCO2 of 33, pO2 of 79. Sodium 148, potassium 4.2, chloride 122, CO2 of 15, BUN 52, creat inine 2.8, glucose 104. IMAGING: Chest x-ray shows bilateral infiltrative changes. ASSESSMENT: 1. Status epilepticus with continued occasional seizure activity. 2. Acute respiratory failure requiring mechanical ventilation. 3. Metabolic acidosis. 4. Chronic kidney disease. 5. Encephalopathy secondary to the seizures. PLAN: The degree of metabolic acidosis remains concerning. She is also noted to be anemic today. S he probably needs to have a unit of blood transfused today. On top of that, I will change her IV flu ids to supplement her bicarbonate level and hopefully correct her acidosis. I spoke to the patient's sister at length yesterday about tracheostomy placement, she seems quite ambivalent about how to pro ceed at this time and needed some time to think. Overall, this patient's prognosis seems to be quite poor and I see little hope for functional recovery.
[2017-05-05] MEDS: Sodium Bicarbonate 70 MEQ in Dextrose 5% in Water 1,000 ML IV SCH ×4 (10:01→21:38)
[2017-05-05] MEDS: Propofol 1,000 MG/100 ML VIAL IV PRN ×3 (10:17→21:03)
--- NOTE | 2017-05-05 11:17 | RAD ---
PORTABLE CHEST 1 VIEW: Date: 05/05/17 Time: 0546 hours HISTORY: Respiratory failure. FINDINGS/IMPRESSION: Comparison made with exam of 05/01/17. There has been interval removal of the left-sided internal jugular central line. A right upper extrem ity PICC line has been placed with tip in the projection of the SVC. No pneumothoraces are seen. Endo tracheal and nasogastric tube positions are unchanged. Interval worsening of infiltrates seen in the lung franco bilaterally. POS: [facility]
--- NOTE | 2017-05-05 11:21 | PRG ---
DATE OF SERVICE: 05/05/2017 RENAL MEDICINE SUBJECTIVE: Ms. Lorenzana is a 61-year-old black female with acute kidney injury on top of her chronic re nal failure. Renal function has been stable for the last 2 weeks. No indication for any dialytic in tervention. She was noted to be anemic today. For that reason, 1 unit packed RBCs to be given. She has had also refractory seizure, which is now much improved. She still could not be weaned off from the ventilator. For that reason, recommendation for a tracheostomy as well as a PEG tube placement was made. The family is still contemplating on this. No acute events last night. PHYSICAL EXAMINATION: VITAL SIGNS: Blood pressure 131/64, heart rate 94, O2 sat 98%. GENERAL: Unresponsive, intubated on ventilator support. SKIN: Adequate turgor. HEENT: She has had pale conjunctivae, anicteric sclerae. NECK: No neck mass, no carotid bruits, no JVD. CHEST: No deformities. LUNGS: Decreased breath sounds. HEART: Normal sinus rhythm. No murmurs, no gallops, no rubs. ABDOMEN: Globular, soft, nontender, no masses. Positive for colostomy. Positive for urostomy. EXTREMITIES: Positive for edema. MEDICATIONS: Medications of 05/05/2017 was reviewed. LABORATORY DATA: Laboratories of 05/05/2017; white count 22, hemoglobin 6.1, sodium 148, potassium 4 .2, chloride 122, carbon dioxide 15, BUN 54, creatinine 2.84, glucose 104, calcium 9.5, phosphorus 4. 1, magnesium 1.6. ASSESSMENT AND PLAN: 1. Acute kidney injury on top of her chronic renal failure, stable renal function. Continue support landon care. No indication for any dialysis. 2. Anemia. Agree with 1 unit packed RBC. 3. Hypernatremia - free water 250 mL q.8 hours via percutaneous endoscopic gastrostomy tube. 4. Acute respiratory failure, unable to wean off, recommendation for tracheostomy. Overall, prognos is remains guarded. Agree with current management.
[2017-05-06] MEDS: Metoclopramide HCl 10 MG/2 ML VIAL IVP SCH ×4 (02:40→20:24)
[2017-05-06] MEDS: Propofol 1,000 MG/100 ML VIAL IV PRN ×5 (02:40→20:15)
[2017-05-06] MEDS: Lacosamide 100 MG in Sodium Chloride 0.9% 50 ML IVPB SCH ×2 (04:05→17:39)
[2017-05-06] MEDS: Piperacillin/Tazobactam 2.25 GM in Sodium Chloride 0.9% 100 ML IVPB SCH (04:05)
[2017-05-06 04:55] LABS: Anion Gap 16 mmol/L (10-20); BUN (Urea Nitrogen) 48 mg/dL (9.8-20.1); Band 17 % (5-11); Calc. Creatinine Clearance 36 mL/min (70-130); Calcium 9.7 mg/dL (7.8-10.44); Carbon Dioxide 15 mmol/L (23-31); Chloride 117 mmol/L (98-107); Eosinophils 1 % (0-10); Estimated GFR-MDRD 21; Glucose 120 mg/dL (80-115); Hemoglobin 7.6 g/dL (12.0-16.0); Hypochromia SLIGHT = 6-15 cells (100X) (0-5/hpf); Lymphocytes 10 % (21-51); MDiff Complete? YES; Magnesium 1.6 mg/dL (1.6-2.6); Mean Corpuscular HGB CONC 31.6 g/dL (32.0-36.0); Mean Corpuscular Hemoglobin 30.8 pg (27.0-31.0); Mean Corpuscular Volume 97.3 fl (81.0-99.0); Mean Platelet Volume 7.2 fL (7.4-10.4); Monocytes 1 % (0-10); Neutrophil 71 % (42-75); Nucleated RBC 1 % (0); PLT Morphology Comment Appears Adequate; Phosphorus 4.3 mg/dL (2.3-4.7); Platelet Count 311 thou/uL (130-400); Potassium 4.1 mmol/L (3.5-5.1); RBC Distribution Width 15.7 % (11.5-14.5); Red Blood Cell (RBC) Count 2.46 mill/uL (4.20-5.40); Sodium 144 mmol/L (136-145); White Blood Cell (WBC) Count 19.3 thou/uL (4.8-10.8)
[2017-05-06] MEDS: PHENOBARBITAL SODIUM IVPB SCH ×3 (05:05→22:16)
[2017-05-06] MEDS: SODIUM CHLORIDE 0.9% IVPB SCH ×3 (05:05→22:16)
[2017-05-06] MEDS: Levothyroxine Sodium 100 MCG TAB PO SCH (05:05)
[2017-05-06 08:04] LABS: pH, Arterial 7.24 (7.35-7.45)
[2017-05-06 08:05] LABS: Actual Bicarbonate (HCO3a) 14.8 mEq/L (22-26); Base Excess (BEa) -11.6 mEq/L (0 (+/-) 2.5); CO2 Tension 35.4 mmHg (35.0-45.0); Hematocrit-ABG 23.8 % (36.0-47.0); Hemoglobin (Hb) 7.4 g/dL (12.0-16.0); O2 Tension (PaO2) 72.1 mmHg (80.0-100.0)
[2017-05-06 08:06] LABS: Calcium, Ionized 1.4 mmol/L (1.12-1.30); Puncture Site RRA
--- NOTE | 2017-05-06 09:07 | PRG ---
DATE OF SERVICE: 05/06/2017 Thirty-five minutes critical care time. SUBJECTIVE: The patient remains intubated on mechanical ventilation. There has been no improvement in her neurologic status overnight. OBJECTIVE: VITAL SIGNS: Temperature is 99.1, pulse 100, blood pressure 146/84, 24-hour intake 5124, output 1916 . HEENT: Unremarkable. NECK: No JVD. LUNGS: Coarse breath sounds. CARDIAC: S1 and S2 regular. ABDOMEN: Soft. EXTREMITIES: Trace edema. LABORATORY DATA: White blood cell count 19.3, hematocrit 23.9, platelet count 311. A pH 7.24, pCO2 of 35, pO2 of 72 on SIMV rate 15, tidal volume 430, PEEP 5, pressure support 15, FiO2 of 35%. Sodium 144, potassium 4.1, chloride 117, CO2 of 15, BUN 48, creatinine 2.8, glucose 120. Dilantin level 6. 8, phenobarbital level 25.5. Cultures have grown out Staphylococcus capitis from the left arm, Staph epidermidis from the central line and Klebsiella pneumonia from the urinary catheter. ASSESSMENT: 1. Status epilepticus with largely resolved seizure activity. 2. Acute respiratory failure requiring mechanical ventilation. 3. Encephalitis secondary to seizures. 4. Metabolic acidosis. 5. Chronic kidney disease. 6. Anemia secondary to serial blood draws and lack of production. PLAN: The patient is not weanable secondary to her mental status. I will go ahead and revise her an tibiotics to cover the Klebsiella in her urine, which was highly resistant. She was transfused yeste rday. I will continue the bicarbonate drip today. I have spoken to the family about tracheostomy, b ut they yet to get back to us. I think the patient's prognosis for recovery is very poor.
[2017-05-06] MEDS: Calcitriol 0.25 MCG CAP PO SCH (09:42)
[2017-05-06] MEDS: Amlodipine 10 MG TAB PO SCH (09:42)
[2017-05-06] MEDS: Sodium Bicarbonate Tab 325 MG TAB PO SCH ×2 (09:42→20:13)
[2017-05-06] MEDS: Ferrous Sulfate 325 MG TAB PO SCH (09:43)
[2017-05-06] MEDS: Famotidine 20 MG TAB PER TUBE SCH (09:43)
[2017-05-06] MEDS: Dexamethasone 4 mg/ml Vial SLOW IVP SCH ×2 (09:43→20:12)
[2017-05-06] MEDS: Calcium Acetate 667 MG CAP PO SCH ×3 (09:43→17:40)
[2017-05-06] MEDS: Heparin 5,000 UNITS/ML VIAL SC SCH ×2 (09:44→20:14)
[2017-05-06] MEDS: levETIRAcetam In NaCl (Iso-Os) 1,500 MG in Premix Bag 1 BAG IVPB SCH ×4 (09:44→20:13)
[2017-05-06] MEDS: Scopolamine 1.5 mg/72 hour Patch TD SCH (09:46)
[2017-05-06] MEDS: Meropenem 2 GM in Sodium Chloride 0.9% 100 ML IVPB SCH ×2 (09:49→18:17)
[2017-05-06] MEDS: Folic Acid/Vit B Comp W-C PO SCH (09:52)
[2017-05-06] MEDS: Fosphenytoin Sodium 200 MG in Sodium Chloride 0.9% 50 ML IVPB SCH (10:11)
--- NOTE | 2017-05-06 11:15 | PRG ---
DATE OF SERVICE: 05/06/2017 SUBJECTIVE: The patient is seen and examined at bedside. She is intubated and sedated. There is no t any contact with the patient. There were not any unexpected events overnight. OBJECTIVE: GENERAL: She is orally intubated. HEENT: Pupils approximately 2 mm, sluggish response to light. LUNGS: Breath sounds coarse bilaterally. No wheezing. HEART: S1, S2 normal, no S3, no S4. ABDOMEN: Soft and nondistended. Ileostomy bag with some liquid stool in it. Bowel sounds are prese nt. EXTREMITIES: No clubbing, cyanosis or edema. NEUROLOGIC: Postponed since she is sedated at this time. SKIN: No rash or erythema. LABORATORY DATA: Showed a white count of 19.3, hemoglobin 7.6, hematocrit 23.9, platelet count is 31 1. Sodium of 144, potassium 4.1, chloride 117, CO2 15, BUN 48, creatinine 2.8, glucose ranging from 97-125. Rest of chemistry within normal limits. Status post transfusion of 1 unit of packed red blo od cells yesterday. ASSESSMENT: 1. Acute metabolic encephalopathy secondary to status epilepticus. 2. Acute respiratory failure with hypoxia, status post intubation and currently on mechanical ventil ation managed per Dr. Vega and Pulmonary Team. 3. Metabolic acidosis. 4. Pneumonia. 5. Status epilepticus, acute. 6. Urinary tract infection, acute. 7. Bilateral hydronephrosis. 8. Diabetes mellitus, well-controlled. 9. Physical deconditioning. 10. Hypothyroidism. 11. Hypertension. 12. Sacral decubitus ulcer stage 4. 13. Seizure disorder. 14. Anemia. PLAN: To have trach and PEG after the family decides about that. We are still waiting for their res ponse. We will continue her vancomycin and Zosyn. We will continue Keppra and fosphenytoin per Neur ology and Keppra and phenobarbital. Apparently, patient has occasional seizures from time to time ev en on this heavy regimen. Also, we are going to continue wound care. Medications list reviewed toda y and we will continue current regimen. Prognosis is very poor and as I mentioned above, the family is going to make decision about the PEG and trach.
[2017-05-06] MEDS: Vancomycin HCl 750 MG in Sodium Chloride 0.9% 250 ML 250 ML IVPB SCH (11:16)
--- NOTE | 2017-05-06 11:55 | PRG ---
DATE OF SERVICE: 05/06/2017 RENAL MEDICINE SUBJECTIVE: Ms. Lorenzana is a 61-year-old black female with known history of acute kidney injury on top of her chronic renal failure. Acute kidney injury has much improved. Renal function has been stable . Her hospitalization is also being monitored by refractory seizures. Seizure is now under control. Neurology is following. However, patient has been unable to be weaned off from her ventilator. Deanna [facility] is deciding whether they want to proceed with tracheostomy. No acute events over the last 24 hours noted. PHYSICAL EXAMINATION: VITAL SIGNS: Blood pressure is 153/85, heart rate 93, respiratory rate 29, pulse ox 92%. GENERAL: Noted to be unresponsive, intubated on ventilator support. SKIN: Adequate turgor. HEENT: She has slightly pale conjunctivae, anicteric sclerae. NECK: No neck mass, no carotid bruits, no JVD. CHEST: No deformities. LUNGS: Clear breath sounds. No wheezing, no crackles. HEART: Normal sinus rhythm. No murmur, no gallops, no rubs. ABDOMEN: Globular, soft, nontender, no masses. Positive for colostomy. Positive for ileostomy. EXTREMITIES: No edema. MEDICATIONS: Medications of 05/06/2017 was reviewed. LABORATORY DATA: Laboratories of 05/06/2017; white count 19.3, hemoglobin 7.6. Sodium 144, potassiu m 4.1, chloride 117, carbon dioxide 15, BUN 48, creatinine 2.81, calcium 9.7, phosphorus 4.3, magnesi um 1.6. IMPRESSION: 1. Acute kidney injury/chronic renal failure, superimposed prerenal azotemia. Much improved. Creat inine now is noted at 2.81, which is near baseline. She currently has stage 4 chronic renal failure. Again, there is no indication for any dialytic intervention with this patient. Please note she is diuresing well. 2. Anemia, received 1 unit packed RBC yesterday. We will continue current dose of Epogen 10,000 uni ts subcu subcutaneously every week. 3. Refractory seizures - much improved. 4. Acute respiratory failure - patient is unable to be weaned off due to the decreased mentation. R ecommendation for tracheostomy has been made as well as PEG tube placement. Family is still contempl ating on this. Overall, agree with current management.
[2017-05-06] MEDS: Epoetin (ESRD) 10,000 UNITS/ML VIAL SC SCH (17:40)
[2017-05-07] MEDS: Meropenem 2 GM in Sodium Chloride 0.9% 100 ML IVPB SCH ×2 (02:02→14:33)
[2017-05-07] MEDS: Metoclopramide HCl 10 MG/2 ML VIAL IVP SCH ×4 (02:03→19:56)
[2017-05-07] MEDS: Lacosamide 100 MG in Sodium Chloride 0.9% 50 ML IVPB SCH ×2 (04:17→16:40)
[2017-05-07 04:44] LABS: Anion Gap 17 mmol/L (10-20); BUN (Urea Nitrogen) 44 mg/dL (9.8-20.1); Calc. Creatinine Clearance 38 mL/min (70-130); Calcium 9.4 mg/dL (7.8-10.44); Carbon Dioxide 12 mmol/L (23-31); Chloride 114 mmol/L (98-107); Estimated GFR-MDRD 23; Glucose 100 mg/dL (80-115); Magnesium 1.4 mg/dL (1.6-2.6); Phosphorus 4.9 mg/dL (2.3-4.7); Potassium 4.6 mmol/L (3.5-5.1); Sodium 138 mmol/L (136-145)
[2017-05-07] MEDS: SODIUM CHLORIDE 0.9% IVPB SCH ×3 (05:02→21:19)
[2017-05-07] MEDS: Levothyroxine Sodium 100 MCG TAB PO SCH (05:02)
[2017-05-07] MEDS: PHENOBARBITAL SODIUM IVPB SCH ×3 (05:02→21:19)
[2017-05-07] MEDS: Propofol 1,000 MG/100 ML VIAL IV PRN ×5 (05:02→22:11)
[2017-05-07 06:14] LABS: Anisocytosis SLIGHT = 6-15 cells (100X) (0-5/hpf); Band 4 % (5-11); Eosinophils 5 % (0-10); Hemoglobin 8.9 g/dL (12.0-16.0); Hypochromia SLIGHT = 6-15 cells (100X) (0-5/hpf); Lymphocytes 7 % (21-51); MDiff Complete? YES; Mean Corpuscular HGB CONC 30.9 g/dL (32.0-36.0); Mean Corpuscular Volume 97.3 fl (81.0-99.0); Mean Platelet Volume 7.8 fL (7.4-10.4); Metamyelocyte 1 % (0-0); Monocytes 6 % (0-10); Neutrophil 76 % (42-75); PLT Morphology Comment Appears Adequate; Platelet Count 320 thou/uL (130-400); Reactive Lymphocytes 1 % (0-10); Red Blood Cell (RBC) Count 2.96 mill/uL (4.20-5.40); White Blood Cell (WBC) Count 15.7 thou/uL (4.8-10.8)
[2017-05-07 07:53] LABS: pH, Arterial 7.23 (7.35-7.45)
[2017-05-07 07:54] LABS: Analyzer IN Cardio ER; Base Excess (BEa) -10.6 mEq/L (0 (+/-) 2.5); CO2 Tension 38.8 mmHg (35.0-45.0); Calcium, Ionized 1.4 mmol/L (1.12-1.30); Hematocrit-ABG 23.2 % (36.0-47.0); Hemoglobin (Hb) 7.3 g/dL (12.0-16.0); O2 Tension (PaO2) 94.7 mmHg (80.0-100.0); Puncture Site LRA
[2017-05-07] MEDS: Dexamethasone 4 mg/ml Vial SLOW IVP SCH ×2 (08:40→20:00)
[2017-05-07] MEDS: Heparin 5,000 UNITS/ML VIAL SC SCH ×2 (08:40→20:01)
[2017-05-07] MEDS: Sodium Bicarbonate Tab 325 MG TAB PO SCH ×3 (08:42→20:00)
[2017-05-07] MEDS: Amlodipine 10 MG TAB PO SCH (08:42)
[2017-05-07] MEDS: Calcitriol 0.25 MCG CAP PO SCH (08:42)
[2017-05-07] MEDS: Famotidine 20 MG TAB PER TUBE SCH (08:42)
[2017-05-07] MEDS: Ferrous Sulfate 325 MG TAB PO SCH (08:43)
[2017-05-07] MEDS: Calcium Acetate 667 MG CAP PO SCH ×3 (08:43→16:40)
[2017-05-07] MEDS: Fosphenytoin Sodium 200 MG in Sodium Chloride 0.9% 50 ML IVPB SCH (08:45)
[2017-05-07] MEDS: Folic Acid/Vit B Comp W-C PO SCH (08:45)
[2017-05-07] MEDS: levETIRAcetam In NaCl (Iso-Os) 1,500 MG in Premix Bag 1 BAG IVPB SCH ×4 (08:46→20:42)
[2017-05-07] MEDS: Vancomycin HCl 750 MG in Sodium Chloride 0.9% 250 ML 250 ML IVPB SCH (08:48)
[2017-05-07] MEDS ORDERED: Magnesium 2 GM/NS 0.9% 100 ML 2 GM in Premix Bag 1 BAG IVPB SCH (09:30)
[2017-05-07 09:51] LABS: Vancomycin, Trough 29.1 ug/mL
--- NOTE | 2017-05-07 10:52 | PRG ---
DATE OF SERVICE: 05/07/2017 RENAL MEDICINE SUBJECTIVE: Ms. Lorenzana is 61-year-old black female followed up for her acute kidney injury on top of h er chronic renal failure. Her acute kidney injury is much improved. She is now at baseline renal fu nction with her creatinine averaging between 2.6 and 2.8 in the last several days. She is unable to be weaned off of her ventilator. Recommendation for tracheostomy and PEG tube feeding was made. How ever, the family is still contemplating whether to proceed with the operative procedure. Her decreas ed mentation may be sequelae of some degree of metabolic encephalopathy/hypoxic encephalopathy during her episodes of refractory seizures. PHYSICAL EXAMINATION: VITAL SIGNS: Blood pressure is 141/79, heart rate 92, respiratory rate 27, pulse ox 97%. GENERAL: Awake, alert, comfortable, not in overt distress. SKIN: Adequate turgor. HEENT: Slightly pale conjunctivae, anicteric sclerae. NECK: No neck mass, no carotid bruits, no JVD. CHEST: No deformities. LUNGS: Decreased breath sounds. HEART: Normal sinus rhythm. No murmurs, no gallops, no rubs. ABDOMEN: Globular, soft, nontender. Positive for colostomy/urostomy. EXTREMITIES: Trace edema. MEDICATIONS: Medications of 05/07/2017 was reviewed. LABORATORY DATA: Laboratories of 05/07/2017; white count 15.7, hemoglobin 8.9. Sodium 138, potassiu m 4.6, chloride 114, carbon dioxide 12, BUN is 44, creatinine 2.61, phosphorus 4.9, magnesium 1.4. ASSESSMENT AND PLAN: 1. Acute kidney injury/chronic renal failure, much improved prerenal azotemia. Baseline renal funct ion. No indication for dialytic intervention. 2. Chronic renal failure - she is at baseline creatinine of 2.61. Glomerular filtration rate is 23 mL per minute. Continue current management. 3. Metabolic acidosis - consider resuming back sodium bicarbonate with this patient. 4. Acute respiratory failure, unable to be weaned off due to depressed mentation. She may have a po ssibility of metabolic encephalopathy/hypoxic encephalopathy. Continue supportive care. Overall, agree with current management.
[2017-05-07] MEDS ORDERED: Furosemide 100 MG/10 ML VIAL SLOW IVP SCH (13:00)
[2017-05-07] MEDS ORDERED: Magnesium Sulfate 4 GM in Sodium Chloride 0.9% 250 ML 250 ML IVPB SCH (13:00)
--- NOTE | 2017-05-07 13:26 | PDOC.PN ---
- Subjective Encounter Start Date: 05/07/17 Encounter Start Time: 12:00 Patient seen and examined. Intubated on Vent. No overnight events - Objective Resuscitation Status: Resuscitation Status FULL:Full Resuscitation MAR Reviewed: Yes Vital Signs & Weight: Vital Signs (12 hours) Temp Pulse Resp Pulse Ox 05/07/17 13:20 95 05/07/17 12:00 98.4 F 30 H 05/07/17 10:57 89 05/07/17 10:00 29 H 05/07/17 08:42 80 05/07/17 08:00 98.5 F 80 38 H 96 05/07/17 07:31 80 05/07/17 06:00 16 05/07/17 04:00 99.1 F 05/07/17 03:59 35 H 05/07/17 02:12 80 05/07/17 02:00 30 H Weight Admit Weight 222 lb 8 oz Weight 235 lb 3.2 oz Most Recent Monitor Data Heart Rate from ECG 89 NIBP 151/80 NIBP BP-Mean 98 Respiration from ECG 29 SpO2 97 I&O: 05/06/17 05/07/17 05/08/17 06:59 06:59 06:59 Intake Total 5124 4575 500 Output Total 1960 1720 150 Balance 3164 2855 350 Result Diagrams: 05/07/17 05:40 05/07/17 03:30 Additional Labs: Accuchecks 05/07/17 05/07/17 05/06/17 10:19 04:03 22:24 POC Glucose 89 93 109 05/06/17 18:13 POC Glucose 110 EKG Reviewed by me: Yes (Tele SR) Phys Exam - Physical Examination Constitutional: NAD (on Vent) Cardiovascular: RRR, no rub Gastrointestinal: soft, non-tender, positive bowel sounds Neuro/Psych - Cannot assess due to sedation Dx/Plan - Plan DVT proph w/heparin, DVT proph w/SCDs IMPRESSION: 1. Status Epilepticus 2. UTI due to Klebsiella - on Meropenem 3. Acute resp failure on Mech Vent 4. ROMÁN on CKD 4/Metabolic acidosis/Hypomagnesemia 5. Other issues per previous notes PLAN * Nephro/Critical care following * On Mech Vent * AM labs * Replace Electrolytes * Cont Atbx per Critical care * Cont current dose of AEDs per Neurology Review of Systems - Review of Systems Other: Cannot obtain due to current mentation. - Medications/Allergies Allergies/Adverse Reactions: Allergies Allergy/AdvReac Type Severity Reaction Status Date / Time banana Allergy Verified 05/10/16 08:43 chocolate flavor Allergy Verified 05/10/16 08:43 egg Allergy Verified 05/10/16 08:43 Iodinated Contrast- Oral and Allergy Verified 05/10/16 08:44 IV Dye [Iodinated Contrast Media - Oral and] iodine Allergy Verified 05/10/16 08:43 latex Allergy Verified 05/10/16 08:43 orange juice Allergy Verified 05/10/16 08:43 tolterodine tartrate Allergy Verified 05/10/16 08:43 [From Detrol] tomato Allergy Verified 05/10/16 08:43 Medications: Current Medications Acetaminophen (Tylenol) 650 mg PO Q4H PRN PRN Reason: Headache/Fever or Pain Last Admin: 05/01/17 18:52 Dose: 650 mg Al Hydroxide/Mg Hydroxide (Maalox) 30 ml PO Q6H PRN PRN Reason: Heartburn or Indigestion Albuterol/Ipratropium (Duoneb) 3 ml NEB [id number] [facility] Last Admin: 05/07/17 13:18 Dose: 3 ml Amlodipine Besylate (Norvasc) 10 mg PO DAILY [facility] Last Admin: 05/07/17 08:42 Dose: 10 mg Lipase/Protease/[place]ylase ([place] [id number]) 1 cap FS .PER PROTOCOL PRN PRN Reason: TUBE OCCLUSION PROTOCOL Artificial Tears (Tears Naturale) 0 drop EA EYE PRN PRN PRN Reason: Dry Eyes Aspirin (Aspirin Chewable) 81 mg PO DAILY [facility] Last Admin: 05/07/17 08:41 Dose: 81 mg Calcitriol (Rocaltrol) 0.25 mcg PO DAILY [facility] Last Admin: 05/07/17 08:42 Dose: 0.25 mcg Calcium Acetate (Phoslo) 1,334 mg PO TID-WM [facility] Last Admin: 05/07/17 12:43 Dose: 1,334 mg Dexamethasone (Decadron) 2 mg SLOW IVP BID [facility] Last Admin: 05/07/17 08:40 Dose: 2 mg Dextrose/Water (Dextrose 50%) 25 gm SLOW IVP PRN PRN PRN Reason: Hypoglycemia Epoetin Javier (Procrit) 10,000 units SC Q7D [facility] Last Admin: 05/06/17 17:40 Dose: 10,000 units Famotidine (Pepcid) 20 mg PER TUBE DAILY [facility] Last Admin: 05/07/17 08:42 Dose: 20 mg Ferrous Sulfate (Feosol) 325 mg PO QAM-WM [facility] Last Admin: 05/07/17 08:43 Dose: 325 mg Furosemide (Lasix) 60 mg SLOW IVP DAILY [facility] Furosemide (Lasix) 80 mg SLOW IVP NOW [facility] Stop: 05/07/17 15:00 Glucagon (Glucagon) 1 mg IM PRN PRN PRN Reason: Hypoglycemia Guaifenesin (Robitussin Sf) 200 mg PO Q4H PRN PRN Reason: Cough Heparin Sodium (Porcine) (Heparin) 5,000 units SC BID [facility] Last Admin: 05/07/17 08:40 Dose: 5,000 units Hydralazine HCl (Apresoline) 10 mg SLOW IVP Q4H PRN PRN Reason: Systolic BP > 180 Last Admin: 05/01/17 17:22 Dose: 10 mg Dextrose/Water (D5w) 1,000 mls @ 0 mls/hr IV .Q0M PRN; As Directed PRN Reason: Hypoglycemia Levetiracetam 1,500 mg/ Device 100 mls @ 200 mls/hr IVPB BID [facility] Last Admin: 05/07/17 08:46 Dose: 100 mls Lacosamide 100 mg/ Sodium (Chloride) 60 mls @ 120 mls/hr IVPB 0400,1600 [facility] Last Admin: 05/07/17 04:17 Dose: 60 mls Phenobarbital Sodium 65 mg/ (Sodium Chloride) 101 mls @ 202 mls/hr IVPB Q8HR [facility] Last Admin: 05/07/17 05:02 Dose: 101 mls Fentanyl Citrate (Fentanyl Bolus) 250 mls @ 0 mls/hr IVPB PRN PRN; As Directed PRN Reason: Breakthrough pain Fosphenytoin Sodium 200 mg/ (Sodium Chloride) 54 mls @ 108 mls/hr IVPB 0900 [facility] Last Admin: 05/07/17 08:45 Dose: 54 mls Fosphenytoin Sodium 300 mg/ (Sodium Chloride) 56 mls @ 112 mls/hr IVPB 2100 [facility] Last Admin: 05/06/17 20:13 Dose: 56 mls Vancomycin HCl 750 mg/ Sodium (Chloride) 250 mls @ 250 mls/hr IVPB 0900 [facility] Last Admin: 05/07/17 08:48 Dose: 250 mls Meropenem 2 gm/ Sodium (Chloride) 100 mls @ 200 mls/hr IVPB 0200,1400 [facility] Sodium Bicarbonate 150 meq/ (Dextrose/Water) 1,150 mls @ 75 mls/hr IV .[id number] [facility] Magnesium Sulfate 4 gm/ Sodium (Chloride) 258 mls @ 86 mls/hr IVPB NOW [facility] Stop: 05/07/17 15:00 Insulin Human Lispro (Humalog) 0 units SC .MODERATE SLIDING SC PRN PRN Reason: Moderate Correctional Scale Insulin Human Lispro (Humalog) 0 units SC .BEDTIME SLIDING SC PRN PRN Reason: Bedtime Correctional Scale Levothyroxine Sodium (Synthroid) 100 mcg PO 0600 [facility] Last Admin: 05/07/17 05:02 Dose: 100 mcg Loperamide HCl (Imodium) 2 mg PO PRN PRN PRN Reason: Diarrhea/Loose Stools Loratadine (Claritin) 10 mg PO DAILYPRN PRN PRN Reason: Sinus Symptoms Lorazepam (Ativan) 2 mg SLOW IVP Q2H PRN PRN Reason: Anxiety to achieve Motley 2-3 Last Admin: 05/05/17 23:49 Dose: 2 mg Magnesium Hydroxide (Milk Of Magnesium) 30 ml PO DAILYPRN PRN PRN Reason: Constipation Metoclopramide HCl (Reglan) 10 mg IVP Q6H [facility] Last Admin: 05/07/17 08:43 Dose: 10 mg Mineral Oil/White Petrolatum (Eucerin Cream) 0 gm TOP BIDPRN PRN PRN Reason: Dry Skin Miscellaneous Medication (Pharmacy To Dose) 0 each IVPB ASDIR PRN PRN Reason: Pharmacy to Dose VANCOMYCIN Morphine Sulfate (Morphine) 2 mg SLOW IVP Q2H PRN PRN Reason: Breakthrough pain Last Admin: 05/03/17 04:56 Dose: 2 mg Ondansetron HCl (Zofran Odt) 4 mg PO Q6H PRN PRN Reason: Nausea/Vomiting Ondansetron HCl (Zofran) 4 mg IVP Q6H PRN PRN Reason: Nausea/Vomiting Last Admin: 04/12/17 13:07 Dose: 4 mg Phenol (Chloraseptic Gordon 180 Ml Bot) 0 ml PO PRN PRN PRN Reason: Sore Throat Propofol (Diprivan) 1,000 mg IV INF PRN; Protocol PRN Reason: TO ACHIEVE MOTLEY SCORE 2-3 Stop: 05/20/17 03:31 Last Admin: 05/07/17 12:42 Dose: 1,000 mg Scopolamine (Transderm Scop) 1.5 mg TD Q3D [facility] Last Admin: 05/06/17 09:46 Dose: 1.5 mg Senna (Senokot) 2 tab PO HSPRN PRN PRN Reason: Constipation Sertraline HCl (Zoloft) 150 mg PO DAILY [facility] Last Admin: 05/07/17 08:42 Dose: 150 mg Sodium Bicarbonate (Bicarbonate, Sodium) 650 mg PER TUBE .PER PROTOCOL PRN PRN Reason: ENTERAL TUBE OCCLUSION Last Admin: 05/01/17 07:46 Dose: 650 mg Sodium Bicarbonate (Bicarbonate, Sodium) 650 mg PO TID [facility] Sodium Chloride ([place] Nasal Gordon 0.65%) 0 ml EA NARE QIDPRN PRN PRN Reason: Nasal Congestion Sodium Chloride (Flush - Normal Saline) 10 ml IVF Q12HR [facility] Last Admin: 05/07/17 08:47 Dose: 10 ml Sodium Chloride (Flush - Normal Saline) 10 ml IVF PRN PRN PRN Reason: Saline Flush Last Admin: 04/26/17 20:45 Dose: 10 ml Vitamin B Complex/Vit C/Folic Acid (Nephro-Supriya Tablet) 1 tab PO DAILY [facility] Last Admin: 05/07/17 08:45 Dose: 1 tab
--- NOTE | 2017-05-07 13:28 | PRG ---
DATE OF SERVICE: 05/07/2017 SERVICE: Pulmonary Medicine. INTERVAL HISTORY: Patient is doing okay from a respiratory standpoint. There has not been any significant interval change to her condition. The family is trying to decide on whether or not to pursue tracheostomy and PEG tube. Until this occurs, we will continue our supportive care. Her inflammatory propofol appears to be clearing very nicely. PHYSICAL EXAMINATION: VITAL SIGNS: Afebrile, pulse 89, blood pressure 151/80, respirations 29, saturation 97% on 40% FIO2 and a PEEP of 5. GENERAL: Patient is intubated and sedated. HEENT: Normocephalic, atraumatic. Sclerae are white, conjunctivae pink. Oral mucosa is moist without lesions. LUNGS: Decreased air entry with dependent crackles. Rhonchi are present. No wheezing. HEART: Normal rate, regular. ABDOMEN: Soft, nontender, nondistended. Bowel sounds are positive. MUSCULOSKELETAL: No cyanosis or clubbing. There is no pitting in the bilateral lower extremities. NEUROLOGIC: She is withdrawing from noxious stimuli in all 4 extremities. Pupils are equal and reactive. She is overbreathing the ventilator. She has a cough with deep suctioning. LABORATORY DATA: Blood cultures are growing Klebsiella pneumonia, which is polanco resistant and only susceptible to meropenem. Multiple blood cultures are growing Staph epidermidis and/or Staph capitis. ASSESSMENT: 1. Acute hypoxic respiratory failure. 2. Severe sepsis. 3. Status epilepticus, with largely resolved seizure activity. 4. Encephalopathy secondary to longstanding seizures. 5. Bacteremia secondary to Staph epidermidis. 6. Urinary tract infection secondary to Klebsiella, polanco resistant. 7. Chronic kidney disease. 8. 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 DISCUSSION AND PLAN: We will wean away the propofol. If she meets criteria, a spontaneous breathing trial will be considered. We will continue our antibiotics including meropenem and vancomycin. We will put the patient on contact isolation as she has multidrug resistant organism. We will watch her In 's and Out's and try to keep roughly even. Currently, she is significantly volume up and a small doses of Lasix will be initiated. Pulmonary Critical Care will continue to follow while the patient remains in this location, but ultimately, we will need the family to help us to determine whether or not to move forward with tracheostomy and PEG tube placement, or transition over to comfort care. Critical care time: 30 minutes. MARCELLED
[2017-05-07] MEDS: Sodium Bicarbonate 150 MEQ in Dextrose 5% in Water 1,000 ML IV SCH ×2 (13:57)
[2017-05-07] MEDS ORDERED: DISCONTINUE PREVIOUS NARCOTIC PAIN MEDICATIONS AND BENZODIAZEPINES FS SCH (14:33)
[2017-05-07] MEDS ORDERED: Fentanyl 20 MCG/ML 250 ML IVPB SCH (14:33)
[2017-05-07] MEDS ORDERED: Lorazepam 2 MG/ML VIAL SLOW IVP PRN (14:33)
[2017-05-07] MEDS ORDERED: Propofol 1,000 MG/100 ML VIAL IV PRN (14:33)
[2017-05-07] MEDS: fentaNYL Citrate/PF 2,000 MCG in Sodium Chloride 0.9% 60 ML IV SCH (14:37)
[2017-05-08] MEDS: Meropenem 2 GM in Sodium Chloride 0.9% 100 ML IVPB SCH ×2 (02:24→14:10)
[2017-05-08] MEDS: Metoclopramide HCl 10 MG/2 ML VIAL IVP SCH ×4 (02:24→20:52)
[2017-05-08] MEDS: Sodium Bicarbonate 150 MEQ in Dextrose 5% in Water 1,000 ML IV SCH ×6 (03:59→22:00)
[2017-05-08] MEDS: Lacosamide 100 MG in Sodium Chloride 0.9% 50 ML IVPB SCH ×2 (04:00→16:25)
[2017-05-08] MEDS: Levothyroxine Sodium 100 MCG TAB PO SCH (05:23)
[2017-05-08] MEDS: SODIUM CHLORIDE 0.9% IVPB SCH ×3 (05:23→22:33)
[2017-05-08] MEDS: Propofol 1,000 MG/100 ML VIAL IV PRN (05:23)
[2017-05-08] MEDS: PHENOBARBITAL SODIUM IVPB SCH ×3 (05:23→22:33)
[2017-05-08 06:04] LABS: Band 13 % (5-11); Eosinophils 7 % (0-10); Hemoglobin 7.1 g/dL (12.0-16.0); Lymphocytes 4 % (21-51); MDiff Complete? YES; Mean Corpuscular HGB CONC 31.2 g/dL (32.0-36.0); Mean Corpuscular Volume 96.2 fl (81.0-99.0); Mean Platelet Volume 7.2 fL (7.4-10.4); Metamyelocyte 1 % (0-0); Neutrophil 75 % (42-75); PLT Morphology Comment Appears Adequate; Platelet Count 333 thou/uL (130-400); RBC Distribution Width 16.2 % (11.5-14.5); Red Blood Cell (RBC) Count 2.37 mill/uL (4.20-5.40); White Blood Cell (WBC) Count 12.3 thou/uL (4.8-10.8)
[2017-05-08 06:13] LABS: Anion Gap 15 mmol/L (10-20); BUN (Urea Nitrogen) 42 mg/dL (9.8-20.1); Calc. Creatinine Clearance 37 mL/min (70-130); Calcium 8.5 mg/dL (7.8-10.44); Carbon Dioxide 23 mmol/L (23-31); Chloride 105 mmol/L (98-107); Estimated GFR-MDRD 22; Glucose 319 mg/dL (80-115); Magnesium 2.2 mg/dL (1.6-2.6); Phosphorus 4.1 mg/dL (2.3-4.7); Potassium 3.6 mmol/L (3.5-5.1); Sodium 139 mmol/L (136-145)
[2017-05-08 08:20] LABS: Vancomycin, Trough 32.9 ug/mL
[2017-05-08] MEDS: Vancomycin HCl 750 MG in Sodium Chloride 0.9% 250 ML 250 ML IVPB SCH (09:00)
[2017-05-08] MEDS: Calcium Acetate 667 MG CAP PO SCH ×3 (09:11→17:20)
[2017-05-08] MEDS: Ferrous Sulfate 325 MG TAB PO SCH (09:12)
[2017-05-08] MEDS: Folic Acid/Vit B Comp W-C PO SCH (09:12)
--- NOTE | 2017-05-08 09:12 | PRG ---
DATE OF SERVICE: 05/08/2017 RENAL MEDICINE SUBJECTIVE: Ms. Lorenzana is a 61-year-old black female seen by the Renal Service for acute kidney injury on top of her chronic renal failure. Renal function has remained stable. She has not needed any di alytic intervention. She remains unresponsive. We are awaiting for the family to give us approval t o place tracheostomy and PEG tube. No acute events last night. PHYSICAL EXAMINATION: VITAL SIGNS: Blood pressure is 138/73 with a heart rate of 93, temperature 99.9. GENERAL: Noted to be unresponsive, intubated on ventilator support. SKIN: Adequate turgor. HEENT: Slightly pale conjunctivae, anicteric sclerae. NECK: No neck mass, no carotid bruits, no JVD. CHEST: No deformities. LUNGS: Decreased breath sounds. HEART: Normal sinus rhythm. No murmurs, no gallops, no rubs. ABDOMEN: Globular, soft, nontender, no masses. Positive for colostomy, positive for urostomy. EXTREMITIES: No edema. MEDICATIONS: Medications of 05/08/2017 was reviewed. LABORATORY DATA: Laboratories of 05/08/2017; white count 12.3, hemoglobin 7.1, sodium 139, potassium 3.6, chloride 105, carbon dioxide 23, BUN 42, creatinine 2.68, GFR 22 mL per minute, calcium 8.5, ph osphorus 4.1, magnesium 2.2. ASSESSMENT AND PLAN: 1. Acute kidney injury - prerenal azotemia - much improved. 2. Chronic renal failure - stable. Continue supportive care. No indication for dialysis. 3. Anemia. Continue to observe p.r.n. blood transfusion. Continue weekly Epogen 10,000 units subcu taneously every week. 4. Elevated white count on empiric IV antibiotics - on IV meropenem. 5. Acute respiratory failure, unable to wean off. Awaiting family's decision to proceed with trache ostomy. Overall, prognosis remains guarded with this patient.
[2017-05-08] MEDS: Calcitriol 0.25 MCG CAP PO SCH (09:13)
[2017-05-08] MEDS: Famotidine 20 MG TAB PER TUBE SCH (09:13)
[2017-05-08] MEDS: Amlodipine 10 MG TAB PO SCH (09:13)
[2017-05-08] MEDS: levETIRAcetam In NaCl (Iso-Os) 1,500 MG in Premix Bag 1 BAG IVPB SCH ×4 (09:14→20:51)
[2017-05-08] MEDS: Furosemide 100 MG/10 ML VIAL SLOW IVP SCH (09:14)
[2017-05-08] MEDS: Heparin 5,000 UNITS/ML VIAL SC SCH ×2 (09:14→20:31)
[2017-05-08] MEDS: Sodium Bicarbonate Tab 325 MG TAB PO SCH ×3 (09:14→20:31)
[2017-05-08] MEDS: Dexamethasone 4 mg/ml Vial SLOW IVP SCH ×2 (09:15→20:31)
[2017-05-08] MEDS: Fosphenytoin Sodium 200 MG in Sodium Chloride 0.9% 50 ML IVPB SCH (09:18)
[2017-05-08] MEDS: fentaNYL Citrate/PF 2,000 MCG in Sodium Chloride 0.9% 60 ML IV SCH (12:54)
--- NOTE | 2017-05-08 19:35 | PDOC.PN ---
- Subjective Encounter Start Date: 05/08/17 Encounter Start Time: 17:00 Patient seen and examined. On Mech Vent. No overnight events - Objective Resuscitation Status: Resuscitation Status FULL:Full Resuscitation MAR Reviewed: Yes Vital Signs & Weight: Vital Signs (12 hours) Temp Pulse Resp BP 05/08/17 18:17 99 157/78 H 05/08/17 18:00 26 H 05/08/17 16:00 99.2 F 21 H 05/08/17 15:04 99 05/08/17 14:00 31 H 05/08/17 12:48 93 05/08/17 12:00 99.7 F H 24 H 05/08/17 10:18 95 05/08/17 10:00 37 H 05/08/17 09:13 102 H 125/60 05/08/17 08:00 32 H 05/08/17 07:48 99.9 F H Weight Admit Weight 222 lb 8 oz Weight 232 lb 9.403 oz Most Recent Monitor Data Heart Rate from ECG 95 NIBP 111/58 NIBP BP-Mean 74 Respiration from ECG 26 SpO2 91 I&O: 05/07/17 05/08/17 05/09/17 06:59 06:59 06:59 Intake Total 4575 4070.7 2027.9 Output Total 1720 1805 1175 Balance 2855 2265.7 852.9 Result Diagrams: 05/09/17 05:20 05/09/17 05:20 Additional Labs: Accuchecks 05/08/17 05/08/17 05/08/17 17:08 10:40 05:27 POC Glucose 95 102 97 05/07/17 19:59 POC Glucose 91 EKG Reviewed by me: Yes (Tele SR) Phys Exam - Physical Examination Constitutional: NAD (on Vent) Respiratory: no wheezing Coarse BS B/L Cardiovascular: RRR, no rub Gastrointestinal: soft, positive bowel sounds Dx/Plan - Plan DVT proph w/heparin, DVT proph w/SCDs IMPRESSION: 1. Status Epilepticus - on AEDs 2. UTI due to Klebsiella - on Meropenem 3. Acute resp failure on Mech Vent 4. ROMÁN on CKD 4/Metabolic acidosis/Hypomagnesemia 5. Staph bacteremia - on Vancomycin 6. Other issues per previous notes PLAN * Nephro/Critical care/Nephro following * Surg consulted for Trach/PEG in AM * Dilantin level in AM * On [facility] Vent * AM labs * Cont Atbx per Critical care * Cont current dose of AEDs per Neurology Review of Systems - Review of Systems Other: Cannot obtain due to current cognition - Medications/Allergies Allergies/Adverse Reactions: Allergies Allergy/AdvReac Type Severity Reaction Status Date / Time banana Allergy Verified 05/10/16 08:43 chocolate flavor Allergy Verified 05/10/16 08:43 egg Allergy Verified 05/10/16 08:43 Iodinated Contrast- Oral and Allergy Verified 05/10/16 08:44 IV Dye [Iodinated Contrast Media - Oral and] iodine Allergy Verified 05/10/16 08:43 latex Allergy Verified 05/10/16 08:43 orange juice Allergy Verified 05/10/16 08:43 tolterodine tartrate Allergy Verified 05/10/16 08:43 [From Detrol] tomato Allergy Verified 05/10/16 08:43 Medications: Current Medications Acetaminophen (Tylenol) 650 mg PO Q4H PRN PRN Reason: Headache/Fever or Pain Last Admin: 05/01/17 18:52 Dose: 650 mg Al Hydroxide/Mg Hydroxide (Maalox) 30 ml PO Q6H PRN PRN Reason: Heartburn or Indigestion Albuterol/Ipratropium (Duoneb) 3 ml NEB [id number] [facility] Last Admin: 05/08/17 18:16 Dose: 3 ml Amlodipine Besylate (Norvasc) 10 mg PO DAILY [facility] Last Admin: 05/08/17 09:13 Dose: 10 mg Lipase/Protease/[place] ([place] [id number]) 1 cap FS .PER PROTOCOL PRN PRN Reason: TUBE OCCLUSION PROTOCOL Artificial Tears (Tears Naturale) 0 drop EA EYE PRN PRN PRN Reason: Dry Eyes Aspirin (Aspirin Chewable) 81 mg PO DAILY [facility] Last Admin: 05/08/17 09:12 Dose: 81 mg Calcitriol (Rocaltrol) 0.25 mcg PO DAILY [facility] Last Admin: 05/08/17 09:13 Dose: 0.25 mcg Calcium Acetate (Phoslo) 1,334 mg PO TID-WM [facility] Last Admin: 05/08/17 17:20 Dose: 1,334 mg Dexamethasone (Decadron) 2 mg SLOW IVP BID [facility] Last Admin: 05/08/17 09:15 Dose: 2 mg Dextrose/Water (Dextrose 50%) 25 gm SLOW IVP PRN PRN PRN Reason: Hypoglycemia Epoetin Javier (Procrit) 10,000 units SC Q7D [facility] Last Admin: 05/06/17 17:40 Dose: 10,000 units Famotidine (Pepcid) 20 mg PER TUBE DAILY [facility] Last Admin: 05/08/17 09:13 Dose: 20 mg Ferrous Sulfate (Feosol) 325 mg PO QAM-WM [facility] Last Admin: 05/08/17 09:12 Dose: 325 mg Furosemide (Lasix) 60 mg SLOW IVP DAILY [facility] Last Admin: 05/08/17 09:14 Dose: 60 mg Glucagon (Glucagon) 1 mg IM PRN PRN PRN Reason: Hypoglycemia Guaifenesin (Robitussin Sf) 200 mg PO Q4H PRN PRN Reason: Cough Heparin Sodium (Porcine) (Heparin) 5,000 units SC BID [facility] Last Admin: 05/08/17 09:14 Dose: 5,000 units Hydralazine HCl (Apresoline) 10 mg SLOW IVP Q4H PRN PRN Reason: Systolic BP > 180 Last Admin: 05/01/17 17:22 Dose: 10 mg Dextrose/Water (D5w) 1,000 mls @ 0 mls/hr IV .Q0M PRN; As Directed PRN Reason: Hypoglycemia Levetiracetam 1,500 mg/ Device 100 mls @ 200 mls/hr IVPB BID [facility] Last Admin: 05/08/17 09:14 Dose: 100 mls Lacosamide 100 mg/ Sodium (Chloride) 60 mls @ 120 mls/hr IVPB 0400,1600 [facility] Last Admin: 05/08/17 16:25 Dose: 60 mls Phenobarbital Sodium 65 mg/ (Sodium Chloride) 101 mls @ 202 mls/hr IVPB Q8HR [facility] Last Admin: 05/08/17 14:30 Dose: 101 mls Fosphenytoin Sodium 200 mg/ (Sodium Chloride) 54 mls @ 108 mls/hr IVPB 0900 [facility] Last Admin: 05/08/17 09:18 Dose: 54 mls Fosphenytoin Sodium 300 mg/ (Sodium Chloride) 56 mls @ 112 mls/hr IVPB 2100 [facility] Last Admin: 05/07/17 20:09 Dose: 56 mls Meropenem 2 gm/ Sodium (Chloride) 100 mls @ 200 mls/hr IVPB 0200,1400 [facility] Last Admin: 05/08/17 14:10 Dose: 100 mls Sodium Bicarbonate 150 meq/ (Dextrose/Water) 1,150 mls @ 75 mls/hr IV .[id number] [facility] Last Admin: 05/08/17 03:59 Dose: 1,150 mls Fentanyl Citrate 2,000 mcg/ (Sodium Chloride) 100 mls @ 0 mls/hr IV INF CHIO PRN Reason: As Directed Last Admin: 05/08/17 12:54 Dose: 100 mls Fentanyl Citrate (Fentanyl Bolus) 250 mls @ 0 mls/hr IVPB PRN PRN; As Directed PRN Reason: Breakthrough pain Stop: 06/06/17 14:33 Vancomycin HCl 750 mg/ Sodium (Chloride) 250 mls @ 250 mls/hr IVPB .PENDING LEVEL <20 [facility] Insulin Human Lispro (Humalog) 0 units SC .MODERATE SLIDING SC PRN PRN Reason: Moderate Correctional Scale Insulin Human Lispro (Humalog) 0 units SC .BEDTIME SLIDING SC PRN PRN Reason: Bedtime Correctional Scale Levothyroxine Sodium (Synthroid) 100 mcg PO 0600 [facility] Last Admin: 05/08/17 05:23 Dose: 100 mcg Loperamide HCl (Imodium) 2 mg PO PRN PRN PRN Reason: Diarrhea/Loose Stools Loratadine (Claritin) 10 mg PO DAILYPRN PRN PRN Reason: Sinus Symptoms Lorazepam (Ativan) 2 mg SLOW IVP Q2H PRN PRN Reason: Anxiety to achieve Motley 2-3 Stop: 06/06/17 14:33 Magnesium Hydroxide (Milk Of Magnesium) 30 ml PO DAILYPRN PRN PRN Reason: Constipation Metoclopramide HCl (Reglan) 10 mg IVP Q6H [facility] Last Admin: 05/08/17 15:21 Dose: Not Given Mineral Oil/White Petrolatum (Eucerin Cream) 0 gm TOP BIDPRN PRN PRN Reason: Dry Skin Miscellaneous Medication (Pharmacy To Dose) 0 each IVPB ASDIR PRN PRN Reason: Pharmacy to Dose VANCOMYCIN Morphine Sulfate (Morphine) 2 mg SLOW IVP Q2H PRN PRN Reason: Breakthrough pain Discontinue Previous Narcotic Pain Medications And Benzodiazepines 1 each FS .ONE [facility] Stop: 06/06/17 14:33 Ondansetron HCl (Zofran Odt) 4 mg PO Q6H PRN PRN Reason: Nausea/Vomiting Ondansetron HCl (Zofran) 4 mg IVP Q6H PRN PRN Reason: Nausea/Vomiting Last Admin: 04/12/17 13:07 Dose: 4 mg Phenol (Chloraseptic Aiken 180 Ml Bot) 0 ml PO PRN PRN PRN Reason: Sore Throat Propofol (Diprivan) 1,000 mg IV INF PRN; Protocol PRN Reason: TO ACHIEVE MOTLEY SCORE 2-3 Stop: 05/20/17 03:31 Last Admin: 05/08/17 05:23 Dose: 1,000 mg Propofol (Diprivan) 1,000 mg IV INF PRN; Protocol PRN Reason: TO ACHIEVE MOTLEY SCORE 2-3 Stop: 06/06/17 14:33 Scopolamine (Transderm Scop) 1.5 mg TD Q3D [facility] Last Admin: 05/06/17 09:46 Dose: 1.5 mg Senna (Senokot) 2 tab PO HSPRN PRN PRN Reason: Constipation Sertraline HCl (Zoloft) 150 mg PO DAILY [facility] Last Admin: 05/08/17 09:23 Dose: 150 mg Sodium Bicarbonate (Bicarbonate, Sodium) 650 mg PER TUBE .PER PROTOCOL PRN PRN Reason: ENTERAL TUBE OCCLUSION Last Admin: 05/01/17 07:46 Dose: 650 mg Sodium Bicarbonate (Bicarbonate, Sodium) 650 mg PO TID [facility] Last Admin: 05/08/17 15:22 Dose: 650 mg Sodium Chloride (Kamas Nasal Aiken 0.65%) 0 ml EA NARE QIDPRN PRN PRN Reason: Nasal Congestion Sodium Chloride (Flush - Normal Saline) 10 ml IVF Q12HR [facility] Last Admin: 05/08/17 09:15 Dose: 10 ml Sodium Chloride (Flush - Normal Saline) 10 ml IVF PRN PRN PRN Reason: Saline Flush Last Admin: 04/26/17 20:45 Dose: 10 ml Vitamin B Complex/Vit C/Folic Acid (Nephro-Supriya Tablet) 1 tab PO DAILY [facility] Last Admin: 05/08/17 09:12 Dose: 1 tab
[2017-05-08] MEDS ORDERED: VANCOMYCIN/ RENALLY ADJUST ANTIBIOTICS IVPB PRN (19:39)
[2017-05-08] MEDS ORDERED: Vancomycin HCl 750 MG in Sodium Chloride 0.9% 250 ML 250 ML IVPB SCH (21:00)
[2017-05-08] MEDS ORDERED: Potassium Chloride 20 MEQ TAB PO SCH (21:45)
--- NOTE | 2017-05-08 23:23 | PRG ---
DATE OF SERVICE: 05/08/2017 SERVICE: Pulmonary Medicine. INTERVAL HISTORY: The patient is doing fine from a respiratory standpoint. Neurologically, things h ave not changed much. When I give her noxious stimulation bilateral upper or lower extremities, she really does not withdraw or do much of anything. That being said, I get the hint that when I asked h er to open her eyes or closed her eyes that she is making an attempt at those maneuvers. I certainly do not see anything, it looks like ongoing seizure activity, which had previously demonstrated resol ution on EEG. She cannot provide me with any additional elements of the history, but there were no s pecific overnight events. The family has come to a consensus or going to pursue PEG tube and tracheo stomy and long-term management moving forward. After we had this conversation, our case management c jaqueline by and talked to the family about options where they can handle people who are mechanically venti lated and the patient's family is now going to rethink whether or not they want to pursue PEG tube an d tracheostomy. Either way, the patient has been intubated for more than 2 weeks and we are at that point where decision will need to be made soon. PHYSICAL EXAMINATION: VITAL SIGNS: Afebrile with a T-max of 99.9 overnight. Pulse 86, blood pressure 125/60, respirations 19, and saturation 95% on room air. GENERAL: The patient is intubated. She is under the influence of no sedation other than 50 mcg of f entanyl. Likely heavy doses of Versed and propofol are still coming out of her system. HEENT: Normocephalic, atraumatic. Sclerae are white, conjunctivae pink. Oral and nasal mucosa is m oist without lesions. LUNGS: Decent air entry. There is no prolonged expiratory phase, wheezing, rhonchi or crackles. HEART: Normal rate, regular. ABDOMEN: Soft, nontender, nondistended. Bowel sounds are positive. MUSCULOSKELETAL: No cyanosis or clubbing. There are diffuse 1-2+ pitting throughout. GENITOURINARY: Ileal conduit hooked up to an ostomy bag. NEUROLOGIC: Semicomatose. LABORATORY DATA: WBC 12.3, hemoglobin 7.1 and roughly stable. Platelets 333,000. PH of 7.23, pCO2 of 38, pO2 of 95. Creatinine 2.68 and roughly stable. BUN 42. Basic metabolic profile is otherwise unremarkable and her bicarbonate is slowly improving to 23. Potassium, magnesium and phosphorus hav e return to the normal ranges. Vancomycin trough 32.9 with subsequent random level of 27. ASSESSMENT: 1. Acute hypoxic respiratory failure. 2. Severe sepsis. 3. Bacteremia secondary to Staphylococcus epidermidis. 4. Urinary tract infection secondary to Klebsiella, polanco resistant. 5. Status epilepticus with no recurrent seizure activity so far as we can tell. 6. Chronic kidney disease. 7. 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 PLAN: I will decrease her bicarbonate drip to a lower rate today. Otherwise, supportive measures wi ll be continued. A consultation for surgery will be placed for PEG tube and tracheostomy. We will m inimize sedation wherever possible and watch for additional signs of any seizure activity. Pulmonary Critical Care will continue to follow. CRITICAL CARE TIME: Thirty minutes.
--- NOTE | 2017-05-09 00:29 | CON ---
DATE OF CONSULTATION: 05/08/2017 HISTORY OF PRESENT ILLNESS: Sakina Lorenzana is a 61-year-old morbidly obese female with a colostomy, uros abbie, and a suprapubic ostomy who is bedridden and has been hospitalized since 04/08/2017. She was a dmitted with an exacerbation of acute renal failure, progressed to respiratory failure. I have been asked by Dr. Tejada to see her regarding tracheostomy and PEG tube. Numerous discussions have been held with the family, namely her sister Yamileth Dixon, who she is closest to, . The patient is morbidly obese, BMI of 42, 5 feet 2 inches, 232 pounds. Essentially immobile. She is unresponsive. She has stage IV chronic kidney disease. After discussing these issues with the melida milton's sister, informing her of all the decisions which other physicians involved in her care have don e in the past. I then told the patient that if we were to place a percutaneous endoscopic gastrostom y tube and a tracheostomy tube that she would be destined to go to an LTAC and her long-term prognosi s is very poor with risk of pneumonia, DVT, respiratory failure, decubiti, and quality of life is gre atly compromised. The sister, Yamileth, states that she will speak with the children and reconsider code status and plans. I have given the family options of either tracheostomy, PEG tube, and LTAC transfe r versus hospice care with extubation and comfort measures. ALLERGIES: FOOD SUBSTANCES. SOCIAL HISTORY: Tobacco, alcohol, or drug use none. PAST SURGICAL HISTORY: Hysterectomy, ileostomy, colostomy, urostomy, cholecystectomy, thyroid goiter removal, history of past tracheostomy. PAST MEDICAL HISTORY: Metabolic syndrome; diabetes mellitus; hypertension; hypothyroidism; deconditi oning; immobility; chronic kidney disease, stage IV; seizure disorder; neurogenic bladder; chronic ba ck pain; history of colon cancer. REVIEW OF SYSTEMS: Not possible. PHYSICAL EXAMINATION: VITAL SIGNS: 5 feet 2 inches, 232 pounds, 42 BMI. Blood pressure 157/78, respiratory rate 26. GENERAL: The patient is nonresponsive. She is on the ventilator. Ostomy bags per above history. LUNGS: Rhonchi at base. CARDIAC: Regular rate and rhythm. ABDOMEN: Soft. Ostomy bags, urostomy, colostomy, suprapubic ostomy to collect occasional drainage. EXTREMITIES: Unremarkable. ASSESSMENT: Respiratory failure, chronic kidney disease, deconditioning, immobility, metabolic syndr ome, diabetes mellitus type 2, history of tracheostomy. Long-term prognosis is very poor. PLAN: A discussion was held as above. I have encouraged the family to reconsider code status and to consider hospice care. We will await their decision.
[2017-05-09] MEDS: Meropenem 2 GM in Sodium Chloride 0.9% 100 ML IVPB SCH ×2 (01:52→13:17)
[2017-05-09] MEDS: Metoclopramide HCl 10 MG/2 ML VIAL IVP SCH ×2 (01:53→08:56)
[2017-05-09] MEDS: Lacosamide 100 MG in Sodium Chloride 0.9% 50 ML IVPB SCH ×2 (04:52→17:16)
[2017-05-09] MEDS: Levothyroxine Sodium 100 MCG TAB PO SCH (05:27)
[2017-05-09] MEDS: SODIUM CHLORIDE 0.9% IVPB SCH ×3 (05:28→22:26)
[2017-05-09] MEDS: PHENOBARBITAL SODIUM IVPB SCH ×3 (05:28→22:26)
[2017-05-09 06:06] LABS: Acanthocytes SLIGHT = 1-5 cells (100X) (None Seen); Anisocytosis SLIGHT = 6-15 cells (100X) (0-5/hpf); Band 4 % (5-11); Eosinophils 1 % (0-10); Hypochromia SLIGHT = 6-15 cells (100X) (0-5/hpf); Lymphocytes 9 % (21-51); MDiff Complete? YES; Mean Corpuscular HGB CONC 31.6 g/dL (32.0-36.0); Mean Corpuscular Hemoglobin 30.4 pg (27.0-31.0); Mean Corpuscular Volume 96.4 fl (81.0-99.0); Mean Platelet Volume 7.2 fL (7.4-10.4); Metamyelocyte 1 % (0-0); Monocytes 2 % (0-10); Neutrophil 82 % (42-75); PLT Morphology Comment Appears Adequate; Platelet Count 309 thou/uL (130-400); RBC Distribution Width 16.1 % (11.5-14.5); Reactive Lymphocytes 1 % (0-10); White Blood Cell (WBC) Count 12.6 thou/uL (4.8-10.8)
[2017-05-09 06:11] LABS: Anion Gap 15 mmol/L (10-20); BUN (Urea Nitrogen) 44 mg/dL (9.8-20.1); Calc. Creatinine Clearance 36 mL/min (70-130); Calcium 8.4 mg/dL (7.8-10.44); Carbon Dioxide 23 mmol/L (23-31); Chloride 106 mmol/L (98-107); Estimated GFR-MDRD 21; Glucose 248 mg/dL (80-115); Potassium 3.4 mmol/L (3.5-5.1); Sodium 141 mmol/L (136-145)
[2017-05-09] MEDS: Scopolamine 1.5 mg/72 hour Patch TD SCH (08:47)
[2017-05-09] MEDS: levETIRAcetam 500 MG TAB PO SCH ×2 (08:50→21:23)
[2017-05-09] MEDS: Sodium Bicarbonate Tab 325 MG TAB PO SCH ×3 (08:50→21:23)
[2017-05-09] MEDS: Famotidine 20 MG TAB PER TUBE SCH (08:51)
[2017-05-09] MEDS: Calcium Acetate 667 MG CAP PO SCH ×3 (08:51→17:16)
[2017-05-09] MEDS: Folic Acid/Vit B Comp W-C PO SCH (08:51)
[2017-05-09] MEDS: Ferrous Sulfate 325 MG TAB PO SCH (08:52)
[2017-05-09] MEDS: Calcitriol 0.25 MCG CAP PO SCH (08:52)
[2017-05-09] MEDS: Furosemide 100 MG/10 ML VIAL SLOW IVP SCH (08:53)
[2017-05-09] MEDS: Dexamethasone 4 mg/ml Vial SLOW IVP SCH ×2 (08:53→21:22)
[2017-05-09] MEDS: Amlodipine 10 MG TAB PO SCH (08:54)
[2017-05-09] MEDS: Fosphenytoin Sodium 200 MG in Sodium Chloride 0.9% 50 ML IVPB SCH (08:58)
[2017-05-09] MEDS: Heparin 5,000 UNITS/ML VIAL SC SCH ×2 (08:59→21:23)
--- NOTE | 2017-05-09 09:16 | PRG ---
DATE OF SERVICE: 05/09/2017 RENAL MEDICINE SUBJECTIVE: Ms. Lorenzana is a 61-year-old black female with chronic renal failure. She was admitted few weeks ago and had an acute kidney injury and this responded with empiric volume repletion. No dialy sis was done at that time. She also had refractory seizure. She is now been intubated for number of weeks and the family is undecided whether to proceed with tracheostomy. No acute events noted last night. PHYSICAL EXAMINATION: VITAL SIGNS: Blood pressure 127/63, heart rate 77, respiratory rate 17, temperature 98.6, pulse ox 9 7%. GENERAL: Noted to be unresponsive, intubated on ventilator support. SKIN: Adequate turgor. HEENT: She has pale conjunctivae, anicteric sclerae. NECK: No neck mass, no carotid bruits, no JVD. CHEST: No deformities. LUNGS: Harsh breath sounds. No wheezing. HEART: Normal sinus rhythm. No murmurs, no gallops, no rubs. ABDOMEN: Globular, soft, nontender. Positive for colostomy. Positive for urostomy. EXTREMITIES: Trace edema. MEDICATIONS: Medications of 05/09/2017 was reviewed. LABORATORY DATA: Laboratories of 05/09/2017; white count 12.6, hemoglobin 7, sodium 141, potassium 3 .4, chloride 106, carbon dioxide 23, BUN 44, creatinine 2.78, glucose 248, calcium 8.4. ASSESSMENT AND PLAN: 1. Mild hypokalemia - I will simply observe this. 2. Acute kidney injury/chronic renal failure, stabilizing renal function. Creatinine 2.78 is near b aseline. She is currently at stage IV chronic renal failure. No indication for any dialytic interve ntion. 3. Anemia, on weekly Epogen. Consider blood transfusion once hemoglobin is less than 7. 4. Acute respiratory failure - unable to be weaned. Awaiting consent from family to proceed with tr acheostomy and percutaneous endoscopic gastrostomy tube placement. 5. Refractory seizures - well controlled with current antiseizure meds. Neurology is following. Agree with current management.
[2017-05-09 09:41] LABS: Actual Bicarbonate (HCO3a) 20.9 mEq/L (22-26); Base Excess (BEa) -5.6 mEq/L (0 (+/-) 2.5); CO2 Tension 47.1 mmHg (35.0-45.0); Hematocrit-ABG 22.8 % (36.0-47.0); Hemoglobin (Hb) 6.7 g/dL (12.0-16.0); pH, Arterial 7.27 (7.35-7.45)
[2017-05-09 09:42] LABS: ALV-art Gradient 82.895 (0-20); Calcium, Ionized 1.3 mmol/L (1.12-1.30); Puncture Site RRA
--- NOTE | 2017-05-09 11:49 | PRG ---
DATE OF SERVICE: 05/09/2017 SERVICE: Pulmonary Medicine. INTERVAL HISTORY: The patient is doing fine from a cardiovascular and respiratory standpoint. She i s breathing comfortably. She has no apparent distress. There are reports from nursing that she had repeat seizures yesterday. The patient's family is trying to decide on whether or not to proceed wit h PEG tube and tracheostomy versus transitioning over to comfort care only. They should get back to us with an answer at some point today. If she truly had recurrent seizures overnight, it would be ex traordinarily ominous. A repeat EEG will be considered if I see any more activity that looks consist ent with that. She remains on 4 antiepileptic drugs. She is on a little bit of fentanyl, but this w ill be weaned away as much as tolerated. PHYSICAL EXAMINATION: VITAL SIGNS: Afebrile with T-max of 99.9, pulse 77, blood pressure 132/56, respirations 16, saturati on 99% on room air. GENERAL: The patient is intubated. She is on no sedation, but previously was heavily sedated with V ersed which may take some time to get out of her system. HEENT: Normocephalic, atraumatic. Sclerae are white, conjunctivae pink. Oral mucosa is moist witho ut lesions. LUNGS: Decent air entry. There is no prolonged expiratory phase. There are no wheezing, rhonchi, o r crackles appreciated. HEART: Normal rate, regular. ABDOMEN: Soft, nontender, nondistended. Bowel sounds are positive. MUSCULOSKELETAL: No cyanosis or clubbing. There is trace 1+ pitting throughout. GENITOURINARY: No Gilbert. NEUROLOGIC: Grossly nonfocal. LABORATORY DATA: WBC 12.6, hemoglobin 7.0, platelets 309,000. A pH 7.27, pCO2 47, pO2 65. This cor responds to a saturation of 87%. She is on % FiO2 at this time. Creatinine 2.78 and roughly stable if not slightly trending upward. BUN 44, sodium 141, potassium 3.4. Urinalysis is unremarkable. Bl ood culture results were reviewed once again. ASSESSMENT: 1. Acute hypoxic respiratory failure. 2. Severe sepsis. 3. Bacteremia secondary to Staph epidermidis. 4. Urinary tract infection secondary to Klebsiella, polanco resistant. 5. Status epilepticus, with possible seizure activity over the last 24 hours. 6. Chronic kidney disease. 7. 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 PLAN: We will keep her on a bicarbonate drip. I have made some adjustments to mechanical ventilatio n in order to increase patient comfort. Her minute volume increased with the changes that I have mad e. Her potassium will be replaced once again. I will discontinue Lasix and give her unit of packed red blood cells. Ultimately, if seizure activity did recur, we will need to repeat an EEG. If this is positive, this will be an extraordinarily terrible sign and the patient would unlikely make a mean ingful recovery moving forward. This information will be relayed to the family as soon as they are a vailable for conversation today. CRITICAL CARE TIME: 30 minutes.
--- NOTE | 2017-05-09 19:23 | PRG ---
DATE OF SERVICE: 05/09/2017 SUBJECTIVE: Sakina Lorenzana is on the ventilator. We are awaiting her family to come and decide regardin g her care. Options have discussed with the family include cessation of care, extubation to hospice versus trach, PEG and LTAC. Still awaiting family arrival and discussion, decision. I have made mys elf available should the family arrive but so far they have not arrived today. We could perform a tr acheostomy and PEG tube or Sunday pending family's decision. I think withdrawal of care, ho wekonrad, is most appropriate.
[2017-05-09] MEDS: Sodium Bicarbonate 150 MEQ in Dextrose 5% in Water 1,000 ML IV SCH ×2 (20:30)
[2017-05-09 20:43] LABS: Vancomycin, Random 25.7 ug/mL (See Comment)
--- NOTE | 2017-05-09 23:29 | PDOC.PN ---
- Subjective Encounter Start Date: 05/09/17 Encounter Start Time: 17:00 -: non-verbal Patient seen and examined. Intubated - on Vent. No overnight events - Objective Resuscitation Status: Resuscitation Status FULL:Full Resuscitation MAR Reviewed: Yes Vital Signs & Weight: Vital Signs (12 hours) Temp Pulse Resp BP Pulse Ox 05/09/17 22:13 77 138/65 05/09/17 18:39 91 167/80 H 05/09/17 18:00 32 H 05/09/17 16:00 18 05/09/17 14:38 115 H 187/81 H 05/09/17 14:00 98.9 F 20 05/09/17 13:00 99 F 05/09/17 12:22 76 15 99 05/09/17 12:00 99 F 22 H Weight Admit Weight 222 lb 8 oz Weight 233 lb 14.567 oz Most Recent Monitor Data Heart Rate from ECG 89 NIBP 167/80 NIBP BP-Mean 121 Respiration from ECG 31 SpO2 94 I&O: 05/08/17 05/09/17 05/10/17 06:59 06:59 06:59 Intake Total 4070.7 3495.6 1150.3 Output Total 1805 2075 2535 Balance 2265.7 1420.6 -1384.7 Result Diagrams: 05/09/17 05:20 05/09/17 05:20 Additional Labs: Accuchecks 05/09/17 05/09/17 05/09/17 22:24 16:28 11:03 POC Glucose 82 82 91 05/09/17 05:20 POC Glucose 104 EKG Reviewed by me: Yes (Tele SR) Phys Exam - Physical Examination Constitutional: NAD (on Vent/ Off sedation) Respiratory: no rales Coarse BS B/L Cardiovascular: RRR, no rub Gastrointestinal: soft, positive bowel sounds Neuro - Cannot assess due to current mentation Dx/Plan - Plan DVT proph w/heparin, DVT proph w/SCDs IMPRESSION: 1. Status Epilepticus - on AEDs 2. UTI due to Klebsiella - on Meropenem 3. Acute resp failure on Mech Vent 4. ROMÁN on CKD 4/Metabolic acidosis/Hypomagnesemia 5. Staph bacteremia - on Vancomycin 6. Other issues per previous notes PLAN * Nephro/Critical care/Nephro following * Awaiting consent Trach/PEG in AM * Palliative care team following * On [facility] Vent * AM labs * Cont current meds as below Laboratory Tests 05/09/17 05:20 Phenytoin 5.8 L Review of Systems - Review of Systems Other: Cannot obtain due to current mentation - Medications/Allergies Allergies/Adverse Reactions: Allergies Allergy/AdvReac Type Severity Reaction Status Date / Time banana Allergy Verified 05/10/16 08:43 chocolate flavor Allergy Verified 05/10/16 08:43 egg Allergy Verified 05/10/16 08:43 Iodinated Contrast- Oral and Allergy Verified 05/10/16 08:44 IV Dye [Iodinated Contrast Media - Oral and] iodine Allergy Verified 05/10/16 08:43 latex Allergy Verified 05/10/16 08:43 orange juice Allergy Verified 05/10/16 08:43 tolterodine tartrate Allergy Verified 05/10/16 08:43 [From Detrol] tomato Allergy Verified 05/10/16 08:43 Medications: Current Medications Acetaminophen (Tylenol) 650 mg PO Q4H PRN PRN Reason: Headache/Fever or Pain Last Admin: 05/01/17 18:52 Dose: 650 mg Al Hydroxide/Mg Hydroxide (Maalox) 30 ml PO Q6H PRN PRN Reason: Heartburn or Indigestion Albuterol/Ipratropium (Duoneb) 3 ml NEB [id number] [facility] Last Admin: 05/09/17 18:37 Dose: 3 ml Amlodipine Besylate (Norvasc) 10 mg PO DAILY [facility] Last Admin: 05/09/17 08:54 Dose: 10 mg Lipase/Protease/Amylase ([place] [id number]) 1 cap FS .PER PROTOCOL PRN PRN Reason: TUBE OCCLUSION PROTOCOL Artificial Tears (Tears Naturale) 0 drop EA EYE PRN PRN PRN Reason: Dry Eyes Aspirin (Aspirin Chewable) 81 mg PO DAILY [facility] Last Admin: 05/09/17 08:52 Dose: 81 mg Calcitriol (Rocaltrol) 0.25 mcg PO DAILY [facility] Last Admin: 05/09/17 08:52 Dose: 0.25 mcg Calcium Acetate (Phoslo) 1,334 mg PO TID-WM [facility] Last Admin: 05/09/17 17:16 Dose: 1,334 mg Dexamethasone (Decadron) 2 mg SLOW IVP BID [facility] Last Admin: 05/09/17 21:22 Dose: 2 mg Dextrose/Water (Dextrose 50%) 25 gm SLOW IVP PRN PRN PRN Reason: Hypoglycemia Epoetin Javier (Procrit) 10,000 units SC Q7D [facility] Last Admin: 05/06/17 17:40 Dose: 10,000 units Famotidine (Pepcid) 20 mg PER TUBE DAILY [facility] Last Admin: 05/09/17 08:51 Dose: 20 mg Ferrous Sulfate (Feosol) 325 mg PO QAM-WM [facility] Last Admin: 05/09/17 08:52 Dose: 325 mg Glucagon (Glucagon) 1 mg IM PRN PRN PRN Reason: Hypoglycemia Guaifenesin (Robitussin Sf) 200 mg PO Q4H PRN PRN Reason: Cough Heparin Sodium (Porcine) (Heparin) 5,000 units SC BID [facility] Last Admin: 05/09/17 21:23 Dose: 5,000 units Hydralazine HCl (Apresoline) 10 mg SLOW IVP Q4H PRN PRN Reason: Systolic BP > 180 Last Admin: 05/01/17 17:22 Dose: 10 mg Dextrose/Water (D5w) 1,000 mls @ 0 mls/hr IV .Q0M PRN; As Directed PRN Reason: Hypoglycemia Lacosamide 100 mg/ Sodium (Chloride) 60 mls @ 120 mls/hr IVPB 0400,1600 [facility] Last Admin: 05/09/17 17:16 Dose: 60 mls Phenobarbital Sodium 65 mg/ (Sodium Chloride) 101 mls @ 202 mls/hr IVPB Q8HR [facility] Last Admin: 05/09/17 22:26 Dose: 101 mls Fosphenytoin Sodium 200 mg/ (Sodium Chloride) 54 mls @ 108 mls/hr IVPB 0900 [facility] Last Admin: 05/09/17 08:58 Dose: 54 mls Fosphenytoin Sodium 300 mg/ (Sodium Chloride) 56 mls @ 112 mls/hr IVPB 2100 [facility] Last Admin: 05/09/17 21:23 Dose: 56 mls Meropenem 2 gm/ Sodium (Chloride) 100 mls @ 200 mls/hr IVPB 0200,1400 [facility] Stop: 05/16/17 16:00 Last Admin: 05/09/17 13:17 Dose: 100 mls Fentanyl Citrate 2,000 mcg/ (Sodium Chloride) 100 mls @ 0 mls/hr IV INF CHIO PRN Reason: As Directed Last Admin: 05/08/17 12:54 Dose: 100 mls Fentanyl Citrate (Fentanyl Bolus) 250 mls @ 0 mls/hr IVPB PRN PRN; As Directed PRN Reason: Breakthrough pain Stop: 06/06/17 14:33 Vancomycin HCl 750 mg/ Sodium (Chloride) 250 mls @ 250 mls/hr IVPB .PENDING LEVEL <20 [facility] Stop: 05/21/17 23:59 Sodium Bicarbonate 150 meq/ (Dextrose/Water) 1,150 mls @ 40 mls/hr IV .Q24H [facility] Last Admin: 05/08/17 22:00 Dose: Not Given Insulin Human Lispro (Humalog) 0 units SC .MODERATE SLIDING SC PRN PRN Reason: Moderate Correctional Scale Insulin Human Lispro (Humalog) 0 units SC .BEDTIME SLIDING SC PRN PRN Reason: Bedtime Correctional Scale Levetiracetam (Keppra) 1,500 mg PO BID [facility] Last Admin: 05/09/17 21:23 Dose: 1,500 mg Levothyroxine Sodium (Synthroid) 100 mcg PO 0600 [facility] Last Admin: 05/09/17 05:27 Dose: Not Given Loperamide HCl (Imodium) 2 mg PO PRN PRN PRN Reason: Diarrhea/Loose Stools Lorazepam (Ativan) 2 mg SLOW IVP Q2H PRN PRN Reason: Anxiety to achieve [place] 2-3 Stop: 06/06/17 14:33 Magnesium Hydroxide (Milk Of Magnesium) 30 ml PO DAILYPRN PRN PRN Reason: Constipation Mineral Oil/White Petrolatum (Eucerin Cream) 0 gm TOP BIDPRN PRN PRN Reason: Dry Skin Miscellaneous Medication (Pharmacy To Dose) 0 each IVPB ASDIR PRN PRN Reason: Pharmacy to Dose VANCOMYCIN Miscellaneous Medication (Pharmacy To Dose) 1 each IVPB PRN PRN PRN Reason: Pharmacy to dose Discontinue Previous Narcotic Pain Medications And Benzodiazepines 1 each FS .ONE [facility] Stop: 06/06/17 14:33 Ondansetron HCl (Zofran Odt) 4 mg PO Q6H PRN PRN Reason: Nausea/Vomiting Ondansetron HCl (Zofran) 4 mg IVP Q6H PRN PRN Reason: Nausea/Vomiting Last Admin: 04/12/17 13:07 Dose: 4 mg Scopolamine (Transderm Scop) 1.5 mg TD Q3D [facility] Last Admin: 05/09/17 08:47 Dose: 1.5 mg Senna (Senokot) 2 tab PO HSPRN PRN PRN Reason: Constipation Sertraline HCl (Zoloft) 150 mg PO DAILY [facility] Last Admin: 05/09/17 08:51 Dose: 150 mg Sodium Bicarbonate (Bicarbonate, Sodium) 650 mg PER TUBE .PER PROTOCOL PRN PRN Reason: ENTERAL TUBE OCCLUSION Last Admin: 05/01/17 07:46 Dose: 650 mg Sodium Bicarbonate (Bicarbonate, Sodium) 650 mg PO TID [facility] Last Admin: 05/09/17 21:23 Dose: 650 mg Sodium Chloride ([place] Nasal [place] 0.65%) 0 ml EA NARE QIDPRN PRN PRN Reason: Nasal Congestion Sodium Chloride (Flush - Normal Saline) 10 ml IVF Q12HR [facility] Last Admin: 05/09/17 21:24 Dose: 10 ml Sodium Chloride (Flush - Normal Saline) 10 ml IVF PRN PRN PRN Reason: Saline Flush Last Admin: 04/26/17 20:45 Dose: 10 ml Sodium Chloride (Flush - Normal Saline) 10 ml IVF PRN PRN PRN Reason: Saline Flush Vitamin B Complex/Vit C/Folic Acid (Nephro-Supriya Tablet) 1 tab PO DAILY [facility] Last Admin: 05/09/17 08:51 Dose: 1 tab
[2017-05-10] MEDS: Meropenem 2 GM in Sodium Chloride 0.9% 100 ML IVPB SCH ×2 (02:34→14:09)
[2017-05-10] MEDS: Lacosamide 100 MG in Sodium Chloride 0.9% 50 ML IVPB SCH ×2 (04:14→17:47)
[2017-05-10] MEDS: Levothyroxine Sodium 100 MCG TAB PO SCH (05:50)
[2017-05-10] MEDS: SODIUM CHLORIDE 0.9% IVPB SCH ×3 (05:50→22:15)
[2017-05-10] MEDS: PHENOBARBITAL SODIUM IVPB SCH ×3 (05:50→22:15)
[2017-05-10] MEDS: Calcium Acetate 667 MG CAP PO SCH ×3 (08:57→17:40)
[2017-05-10] MEDS: Amlodipine 10 MG TAB PO SCH (08:57)
[2017-05-10] MEDS: Ferrous Sulfate 325 MG TAB PO SCH (08:57)
[2017-05-10] MEDS: Dexamethasone 4 mg/ml Vial SLOW IVP SCH ×2 (08:58→20:43)
[2017-05-10] MEDS: Famotidine 20 MG TAB PER TUBE SCH (08:58)
[2017-05-10] MEDS: Folic Acid/Vit B Comp W-C PO SCH (08:58)
[2017-05-10] MEDS: Calcitriol 0.25 MCG CAP PO SCH (08:58)
[2017-05-10] MEDS: Sodium Bicarbonate Tab 325 MG TAB PO SCH ×3 (08:59→20:44)
[2017-05-10] MEDS: levETIRAcetam 500 MG TAB PO SCH ×2 (08:59→20:44)
[2017-05-10] MEDS: Heparin 5,000 UNITS/ML VIAL SC SCH ×2 (08:59→20:43)
[2017-05-10] MEDS: Fosphenytoin Sodium 200 MG in Sodium Chloride 0.9% 50 ML IVPB SCH (09:24)
--- NOTE | 2017-05-10 10:00 | PRG ---
DATE OF SERVICE: 05/10/2017 SUBJECTIVE: No acute events noted. Undergoing an EEG at the present time. The family is still unde cided regarding placement of tracheostomy. PHYSICAL EXAMINATION: VITAL SIGNS: Blood pressure is 194/93, heart rate 103, respiratory rate 29, pulse ox 95%. GENERAL: The patient is unresponsive, intubated on ventilator support. SKIN: Adequate turgor. HEENT: Slightly pale conjunctivae, anicteric sclerae. NECK: No neck mass, no carotid bruits, no JVD. CHEST: No deformities. LUNGS: Decreased breath sounds. HEART: Normal sinus rhythm. No murmur, no gallops, no rubs. ABDOMEN: Globular, soft, nontender, no masses. EXTREMITIES: No edema, no deformities. Positive for colostomy and urostomy. MEDICATIONS: 05/10/2017 - Reviewed. LABORATORY: 05/09/2017 - BUN 44, creatinine 2.78, hemoglobin was 7. ASSESSMENT AND PLAN: 1. Anemia, continuing weekly Epogen, p.r.n. blood transfusion. Recheck CBC in a.m. 2. Chronic renal failure/acute kidney injury, stable renal function. No indication for any dialytic intervention. 3. Seizure disorder, for repeat EEG. Currently on several anti-seizure meds. 4. Acute respiratory failure, unable to be weaned off due to severe decreased/depressed mentation, a waiting for family to decide regarding placement of tracheostomy. Her overall prognosis remains guarded.
--- NOTE | 2017-05-10 15:58 | MRI ---
MRI BRAIN NONCONTRAST: DATE: 05/10/17 HISTORY: 61-year-old comatose female with status epilepticus. COMPARISON: 04/24/17. FINDINGS: Again, the images are all degraded by patient motion. Some of the degradation is severe. Again noted are the extensive, patchy T2 hyperintense signal abnormalities representing vasogenic edema throughou t much of the left frontal, parietal, and occipital subcortical and deep white matter, with questiona ble involvement of cortex. There is also a small area of involvement of the left temporal lobe and al so at the right thalamus, and questionably the right parietal lobe. There is no restricted diffusion. These white matter signal abnormalities are best visualized on the FLAIR coronal sequence, which is less degraded by patient motion compared to the other sequences. There is no evidence of recent or re mote intra-axial hemorrhage. Ventricles are normal in size and configuration. No mass effect, midline shift, or extra-axial fluid collection. There is interval worsening of now severe partial opacificat ion of the right sphenoid air cell and extensive moderate to severe partial opacification of bilatera l ethmoid air cells. Circumferential mucosal thickening of left sphenoid air cell is stable. There ar e bilateral mastoid effusions, worse than before. There is questionable diffuse T2 hyperintensity of the kallie. It is difficult to be sure if this is real or not because of the severe patient motion jh fact. IMPRESSION: 1. Extensive vasogenic edema, predominantly left-sided white matter cerebral edema, and possibly inv olving the akllie, right thalamus, and to a lesser degree right cerebrum, similar in appearance to 04/12 05/27. 2. Differential diagnosis includes edema around multiple metastatic lesions, cerebritis and/or brain abscesses, status epilepticus, PRES (posterior reversible edema syndrome), and nonspecific metabolic disorders. 3. Limited study because of severe degradation by motion. 4. Interval worsening of sphenoid and ethmoid sinus disease. 5. Interval worsening of bilateral mastoid effusions. 6. Possible abnormal signal of the kallie. 7. Contrast enhanced MRI of the brain should be considered (unless contraindicated). WALLACE Bartlett POS: TPC
--- NOTE | 2017-05-10 18:11 | PRG ---
DATE OF SERVICE: 05/10/2017 SERVICE: Pulmonary Medicine. INTERVAL HISTORY: The patient is doing fine from a respiratory and cardiovascular standpoint. Neuro logically, she is doing quite poorly. Once again, she reports of seizures. As such, we are going to get an EEG. I have not seen any seizure-like activity myself. When I call her name out, she will s pontaneously open her eyes up and slowly close them again. She does not attend PHYSICAL EXAMINATION: VITAL SIGNS: Afebrile with a T-max of 100, pulse 87, blood pressure 159/76, . GENERAL: The patient is intubated. She is not on any sedation at this point. HEENT: Normocephalic and atraumatic. Sclerae are white, conjunctivae pink. Oral and nasal mucosa i s moist without lesions. LUNGS: Decent air entry. No prolonged expiratory phase is present. HEART: Normal rate and regular. ABDOMEN: Soft, nontender and nondistended. Bowel sounds are positive. MUSCULOSKELETAL: No cyanosis or clubbing. There is 2+ pitting throughout. GENITOURINARY: No Gilbert. NEUROLOGIC: Grossly nonfocal. ASSESSMENT: 1. Acute hypoxic respiratory failure. 2. Severe sepsis. 3. Bacteremia secondary to Staph epidermidis. 4. Urinary tract infection secondary to Klebsiella, polanco resistant. 5. Status epilepticus with possible seizure activity in the last 24 hours. 6. Chronic kidney disease. 7. 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 We are going to repeat the EEG. The family discussion is going to be tomorrow at 5:00 p.m. I will be available for that if necessary. Pulmonary Critical Care will continue to follow while the patient remains in this location, but all we are going to do at this point is continue supportive care. If the patient continues to have ongoing seizure activity , the likelihood of any meaningful recovery through time is essentially nonexistent. If there is no seizure activity, there is a possibility that the Versed is still working its way out of her system, which in this patient may take a protracted period of time. CRITICAL CARE TIME: 30 minutes.
--- NOTE | 2017-05-10 20:14 | PRG ---
DATE OF SERVICE: 05/10/2017 Ms. Sakina Lorenzana is still on the ventilator. We are awaiting family to arrive to decide whether she ne eds a tracheostomy or PEG tube. I have discouraged the family from doing this. The patient continue s to have seizures and is essentially unresponsive. Overall, prognosis is very poor. It appears ted t the family is discussing withdrawal of care and hospice. We will await their arrival and decision. In the meantime, we will not plan tracheostomy and PEG tube until further family discussions.
[2017-05-10 20:46] LABS: Vancomycin, Random 20.9 ug/mL (See Comment)
[2017-05-10] MEDS: Sodium Bicarbonate 150 MEQ in Dextrose 5% in Water 1,000 ML IV SCH ×2 (23:09)
[2017-05-11] MEDS: Meropenem 2 GM in Sodium Chloride 0.9% 100 ML IVPB SCH (01:20)
[2017-05-11] MEDS: PHENOBARBITAL SODIUM IVPB SCH (05:25)
[2017-05-11] MEDS: Levothyroxine Sodium 100 MCG TAB PO SCH (05:25)
[2017-05-11] MEDS: SODIUM CHLORIDE 0.9% IVPB SCH (05:25)
[2017-05-11] MEDS: Calcium Acetate 667 MG CAP PO SCH ×2 (08:00→12:08)
[2017-05-11] MEDS: Folic Acid/Vit B Comp W-C PO SCH (09:00)
[2017-05-11] MEDS: Calcitriol 0.25 MCG CAP PO SCH (09:00)
[2017-05-11] MEDS: Fosphenytoin Sodium 200 MG in Sodium Chloride 0.9% 50 ML IVPB SCH (09:00)
[2017-05-11] MEDS: levETIRAcetam 500 MG TAB PO SCH (09:00)
[2017-05-11] MEDS: Ferrous Sulfate 325 MG TAB PO SCH (09:00)
[2017-05-11] MEDS: Famotidine 20 MG TAB PER TUBE SCH (09:00)
[2017-05-11] MEDS: Dexamethasone 4 mg/ml Vial SLOW IVP SCH (09:00)
[2017-05-11] MEDS: Sodium Bicarbonate Tab 325 MG TAB PO SCH (09:00)
[2017-05-11] MEDS: Amlodipine 10 MG TAB PO SCH (09:00)
[2017-05-11] MEDS: Heparin 5,000 UNITS/ML VIAL SC SCH (09:00)
[2017-05-11 09:38] LABS: Vancomycin, Random 18.9 ug/mL (See Comment)
--- NOTE | 2017-05-11 10:32 | PDOC.PN ---
- Subjective Encounter Start Date: 05/10/17 Encounter Start Time: 10:32 -: non-verbal (seen ad examined) Subjective: seen and examined - Objective Resuscitation Status: Resuscitation Status FULL:Full Resuscitation Vital Signs & Weight: Vital Signs (12 hours) Temp Pulse Resp BP Pulse Ox 05/11/17 08:19 99 25 H 99 05/11/17 08:12 112 H 217/101 H 05/11/17 06:00 25 H 05/11/17 04:00 22 H 05/11/17 03:00 98.9 F 05/11/17 02:00 25 H 05/11/17 00:00 25 H 05/10/17 23:40 99 30 H 99 05/10/17 23:00 98.5 F Weight Admit Weight 222 lb 8 oz Weight 237 lb 3.478 oz Most Recent Monitor Data Heart Rate from ECG 74 NIBP 119/49 NIBP BP-Mean 67 Respiration from ECG 25 SpO2 100 I&O: 05/10/17 05/11/17 05/12/17 06:59 06:59 06:59 Intake Total 2673.3 2640 Output Total 3415 2955 Balance -741.7 -315 Result Diagrams: 05/09/17 05:20 05/09/17 05:20 Additional Labs: Accuchecks 05/11/17 05/11/17 05/10/17 09:11 03:53 21:03 POC Glucose 99 98 102 05/10/17 15:57 POC Glucose 86 Phys Exam - Physical Examination Constitutional: NAD HEENT: PERRLA, moist MMs, 2+ tonsils Neck: no nodes, no JVD, supple, full ROM Respiratory: no wheezing vented sounds Cardiovascular: RRR, no significant murmur Gastrointestinal: soft, non-tender, no distention Musculoskeletal: no edema, pulses present Dx/Plan (1) Acute metabolic encephalopathy Code(s): G93.41 - METABOLIC ENCEPHALOPATHY Status: Acute Comment: (2) Acute respiratory failure with hypoxia Code(s): J96.01 - ACUTE RESPIRATORY FAILURE WITH HYPOXIA Status: Acute Comment: on ventilator (3) Acute worsening of stage 4 chronic kidney disease Code(s): N28.9 - DISORDER OF KIDNEY AND URETER, UNSPECIFIED; N18.4 - CHRONIC KIDNEY DISEASE, STAGE 4 (SEVERE) Status: Acute Comment: (4) CRBSI (catheter-related bloodstream infection) Code(s): T80.211A - BLOODSTREAM INFECTION DUE TO CENTRAL VENOUS CATHETER, INIT Status: Acute (5) Metabolic acidosis Code(s): E87.2 - ACIDOSIS Status: Acute Comment: (6) Pneumonia Code(s): J18.9 - PNEUMONIA, UNSPECIFIED ORGANISM Status: Acute Qualifiers: Pneumonia type: aspiration pneumonia Aspiration pneumonia type: due to gastric secretions Laterality: bilateral Lung location: lower lobe of lung Qualified Code(s): J69.0 - Pneumonitis due to inhalation of food and vomit Comment: (7) Pulmonary vascular congestion Code(s): R09.89 - OTH SYMPTOMS AND SIGNS INVOLVING THE CIRC AND RESP SYSTEMS Status: Acute (8) Status epilepticus Code(s): G40.901 - EPILEPSY, UNSP, NOT INTRACTABLE, WITH STATUS EPILEPTICUS Status: Acute - Plan cont current plan of care, PT/OT, social media strategist * .
--- NOTE | 2017-05-11 10:34 | PDOC.PN ---
- Subjective Encounter Start Date: 05/11/17 Encounter Start Time: 10:33 Subjective: Seen and examined still on ;life support - Objective Resuscitation Status: Resuscitation Status FULL:Full Resuscitation Vital Signs & Weight: Vital Signs (12 hours) Temp Pulse Resp BP Pulse Ox 05/11/17 08:19 99 25 H 99 05/11/17 08:12 112 H 217/101 H 05/11/17 06:00 25 H 05/11/17 04:00 22 H 05/11/17 03:00 98.9 F 05/11/17 02:00 25 H 05/11/17 00:00 25 H 05/10/17 23:40 99 30 H 99 05/10/17 23:00 98.5 F Weight Admit Weight 222 lb 8 oz Weight 237 lb 3.478 oz Most Recent Monitor Data Heart Rate from ECG 74 NIBP 119/49 NIBP BP-Mean 67 Respiration from ECG 25 SpO2 100 I&O: 05/10/17 05/11/17 05/12/17 06:59 06:59 06:59 Intake Total 2673.3 2640 Output Total 3415 2955 Balance -741.7 -315 Result Diagrams: 05/09/17 05:20 05/09/17 05:20 Additional Labs: Accuchecks 05/11/17 05/11/17 05/10/17 09:11 03:53 21:03 POC Glucose 99 98 102 05/10/17 15:57 POC Glucose 86 Phys Exam - Physical Examination vented HEENT: moist MMs, oral pharynx no lesions Neck: no nodes, no JVD, supple Respiratory: no wheezing, no rales Cardiovascular: RRR, no significant murmur, no rub Gastrointestinal: soft, no distention, positive bowel sounds Musculoskeletal: no edema, pulses present Dx/Plan (1) Acute metabolic encephalopathy Code(s): G93.41 - METABOLIC ENCEPHALOPATHY Status: Acute Comment: (2) Acute respiratory failure with hypoxia Code(s): J96.01 - ACUTE RESPIRATORY FAILURE WITH HYPOXIA Status: Acute Comment: on ventilator (3) Acute worsening of stage 4 chronic kidney disease Code(s): N28.9 - DISORDER OF KIDNEY AND URETER, UNSPECIFIED; N18.4 - CHRONIC KIDNEY DISEASE, STAGE 4 (SEVERE) Status: Acute Comment: (4) CRBSI (catheter-related bloodstream infection) Code(s): T80.211A - BLOODSTREAM INFECTION DUE TO CENTRAL VENOUS CATHETER, INIT Status: Acute (5) Metabolic acidosis Code(s): E87.2 - ACIDOSIS Status: Acute Comment: (6) Pneumonia Code(s): J18.9 - PNEUMONIA, UNSPECIFIED ORGANISM Status: Acute Qualifiers: Pneumonia type: aspiration pneumonia Aspiration pneumonia type: due to gastric secretions Laterality: bilateral Lung location: lower lobe of lung Qualified Code(s): J69.0 - Pneumonitis due to inhalation of food and vomit Comment: (7) Pulmonary vascular congestion Code(s): R09.89 - OT SYMPTOMS AND SIGNS INVOLVING THE CIRC AND RESP SYSTEMS Status: Acute (8) Status epilepticus Code(s): G40.901 - EPILEPSY, UNSP, NOT INTRACTABLE, WITH STATUS EPILEPTICUS Status: Acute - Plan blank catheter, PT/OT, social media content manager, respiratory therapy Possible family meeting today -: prognosis -poor * .
--- NOTE | 2017-05-11 10:56 | PRG ---
DATE OF SERVICE: 05/11/2017 SUBJECTIVE: Ms. Lorenzana is being followed up for her chronic renal failure. She has during this hospit alization, an acute episode of renal dysfunction, which improved with IV hydration. She is still int ubated due to the severe decreased mentation. Neurology is following. She does not have status epil epticus based on the last EEG. In addition, she has been unable to be weaned off because of severe d ecreased mentation. No acute events noted last night. The family still undecided whether to proceed with PEG tube and tracheostomy. OBJECTIVE: VITAL SIGNS: Blood pressure is noted at 111/47, heart rate 81, respiratory rate is 12, and pulse ox 100%. GENERAL: Unresponsive, intubated on ventilator support. SKIN: Adequate turgor. HEENT: Slightly pale conjunctivae, anicteric sclerae. NECK: No neck mass, no carotid bruits, no JVD. CHEST: No deformities. LUNGS: Decreased breath sounds. HEART: Normal sinus rhythm. No murmur, no gallops, no rubs. ABDOMEN: Globular, soft, nontender, no masses. Positive for colostomy, positive for urostomy. EXTREMITIES: Trace edema. MEDICATIONS: 05/11/2017 - reviewed. LABORATORY DATA: On 05/09/2017 was reviewed. Blood sugar 99 on 05/11/2017. ASSESSMENT AND PLAN: 1. Acute kidney injury/chronic renal failure, stable renal function. Continue supportive care. The re is no indication for any dialytic intervention. 2. Anemia, on weekly Epogen at 10,000 units subcutaneously every week. 3. Acute respiratory failure - due to the severe metabolic encephalopathy. Patient is unable to be weaned off. Awaiting family to decide on tracheostomy. 4. Anemia, on weekly Epogen, p.r.n. blood transfusion for hemoglobin less than 7. 5. Seizure disorder - no evidence of status epilepticus. Currently on anti-seizure meds. We will re check base met and CBC in a.m.
[2017-05-11] MEDS ORDERED: Vancomycin HCl 1 GM in Premix Bag 1 BAG IVPB SCH (11:00)
[2017-05-11 12:08] LABS: #Basophils 0.1 thou/uL (0.0-0.2); #Eosinphils 0.4 thou/uL (0.0-0.7); #Lymphocytes 1.6 thou/uL (1.20-3.40); #Monocytes 0.3 thou/uL (0.11-0.59); #Neutrophils 7.1 thou/uL (1.40-6.50); %Basophils 0.6 % (0.0-1.0); %Eosinophils 4.7 % (0.0-10.0); %Lymphocytes 17.2 % (21.0-51.0); %Monocytes 2.8 % (0.0-10.0); %Neutrophils 74.8 % (42.0-75.0); Anisocytosis SLIGHT = 6-15 cells (100X) (0-5/hpf); MDiff Complete? YES; Mean Corpuscular HGB CONC 32.1 g/dL (32.0-36.0); Mean Corpuscular Hemoglobin 30.1 pg (27.0-31.0); Mean Corpuscular Volume 93.6 fl (81.0-99.0); PLT Morphology Comment Appears Adequate; Platelet Count 300 thou/uL (130-400); Polychromasia SLIGHT = 2-3 cells (100X) (0-2/hpf); RBC Distribution Width 16.1 % (11.5-14.5); Red Blood Cell (RBC) Count 2.66 mill/uL (4.20-5.40); Target Cells SLIGHT = 2-5 cells (100X) (0-1/hpf); White Blood Cell (WBC) Count 9.5 thou/uL (4.8-10.8)
[2017-05-11 12:13] LABS: Anion Gap 14 mmol/L (10-20); BUN (Urea Nitrogen) 45 mg/dL (9.8-20.1); Calc. Creatinine Clearance 37 mL/min (70-130); Calcium 9.1 mg/dL (7.8-10.44); Carbon Dioxide 23 mmol/L (23-31); Chloride 112 mmol/L (98-107); Estimated GFR-MDRD 22; Glucose 96 mg/dL (80-115); Magnesium 1.7 mg/dL (1.6-2.6); Phosphorus 3.7 mg/dL (2.3-4.7); Potassium 3.8 mmol/L (3.5-5.1); Sodium 145 mmol/L (136-145)
[2017-05-11 14:30] VITALS: BMI 43.4
--- NOTE | 2017-05-11 14:48 | PRG ---
DATE OF SERVICE: 05/11/2017 SUBJECTIVE: Ms. Lorenzana with multiple medical problems who has a known status epilepticus. She has not had any noticeable seizure type activity by the nurses over the past 24 hours. She had an EEG done yesterday which showed epileptiform discharges more prominent on the left hemisphere, but there were no electrographic seizures and she was not noted in status epilepticus. There has not been any impro vement in her neurological function over the past 24 hours. OBJECTIVE: VITAL SIGNS: Blood pressure of 153/66, pulse of 90, respirations of 28 on mechanical ventilation, te mperature of 101. GENERAL: Intubated, nonsedated, female, in no apparent distress. RESPIRATORY: Clear to auscultation bilaterally. CARDIOVASCULAR: Regular rate and rhythm. NEUROLOGICAL: Mental status: The patient is intubated and nonsedated. She is unresponsive to verba l or noxious stimuli. Cranial nerves: Pupils are 3 mm and reactive. She has positive corneal refle xes bilaterally. She opens her eyes spontaneously, but does not track. She does breathe over the ve ntilator machine. There is a positive cough and gag reflex. Motor exam showed spastic bilateral upp er and lower extremities. She would a minimal withdrawal to pain on the right upper extremity, but n o response to pain in left upper extremity or bilateral lower extremities. Babinski: Plantar respon ses equivocal bilaterally. IMAGING STUDIES: MRI brain without contrast done on yesterday was reviewed which per Radiology showe d extensive vasogenic edema predominantly left-sided white matter cerebral hemisphere and possibly in volving the kallie and right thalamus and to a lesser degree in the right cerebrum. There is also exte nsive moderate to severe opacification bilateral ethmoid air cells and sphenoid air cells. This is u nchanged or stable compared to previous MRI done on 04/24/2017. IMPRESSION: 1. Status epilepticus. 2. Vasogenic cerebral edema. 3. Acute on chronic renal failure. ASSESSMENT AND PLAN: Ms. Lorenzana is a 61-year-old female who presented with the medica l problems who had initially focal motor seizures, which then generalized and resulted in status epil epticus, She has been on four different antiepileptic medication and had to be put on induced coma, Her most recent EEG that was done yesterday showed no electrographic seizure or status epilepticus; however, it does show frequent epileptiform discharges more prominent on the left hemisphere than on the right hemisphere. Her MRI does show vasogenic edema throughout the left cerebral hemisphere as w ell as to a lesser degree in the right hemisphere. I have discussed this with the radiologist, Dr. Otoniel winn and there is a concern whether this hyperintense vasogenic edema could be secondary to a metas tatic lesion or post-seizure. At this time, it is unknown. I have discussed the findings of the MRI and her neurological status with the family, consultation with Dr. Tejada and Dr. العراقي and [facility] nurse who have been present, all the family members of the Ms. Lorenzana were present at that [facility]. I have explained the findings of the MRI. I have explained the current prognosis is very poor gi abby her underlying medical issues. I have also explained that this vasogenic edema could be secondar y to metastatic tumor, which explains the status epilepticus. I have explained that the prognosis is very poor given her condition. I will leave up to the family to decide whether they want to proceed with the CT head with contrast t o evaluate for the lesions and if it does automatic glove turner and former to be metastatic tumor, the prognosis will be very poor. I have spent approximately 30-35 minutes for above discussion with the family.
--- NOTE | 2017-05-11 15:35 | PRG ---
DATE OF SERVICE: 05/11/2017 SERVICE: Pulmonary Medicine. INTERVAL HISTORY: The patient is doing fine from a respiratory standpoint. Neurologically, she is j ust simply not waking up. We had a very long discussion with multiple family members today. I met w ith the 2 sons, they are here. The third child is actually in our ICU and not in any capacity to par ticipate in this conversation. Either way, the two sons have both told us that after a long discussi on that they would not like their mother to be artificially kept alive moving forward. They have see n her suffering way too much over these past couple of weeks and would like to pursue comfort measure s. Otherwise, there were no changes to her condition. PHYSICAL EXAMINATION: VITAL SIGNS: T-max 101, pulse 101, blood pressure 184/84, respirations 22, saturation 100% on 27% FI O2 and a PEEP of 5. GENERAL: The patient is comatose. HEENT: Normocephalic, atraumatic. Sclerae are white, conjunctivae pink. Oral mucosa is moist witho ut lesions. LUNGS: Excellent air entry. There is no prolonged expiratory phase, wheezing, rhonchi or crackles. HEART: Normal rate, regular. ABDOMEN: Soft. Nontender, nondistended. Bowel sounds are positive. MUSCULOSKELETAL: No cyanosis or clubbing. There is diffuse 1+ pitting throughout. GENITOURINARY: No Gilbert catheter in place. She has an ostomy over her ileal conduit. NEUROLOGIC: The patient does not withdraw from noxious stimuli in all 4 extremities. She randomly o pens her eyes and closes her eyes, but she is not following any commands whatsoever. She over breath es the ventilator and has a cough with very deep suctioning. LABORATORY DATA: WBC 9.5, hemoglobin 8.0, platelets 300,000. BUN 45, bicarbonate 23, chloride 112. Magnesium and phosphorus fall within the normal limits. ASSESSMENT: 1. Acute hypoxic respiratory failure. 2. Severe sepsis. 3. Bacteremia secondary to Staph epidermidis. 4. Urinary tract infection secondary to Klebsiella, polanco resistant. 5. Status epilepticus, resolved. 6. Chronic kidney disease. 7. 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 DISCUSSION AND PLAN: The MRI demonstrated a persistent swelling in the brain. This does corresponde d with a focal motor seizure the patient has been having. That being said, we have been able to stop the seizure activity for a couple of days so far as we are aware. Unfortunately, the swelling persi sts, making the likelihood of a metastatic lesion be a greater possibility. The EEG yesterday showed epileptiform discharges, but no ongoing seizure activity. Pulmonary Critical Care will continue to follow while the patient remains in this location, but our plan is to transition over to comfort care only once the family is ready. It is their understanding that the patient will have a very difficul t time making a full, meaningful neurologic recovery as they define it. We will make this transition at some point today. I did spend a very long period of time counseling the family and assessing the patient directly. CRITICAL CARE TIME: 87 minutes.
[2017-05-11] MEDS: Morphine 5 MG/ML SYRINGE SLOW IVP PRN ×4 (18:22→23:57)
[2017-05-12] MEDS: Morphine 5 MG/ML SYRINGE SLOW IVP PRN ×6 (00:59→17:59)
[2017-05-12] MEDS: Lorazepam 2 MG/ML VIAL SLOW IVP PRN ×5 (04:15→19:57)
[2017-05-12] MEDS: SODIUM CHLORIDE 0.9% IVPB SCH (04:34)
[2017-05-12] MEDS: Meropenem 2 GM in Sodium Chloride 0.9% 100 ML IVPB SCH (04:34)
[2017-05-12] MEDS: PHENOBARBITAL SODIUM IVPB SCH (04:34)
--- NOTE | 2017-05-12 11:09 | PDOC.PN ---
- Subjective Encounter Start Date: 05/12/17 Encounter Start Time: 10:20 Lethargic.. - Objective Resuscitation Status: Resuscitation Status DNR:Do Not Resuscitate Vital Signs & Weight: Vital Signs (12 hours) Temp Pulse Resp BP Pulse Ox 05/12/17 08:46 20 94 L 05/12/17 08:00 99.4 F 94 20 110/63 94 L Weight Admit Weight 222 lb 8 oz Weight 237 lb 3.478 oz Most Recent Monitor Data Heart Rate from ECG 88 NIBP 152/70 NIBP BP-Mean 80 Respiration from ECG 27 SpO2 100 I&O: 05/11/17 05/12/17 05/13/17 06:59 06:59 06:59 Intake Total 2640 994 Output Total 2955 2055 Balance -315 -1061 Result Diagrams: 05/11/17 09:08 05/11/17 09:08 Phys Exam - Physical Examination HEENT: sclera anicteric Neck: no JVD Respiratory: wheezing present Cardiovascular: RRR Gastrointestinal: soft Musculoskeletal: no edema Dx/Plan (1) Acute metabolic encephalopathy Code(s): G93.41 - METABOLIC ENCEPHALOPATHY Status: Acute Comment: Recent status epilepticus, with vasogenic edema.. (2) Acute respiratory failure with hypoxia Code(s): J96.01 - ACUTE RESPIRATORY FAILURE WITH HYPOXIA Status: Acute Comment: Now extubated... (3) Acute worsening of stage 4 chronic kidney disease Code(s): N28.9 - DISORDER OF KIDNEY AND URETER, UNSPECIFIED; N18.4 - CHRONIC KIDNEY DISEASE, STAGE 4 (SEVERE) Status: Acute Plan: f/u chemistry.. F/u with nephrology. Comment: No acute change in renal function from yesterday.. (4) CRBSI (catheter-related bloodstream infection) Code(s): T80.211A - BLOODSTREAM INFECTION DUE TO CENTRAL VENOUS CATHETER, INIT Status: Acute Comment: On Vancomycin. F/u levels. (5) Pneumonia Code(s): J18.9 - PNEUMONIA, UNSPECIFIED ORGANISM Status: Acute Qualifiers: Pneumonia type: aspiration pneumonia Aspiration pneumonia type: due to gastric secretions Laterality: bilateral Lung location: lower lobe of lung Qualified Code(s): J69.0 - Pneumonitis due to inhalation of food and vomit Comment: (6) Status epilepticus Code(s): G40.901 - EPILEPSY, UNSP, NOT INTRACTABLE, WITH STATUS EPILEPTICUS Status: Acute Plan: As per neurology... - Plan -: Continue current management.. -: Condition is critical..Poor prognostic. * .
[2017-05-12 17:28] VITALS: TEMP 99.4
[2017-05-12 21:32] VITALS: BP 108/54
--- NOTE | 2017-05-13 01:19 | PRG ---
DATE OF SERVICE: 05/12/2017 SERVICE: Pulmonary Medicine. INTERVAL HISTORY: The patient is doing okay from a respiratory standpoint. She is starting to have desaturation events. She is likely nearing the end. She is having agonal respirations. Next of kin was notified. Her passing was imminent. She did not look to be in any distress, however. PHYSICAL EXAMINATION: VITAL SIGNS: T-max 100.8, pulse 115, blood pressure 108/54, respirations 22, saturation 90% on 3 lit ers nasal cannula. GENERAL: Patient is comatose. HEENT: Normocephalic, atraumatic. Sclerae are white, conjunctivae pink. Oral mucosa moist without lesions. LUNGS: Rhonchi are present throughout bilateral lung franco. There are no crackles or wheezing pres ent. HEART: Normal rate, regular. ABDOMEN: Soft, nontender, nondistended. Bowel sounds are positive. MUSCULOSKELETAL: No cyanosis or clubbing. There is no pitting throughout. GENITOURINARY: No Gilbert catheter. Ileal conduit is hooked up to an ostomy. NEUROLOGIC: The patient remains comatose at this point. ASSESSMENT: 1. Acute hypoxic respiratory failure. 2. Severe sepsis. 3. Status epilepticus. 4. Anoxic brain injury. 5. Chronic kidney disease. 6. 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 DISCUSSION AND PLAN: The patient is currently comfortable. Yesterday, we transitioned over to comfo rt care only. She does remain comfortable. We will continue supportive care, though I do believe th at her passing is imminent. At this point, the patient and her family, has no further requirements f or inpatient Pulmonary Critical Care opinion and I will sign off. Please call with additional questi ons or concerns.
--- NOTE | 2017-05-13 12:31 | DS ---
SUMMARY DATE OF ADMISSION: 04/08/2017 DATE OF : 05/12/2017 DIAGNOSES: Status epilepticus sepsis with Staphylococcus epidermidis bacteremia, chronic kidney dise ase, pneumonia, respiratory failure and cerebral edema. CONSULTANTS: Dr. Carisa Kapadia, Dr. Frank Mitchell, Dr. Vega and Dr. Jovel. PROCEDURE PERFORMED: Chest x-ray, MRI of the brain, head CT and PICC line placement. COURSE OF HOSPITALIZATION: Poor, long and complicated. The patient did not respond to management. She sustained severe brain damage from status epilepticus. She was made DNR and she last nig ht, which was 05/12 around 21:24.
== END 2017-05-12 21:24 | disposition expired | DRG 682 ==
LOC: ERS 18:46 → ERHOLD 19:41 → 2NO 04-09 01:51 → T4-B 04-09 21:15 → CCU 04-18 19:25 → T4-A 05-11 17:01
PROVIDERS: ADMIT Family Medicine; ATTEND Family Medicine
PROC: 2W0 Placement, Anatomical Regions, Change (ICD-10-PCS; 2017-04-15)
PROC: 0BH17EZ Insertion of Endotracheal Airway into Trachea, Via Natural or Artificial Opening (ICD-10-PCS; 2017-04-20)
PROC: 5A1955Z Respiratory Ventilation, Greater than 96 Consecutive Hours (ICD-10-PCS; 2017-04-20)
PROC: 02HV33Z Insertion of Infusion Device into Superior Vena Cava, Percutaneous Approach (ICD-10-PCS; 2017-04-20)
PROC: B548ZZA Ultrasonography of Superior Vena Cava, Guidance (ICD-10-PCS; 2017-04-20)
PROC: 02HV33Z Insertion of Infusion Device into Superior Vena Cava, Percutaneous Approach (ICD-10-PCS; 2017-05-02)
PROC: 30233N1 Transfusion of Nonautologous Red Blood Cells into Peripheral Vein, Percutaneous Approach (ICD-10-PCS; principal; 2017-05-05)
DX: N17.9 Acute kidney failure, unspecified (principal); G93.41 Metabolic encephalopathy; J96.01 Acute respiratory failure with hypoxia; A41.2 Sepsis due to unspecified staphylococcus; G93.6 Cerebral edema; J69.0 Pneumonitis due to inhalation of food and vomit; G93.1 Anoxic brain damage, not elsewhere classified; L89.154 Pressure ulcer of sacral region, stage 4; R65.20 Severe sepsis without septic shock; E87.2 Acidosis; N39.0 Urinary tract infection, site not specified; Z68.41 Body mass index [BMI] 40.0-44.9, adult; E87.0 Hyperosmolality and hypernatremia; T80.211A Bloodstream infection due to central venous catheter, initial encounter; E11.22 Type 2 diabetes mellitus with diabetic chronic kidney disease; E66.01 Morbid (severe) obesity due to excess calories; E86.0 Dehydration; I12.9 Hypertensive chronic kidney disease with stage 1 through stage 4 chronic kidney disease, or unspecified chronic kidney disease; N18.4 Chronic kidney disease, stage 4 (severe); E03.9 Hypothyroidism, unspecified; G40.909 Epilepsy, unspecified, not intractable, without status epilepticus; N31.9 Neuromuscular dysfunction of bladder, unspecified; E78.5 Hyperlipidemia, unspecified; Z85.038 Personal history of other malignant neoplasm of large intestine; Z93.3 Colostomy status; D63.1 Anemia in chronic kidney disease; F32.9 Major depressive disorder, single episode, unspecified; F41.9 Anxiety disorder, unspecified; N25.81 Secondary hyperparathyroidism of renal origin; Z66 Do not resuscitate; E83.51 Hypocalcemia; R53.81 Other malaise; E87.5 Hyperkalemia; G40.401 Other generalized epilepsy and epileptic syndromes, not intractable, with status epilepticus; G47.30 Sleep apnea, unspecified; E83.42 Hypomagnesemia; N13.30 Unspecified hydronephrosis; Z79.4 Long term (current) use of insulin; Y71.3 Surgical instruments, materials and cardiovascular devices (including sutures) associated with adverse incidents; B96.1 Klebsiella pneumoniae [K. pneumoniae] as the cause of diseases classified elsewhere; E88.81 Metabolic syndrome and other insulin resistance; E87.6 Hypokalemia
CPT/HCPCS: 36415; 36416; 36430; 36569; 70450; 70551; 71045; 76770; 80048; 80053; 80164; 80177; 80184; 80185; 80202; 81001; 82553; 82570; 82805; 83735; 83880; 83970; 84100; 84300; 84478; 84484; 84550; 85007; 85025; 85027; 86850; 86900; 86901; 87040; 87071; 87077; 87086; 87149; 87186; 94002; 94003; 94640; 95816; 95819; 95953; 96365; 96366; 96367; 96375; J2270; A4216; C1751; C9113; G8978-GP-CK; G8979-GP-CJ; G8987-GO-CM; G8988-GO-CM; G8989-GO-CM; J0360; J0696; J1100; J1644; J1940; J1953; J2001; J2060; J2185; J2250; J2405; J2543; J2560; J2704; J2765; J3010; J3370; J3475; J3480; J7050; J7070; J7620; P9016; P9045; Q2009; Q4081; S0028